=== PATIENT | female | born 1955 | race Caucasian/White ===

== ENCOUNTER → 2017-03-17 09:57 | Outpatient (CLI) | payer MEDICARE, SELFPAY ==
--- NOTE | 2017-03-17 10:04 | MM_ITS ---
MM Dig screening mamm BI w/CAD CAD Screening ORDERING PHYSICIAN : [facility] PATIENT AGE: 62 years GENDER: Female COMPARISON: Previous mammograms: January 2014, February 2016 20 INDICATION: Routine screening. No hormones. No new complaints. Noncontributory family history. TECHNIQUE: Standard CC and MLO images were obtained. R2 CAD reviewed. FINDINGS: Minimal fibroglandular elements Low-density breast bilaterally with no dominant mass nor suspicious calcifications either breast. No architectural distortion. No significant change since previous studies. Bilateral follow-up in one year adequate IMPRESSION: ...... Stable bilateral mammogram. No significant new findings. Lower density breast BI-RADS Category: 2 Benign Finding(s) RECOMMENDED FOLLOW-UP: 1YR - 1 YEAR FOLLOW-UP (A letter has been sent to the patient regarding results of the study.)
== END ==
PROVIDERS: PCP Emergency Medicine; Visit Provider Nurse Practitioner Obstetrics & Gynecology
DX: Z12.31 Encounter for screening mammogram for malignant neoplasm of breast (principal)
CPT/HCPCS: 77067

== ENCOUNTER → 2017-08-23 11:12 | Outpatient (CLI) | payer MEDICARE, SELFPAY ==
--- NOTE | 2017-08-23 12:32 | XR_ITS ---
XR chest 2V HISTORY: Midepigastric pain ITS.REASON: r/o hiatal hernia ORDERING PHYSICIAN: MYA Stoll PATIENT AGE: 62 years COMPARISON: None FINDINGS: The cardiomediastinal silhouette and pulmonary vascularity are within normal limits. The lungs are clear without infiltrates, suspicious nodules, or pleural effusions. No acute bony abnormalities. IMPRESSION: Negative chest, no acute finding
[2017-08-23 12:36] LABS: Basophils # 0.1 K/mm3 (0-0.2); Basophils % 0.5 % (0.1-2.0); Eosinophils # 0.2 K/mm3 (0.0-0.4); Eosinophils % 1.6 % (0.1-12.0); Hematocrit 44.9 % (37.0-47.0); Hemoglobin 13.9 g/dL (12.2-16.2); Lymphocytes # 2.9 K/mm3 (0.7-4.5); Mean Corpuscular HGB Conc 30.9 g/dL (31.8-35.4); Mean Corpuscular Hemoglobin 27.9 pg (27.0-31.2); Mean Corpuscular Volume 90.2 fl (81-99); Mean Platelet Volume 7.5 fl (7.4-10.4); Monocytes # 0.5 K/mm3 (0.1-1.0); Monocytes % 3.8 % (1.7-9.3); Neutrophils # 8.1 K/mm3 (1.8-7.8); Platelet Count 321 K/mm3 (142-424); Red Blood Count 4.97 M/mm3 (4.20-5.40); Red Cell Distribution Width 12.7 % (11.5-17.5); White Blood Count 11.7 K/mm3 (4.8-10.8)
[2017-08-23 14:19] LABS: Alanine Aminotransferase 24 U/L (12-78); Albumin Level 3.8 gm/dL (3.4-5.0); Alkaline Phosphatase 99 U/L (46-116); Anion Gap 9.9 mEq/L (5-15); Aspartate Amino Transferase 20 U/L (15-37); Bilirubin,Total 0.4 mg/dL (0.2-1.0); Blood Urea Nitrogen 23 mg/dL (7-18); Calcium 10.1 mg/dL (8.5-10.1); Carbon Dioxide 30 mmol/L (21.0-32.0); Chloride 104 mmol/L (98-107); Creatinine,Serum 0.74 mg/dL (0.55-1.02); Estimated Glomerular Filt Rate 79 ml/min (>60); GFR (African American) 96 ML/MIN (>60); Globulin 3.8 gm/dl (1.3-3.2); Glucose 94 mg/dL (74-106); Potassium 4.9 mmoL/L (3.5-5.1); Sodium 139 mmol/L (136-145); Thyroid Stimulating Hormone 2.03 uIU/ml (0.358-3.740); Total Protein,Serum 7.6 gm/dL (6.4-8.2)
[2017-08-27 13:31] LABS: H. pylori Breath Test Positive (Negative)
== END ==
PROVIDERS: PCP Physician Assistant; Visit Provider Physician Assistant
DX: R10.13 Epigastric pain (principal); Z13.6 Encounter for screening for cardiovascular disorders; R53.83 Other fatigue
CPT/HCPCS: 36415; 71046; 80053; 83013; 84443; 85025

== ENCOUNTER → 2017-08-31 09:08 | Outpatient (CLI) | payer MEDICARE, SELFPAY ==
--- NOTE | 2017-08-31 09:10 | US_ITS ---
US abd. aorta screening HISTORY: Pulsatile abdominal mass ITS.REASON: fluttering in abdomen ORDERING PHYSICIAN: MYA Stoll PATIENT AGE: 62 years Comparison: None FINDINGS: No evidence of abdominal aortic aneurysm. The abdominal aorta measures up to 1.7 cm in AP dimension. Iliac arteries have normal caliber less than 1 cm. Incidental note is made of gallstones. The right upper quadrant is incompletely imaged. IMPRESSION: 1. No evidence of abdominal aortic aneurysm. 2. Cholelithiasis
== END ==
PROVIDERS: PCP Physician Assistant; Visit Provider Physician Assistant
DX: Z13.6 Encounter for screening for cardiovascular disorders (principal); R10.13 Epigastric pain
CPT/HCPCS: 76705

== ENCOUNTER → 2018-03-29 09:44 | Outpatient (CLI) | payer MEDICARE, SELFPAY ==
--- NOTE | 2018-03-29 09:45 | MM_ITS ---
MM Dig screening mamm BI w/CAD CAD Screening COMPARISON: Digital mammograms with CAD 03/17/2017 and 03/11/2016 INDICATION: There is no personal or family history of breast cancer TECHNIQUE: Standard CC and MLO images were obtained. R2 CAD reviewed. FINDINGS: The breasts are composed primarily of fat with minimal scattered fibroglandular densities in each breast. There is no suspicious lesion in either breast and there are no suspicious microcalcifications. IMPRESSION: Fatty type breast parenchyma with no suspicious lesion seen BI-RADS Category: 1 Negative RECOMMENDED FOLLOW-UP: 1YR - 1 YEAR FOLLOW-UP (A letter has been sent to the patient regarding results of the study.)
== END ==
PROVIDERS: PCP Physician Assistant; Visit Provider Physician Assistant
DX: Z12.31 Encounter for screening mammogram for malignant neoplasm of breast (principal)
CPT/HCPCS: 77067

== ENCOUNTER → 2019-02-28 13:49 | Outpatient (CLI) | payer MEDICARE, SELFPAY ==
[2019-02-28 15:16] LABS: Basophils # 0.1 K/mm3 (0-0.2); Basophils % 0.6 % (0.1-2.0); Eosinophils # 0.3 K/mm3 (0.0-0.4); Eosinophils % 2.9 % (0.1-12.0); Hematocrit 38.9 % (37.0-47.0); Hemoglobin 12.5 g/dL (12.2-16.2); Lymphocytes # 2.6 K/mm3 (0.7-4.5); Mean Corpuscular HGB Conc 32.2 g/dL (31.8-35.4); Mean Corpuscular Hemoglobin 29.4 pg (27.0-31.2); Mean Corpuscular Volume 91.3 fl (81-99); Mean Platelet Volume 8.5 fl (7.4-10.4); Monocytes # 0.5 K/mm3 (0.1-1.0); Monocytes % 5.4 % (1.7-9.3); Neutrophils # 5.5 K/mm3 (1.8-7.8); Neutrophils % 62.2 % (37.0-80.0); Platelet Count 289 K/mm3 (142-424); Red Blood Count 4.26 M/mm3 (4.20-5.40); Red Cell Distribution Width 12.9 % (11.5-17.5); White Blood Count 8.8 K/mm3 (4.8-10.8)
[2019-02-28 18:19] LABS: Alanine Aminotransferase 17 U/L (12-78); Albumin Level 3.4 gm/dL (3.4-5.0); Alkaline Phosphatase 89 U/L (46-116); Anion Gap 14.9 mEq/L (5-15); Aspartate Amino Transferase 13 U/L (15-37); Bilirubin,Total 0.4 mg/dL (0.2-1.0); Carbon Dioxide 26 mmol/L (21.0-32.0); Chloride 104 mmol/L (98-107); Chol/HDL Ratio 2.4 (1-3.5); Cholesterol 164 mg/dL (140-200); Creatinine,Serum 0.68 mg/dL (0.55-1.02); Estimated Glomerular Filt Rate 87 ml/min (>60); GFR (African American) 105 ML/MIN (>60); Globulin 3.4 gm/dl (1.3-3.2); Glucose 85 mg/dL (74-106); HDL Cholesterol 67 mg/dL (29-89); LDL Cholesterol 77 mg/dL (0-130); Potassium 4.9 mmoL/L (3.5-5.1); Sodium 140 mmol/L (136-145); T4 (Thyroxine) 7.6 ug/dl (4.7-13.3); Thyroid Stimulating Hormone 2.79 uIU/ml (0.358-3.740); Total Protein,Serum 6.8 gm/dL (6.4-8.2); Triglycerides 100 mg/dL (30-200); VLDL Cholesterol 20 mg/dL (0-40)
[2019-02-28 18:30] LABS: Blood Urea Nitrogen 20 mg/dL (7-18); Calcium 8.6 mg/dL (8.5-10.1)
[2019-03-02 11:46] LABS: Vitamin D 25 Hydroxy 25.9 ng/mL (30.0-100.0)
== END ==
PROVIDERS: Visit Provider Physician Assistant
DX: A04.8 Other specified bacterial intestinal infections (principal); Z00.00 Encounter for general adult medical examination without abnormal findings; R53.83 Other fatigue; Z13.6 Encounter for screening for cardiovascular disorders; E55.9 Vitamin D deficiency, unspecified
CPT/HCPCS: 80053; 80061; 82652; 84436; 84443; 85025

== ENCOUNTER → 2019-04-07 10:38 | Outpatient (CLI) | payer MEDICARE, SELFPAY ==
--- NOTE | 2019-04-07 10:38 | MM_ITS ---
PROCEDURE: MM DIG SCREENING MAMM BI W/CAD CLINICAL INDICATION: Screening mammogram There is no personal or family history of breast cancer COMPARISON: DMSB DIG MAMM-SCREEN JENNY from 03/11/2016 [facility] MM Dig screening mamm BI w/CAD from 03/17/2017 [facility] MM Dig screening mamm BI w/CAD from 03/29/2018 TECHNIQUE: Standard CC and MLO images were obtained. Po images were performed. FINDINGS: The breasts are composed primarily of fat with minimal scattered fibroglandular densities throughout each breast. There is no new or suspicious lesion in either breast and no suspicious microcalcifications. Po images were reviewed showing no suspicious abnormality. IMPRESSION: Fatty type breast parenchyma with no suspicious lesions seen BI-RAD Category: 1 Negative FOLLOW-UP: 1YR 1 Year Follow-up (A letter has been sent to the patient regarding results of the study.) Dictated by: Dr. Fredy Gregory MD 04/11/2019 12:[address] Fredy Gregory MD in [place] 04/11/2019 12:06
== END ==
PROVIDERS: PCP Physician Assistant; Visit Provider Physician Assistant
DX: Z12.31 Encounter for screening mammogram for malignant neoplasm of breast (principal)
CPT/HCPCS: 77063; 77067

== ENCOUNTER → 2020-04-09 08:44 | Outpatient (CLI) | payer MEDICARE, SELFPAY ==
--- NOTE | 2020-04-09 08:44 | MM_ITS ---
PROCEDURE: MM DIG SCREENING MAMM BI W/CAD Referring Doctor: Nancy Carpenter Patient Age:65Y CLINICAL INDICATION: screening 65-year-old. No hormones, no new complaints Family history maternal grandmother with breast cancer COMPARISON: MG DMSB DIG MAMM-SCREEN JENNY from 01/29/2014 MG DMDXUAVL DIG MAMM-DX UNI ADD VIEWS-LT from 03/01/2014 MG DMDXUAVL DIG MAMM-DX UNI ADD VIEWS-LT from 09/04/2014 MG DMDBAV DIG MAMM-DX JENNY W ADD VIEWS from 02/25/2015 MG DMDXUAVL DIG MAMM-DX UNI ADD VIEWS-LT from 08/28/2015 MG DMSB DIG MAMM-SCREEN JENNY from 03/11/2016 MG [facility] MM Dig screening mamm BI w/CAD from 03/17/2017 MG [facility] MM Dig screening mamm BI w/CAD from 03/29/2018 MG MM DIG SCREENING MAMM BI W/CAD from 04/07/2019 TECHNIQUE: Standard CC and MLO images were obtained. R2 CAD reviewed. Bilateral digital breast tomosynthesis included. Additional nipple profile CC view right and left breast FINDINGS: Low-density breast with generalized fatty replacement. Similar architecture to previous studies with no new dominant or suspicious mass. No suspicious calcifications. CAD computer review highlights no areas of significant concern either . Bilateral follow-up 1 year recommended and encouraged IMPRESSION: No new areas of significant concern. Stable bilateral mammogram. BI-RAD Category: 1 Negative FOLLOW-UP: Ongoing annual 1YR 1 Year Follow-up recommended and encouraged (A letter has been sent to the patient regarding results of the study.) Dictated by: Geovany Villafuerte MD 04/10/2020 10:50 Geovany Villafuerte MD in [place] 04/10/2020 10:50
== END ==
PROVIDERS: PCP Emergency Medicine; Visit Provider Physician Assistant
DX: Z12.31 Encounter for screening mammogram for malignant neoplasm of breast (principal)
CPT/HCPCS: 77063; 77067

== ENCOUNTER → 2020-06-06 12:03 | Outpatient (CLI) | payer MEDICARE, SELFPAY ==
--- NOTE | 2020-06-06 12:07 | XR_ITS ---
PROCEDURE: XR RIBS RT MIN 3V W CXR1V CLINICAL INDICATION: fall with right rib pain COMPARISON: DX CXR2V XR chest 2V from 08/23/2017 FINDINGS: Frontal view of the chest shows no acute finding. On 1 of the oblique views there is suggestion of a nondisplaced fracture involving the right 7th rib anteriorly. No other significant anomalies are evident. IMPRESSION: Possible nondisplaced right 7th rib fracture Dictated by: Sly Knight MD 06/06/2020 14:27 Sly Knight MD in [place] 06/06/2020 14:27
== END ==
PROVIDERS: PCP Physician Assistant; Visit Provider Physician Assistant
DX: R07.81 Pleurodynia (principal)
CPT/HCPCS: 71101

== ENCOUNTER → 2020-12-02 16:41 | Outpatient (CLI) | payer MEDICARE, SELFPAY | PROVIDERS: PCP Physician Assistant; Visit Provider Nurse Practitioner | DX: Z20.822 Contact with and (suspected) exposure to COVID-19 (principal); U07.1 COVID-19 | CPT/HCPCS: C9803; U0003; U0005 ==

== ENCOUNTER → 2021-03-19 08:02 | Outpatient (CLI) | payer MEDICARE, SELFPAY ==
--- NOTE | 2021-03-19 08:10 | XR_ITS ---
FINAL REPORT CLINICAL HISTORY: Chronic Rt knee pain, lateral and posterior worse within the past 2-3 months Hx of fall 7 months ago FINDINGS: RIGHT KNEE Four views of the right knee were obtained. There is no acute fracture or dislocation. There is advanced medial compartment joint space narrowing. There is subchondral sclerosis. There is degenerative cyst formation at the medial femoral condyle and medial tibial plateau. There are advanced hypertrophic changes at the patellofemoral joint. Soft tissues are unremarkable. IMPRESSION: Advanced hypertrophic changes at the medial compartment and patellofemoral joint spaces. Reviewed, Interpreted and Dictated by Noe Nuñez MD Transcribed by Nadeen Alba Authenticated by Noe Nuñez MD on 03/19/2021 10:08:55 AM [facility]
[2021-03-19 09:37] LABS: Basophils # 0.1 K/mm3 (0-0.2); Eosinophils # 0.2 K/mm3 (0.0-0.4); Eosinophils % 2.3 % (0.1-12.0); Hematocrit 43.9 % (37.0-47.0); Hemoglobin 13.8 g/dL (12.2-16.2); Lymphocytes % 30.4 % (10-50); Mean Corpuscular HGB Conc 31.5 g/dL (31.8-35.4); Mean Corpuscular Hemoglobin 29.3 pg (27.0-31.2); Mean Corpuscular Volume 93.1 fl (81-99); Mean Platelet Volume 7.9 fl (7.4-10.4); Monocytes # 0.5 K/mm3 (0.1-1.0); Monocytes % 5.3 % (1.7-9.3); Neutrophils # 6.1 K/mm3 (1.8-7.8); Neutrophils % 61.1 % (37.0-80.0); Platelet Count 342 K/mm3 (142-424); Red Blood Count 4.72 M/mm3 (4.20-5.40)
[2021-03-19 10:13] LABS: Chloride 104 mmol/L (98-107)
[2021-03-19 10:14] LABS: Sodium 140 mmol/L (136-145)
[2021-03-19 10:17] LABS: Alanine Aminotransferase 20 U/L (12-78); Albumin Level 4.1 g/dl (3.5-5.0); Albumin/Globulin Ratio 1.4 (1.1-1.8); Alkaline Phosphatase 90 U/L (38-126); Aspartate Amino Transferase 27 U/L (14-36); Bilirubin,Total 0.5 mg/dl (0.2-1.3); Blood Urea Nitrogen 20 mg/dl (7-17); Calcium 9.2 mg/dl (8.4-10.2); Carbon Dioxide 28 mmol/L (22.0-30.0); Chol/HDL Ratio 2.7 (1-3.5); Cholesterol 179 mg/dl (140-200); Estimated Glomerular Filt Rate 83 ml/min (>60); GFR (African American) 101 ML/MIN (>60); Glucose 94 mg/dl (74-100); HDL Cholesterol 67 mg/dl (40-60); Total Protein,Serum 7.1 g/dl (6.3-8.2); Triglycerides 94 mg/dl (30-150); VLDL Cholesterol 19 mg/dL (0-40)
[2021-03-19 10:30] LABS: Direct LDL Cholesterol 87.14 mg/dL (100-129)
[2021-03-19 10:35] LABS: Free T4 (Free Thyroxine) 1.23 ng/dl (0.78-2.19)
[2021-03-19 10:50] LABS: Thyroid Stimulating Hormone 2.82 uIU/mL (0.465-4.68)
[2021-03-19 12:44] LABS: 25-OH Vitamin D, Total 66.7 ng/mL (30-100)
== END ==
PROVIDERS: PCP Nurse Practitioner Family; Visit Provider Nurse Practitioner Family
DX: M25.561 Pain in right knee (principal); R53.83 Other fatigue; E55.9 Vitamin D deficiency, unspecified; Z79.899 Other long term (current) drug therapy
CPT/HCPCS: 36415; 73562; 80053; 80061; 82306; 84439; 84443; 85025

== ENCOUNTER → 2021-04-11 15:46 | Outpatient (CLI) | payer MEDICARE, SELFPAY ==
--- NOTE | 2021-04-11 15:46 | MM_ITS ---
PROCEDURE INFORMATION: Exam: MG Bilateral Screening 3D Mammography Exam date and time: 04/11/2021 3:46 PM Age: 66 years old Clinical indication: Screening mammogram TECHNIQUE: Imaging protocol: Bilateral Screening tomosynthesis and 2D mammography including computer-aided detection (CAD) when performed. COMPARISON: 1. MG MM DIG SCREENING MAMM BI W/CAD 04/09/2020 8:57 AM 2. MG MM DIG SCREENING MAMM BI W/CAD 04/07/2019 10:42 AM 3. MG [facility] MM Dig screening mamm BI w/CAD 03/29/2018 9:59 AM 4. MG [facility] MM Dig screening mamm BI w/CAD 03/17/2017 10:19 AM FINDINGS: MAMMOGRAPHY: Breast composition: There are scattered areas of fibroglandular density. Mass: None. Architectural distortion: No new or suspicious architectural distortion. Calcifications: No new or suspicious calcifications are present Asymmetric density: No new or suspicious asymmetric density is present Skin thickening: None. Axillary adenopathy: None. IMPRESSION: No mammographic evidence of malignancy. Recommend annual screening mammography unless otherwise clinically indicated. ASSESSMENT: BI-RADS category 1: Negative
== END ==
PROVIDERS: PCP Nurse Practitioner Family; Visit Provider Nurse Practitioner Family
DX: Z12.31 Encounter for screening mammogram for malignant neoplasm of breast (principal)
CPT/HCPCS: 77063; 77067

== ENCOUNTER → 2021-10-28 10:10 | Outpatient (CLI) | payer MEDICARE, SELFPAY ==
--- NOTE | 2021-10-28 10:11 | US_ITS ---
FINAL REPORT CLINICAL HISTORY: post menopausal bleeding FINDINGS: Transvaginal sonographic images of the pelvis were obtained. The uterus measures 6.5 x 3.9 x 3.5 cm. The endometrium measures 7 mm which is abnormal in this postmenopausal patient but nonspecific. No uterine mass is identified. The right ovary measures 1.6 cm in length and left ovary measures 1.8 cm in length. Normal blood flow seen to the ovaries. Small follicles are present. There is no evidence of free fluid. IMPRESSION: 7 mm endometrium is abnormal but nonspecific. Otherwise unremarkable exam. Reviewed, Interpreted and Dictated by George Gresham III, MD Transcribed by Nadeen Alba Authenticated and [facility]
== END ==
PROVIDERS: PCP Nurse Practitioner Family; Visit Provider Obstetrics & Gynecology
DX: N95.0 Postmenopausal bleeding (principal)
CPT/HCPCS: 76830

== ENCOUNTER → 2021-11-29 08:13 | Outpatient (CLI) | payer MEDICARE, SELFPAY ==
[2021-11-29 08:49] LABS: Basophils # 0.1 K/mm3 (0-0.2); Basophils % 0.7 % (0.1-2.0); Eosinophils # 0.2 K/mm3 (0.0-0.4); Eosinophils % 2.1 % (0.1-12.0); Hematocrit 40.2 % (37.0-47.0); Hemoglobin 13.2 g/dL (12.2-16.2); Lymphocytes # 2.3 K/mm3 (0.7-4.5); Lymphocytes % 23.3 % (10-50); Mean Corpuscular HGB Conc 32.7 g/dL (31.8-35.4); Mean Corpuscular Hemoglobin 29.4 pg (27.0-31.2); Mean Corpuscular Volume 89.9 fl (81-99); Mean Platelet Volume 7.7 fl (7.4-10.4); Monocytes # 0.6 K/mm3 (0.1-1.0); Monocytes % 5.7 % (1.7-9.3); Neutrophils # 6.8 K/mm3 (1.8-7.8); Neutrophils % 68.4 % (37.0-80.0); Platelet Count 308 K/mm3 (142-424); Red Blood Count 4.47 M/mm3 (4.20-5.40); Red Cell Distribution Width 13.2 % (11.5-17.5)
[2021-11-29 08:53] LABS: Chloride 102 mmol/L (98-107); Potassium 4.4 mmoL/L (3.5-5.1); Sodium 139 mmol/L (136-145)
[2021-11-29 08:56] LABS: Alanine Aminotransferase 22 U/L (12-78); Albumin/Globulin Ratio 1.3 (1.1-1.8); Alkaline Phosphatase 89 U/L (38-126); Anion Gap 12.4 mEq/L (5-15); Aspartate Amino Transferase 32 U/L (14-36); Bilirubin,Total 0.5 mg/dl (0.2-1.3); Blood Urea Nitrogen 22 mg/dl (7-17); Carbon Dioxide 29 mmol/L (22.0-30.0); Estimated Glomerular Filt Rate 72 ml/min (>60); GFR (African American) 87 ML/MIN (>60); Globulin 3.1 g/dL (1.3-3.2); Total Protein,Serum 7.1 g/dl (6.3-8.2)
[2021-11-29 08:57] LABS: Calcium 9.1 mg/dl (8.4-10.2); Glucose 82 mg/dl (74-100)
== END ==
PROVIDERS: PCP Nurse Practitioner Family; Visit Provider Obstetrics & Gynecology
DX: N95.0 Postmenopausal bleeding (principal); Z01.812 Encounter for preprocedural laboratory examination; Z20.822 Contact with and (suspected) exposure to COVID-19
CPT/HCPCS: 36415; 80053; 85025; C9803; U0003; U0005

== ENCOUNTER 2021-12-02 06:02 | Day surgery (SDC) | payer MEDICARE, SELFPAY ==
[2021-12-01 14:37] VITALS: BMI 52.7
[2021-12-02] VITALS (10 sets, daily range): BP systolic 120–151; BP diastolic 69–87; PULSE 55–73; RESP 12–18; TEMP 36.2–38; O2SAT 92–100
--- NOTE | 2021-12-02 07:23 | EXP.ANES.CKL ---
[facility] Medical History Abdominal pain Fatigue Gallstone H. pylori infection (~08/28/17) Heart murmur History of anemia History of COVID-19 Hypertension Pneumonia Screening for abdominal aortic aneurysm Surgical History H/O tubal ligation Family History Mother Family history of stroke Family history of hypertension Father Family history of hypertension Social History Smoking Status: Never smoker alcohol intake: former substance use type: denies use current occupational status: retired Travel in the last 8 weeks: None [facility] Anesthesia Checklist Patient Identification Patient Identification: Verbal (Name & ) Structural Data Admitted From: Home Planned Operative Procedure/s: d/c hysteroscopy Consent for Planned Operative Procedure(s) Verified: Yes Verified Documents: Surgical Consent NPO Status Verified Time NPO: 00:00 Additional verifications Anesthesia Reactions: No Hx Blood Transfusions: No Blood Transfusion Reaction: No Airway Assessment C-Spine Mobility Assessed: Yes TMJ Mobility Assessed: Yes Dentition: Good Dentition Neurological Assessment Level of Consciousness: Awake, Alert and Appropriate Anesthesia Plan Anesthesia Risk discussed: Yes Anesthesia Plan: Verified ASA Class: II Anesthesia Type: General
--- NOTE | 2021-12-02 08:45 | EXP.ANES.I ---
[facility] Anesthesia Record Part I Anesthesia Record I Intake, IV Amount: 1,200 Estimated blood loss (mL): 0 Urine output (mL): 0 Blood Pressure: 134/87 SaO2: 95 Pulse Rate: 65 Respiratory Rate: 12 Temperature: 97.8 F Patient is:: Awake and Stable Stable to PACU at:: 08:40
--- NOTE | 2021-12-02 09:06 | PC.NURSE ---
[id number]-detailed report called to KiannaRN
--- NOTE | 2021-12-02 18:23 | P.OP_ITS ---
Date of procedure: 12/02/21 Pre-op Diagnosis:: 1. Postmenopausal bleeding 2. Thickened endometrium 3. Obesity Post-op Diagnosis:: Same Procedure performed:: D & C Hysteroscopy with Myosure excision of endometrial lesions Surgeon:: Yany Bruno MD PRESSURE TESTING TECHNICIAN:: Jhoan Mays Anesthesia: GETA Estimated blood loss (mL): 5 Operative findings:: numerous cavity lesions within uterus Operative note:: The patient was taken to the OR and general anesthesia administered without difficulty. She was prepped/draped in lithotomy position. The cervix was dilated and hysteroscopic evaluation performed. Numerous lesions were visual ized within the endometrial cavity, possibly consistent with endometrial polyps. The Myosure was used to excise these lesions and to sample endometrial tissue throughout the cavity. Once this was completed, all instruments were removed from her uterus and vagina. She was taken out of lithotomy position, awakened from anesthesia and taken to the PACU in stable condition. All sponge, needle & instrument counts correct. EBL 5cc. Condition: stable Disposition: PACU Complications:: none
[2021-12-04 09:30] VITALS: BP 134/69; PULSE 63; TEMP 36.2
--- NOTE | 2021-12-04 09:30 | P.PNANES_ITS ---
[facility] Anesthesia Record Part II Anesthesia Record Part II Discharge Time: 09:10 Destination: Surgical Day Care (OP Surgery) PACU nurse assessment reviewed?: Yes Patient Condition:: Good Anesthesia Complications:: None Swallowing reflex intact?: Yes Cyanosis?: No Blood Pressure: 134/69 Pulse Rate: 63 Temperature: 97.2 F Mental Status: Alert & Oriented Pain level:: 0 Nausea and/or vomitting:: None Intake, IV Amount: 0
== END 2021-12-02 09:41 | disposition home or self-care (01) ==
PROVIDERS: PCP Nurse Practitioner Family; Visit Provider Obstetrics & Gynecology
DX: N95.0 Postmenopausal bleeding (principal); N85.02 Endometrial intraepithelial neoplasia [EIN]; Z98.51 Tubal ligation status; Z79.899 Other long term (current) drug therapy; E66.01 Morbid (severe) obesity due to excess calories; Z68.43 Body mass index [BMI] 50.0-59.9, adult
CPT/HCPCS: 58558; 88305; 96374; J2405

== ENCOUNTER → 2021-12-22 07:13 | Outpatient (CLI) | payer MEDICARE, SELFPAY | PROVIDERS: PCP Emergency Medicine; Visit Provider Nurse Practitioner Family | DX: Z01.812 Encounter for preprocedural laboratory examination (principal); Z20.822 Contact with and (suspected) exposure to COVID-19; M25.561 Pain in right knee | CPT/HCPCS: C9803; U0003; U0005 ==

== ENCOUNTER → 2022-04-22 10:32 | Outpatient (CLI) | payer MEDICARE, SELFPAY ==
--- NOTE | 2022-04-22 10:32 | MM_ITS ---
PROCEDURE INFORMATION: Exam: MG Bilateral Screening 3D Mammography Exam date and time: 04/22/2022 10:25 AM Age: 67 years old Clinical indication: Screening examination. Her maternal grandmother had breast cancer. TECHNIQUE: Imaging protocol: Bilateral Screening tomosynthesis and 2D mammography including computer-aided detection (CAD) when performed. COMPARISON: 1. MG MM DIG SCREENING MAMM BI W/CAD 04/11/2021 3:41 PM 2. MG MM DIG SCREENING MAMM BI W/CAD 04/09/2020 8:57 AM 3. MG MM DIG SCREENING MAMM BI W/CAD 04/07/2019 10:42 AM 4. MG [facility] MM Dig screening mamm BI w/CAD 03/29/2018 9:59 AM FINDINGS: MAMMOGRAPHY: Breast composition: There are scattered areas of fibroglandular density. Mass: None. Architectural distortion: None. Calcifications: No suspicious calcifications. Asymmetric density: None. Skin thickening: None. Axillary adenopathy: None. IMPRESSION: No mammographic evidence of malignancy. Annual screening is recommended unless otherwise clinically indicated. ASSESSMENT: BI-RADS Category 1: Negative
== END ==
PROVIDERS: PCP Emergency Medicine; Visit Provider Emergency Medicine
DX: Z12.31 Encounter for screening mammogram for malignant neoplasm of breast (principal)
CPT/HCPCS: 77063; 77067

== ENCOUNTER 2023-01-15 08:27 | Emergency (ER) | payer MEDICARE, SELFPAY ==
[2023-01-15 08:45] VITALS: BP 189/91; PULSE 66; RESP 18; TEMP 36.9; O2SAT 97; BMI 52.7
--- NOTE | 2023-01-15 08:50 | EXP.UTC ---
Discharge Plan Disposition Patient Disposition: Home, Self-Care Condition: Good Prescriptions Prescriptions: New azithromycin [Zithromax] 250 mg tablet 250 mg PO UD DOSE PK Qty: 6 0RF Rx Instructions: Take two (2) tablets today, then one (1) tablet days #2 thru #5 benzonatate [benzonatate] 100 mg capsule 100 mg PO TIDP PRN (Reason: Cough) Qty: 30 0RF methylprednisolone 4 mg Tablets,Dose Pack 4 mg PO DIRECTED Qty: 21 0RF guaifenesin [Mucinex] 600 mg tablet extended release 12hr 600 - 1,200 mg PO BIDP PRN (Reason: Congestion) Qty: 30 0RF No Action diclofenac sodium 75 mg tablet,delayed release (DR/EC) See Rx Instructions .ROUTE .COMPLEX Qty: 180 0RF Dose Instruction: TAKE 1 TABLET BY MOUTH TWICE DAILY Rx Instructions: TAKE 1 TABLET BY MOUTH TWICE DAILY hydrochlorothiazide 25 mg tablet See Rx Instructions .ROUTE .COMPLEX Qty: 30 0RF Dose Instruction: TAKE 1 TABLET BY MOUTH ONCE DAILY PATIENT NEEDS AN APPOINTMENT BEFORE ANYMORE REFILLS Rx Instructions: TAKE 1 TABLET BY MOUTH ONCE DAILY PATIENT NEEDS AN APPOINTMENT BEFORE ANYMORE REFILLS Referrals Follow up/Referrals: Valeriano Lim MD [Primary Care Provider] - See instructions Activity Restrictions/Add. Instructions Additional Instructions/Restrictions: Drink plenty of fluids. Take tylenol or ibuprofen for pain or fever. Take the medications as directed. Follow up with your regular doctor. GO TO THE ER FOR ANY WORSENING SYMPTOMS Clinical Impressions Clinical Impression: Sinusitis, Exposure to 2019 novel coronavirus Instructions Patient Instructions: DI for Sinusitis, Coronavirus Disease 2019, Preventing the Spread of Coronavirus Discharge Instructions Discharge ED Provider: Jj Elena [facility] General Stated complaint: congestion, YOUSIF, body aches Time Seen by Provider: 01/15/23 08:50 History of Present Illness Provider Complaint: She states that for the past 3 days she has had worsening sinus congestion, chills, and malaise. She has been exposed to covid-19. She denies significant chest congestion. Related Data Previous Rx's Medication Instructions Recorded diclofenac sodium 75 mg See Rx Instructions .Route 12/07/22 tablet,delayed release .COMPLEX #180 tabs hydrochlorothiazide 25 mg tablet See Rx Instructions .Route 01/11/23 .COMPLEX #30 tabs azithromycin 250 mg tablet 250 mg PO UD DOSE PK #6 tabs 01/15/23 (Zithromax) benzonatate 100 mg capsule 100 mg PO TIDP PRN Cough #30 caps 01/15/23 guaifenesin 600 mg tablet, 600 - 1,200 mg PO BIDP PRN 01/15/23 extended release 12 hr (Mucinex) Congestion #30 tabs methylprednisolone 4 mg tablets in 4 mg PO DIRECTED #21 tabs 01/15/23 a dose pack Allergies Allergy/AdvReac Type Severity Reaction Status Date / Time Sulfa (Sulfonamide Allergy Severe BREATH Verified 01/15/23 09:10 Antibiotics) PROBLEMS [SULFA (SULFONAMIDE ANTIBIOTICS)] codeine [CODEINE] Allergy Intermediate HEART Verified 01/15/23 09:10 RACING Penicillins [PENICILLINS] Allergy Mild I-RASH Verified 01/15/23 09:10 [facility] Disclaimer: The information contained in this section may have been updated after the patient was seen, as this information can be updated by other users. Medical History Abdominal pain Adenocarcinoma of endometrium Fatigue Gallstone H. pylori infection (~08/28/17) Heart murmur History of anemia History of COVID-19 Hypertension Pneumonia Screening for abdominal aortic aneurysm Surgical History H/O tubal ligation History of dilatation and curettage D&C Hysteroscopy Family History Mother Family history of stroke Family history of hypertension Father Family history of hypertension Social History (Reviewed 01/15/23 @ 09:08 by Martha Liu
[2023-01-15 09:41] VITALS: BP 189/91; PULSE 66; RESP 18; TEMP 36.9; O2SAT 97
== END 2023-01-15 09:41 | disposition home or self-care (01) ==
PROVIDERS: Emergency Provider Nurse Practitioner Family; PCP Emergency Medicine
DX: U07.1 COVID-19 (principal); J01.90 Acute sinusitis, unspecified; I10 Essential (primary) hypertension
CPT/HCPCS: 87635; 99204; 99212; G0463

== ENCOUNTER 2023-04-23 09:37 | Outpatient (CLI) | payer MEDICARE, SELFPAY ==
--- NOTE | 2023-04-23 09:37 | MM_ITS ---
PROCEDURE INFORMATION: Exam: MG Bilateral Screening 3D Mammography Exam date and time: 04/23/2023 9:45 AM Age: 68 years old Clinical indication: Screening examination TECHNIQUE: Imaging protocol: Bilateral Screening tomosynthesis and 2D mammography including computer-aided detection (CAD) when performed. COMPARISON: 1. MG MM DIG SCREENING MAMM BI W/CAD 04/22/2022 10:25 AM 2. MG MM DIG SCREENING MAMM BI W/CAD 04/11/2021 3:41 PM FINDINGS: MAMMOGRAPHY: Breast composition: There are scattered areas of fibroglandular density. Mass: None. Architectural distortion: None. Calcifications: No suspicious calcifications. Asymmetric density: None. Skin thickening: None. Axillary adenopathy: None. IMPRESSION: No mammographic evidence of malignancy. Annual screening is recommended unless otherwise clinically indicated. ASSESSMENT: BI-RADS Category 1: Negative
== END 2023-04-23 23:59 ==
LOC: RAD 09:37
PROVIDERS: PCP Physician Assistant; Visit Provider Physician Assistant
DX: Z12.31 Encounter for screening mammogram for malignant neoplasm of breast (principal)
CPT/HCPCS: 77063; 77067

== ENCOUNTER 2023-05-26 20:04 | Outpatient (CLI) | payer MEDICARE, SELFPAY ==
[2023-05-26 19:21] LABS: Alanine Aminotransferase 22 U/L (12-78); Albumin Level 3.8 g/dl (3.5-5.0); Albumin/Globulin Ratio 1.4 (1.1-1.8); Alkaline Phosphatase 104 U/L (38-126); Amylase 35 U/L (30-110); Anion Gap 12.1 mEq/L (5-15); Aspartate Amino Transferase 28 U/L (14-36); Bilirubin,Total 0.7 mg/dl (0.2-1.3); Blood Urea Nitrogen 21 mg/dl (7-17); Carbon Dioxide 25 mmol/L (22.0-30.0); Chloride 105 mmol/L (98-107); Chol/HDL Ratio 3.1 (1-3.5); Cholesterol 169 mg/dl (140-200); Estimated Glomerular Filt Rate 71 ml/min (>60); GFR (African American) 86 ML/MIN (>60); Globulin 2.7 g/dL (1.3-3.2); Glucose 92 mg/dl (74-100); HDL Cholesterol 55 mg/dl (40-60); Lipase 32 U/L (23-300); Potassium 4.1 mmoL/L (3.5-5.1); Sodium 138 mmol/L (136-145); Total Protein,Serum 6.5 g/dl (6.3-8.2); Triglycerides 69 mg/dl (30-150); VLDL Cholesterol 14 mg/dL (0-40)
[2023-05-26 19:31] LABS: Hemoglobin A1C 5.4 % (4.0-6.0)
[2023-05-26 19:32] LABS: Direct LDL Cholesterol 81.06 mg/dL (100-129)
[2023-05-26 19:35] LABS: 25-OH Vitamin D, Total 74.8 ng/mL (30-100)
[2023-05-26 19:42] LABS: Basophils # 0.1 K/mm3 (0-0.2); Basophils % 0.5 % (0.1-2.0); Eosinophils # 0.2 K/mm3 (0.0-0.4); Eosinophils % 1.1 % (0.1-12.0); Hematocrit 40.5 % (37.0-47.0); Hemoglobin 12.8 g/dL (12.2-16.2); Lymphocytes # 3.1 K/mm3 (0.7-4.5); Lymphocytes % 16.9 % (10-50); Mean Corpuscular HGB Conc 31.7 g/dL (31.8-35.4); Mean Corpuscular Hemoglobin 30.4 pg (27.0-31.2); Mean Platelet Volume 8.4 fl (7.4-10.4); Monocytes # 1.1 K/mm3 (0.1-1.0); Monocytes % 6.2 % (1.7-9.3); Neutrophils # 13.6 K/mm3 (1.8-7.8); Neutrophils % 75.3 % (37.0-80.0); Platelet Count 325 K/mm3 (142-424); Red Blood Count 4.22 M/mm3 (4.20-5.40); White Blood Count 18.1 K/mm3 (4.8-10.8)
[2023-05-26 19:49] LABS: MANUAL DIFFERENTIAL MANUAL DIFFERENTIAL (MANUAL DIFF)
[2023-05-26 19:50] LABS: Thyroid Stimulating Hormone 0.88 uIU/mL (0.465-4.68)
[2023-05-26 20:09] LABS: Vitamin B12 365 pg/mL (239-931)
[2023-05-26 20:16] LABS: Lymphocytes % 19 % (10-50); Monocytes % 5 % (2-9); Neutrophils % 76 % (42-76); RBC Morphology Normal; Total Cells Counted 100
[2023-05-26 20:17] LABS: Platelet Estimate Normal
== END 2023-05-26 23:59 ==
LOC: LAB.DROPOF 20:04
PROVIDERS: PCP Family Medicine; Visit Provider Family Medicine
DX: E55.9 Vitamin D deficiency, unspecified (principal); R10.13 Epigastric pain; R53.83 Other fatigue; R73.03 Prediabetes; I10 Essential (primary) hypertension
CPT/HCPCS: 80053; 80061; 82150; 82306; 82607; 83036; 83690; 84443; 85007; 85025

== ENCOUNTER 2023-06-02 08:41 | Outpatient (CLI) | payer MEDICARE, SELFPAY ==
--- NOTE | 2023-06-02 08:41 | US_ITS ---
FINAL REPORT CLINICAL HISTORY: rightside pain COMPARISON: None FINDINGS: Sonographic images of the right upper quadrant were obtained. The pancreas is partially obscured. There is fatty infiltration of the liver. There is a 3.5 cm gallstone in the gallbladder. The gallbladder wall is thickened measuring up to 5 mm. There is a small amount of pericholecystic fluid. Cholecystitis not excluded. There is no evidence of biliary ductal dilatation.The common duct measures 5 mm. There is mild right hydronephrosis. IMPRESSION: 3.5 cm gallstone with gallbladder wall thickening and a small amount of pericholecystic fluid. Cholecystitis not excluded. Fatty liver. Mild right hydronephrosis. Reviewed, Interpreted and Dictated by George Gresham III, MD Transcribed by Nadine Melton Authenticated and [facility]
== END 2023-06-02 23:59 ==
LOC: RAD 08:41
PROVIDERS: PCP Family Medicine; Visit Provider Family Medicine
DX: R10.13 Epigastric pain (principal); R10.9 Unspecified abdominal pain
CPT/HCPCS: 76705

== ENCOUNTER 2023-12-10 07:22 | Day surgery (SDC) | payer MEDICARE, SELFPAY ==
[2023-12-08 11:01] VITALS: BMI 50.8
--- NOTE | 2023-12-08 11:06 | SUR.PREOP ---
BMI of 50 reported to Riley Bravo CRNA. ok to proceed with procedure
[2023-12-10 07:37] VITALS: BP 135/77; PULSE 90; RESP 18; TEMP 36.6; O2SAT 97; BMI 50.8
[2023-12-10] MEDS: LACTATED RINGERS 1000ML 1,000 ML 100 ML IV (07:44)
--- NOTE | 2023-12-10 07:48 | P.PNANES_ITS ---
[facility] Disclaimer: The information contained in this section may have been updated after the patient was seen, as this information can be updated by other users. Medical History Adenocarcinoma of endometrium Pneumonia History of COVID-19 Gallstone Heart murmur Hypertension History of anemia H. pylori infection (~08/28/17) Fatigue Screening for abdominal aortic aneurysm Abdominal pain Surgical History History of hysterectomy History of dilatation and curettage H/O tubal ligation Family History Mother Family history of stroke Family history of hypertension Father Family history of hypertension Social History Smoking Status: Never smoker alcohol intake: former substance use type: denies use current occupational status: retired Travel in the last 8 weeks: None [facility] Anesthesia Checklist Patient Identification Patient Identification: Arm Band, Family and Verbal (Name & ) Structural Data Admitted From: Home Planned Operative Procedure/s: Colonoscopy Consent for Planned Operative Procedure(s) Verified: Yes Verified Documents: Surgical Consent and History and Physical NPO Status Verified Time NPO: 20:30 Chart Verification Results Verified: CBC, BMP and Chest Xray Additional verifications Patient : No Anesthesia Reactions: No Hx Blood Transfusions: No Blood Transfusion Reaction: No Cardiovascular Assessment Heart Sounds: S1 & S2 Pulse Rhythm: Irregular Peripheral Edema: No Airway Assessment Mallampati Score:: Class II C-Spine Mobility Assessed: Yes (FROM demonstrated) TMJ Mobility Assessed: Yes Dentition: Good Dentition (Nothing loose per pt.) Neurological Assessment Level of Consciousness: Awake, Alert, Appropriate and Follows Commands Hx Seizures: No Numbness or tingling in extremities: No Anesthesia Plan Anesthesia Risk discussed: Yes Anesthesia Plan: Verified ASA Class: III Anesthesia Type: MAC
[2023-12-10 08:27] VITALS: O2SAT 96
[2023-12-10 08:52] VITALS: BP 112/70; PULSE 81; RESP 16; TEMP 36.3; O2SAT 96
--- NOTE | 2023-12-10 08:53 | P.PCN_ITS ---
Procedure: Date: 12/10/23 Patient Date of :: 1955 Procedure Performed:: Total colonoscopy to terminal ileum . Indications:: Patient is a 68-year-old female. Had seen her before for gallbladder. She has not required surgery and has been asymptomatic. She has a history of uterine carcinoma. She has never had previous colonoscopy but has undergone regular Cologuard evaluation. Most recently this was positive. She was sent for colonoscopy. . Performing Provider:: George Goodwin MD Referring Provider:: Virgie Swanson . Sedation:: MAC sedation . Procedure:: Patient history was obtained and appropriate physical examination was performed. Patient's medications and allergies were reviewed. Informed consent was obtained after explaining the benefits, alternatives, and risks of the procedure including, but not limited to, bleeding, perforation, missed lesions, and adverse reaction to anesthesia medications. Patient was transported to endoscopy procedure room. Patient was connected to monitoring devices. Throughout the procedure the patient's blood pressure, pulse, and oxygen saturations were monitored continuously. Patient identification and planned procedure were verified by the staff. Patient was positioned in lateral decubitus position. Digital anorectal exam was performed. Variable stiffness Olympus colonoscope was inserted and advanced under direct visualization to the cecum. Adequacy of the colonic preparation was noted. The colonoscope was advanced a short distance into the terminal ileum. The colonoscope was then slowly withdrawn while carefully examining the color, texture, anatomy, and integrity of the mucosoa circumferentially. Colonoscope was then withdrawn. Impression: Colonic preparation was good. There was some opaque liquid stool throughout the colon consistent with Railroad bowel preparation score 2 in each location. This was able to be cleared. Terminal ileum appeared normal. Very careful prolonged surveillance was carried out as the colonoscope was withdrawn with irrigation and suctioning as needed. She had left-sided diverticulosis. Retroflexion was unable to be performed. . Findings:: Sigmoid diverticulosis . Recommendations:: Likely repeat colonoscopy 5 years. May consider repeat Cologuard sooner. Complications:: None immediately apparent Estimated blood obtained (mL): 0 Colonoscopy Component Colonoscopy Component Was a colonoscopy performed during today's procedure?: Yes Recommended follow up colonoscopy of at least 10 years?: No If no, follow up colonoscopy recommended in ___ years?: 5 Reason for not recommending >/= 10 yr follow-up interval?: See above
[2023-12-10 09:12] VITALS: BP 114/72; PULSE 71; RESP 18; O2SAT 97
[2023-12-10 09:22] VITALS: BP 121/72; PULSE 73; RESP 18; O2SAT 99
== END 2023-12-10 09:22 | disposition home or self-care (01) ==
PROVIDERS: PCP Family Medicine; Visit Provider Surgery
PROC: 0DJD8ZZ Inspection of Lower Intestinal Tract, Via Natural or Artificial Opening Endoscopic (ICD-10-PCS; CPT G0121; principal; 2023-12-10 08:30)
DX: R19.5 Other fecal abnormalities (principal); K57.30 Diverticulosis of large intestine without perforation or abscess without bleeding
CPT/HCPCS: G0121; J2704; J7120

== ENCOUNTER 2024-02-04 07:38 | Outpatient (CLI) | payer MEDICARE, SELFPAY ==
--- NOTE | 2024-02-04 07:50 | CA_ITS ---
APPROVED REPORT EXAM: Comprehensive 2D, Doppler, and color-flow Echocardiogram Network Field Engineer: Eva Finnegan RT(R) Ht: 5 ft 0 in Wt: 275lbs BSA: 2.14 BP: 144/82 mmHg Indications: murmur, edema lower extremities. 2D Dimensions LVEF (Beckwith's) 61.80 % F: 54 - 74 LV Volume 107.50 mL F: 46 - 106 LV Volume Index 50.2 mL/m2 F: 29 - 61 LA Volume 27.40 mL LA Volume Index 12.80 mL/m2 (M/F) 16-34 EF AP4 61.80 % EF AP2 62.2 % EF BP 61.8 % GL Strain -21.0 % M-Mode Dimensions RVDd 2.05 cm (0.9-2.6) LA Diam 3.03 cm (1.9-4.0) LVDd 3.97 cm (3.5-5.7) LVDs 2.89 cm (3.5-5.7) IVSd 1.24 cm (0.6-1.1) PWd 0.96 cm (0.6-1.1) EF (Teich) 53.60% FS 27.20% EDV (Teich) 68.80 mL ESV (Teich) 31.90 mL LV Diastology E Decel Time 150 (160-240 msec) E/A Ratio 0.9 Mitral Valve MV E Max Onel. 88.0 (40-130 cm/s) MV A Velocity 101.0 (40-130 cm/s) E/A Ratio 0.86 MV PHT 44.0 ms Tricuspid Valve TR P. Velocity 272.00 cm/s RAP Estimate 10.00 mmHg RVSP 39.50 mmHg Left Ventricle The left ventricle is normal size. The left ventricular systolic function is normal. The left ventricular ejection fraction is within the normal range. Proximal septal thickening is noted. LVEF is 55%. There is normal LV segmental wall motion. The left ventricular diastolic function is normal. Right Ventricle The right ventricle is normal size. The right ventricular systolic function is normal. Atria The left atrium size is normal. The right atrium size is normal. There is no Doppler evidence of interatrial shunt. Aortic Valve Aortic valve opens well. Mild aortic regurgitation. There is no aortic valvular stenosis. Mitral Valve The mitral valve is normal in structure. No evidence of mitral valve stenosis. Mild mitral regurgitation. Tricuspid Valve The tricuspid valve leaflets are thin and pliable. Mild tricuspid regurgitation. RVSP is 20 to 25 mmHg. Pulmonic Valve The pulmonary valve is normal in structure. Trace pulmonic regurgitation. Great Vessels The aortic root is normal in size. IVC is normal in size and collapses >50% with inspiration. Pericardium There is no pericardial effusion. Other Information Study Quality: Fair Conclusion Normal biventricular systolic function. Mild MR, mild TR, mild AI. Electronically signed by : Kimberly De La Rosa MD 02/14/2024 12:12:14
== END 2024-02-04 23:59 | disposition home or self-care (01) ==
LOC: RT 07:39
PROVIDERS: PCP Family Medicine; Visit Provider Family Medicine
DX: I34.0 Nonrheumatic mitral (valve) insufficiency (principal); I36.1 Nonrheumatic tricuspid (valve) insufficiency; R60.9 Edema, unspecified; R01.1 Cardiac murmur, unspecified
CPT/HCPCS: 93306

== ENCOUNTER 2024-05-02 07:39 | Outpatient (CLI) | payer MEDICARE, SELFPAY ==
--- NOTE | 2024-05-02 07:40 | MM_ITS ---
PROCEDURE INFORMATION: Exam: MG Bilateral Screening 3D Mammography Exam date and time: 05/02/2024 8:04 AM Age: 69 years old Clinical indication: Screening examination TECHNIQUE: Imaging protocol: Bilateral Screening tomosynthesis and 2D mammography including computer-aided detection (CAD) when performed. COMPARISON: 1. MG MM DIG SCREENING MAMM BI W/CAD 04/23/2023 9:45 AM 2. MG MM DIG SCREENING MAMM BI W/CAD 04/22/2022 10:25 AM FINDINGS: MAMMOGRAPHY: Breast composition: There are scattered areas of fibroglandular density. Mass: None. Architectural distortion: None. Calcifications: No suspicious calcifications. Asymmetric density: None. Skin thickening: None. Axillary adenopathy: None. IMPRESSION: No mammographic evidence of malignancy. Annual screening is recommended unless otherwise clinically indicated. ASSESSMENT: BI-RADS Category 1: Negative.
== END 2024-05-02 23:59 | disposition home or self-care (01) ==
LOC: RAD 07:40
PROVIDERS: PCP Family Medicine; Visit Provider Family Medicine
DX: Z12.31 Encounter for screening mammogram for malignant neoplasm of breast (principal)
CPT/HCPCS: 77063; 77067

== ENCOUNTER 2024-05-31 08:56 | Outpatient (POV) | payer MEDICARE, SELFPAY ==
--- NOTE | 2024-05-31 09:04 | EXP.PAIN.OV ---
HPI Data of Consult Patient: new to practice Consult date: 05/31/24 Requesting Physician: Teena Yoder APRN Primary Care Provider: Virgie Choi APRN Consult Narrative Reason for consult: Bilateral knee pain History of present illness: Ms. Howe is a 69 year old female who presents today as a new patient. She has a referral from Gopal Dailey's office. Today she rates her pain a 10 out of 10. Patient states she has had chronic knee pain for 40+ years. Patient states that there was no initial injury or trauma that initially started the symptoms. She states that she used to be a very avid walker however due to the worsening pain that she is not able to do this like what she was. Patient states she has tried [id number] medications along with heat and ice and topicals with minimal relief. Patient denies any recent physical therapy or chiropractor therapy. Patient does state that the pain is a aching, throbbing sensation that is worse with increased activity or up and walking. She states that when she does stop and rest and lay back in a recliner it does help. Patient states she has been getting intra-articular knee injections with orthopedics for some time and that it generally does provide significant relief lasting 3 months. She states her last injections in March however only gave about 6 weeks relief. Patient states she was sent to our office for any additional options. Patient is not on any scheduled medications. Her Fredrick has been reviewed. CC: Teena Yoder APRN [facility] Disclaimer: The information contained in this section may have been updated after the patient was seen, as this information can be updated by other users. Medical History Adenocarcinoma of endometrium Pneumonia History of COVID-19 Gallstone Heart murmur Hypertension History of anemia H. pylori infection (~08/28/17) Fatigue Screening for abdominal aortic aneurysm Abdominal pain Surgical History History of hysterectomy History of dilatation and curettage D&C Hysteroscopy H/O tubal ligation Family History Mother Family history of stroke Family history of hypertension Father Family history of hypertension Social History (Updated 05/31/24 @ 09:13 by Liv Hernandez RN) Smoking Status: Never smoker alcohol intake: former substance use type: denies use current occupational status: retired Travel in the last 8 weeks: None Review of Systems Review of Systems Review of systems:: pertinent systems reviewed and negative unless documented below Review of systems (narrative): Review of Systems: General: No recent weight changes, no fever, no sleep disturbances Respiratory: No cough, no shortness of air, no recurring pulmonary infections Cardiovascular/peripheral vascular: No chest pain, no palpitations, no edema, no shortness of breath Gastrointestinal: No new onset incontinence, normal bowel movements reported Genitourinary: No new onset incontinence Musculoskeletal: Bilateral knee pain Psychiatric: [Normal mood/affect] Neurological: [Denies weakness in extremities], [denies balance issues] Meds Home Medications and Allergies Home Medications ?Medication ?Instructions ?Recorded ?Confirmed ?Type diclofenac sodium 75 mg See Rx Instructions .Route 12/15/23 05/31/24 Rx tablet,delayed release .COMPLEX #180 tabs hydrochlorothiazide 25 mg tablet See Rx Instructions .Route 01/20/24 05/31/24 Rx .COMPLEX #90 tabs ropinirole 1 mg tablet 1 mg PO HS #30 tabs 02/28/24 05/31/24 Rx New Prescriptions to Start Prescriptions: Allergies Allergy/AdvReac Type Severity Reaction Status Date / Time Sulfa (Sulfonamide Allergy Severe BREATH Verified 05/26/24 09:26 Antibiotics) (SULFA PROBLEMS (SULFONAMIDE ANTIBIOTICS)) codeine (CODEINE) Allergy Intermediate HEART Verified 05/26/24 09:26 RACING Penicillins (PENICILLINS) Allergy Mild I-RASH Verified 05/26/24 09:26 Objective Narrative: Physical Exam: General: Alert and oriented x3, no acute distress, pleasant and cooperative Lungs: Respirations even and unlabored, symmetrical chest expansion Eyes: PERRL Musculoskeletal: Flexion and extension of bilateral knees somewhat guarded secondary to pain, [antalgic gait noted] Neurological: Speech clear, no gross sensory deficit Assessment and Plan *Assessment and plan (1) Chronic pain of right knee: Status: Acute Category: Medical Code(s): M25.561 - Pain in right knee; G89.29 - Other chronic pain (2) Primary osteoarthritis of right knee: Status: Acute Category: Medical Code(s): M17.11 - Unilateral primary osteoarthritis, right knee (3) Chronic pain of left knee: Status: Acute Category: Medical Code(s): M25.562 - Pain in left knee; G89.29 - Other chronic pain (4) Primary osteoarthritis of left knee: Status: Acute Category: Medical Code(s): M17.12 - Unilateral primary osteoarthritis, left knee Plan I did discuss with the patient due to the fact that she is already scheduled for her next intra-articular knee injection in June that we can wait before trying other options. I will order the patient a compounded cream. I did discuss with the patient that we do offer additional injections such as nerve blocks and that we can discuss this in future. We will follow-up with the patient in 1 month. Patient agrees with this plan of care. Patient has been instructed to contact the clinic with any concerns before the next appointment. Dr. Dhillon has reviewed this note and agrees with this plan of care. This note was dictated using voice recognition software and make contain errors or omissions. All injections are used with Lidocaine, Bupivacaine and Depo Medrol. Occasionally urine drug screen is needed to verify patient's compliance with our office pain contract. This is ordered based off specific treatments related to chronic pain with the potential to abuse certain medications.
[2024-05-31 09:09] VITALS: BP 138/76; PULSE 83; RESP 18; O2SAT 97; BMI 52.7
== END 2024-05-31 23:59 | disposition home or self-care (01) ==
LOC: SC.PAIN 08:59
PROVIDERS: PCP Family Medicine; Visit Provider Nurse Practitioner Family
DX: M17.0 Bilateral primary osteoarthritis of knee (principal); M25.561 Pain in right knee; M25.562 Pain in left knee; G89.29 Other chronic pain
CPT/HCPCS: 99202; G0463

== ENCOUNTER 2024-06-05 09:12 | Outpatient (CLI) | payer MEDICARE, SELFPAY ==
[2024-06-05 19:51] LABS: Basophils # 0.1 K/mm3 (0-0.2); Basophils % 0.8 % (0.1-2.0); Eosinophils # 0.2 K/mm3 (0.0-0.4); Eosinophils % 2.4 % (0.1-12.0); Hematocrit 39.2 % (37.0-47.0); Hemoglobin 12.5 g/dL (12.2-16.2); Lymphocytes # 2.3 K/mm3 (0.7-4.5); Lymphocytes % 29.4 % (10-50); Mean Corpuscular HGB Conc 31.9 g/dL (31.8-35.4); Mean Platelet Volume 9.9 fl (7.4-10.4); Monocytes # 0.6 K/mm3 (0.1-1.0); Monocytes % 7.8 % (1.7-9.3); Neutrophils # 4.7 K/mm3 (1.8-7.8); Neutrophils % 59.3 % (37.0-80.0); Platelet Count 336 K/mm3 (142-424); Red Blood Count 4.31 M/mm3 (4.20-5.40); Red Cell Distribution Width 13.2 % (11.5-17.5)
[2024-06-05 20:49] LABS: Alanine Aminotransferase 18 U/L (12-78); Albumin Level 3.9 g/dl (3.5-5.0); Albumin/Globulin Ratio 1.5 (1.1-1.8); Alkaline Phosphatase 75 U/L (38-126); Anion Gap 4.8 mEq/L (5-15); Aspartate Amino Transferase 25 U/L (14-36); Bilirubin,Total 0.9 mg/dl (0.2-1.3); Blood Urea Nitrogen 29 mg/dl (7-17); Calcium 10.1 mg/dl (8.4-10.2); Carbon Dioxide 33 mmol/L (22.0-30.0); Chloride 106 mmol/L (98-107); Chol/HDL Ratio 3.2 (1-3.5); Cholesterol 158 mg/dl (140-200); Estimated Glomerular Filt Rate 55 ml/min (>60); GFR (African American) 66 ML/MIN (>60); Globulin 2.6 g/dL (1.3-3.2); Glucose 90 mg/dl (74-100); HDL Cholesterol 49 mg/dl (40-60); Potassium 4.8 mmoL/L (3.5-5.1); Sodium 139 mmol/L (136-145); Total Protein,Serum 6.5 g/dl (6.3-8.2); Triglycerides 110 mg/dl (30-150); VLDL Cholesterol 22 mg/dL (0-40)
[2024-06-05 20:59] LABS: 25-OH Vitamin D, Total 73.5 ng/mL (30-100)
[2024-06-05 21:00] LABS: Direct LDL Cholesterol 73.17 mg/dL (100-129)
== END 2024-06-05 23:59 | disposition home or self-care (01) ==
LOC: LAB.DROPOF 06-06 14:21
PROVIDERS: PCP Family Medicine; Visit Provider Family Medicine
DX: I10 Essential (primary) hypertension (principal); E55.9 Vitamin D deficiency, unspecified
CPT/HCPCS: 80053; 80061; 82306; 84443; 85025

== ENCOUNTER 2024-06-29 09:20 | Outpatient (POV) | payer MEDICARE, SELFPAY ==
--- NOTE | 2024-06-29 09:36 | A.OFFVIS_ITS ---
[facility] Disclaimer: The information contained in this section may have been updated after the patient was seen, as this information can be updated by other users. Medical History Abdominal pain H. pylori infection (~08/28/17) Adenocarcinoma of endometrium Thickened endometrium Postmenopausal bleeding Right sided abdominal pain Rebound tenderness Gallstones Pneumonia History of COVID-19 Gallstone Heart murmur Hypertension History of anemia Fatigue Screening for abdominal aortic aneurysm Surgical History History of hysterectomy History of dilatation and curettage D&C Hysteroscopy H/O tubal ligation Family History Mother Family history of stroke Family history of hypertension Father Family history of hypertension Social History Smoking Status: Never smoker alcohol intake: former substance use type: denies use current occupational status: retired Travel in the last 8 weeks: None PM Subjective & Objective Subjective Subjective:: Patient is a pleasant 69-year-old female who presents today for 1 month follow- up. At our last visit patient was seen for chronic bilateral knee pain. Patient was already scheduled for intra-articular injections this month with a different provider. Patient states that she did end up getting these and they have dulled the pain at least. Patient states she did just get these last week and feels like she is still having quite a bit of pain and rates it a 10 out of 10. We did also discuss possible infrapatellar nerve blocks in future. Patient was also prescribed a compounded cream at our last appointment. Today she states that she did get this topical however did not notice an extreme difference. Patient has been using [employer] vapor freeze and felt like it does do a little bit better than the compounded cream. Patient does have questions whether or not if the gel may be an option. Her Fredrick has been reviewed and is appropriate. Review of Systems: General: No recent weight changes, no fever, no sleep disturbances Respiratory: No cough, no shortness of air, no recurring pulmonary infections Cardiovascular/peripheral vascular: No chest pain, no palpitations, no edema, no shortness of breath Gastrointestinal: No new onset incontinence, normal bowel movements reported Genitourinary: No new onset incontinence Musculoskeletal: Bilateral knee pain Psychiatric: [Normal mood/affect] Neurological: [Denies weakness in extremities], [denies balance issues] Pain at rest (0-10 scale): 10 Objective Objective:: Physical Exam: General: Alert and oriented x3, no acute distress, pleasant and cooperative Lungs: Respirations even and unlabored, symmetrical chest expansion Eyes: PERRL Musculoskeletal: Flexion and extension of bilateral knees somewhat guarded secondary to pain, [antalgic gait noted] Neurological: Speech clear, no gross sensory deficit Has patient had previous pain injection?: No Conservative treatment options previously tried: Home exercise plan Length of treatment: Longer than 12 weeks Meds Home Medications and Allergies Home Medications ?Medication ?Instructions ?Recorded ?Confirmed ?Type hydrochlorothiazide 25 mg tablet See Rx Instructions .Route 01/20/24 06/20/24 Rx .COMPLEX #90 tabs celecoxib 100 mg capsule (Celebrex) 100 mg PO BID #60 caps 06/05/24 06/20/24 Rx New Prescriptions to Start Prescriptions: Allergies Allergy/AdvReac Type Severity Reaction Status Date / Time Sulfa (Sulfonamide Allergy Severe BREATH Verified 06/20/24 10:09 Antibiotics) (SULFA PROBLEMS (SULFONAMIDE ANTIBIOTICS)) codeine (CODEINE) Allergy Intermediate HEART Verified 06/20/24 10:09 RACING Penicillins (PENICILLINS) Allergy Mild I-RASH Verified 06/20/24 10:09 Assessment and Plan *Assessment and plan (1) Chronic pain of left knee: Status: Acute Category: Medical Code(s): M25.562 - Pain in left knee; G89.29 - Other chronic pain (2) Primary osteoarthritis of right knee: Status: Acute Category: Medical Code(s): M17.11 - Unilateral primary osteoarthritis, right knee (3) Chronic pain of right knee: Status: Acute Category: Medical Code(s): M25.561 - Pain in right knee; G89.29 - Other chronic pain (4) Primary osteoarthritis of left knee: Status: Acute Category: Medical Code(s): M17.12 - Unilateral primary osteoarthritis, left knee Plan I did discuss with the patient that some of the injections can take a little bit more time to kick in and hopefully over the next week her pain does improve from the intra-articular injections that she got from orthopedics. I did review over with the patient that we do not do the gel injections however orthopedics frequently does and that may be an option that would provide additional relief. I did again review over with the patient that in future the infrapatellar nerve blocks may be beneficial if she does not end up getting beneficial relief from the intra-articular. Patient will return to clinic in 2 weeks. Patient was counseled that if the injections and that kicking in and she feels like she does not need that appointment she can call and cancel and push it further out. Patient does agree with this plan of care. Patient has been instructed to contact the clinic with any concerns before the next appointment. Dr. Dhillon has reviewed this note and agrees with this plan of care. This note was dictated using voice recognition software and make contain errors or omissions. All injections are used with Lidocaine, Bupivacaine and Depo Medrol. Occasionally urine drug screen is needed to verify patient's compliance with our office pain contract. This is ordered based off specific treatments related to chronic pain with the potential to abuse certain medications.
[2024-06-29 09:51] VITALS: BP 136/83; PULSE 74; RESP 16; O2SAT 96; BMI 52.7
== END 2024-06-29 23:59 | disposition home or self-care (01) ==
LOC: SC.PAIN 09:22
PROVIDERS: PCP Family Medicine; Visit Provider Nurse Practitioner Family
DX: M17.0 Bilateral primary osteoarthritis of knee (principal); M25.562 Pain in left knee; M25.561 Pain in right knee; G89.29 Other chronic pain
CPT/HCPCS: 99212; G0463

== ENCOUNTER 2024-07-13 10:52 | Outpatient (POV) | payer MEDICARE, SELFPAY ==
--- NOTE | 2024-07-13 11:34 | EXP.PAIN.SOA ---
[facility] Disclaimer: The information contained in this section may have been updated after the patient was seen, as this information can be updated by other users. Medical History Abdominal pain H. pylori infection (~08/28/17) Adenocarcinoma of endometrium Thickened endometrium Postmenopausal bleeding Right sided abdominal pain Rebound tenderness Gallstones Pneumonia History of COVID-19 Gallstone Heart murmur Hypertension History of anemia Fatigue Screening for abdominal aortic aneurysm Surgical History History of hysterectomy History of dilatation and curettage D&C Hysteroscopy H/O tubal ligation Family History Mother Family history of stroke Family history of hypertension Father Family history of hypertension Social History Smoking Status: Never smoker alcohol intake: former substance use type: denies use current occupational status: other Travel in the last 8 weeks?: None PM Subjective & Objective Subjective Subjective:: Patient is a pleasant 69-year-old female who presents today for 1 month follow-up. Today she rates her pain a 9 out of 10. Patient does state that she is still having her bilateral knee pain with the right knee being worse than the left. Patient states it is constant and is interfering with her ability perform activities of daily living such as cooking and cleaning. Patient has continued conservative treatment with minimal relief. Patient has been prescribed compounded cream in the past however feels like the [employer] vapor freeze and Voltaren do work better. Her Fredrick has been reviewed and is appropriate. Review of Systems: General: No recent weight changes, no fever, no sleep disturbances Respiratory: No cough, no shortness of air, no recurring pulmonary infections Cardiovascular/peripheral vascular: No chest pain, no palpitations, no edema, no shortness of breath Gastrointestinal: No new onset incontinence, normal bowel movements reported Genitourinary: No new onset incontinence Musculoskeletal: Bilateral knee pain Psychiatric: [Normal mood/affect] Neurological: [Denies weakness in extremities], [denies balance issues] Pain at rest (0-10 scale): 9 Objective Objective:: Physical Exam: General: Alert and oriented x3, no acute distress, pleasant and cooperative Lungs: Respirations even and unlabored, symmetrical chest expansion Eyes: PERRL Musculoskeletal: Flexion and extension of bilateral knees somewhat guarded secondary to pain, [antalgic gait noted] Neurological: Speech clear, no gross sensory deficit Has patient had previous pain injection?: No Conservative treatment options previously tried: Home exercise plan Length of treatment: Longer than 12 weeks Meds Home Medications and Allergies Home Medications ?Medication ?Instructions ?Recorded ?Confirmed ?Type hydrochlorothiazide 25 mg tablet See Rx Instructions .Route 01/20/24 06/29/24 Rx .COMPLEX #90 tabs celecoxib 100 mg capsule (Celebrex) 100 mg PO BID #60 caps 06/05/24 06/29/24 Rx New Prescriptions to Start Prescriptions: Allergies Allergy/AdvReac Type Severity Reaction Status Date / Time Sulfa (Sulfonamide Allergy Severe BREATH Verified 06/20/24 10:09 Antibiotics) (SULFA PROBLEMS (SULFONAMIDE ANTIBIOTICS)) codeine (CODEINE) Allergy Intermediate HEART Verified 06/20/24 10:09 RACING Penicillins (PENICILLINS) Allergy Mild I-RASH Verified 06/20/24 10:09 Assessment and Plan *Assessment and plan (1) Chronic pain of left knee: Status: Acute Category: Medical Code(s): M25.562 - Pain in left knee; G89.29 - Other chronic pain (2) Primary osteoarthritis of right knee: Status: Acute Category: Medical Code(s): M17.11 - Unilateral primary osteoarthritis, right knee (3) Primary osteoarthritis of left knee: Status: Acute Category: Medical Code(s): M17.12 - Unilateral primary osteoarthritis, left knee (4) Chronic pain of right knee: Status: Acute Category: Medical Code(s): M25.561 - Pain in right knee; G89.29 - Other chronic pain Plan Patient is experiencing worsening pain in her bilateral knees with very limited range of motion. We did discuss at our last visit the possibility that bilateral infrapatellar nerve blocks would be beneficial. Risk and benefits of these injections were explained to the patient and she would like to proceed forward with this plan of care. Patient has tried and failed conservative therapy including oral medication, heat and ice, topicals, at home stretching exercise for longer than 12 weeks. Patient has had chronic knee pain for longer than 6 months. Patient will be scheduled for bilateral infrapatellar blocks under fluoroscopy. Patient has been instructed to contact the clinic with any concerns before the next appointment. Dr. Dhillon has reviewed this note and agrees with this plan of care. This note was dictated using voice recognition software and make contain errors or omissions. All injections are used with Lidocaine, Bupivacaine and dexamethasone. Occasionally urine drug screen is needed to verify patient's compliance with our office pain contract. This is ordered based off specific treatments related to chronic pain with the potential to abuse certain medications.
[2024-07-13 14:04] VITALS: BP 136/75; PULSE 79; RESP 18; O2SAT 95; BMI 51.7
== END 2024-07-13 23:59 | disposition home or self-care (01) ==
LOC: SC.PAIN 10:53
PROVIDERS: PCP Family Medicine; Visit Provider Nurse Practitioner Family
DX: M25.562 Pain in left knee (principal); G89.29 Other chronic pain; M25.561 Pain in right knee; M17.0 Bilateral primary osteoarthritis of knee; Z73.89 Other problems related to life management difficulty
CPT/HCPCS: 99212; G0463

== ENCOUNTER 2024-08-08 09:25 | Day surgery (SDC) | payer MEDICARE, SELFPAY ==
[2024-08-08 09:31] VITALS: BP 159/87; PULSE 87; RESP 16; TEMP 36.8; O2SAT 95; BMI 51.5
--- NOTE | 2024-08-08 09:36 | EXP.PAIN.PRO ---
Procedure Date: 08/08/24 Time: 09:30 Anesthesiologist:: Prem Langley CRNA Complications:: None Pre-procedure Diagnosis:: DJD bilateral knee. Chronic bilateral knee pain. Post-procedure Diagnosis:: Same. Indications for Procedure:: Patient is a very pleasant 69-year-old female who comes to clinic today for bilateral knee infrapatellar nerve block. Patient describes knee pain as constant, dull, sharp, stabbing. She presents ambulating with a walker today. She rates her pain 8/10. Procedure Details:: Details of the procedure explained to the patient. Patient taken procedure and placed in the sitting position. The area over the right knee was cleaned using chlorhexidine as a cleansing solution. Using a 22-gauge inch and a half needle the right infrapatellar branch of the saphenous nerve was accessed with ease. After negative aspiration 4 cc of 1% lidocaine +4 cc of 0.25% Marcaine and 5 mg dexamethasone was injected. The same procedure was carried out over the left knee. Patient tolerated procedure without difficulty. No complications. Plan and Disposition:: Patient was reevaluated 10 minutes post procedure. She reports moderate improvement terms of her overall bilateral knee pain with ambulation. Patient was discharged without incident.
[2024-08-08] MEDS: BUPIVACAINE 0.25% 10ML INJ 25 MG IJ (09:39)
[2024-08-08] MEDS: LIDOCAINE 1% 5ML PF VIAL 5 ML (09:39)
[2024-08-08] MEDS: DEXAMETHASONE 10MG/ML 1ML VIAL 10 MG (09:39)
[2024-08-08 09:40] VITALS: BP 137/91; PULSE 86; RESP 18; O2SAT 96
[2024-08-08 09:41] VITALS: BP 137/91; PULSE 86; RESP 18; O2SAT 96
[2024-08-08 09:46] VITALS: BP 139/76; PULSE 79; RESP 16; O2SAT 97
== END 2024-08-08 09:46 | disposition home or self-care (01) ==
PROVIDERS: PCP Family Medicine; Visit Provider Nurse Anesthetist, Certified Registered
DX: M17.0 Bilateral primary osteoarthritis of knee (principal); M25.562 Pain in left knee; M25.561 Pain in right knee; G89.29 Other chronic pain
CPT/HCPCS: 64450; J1100

== ENCOUNTER 2024-09-04 11:18 | Outpatient (POV) | payer MEDICARE, SELFPAY ==
[2024-09-04 11:26] VITALS: BP 122/78; PULSE 95; RESP 18; O2SAT 96; BMI 52.3
--- OUTSIDE RECORDS SUMMARY | 2024-09-04 11:34 | XMS_ITS | Clinical Summary ---
Author Organization [facility] Address [address] [place] [address] Care Team Providers Care Fund Accounting Manager Name Role Phone Yany Bruno MD Unavailable [phone] Matthias Walker APRN Primary Care Provider [phone] Allergies Active Allergy Reactions Criticality Noted Date Comments Codeine Palpitations Low 12/10/2021 Penicillins Rash Low 12/10/2021 Sulfa Drugs Rash Low 12/10/2021 Medications diclofenac (Voltaren) 75 MG EC tablet Take 1 tablet (75 mg) by mouth 2 (two) times a day. 09/03/2021 Active hydroCHLOROthia zide (HYDRODiuril) 25 MG tablet Take 1 tablet (25 mg) by mouth 1 (one) time each day. 09/01/2021 Active Multiple Vitamin (multivitamin) tablet Take 1 tablet by mouth 1 (one) time each day. Active COLLAGEN PO Take 2 Chewable tablet by mouth 1 (one) time each day. Active acetaminophen (Tylenol) 500 MG tablet Take 2 tablets (1,000 mg total) by mouth every 8 (eight) hours. 30 tablet 1 02/03/2022 Active Active Problems Problem Noted Date Diagnosed Date Status post hysterectomy 02/02/2022 Endometrial cancer 12/11/2021 Cancer Staging:Clinical:FIGO Stage IA, calculated as Stage Unknown(cT1a, cNX, cM0) - Signed by Senait Guillaume MD on 02/26/2022 HTN (hypertension) 12/11/2021 Arthritis 12/11/2021 Second hand smoke exposure 12/10/2021 Morbid obesity with body mass index (BMI) of 40. 0 or higher 12/10/2021 Social History Tobacco Use Types Packs/Day Years Used Date Smoking Tobacco: Never Smokeless Tobacco: Never Tobacco Cessation:Counseling Given: Not Answered Alcohol Use Standard Drinks/Week Comments Never 0 (1 standard drink = 0.6 oz pur e alcohol) PHQ-2 Answer Date Recorded Patient Health Questionnaire-2 Score 0 03/01/2024 PHQ-2A Answer Date Recorded Depression Risk 0 09/02/2022 Comments No Sex and Gender Information Value Date Recorded Sex Assigned at Female 01/15/2022 6:20 AM EDT Legal Sex Female 3:14 PM EDT Gender Identity Female 01/15/2022 6:20 AM EDT Sexual Orientation Not on file Last Filed Vital Signs Vital Sign Reading Time Taken Comments Blood Pressure 152/82 03/01/2024 1:33 PM EST Pulse 97 08/25/2023 12:41 PM EDT Temperature 35.6 C (96 F) 03/01/2024 1:33 PM EST Respiratory Rate 14 03/01/2024 1:33 PM EST Oxygen Saturation 96% 03/01/2024 1:33 PM EST Inhaled Oxygen Concentration - - Weight 126 kg (276 lb 10.8 oz) 03/01/2024 1:33 P M EST Height 152.4 cm (5') 08/25/2023 12:41 PM EDT Body Mass Index 54.03 08/25/2023 12:41 PM EDT Plan of Treatment Upcoming Encounters Date Type Department Care Team (Late st Contact Info) Description 03/09/2025 2:00 PM EST Office Visit [facility] [address] [place] [address] NatanaelJoanne suero S, RESEARCH COMPUTING SPECIALIST [address] [facility] [address] [place] [address] Health Maintenance Due Date Last Done Comments [facility]-Bone Density Scan 1955 [facility]-Hepatitis C Screening 1955 [facility]-Medicare Annual Wellness (AWV) 1955 [facility]-Infant/Child/Adol SDOH Screenings 1955 [facility]-Obesity Intervention 01/28/1960 UK[facility]- SDOH Screenings 01/28/1972 UKY-Adult SDOH Screenings 01/28/1972 UKY-Zoster Vaccines (1 of 2) 1973 CT Colonography 1999 Colonoscopy 1999 FIT-DNA 1999 FIT 1999 FOBT 1999 Sigmoidoscopy 1999 [facility]-Colorectal Cancer Screening 1999 [facility]-Breast Cancer Screening 01/28/2004 UKY-RSV Vaccine: 60+ Years o r (1 - Risk 60-74 years 1-dose series) 2014 UKY-Pneumococcal Vaccine: 50 + Years (2 of 2 - PPSV23) 10/07/2016 08/12/2016 [id number] Vaccine (3 - season) 2023 01/22/2021, 06/19/2020 [facility]Y-Influenza Vaccine (Seaso n Ended) 2024 UKY-DTaP,Tdap,and Td Vaccine s (2 - Td or Tdap) 02/19/2025 02/19/2015, 04/06/1997 UKY-Depression Screening 03/01/2025 024, 09/02/2022 HPV Vaccines Aged Out No longer eligi ble based on patient's age to complete this topic UKY-HIB Vaccines Aged Out No longer e ligible based on patient's age to complete this topic UKY-Hepatitis A Vaccines Aged Out No longer eligible based on patient's age to complete this topic UKY-IPV Vaccines Aged Out No longer e ligible based on patient's age to complete this topic UKY-Rotavirus Vaccines Aged Out No lo nger eligible based on patient's age to complete this topic Insurance MEDICARE Advance Directives * Full Code (Latest Code Status on File) Date Activated Date Inactivated Comments 02/02/2022 11:16 AM 02/03/2022 1:06 PM Question Answer Comments Patient has decision-making capacity? Yes Care Teams Fund Accounting Manager Relationship Specialty Start Date End Date Matthias Walker APRN [address] [place] [address] PCP - General 12/10/21 Yany Bruno MD [facility] [address] [address] Referring Physician 12/04/21
--- NOTE | 2024-09-04 12:17 | A.OFFVIS_ITS ---
[facility] Disclaimer: The information contained in this section may have been updated after the patient was seen, as this information can be updated by other users. Medical History Abdominal pain H. pylori infection (~08/28/17) Adenocarcinoma of endometrium Thickened endometrium Postmenopausal bleeding Right sided abdominal pain Rebound tenderness Gallstones Pneumonia History of COVID-19 Gallstone Heart murmur Hypertension History of anemia Fatigue Screening for abdominal aortic aneurysm Surgical History History of hysterectomy History of dilatation and curettage D&C Hysteroscopy H/O tubal ligation Family History Mother Family history of stroke Family history of hypertension Father Family history of hypertension Social History Smoking Status: Never smoker alcohol intake: former substance use type: denies use current occupational status: other Travel in the last 8 weeks?: None Have you lived/traveled outside US in past 30 days?: No Contact w/someone who lives/traveled outside US past 30 days?: No Exposure to someone with infectious disease in past 14 days?: No Do you have a fever (greater than 100.4 F or 38 C)?: No Have you tested positive for COVID-19?: No Exposed to someone with COVID-19 in past 14 days?: No Do you have a sore throat?: No Do you have a cough?: No Do you have any weakness?: No Do you have any diarrhea?: No Are you experiencing any unusual bleeding?: No Do you have any muscle aches/pain?: No Do you have any abdominal pain?: No Are you experiencing loss of taste or smell?: No PM Subjective & Objective Subjective Subjective:: Patient is a pleasant 69-year-old female who presents today for follow-up of bilateral knee infrapatellar nerve blocks on 08/08/2024. Today she rates her pain a 10 out of 10. Patient states that the injection did work well with 50% relief however it really only lasted 3 days and she was right back to her baseline. Patient states that it did not seem to do much better than the intra- articular injections. Patient is questioning whether or not the possibility of gel may help. She does state that she has a appointment with [facility] tomorrow. Patient was prescribed compounded cream from our office however felt like Vicks vapor freeze or IcyHot worked better. Her Fredrick has been reviewed and is appropriate. Review of Systems: General: No recent weight changes, no fever, no sleep disturbances Respiratory: No cough, no shortness of air, no recurring pulmonary infections Cardiovascular/peripheral vascular: No chest pain, no palpitations, no edema, no shortness of breath Gastrointestinal: No new onset incontinence, normal bowel movements reported Genitourinary: No new onset incontinence Musculoskeletal: Bilateral knee pain Psychiatric: [Normal mood/affect] Neurological: [Denies weakness in extremities], [denies balance issues] Pain at rest (0-10 scale): 10 Objective Objective:: Physical Exam: General: Alert and oriented x3, no acute distress, pleasant and cooperative Lungs: Respirations even and unlabored, symmetrical chest expansion Eyes: PERRL Musculoskeletal: Flexion and extension of bilateral knees somewhat guarded secondary to pain, [antalgic gait noted] Neurological: Speech clear, no gross sensory deficit Has patient had previous pain injection?: Yes Percent improvement in pain since last injection: 50% for 3 days Conservative treatment options previously tried: Home exercise plan Length of treatment: Longer than 12 weeks Meds Home Medications and Allergies Home Medications ?Medication ?Instructions ?Recorded ?Confirmed ?Type hydrochlorothiazide 25 mg tablet See Rx Instructions . Route 07/19/24 09/04/24 Rx .COMPLEX #90 tabs celecoxib 100 mg capsule See Rx Instructions .Route 0 08/31/24 09/04/24 Rx .COMPLEX #60 caps New Prescriptions to Start Prescriptions: Allergies Allergy/AdvReac Type Severity Reaction Status Date / Time Sulfa (Sulfonamide Allergy Severe BREATH Verified 06/20/24 10:09 Antibiotics) (SULFA PROBLEMS (SULFONAMIDE ANTIBIOTICS)) codeine (CODEINE) Allergy Intermediate HEART Verified 06/20/24 10:09 RACING Penicillins (PENICILLINS) Allergy Mild I-RASH Verified 06/20/24 10:09 Assessment and Plan *Assessment and plan (1) Chronic pain of left knee: Status: Acute Category: Medical Code(s): M25.562 - Pain in left knee; G89.29 - Other chronic pain (2) Primary osteoarthritis of right knee: Status: Acute Category: Medical Code(s): M17.11 - Unilateral primary osteoarthritis, right knee (3) Primary osteoarthritis of left knee: Status: Acute Category: Medical Code(s): M17.12 - Unilateral primary osteoarthritis, left knee (4) Chronic pain of right knee: Status: Acute Category: Medical Code(s): M25.561 - Pain in right knee; G89.29 - Other chronic pain Plan I did discuss with the patient that I would highly recommend trying the gel injections if she has not tried that to see if it does provide improvement without having to have total knee replacements. Patient was recommended to definitely follow-up with [facility] and see if they are able to offer any additional interventions. Patient was previously sent to our office for the possibility of RFA however due to insurance no longer covering this we have tried other interventions. I did discuss with the patient if [facility] was not able to offer more and that if she was interested in still trying the RFA that she could go to our [place] location and do the [place] option of the RFA. Patient acknowledges understanding. I did discuss with her that she can call us for her next appointments and that if she decides to between now and then to try the RFA to call her office and I would send her most recent note to the [facility] location she agrees with this plan of care. Patient has been instructed to contact the clinic with any concerns before the next appointment. Dr. Dhillon has reviewed this note and agrees with this plan of care. This note was dictated using voice recognition software and make contain errors or omissions. All injections are used with Lidocaine, Bupivacaine and dexamethasone. Occasionally urine drug screen is needed to verify patient's compliance with our office pain contract. This is ordered based off specific treatments related to chronic pain with the potential to abuse certain medications.
== END 2024-09-04 23:59 | disposition home or self-care (01) ==
LOC: SC.PAIN 11:20
PROVIDERS: PCP Family Medicine; Visit Provider Nurse Practitioner Family
DX: M17.0 Bilateral primary osteoarthritis of knee (principal); G89.29 Other chronic pain
CPT/HCPCS: 99212; G0463

== ENCOUNTER 2024-11-10 19:18 | Emergency (ER) | payer MEDICARE, SELFPAY ==
--- OUTSIDE RECORDS SUMMARY | 2024-09-18 14:10 | XMS_ITS | Encounter Summary ---
Author Organization [facility] ([place], [place], [place], [place]) Address [address] [place] [address] Care Team Providers Care Cell Assembly Pinner Name Role Phone Unavailable Primary Care Provider Unavailabl e Reason for Referral * CAT Scan (Routine) - New Request Specialty Diagnoses / Procedures Referred By Ruiz mcgovern Referred To Contact Radiology Diagnoses Pain in right knee Procedures CT lower extremity without IV contrast right Tate Chamberlain MD [address] [place] [address] Phone: tel: fax: Referral ID Status Reason Start Date Expiration Date V isits Requested Visits Authorized [id number] New Request 09/14/2024 09/14/2025 1 1 Reason for Visit * CAT Scan (Routine) - New Request Specialty Diagnoses / Procedures Referred By Ruiz mcgovern Referred To Contact Radiology Diagnoses Pain in right knee Procedures CT lower extremity without IV contrast right Tate Chamberlain MD [address] [place] [address] Phone: tel: fax: Referral ID Status Reason Start Date Expiration Date V isits Requested Visits Authorized [id number] New Request 09/14/2024 09/14/2025 1 1 Encounter Details Date Type Department Care Team (Late st Contact Info) Description 09/18/2024 2:10 PM EDT - 09/18/2024 11:59 PM EDT Hospital Encounter Replaced By [facility] [address] [place] [address] Tate Chamberlain MD [address] [place] [address] Pain in right knee Discharge Disposition: Home or Self Care Social History Tobacco Use Types Packs/Day Years Used Date Smoking Tobacco: Never Assessed Comments Unknown Sex and Gender Information Value Date Recorded Sex Assigned at Not on file Legal Sex Female 8:22 AM CDT Gender Identity Not on file Sexual Orientation Not on file documented as of this encounter Plan of Treatment Not on file documented as of this encounter Procedures Procedure Name Priority Date/Time Associated Diagnosis Comments CT LOWER EXTREMITY WITHOUT IV CONTRAST RIGHT Routine 09/18/2024 2:37 PM EDT Pain in right knee documented in this encounter Results * CT lower extremity without IV contrast right (09/18/2024 2:37 PM EDT) Anatomical Region Laterality Modality Lower Extremity, Hip, Femur, Leg, Knee, Ankle, Foot Computed Tomography (CT) 09/18/2024 3:08 PM EDT Impressions 09/18/2024 3:19 PM EDT Degenerative joint disease. Images reviewed, interpreted, and dictated by Dr. Parmjit Sawant. Transcribed by Katiana Warner PA-C. Narrative 09/18/2024 3:[address] SCAN RIGHT LOWER EXTREMITY 09/18/2024 2:16 PM HISTORY: Knee osteoarthritis. Conformis protocol. COMPARISON: None. PROCEDURE: Axial images were obtained through the lower extremity by computed tomography. Sagittal and coronal reconstruction images were performed. This study was performed with techniques to keep radiation doses as low as reasonably achievable, (ALARA). Individualized dose reduction techniques using automated exposure control or adjustment of mA and/or kV according to the patient size were employed. FINDINGS: There is no fracture. There is a joint effusion. There is significant degenerative change. Procedure Note Sybil Sawant MD - 09/18/2024 CT SCAN RIGHT LOWER EXTREMITY 09/18/2024 2:16 PM HISTORY: Knee osteoarthritis. Conformis protocol. COMPARISON: None. PROCEDURE: Axial images were obtained through the lower extremity by computed tomography. Sagittal and coronal reconstruction images were performed. This study was performed with techniques to keep radiation doses as low as reasonably achievable, (ALARA). Individualized dose reduction techniques using automated exposure control or adjustment of mA and/or kV according to the patient size were employed. FINDINGS: There is no fracture. There is a joint effusion. There is significant degenerative change. IMPRESSION: Degenerative joint disease. Images reviewed, interpreted, and dictated by Dr. Parmjit Sawant. Transcribed by Katiana Warner PA-C. Tate Chamberlain MD IMG CT ORDERABLES Final Result documented in this encounter Visit Diagnoses Diagnosis Pain in right knee documented in this encounter
[2024-11-10] VITALS (13 sets, daily range): BP systolic 116–151; BP diastolic 52–94; PULSE 77–92; RESP 15–28; TEMP 36.6; O2SAT 96–99; BMI 50.1
--- OUTSIDE RECORDS SUMMARY | 2024-11-10 19:31 | XMS_ITS ---
Laboratory report Created on: October 28, 2024 [address]ER : 1955 Sex: Female Author Name ERASTO MORRIS Unknown PROBLEMS Problems List Code Description Z01.818 R73.09 D69.9 Z01.812 Z13.89 RESULTS Laboratory Orders Date Order Code Test 2024-10-25 [id number] FRUCTOSAMINE 2024-10-25 [id number] HEMOGLOBIN A1C 2024-10-25 [id number] PTT, ACTIVATED 2024-10-25 [id number] CBC WITH DIFFERE NTIAL/PLATELET 2024-10-25 [id number] PROTHROMBIN TIME (PT) 2024-10-25 [id number] COMP. METABOLIC PANEL (14) 2024-10-25 [id number] MRSA BY ZAY 2024-10-25 [id number] PREALBUMIN Laboratory Results Date LOINC Test Value Unit Reference Range Interpre tation 2024-10-25 04468-1 FRUCTOSAMINE 225 UMOL/L 0-285 2024-10-25 4548-4 HEMOGLOBIN A1C 5.7 % 4.8-5.6 H 2024-10-25 97400-6 APTT 23 SEC 24-33 L 2024-10-25 6690-2 WBC 13.3 X10E3/UL 3.4-10.8 H 2024-10-25 789-8 RBC 4.37 X10E6/UL 3.77-5.28 2024-10-25 718-7 HEMOGLOBIN 12.7 G/DL 11.1-15.9 2024-10-25 4544-3 HEMATOCRIT 39.4 % 34.0-46.6 2024-10-25 787-2 MCV 90 FL 79-97 2024-10-25 785-6 MCH 29.1 PG 26.6-33.0 2024-10-25 786-4 MCHC 32.2 G/DL 31.5-35.7 2024-10-25 788-0 RDW 12.4 % 11.7-15.4 2024-10-25 777-3 PLATELETS 283 X10E3/UL 310-313 2952-08-13 770-8 NEUTROPHILS 68 % 2024-10-25 736-9 LYMPHS 23 % 2024-10-25 5905-5 MONOCYTES 7 % 2024-10-25 713-8 EOS 1 % 2024-10-25 706-2 BASOS 1 % 2024-10-25 751-8 NEUTROPHILS (ABSOLUTE) 9.1 X10E3/UL 1.4-7.0 H 2024-10-25 731-0 LYMPHS (ABSOLUTE) 3 X10E3/UL 0.7-3.1 2024-10-25 742-7 MONOCYTES(ABSOLUTE) .9 X10E3/UL 0.1-0.9 2024-10-25 711-2 EOS (ABSOLUTE) .2 X10E3/UL 0.0-0.4 2024-10-25 704-7 BASO (ABSOLUTE) .1 X10E3/UL 0.0-0.2 2024-10-25 30255-3 IMMATURE GRANULOCYTES 0 % 2024-10-25 50014-8 IMMATURE GRANS (ABS) 0 X10E3/UL 0.0-0.1 2024-10-25 6301-6 INR 1 0.9-1.2 2024-10-25 5902-2 PROTHROMBIN TIME 11.1 SEC 9.1-12.0 2024-10-25 2345-7 GLUCOSE 103 MG/DL 70-99 H 2024-10-25 3094-0 BUN 35 MG/DL 8-27 H 2024-10-25 2160-0 CREATININE 1.35 MG/DL 0.57-1.00 H 2024-10-25 03923-3 EGFR 42 ML/MIN/1.73 >59 L 2024-10-25 3097-3 BUN/CREATININE RATIO 26 12-28 2024-10-25 2951-2 SODIUM 140 MMOL/L 949-830 1149-08-13 2823-3 POTASSIUM 4.5 MMOL/L 3.5-5.2 2024-10-25 2075-0 CHLORIDE 104 MMOL/L 96-106 2024-10-25 2028-9 CARBON DIOXIDE, TOTAL 17 MMOL/L 20-29 L 2024-10-25 49319-3 CALCIUM 9.7 MG/DL 8.7-10.3 2024-10-25 2885-2 PROTEIN, TOTAL 7 G/DL 6.0-8.5 2024-10-25 1751-7 ALBUMIN 4 G/DL 3.9-4.9 2024-10-25 29595-1 GLOBULIN, TOTAL 3 G/DL 1.5-4.5 2024-10-25 1975-2 BILIRUBIN, TOTAL .4 MG/DL 0.0-1.2 2024-10-25 6768-6 ALKALINE PHOSPHATASE 97 IU/L 44-121 2024-10-25 1920-8 AST (SGOT) 24 IU/L 0-40 2024-10-25 1742-6 ALT (SGPT) 12 IU/L 0-32 2024-10-25 81931-3 MRSA BY ZAY N NEGATIVE 2024-10-25 88567-1 PREALBUMIN 20 MG/DL 10-36
--- OUTSIDE RECORDS SUMMARY | 2024-11-10 19:31 | XMS_ITS | Clinical Summary ---
Author Organization [facility] ([place], [place], [place], [place]) Address [address] [place] [address] Care Team Providers Care Rebrander Name Role Phone Unavailable Primary Care Provider Unavailabl e Encounters Date Type Department Care Team Description 09/18/2024 2:10 PM EDT - 09/18/2024 11:59 PM EDT Hospital Encounter [facility] [address] [place] [address] Tate Chamberlain MD Pain in right knee Discharge Disposition: Home or Self Care from Last 3 Months Social History Tobacco Use Types Packs/Day Years Used Date Smoking Tobacco: Never Assessed Comments Unknown Sex and Gender Information Value Date Recorded Sex Assigned at Not on file Legal Sex Female 8:22 AM CDT Gender Identity Not on file Sexual Orientation Not on file Plan of Treatment Health Maintenance Due Date Last Done Comments CT Colonography 1955 Colonoscopy 1955 Colorectal Cancer Screening 1955 DXA SCAN 1955 FOBT/FIT 1955 Fit-DNA (Cologuard) 1955 Sigmoidoscopy 1955 Depression Screening (12+) 1966 Tobacco Cessation Counseling and Screening (12+) 1966 Hepatitis C Screening 01/28/1972 Breast Cancer Screening 1994 Shingles Vaccine (Zoster) (1 of 2) 01/28/2004 Pneumococcal 50+ years (2 of 2 - PPSV23) 08/12/2017 08/12/2016 COVID-19 VACCINE (3 - season) 11/14/202312/2020, 06/19/2020 Falls Risk Screening 03/15/2024 Influenza Vaccine (#1) 2024 DTAP/TDAP/TD VACCINES (3 - Td or Tdap) 02/19/2025, 04/06/1997 Respiratory Syncytial Virus (RSV) Adult or (1 - 1-dose 75+ series) 2029 Procedures Procedure Name Priority Date/Time Associated Diagnosis Comments CT LOWER EXTREMITY WITHOUT IV CONTRAST RIGHT Routine 09/18/2024 2:37 PM EDT Pain in right knee from Last 3 Months Results * CT lower extremity without IV [...] Parmjit Sawant. Transcribed by Katiana Warner PA-C. us Tate Chamberlain MD IMG CT ORDERABLES Final Result from Last 3 Months
--- OUTSIDE RECORDS SUMMARY | 2024-11-10 19:31 | XMS_ITS | Referral Summary ---
Author Organization [facility] ([place], [place], [place], [place]) Address [address] [place] [address] Care Team Providers Care Scutcher Tender Name Role Phone Unavailable Primary Care Provider Unavailabl e Encounters Date Type Department Care Team Description 09/18/2024 2:10 PM EDT - 09/18/2024 11:59 PM EDT Hospital Encounter [facility] [address] [facility] [address] [place] [address] Tate Chamberlain MD Pain in [...] Orientation Not on file Plan of Treatment Not on file Procedures Procedure Name Priority Date/Time Associated Diagnosis [...]
--- OUTSIDE RECORDS SUMMARY | 2024-11-10 19:31 | XMS_ITS | Clinical Summary ---
Author Organization [facility] Address [address] [place] [address] Care Team Providers Care Make Up Girl Name Role Phone Yany Bruno MD Unavailable [phone] Matthias Walker APRN Primary Care Provider [phone] Allergies Active Allergy Reactions Criticality Noted Date [...] Team (Late st Contact Info) Description 03/09/2025 12:30 PM EST Office Visit [facility] [address] [place] [address] NatanaelJoanne suero S, CAR CARDER [address] [facility] [address] [place] [address] Health Maintenance Due Date Last Done Comments [...] (2 of 2 - PPSV23) 10/07/2016 08/12/2016 [id number] Vaccine (3 - season) 2023 01/22/2021, 06/19/2020 UKY-Influenza Vaccine (#1) 2024 UKY-DTaP,Tdap,and Td Vaccine s (2 - [...] Patient has decision-making capacity? Yes Care Teams Make Up Girl Relationship Specialty Start Date End Date Matthias Walker APRN [address] [place] [address] PCP - General 12/10/21 Yany Bruno MD [facility] [address] [address] Referring Physician 12/04/21
--- NOTE | 2024-11-10 20:01 | XR_ITS ---
PROCEDURE INFORMATION: Exam: XR Right Knee Exam date and time: 11/10/2024 8:51 PM Age: 69 years old Clinical indication: Injury or trauma; Fall; Blunt trauma; Right; Prior surgery; Surgery date: Post-operative (0-2 days); Surgery type: Knee replacement; Additional info: Pain TECHNIQUE: Imaging protocol: Radiologic exam of the right knee. Views: 3 views. Total images: 3 COMPARISON: CR XR KNEE RT 3V 09/03/2023 11:58 AM FINDINGS: Bones/joints: Acute comminuted but predominantly transverse fracture of the distal femur at the metaphyseal region with significant displacement. The femoral condyles are displaced lateral to the femoral metaphysis by approximately 4 cm. Status post total knee arthroplasty. Mild osteopenia. Proximal tibia and fibula appear intact. Joint effusion and joint space emphysema. Soft tissues: Considerable soft tissue deformity with edema and soft tissue emphysema. IMPRESSION: 1. Acute comminuted but predominantly transverse fracture of the distal femur at the metaphyseal region. Considerable displacement, with the femoral condylar region projecting 4 cm lateral to the metaphysis. 2. Suspect open fracture with soft tissue emphysema and emphysema in the joint space. 3. Status post right total knee arthroplasty.
--- NOTE | 2024-11-10 20:01 | XR_ITS ---
PROCEDURE INFORMATION: Exam: XR Right Ankle Exam date and time: 11/10/2024 8:51 PM Age: 69 years old Clinical indication: Injury or trauma; Fall; Blunt trauma; Right; Prior surgery; Surgery date: Post-operative (0-2 days); Surgery type: Knee replacement TECHNIQUE: Imaging protocol: Radiologic exam of the right ankle. Views: 3 or more views. Total images: 3 COMPARISON: CR XR TIBIA FIBULA RT 2V 11/10/2024 8:51 PM FINDINGS: Bones/joints: Osteopenia. No acute fracture, joint dislocation, or joint effusion. Mild degenerative changes of the tibiotalar joint. No concerning bone lesions. 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 Moderate to severe degenerative changes of the tarsal articulations. Large plantar calcaneal enthesophyte. Soft tissues: Soft tissue swelling and or edema. Benign soft tissue calcifications at the plantar fascia. IMPRESSION: 1. No acute osseous abnormality. 2. Soft tissue swelling and edema 3. Chronic changes as described.
--- NOTE | 2024-11-10 20:01 | XR_ITS ---
PROCEDURE INFORMATION: Exam: XR Right Tibia and Fibula Exam date and time: 11/10/2024 8:51 PM Age: 69 years old Clinical indication: Injury or trauma; Fall; Blunt trauma; Right; Prior surgery; Surgery date: Post-operative (0-2 days); Surgery type: Knee replacement TECHNIQUE: Imaging protocol: Radiologic exam of the right tibia and fibula. Views: 2 views. Total images: 2 COMPARISON: CR XR ANKLE RT MIN 3V 11/10/2024 8:51 PM FINDINGS: Bones/joints: Osteopenia. Unremarkable distal tibia and fibula. Significant abnormality of the knee/distal femur as described on separate report. Soft tissues: See knee report. IMPRESSION: Unremarkable distal right tibia and fibula.
--- NOTE | 2024-11-10 20:06 | ED_ITS ---
Discharge Plan Disposition Patient Disposition: Xfer Other Prescriptions Prescriptions: No Action hydrochlorothiazide 25 mg tablet See Rx Instructions .ROUTE .COMPLEX Qty: 90 1RF Dose Instruction: TAKE 1 TABLET BY MOUTH ONCE DAILY Rx Instructions: TAKE 1 TABLET BY MOUTH ONCE DAILY celecoxib 100 mg capsule See Rx Instructions .ROUTE .COMPLEX Qty: 60 1RF Dose Instruction: TAKE 1 CAPSULE BY MOUTH TWICE DAILY Rx Instructions: TAKE 1 CAPSULE BY MOUTH TWICE DAILY Referrals Follow up/Referrals: Virgie Choi APRN [Primary Care Provider, Family Practice] - See instructions Clinical Impressions Clinical Impression: Fracture of distal end of femur, Comminuted fracture Stand Alone Forms Stand Alone Forms: Transfer Record - ED Print Language Print Language: Belarusian Discharge ED Provider: Fernando Delcid General Adult HPI <Anu Hernandez (ED), DEVON - Last Filed: 11/10/24 22:52> General Chief complaint: PAIN Stated complaint: right knee pain s/p knee replacement today Time Seen by Provider: 11/10/24 19:41 Mode of Arrival: EMS Source of Information: Patient Description of Symptoms (Recalled from ER Triage Doc. by RN): Pt states she had a right knee replacement done at [facility] by Dr Chamberlain this morning. Pt went to stand at home when right knee popped outward and her right ankle rolled inward. Pt immediately sat back down, no fall. Pt rates her pain 6/10 History of Present Illness HPI narrative: 69-year-old female presents to the ED today for complaints of right knee and ankle pain. She had her knee replaced by Dr. Chamberlain at [facility] this morning. She went to stand this afternoon and her knee went in and her ankle rolled out. She says she felt it buckle underneath of her. She says she did not fall but she is having pain. She tells me that her nerve block was not worn off yet and she was unable to walk well. She was trying to go to the bathroom with her walker and her family members and just was unable to make it. She now has right knee and ankle pain. She is concerned that she is messed up her new knee. Related Data Previous Rx's ?Medication ?Instructions ?Recorded hydrochlorothiazide 25 mg tablet See Rx Instructions . Route 07/19/24 .COMPLEX #90 tabs celecoxib 100 mg capsule See Rx Instructions .Route 0 10/31/24 .COMPLEX #60 caps Allergies Allergy/AdvReac Type Severity Reaction Status Date / Time Sulfa (Sulfonamide Allergy Severe BREATH Verified 06/20/24 10:09 Antibiotics) (SULFA PROBLEMS (SULFONAMIDE ANTIBIOTICS)) codeine (CODEINE) Allergy Intermediate HEART Verified 06/20/24 10:09 RACING Penicillins (PENICILLINS) Allergy Mild I-RASH Verified 06/20/24 10:09 PFSH <Anu Hernandez (ED), M1 [employer] - Last Filed: 11/10/24 22:52> [facility] Disclaimer: The information contained in this section may have been updated after the patient was seen, as this information can be updated by other users. Medical History Abdominal pain H. pylori infection (~08/28/17) Adenocarcinoma of endometrium Thickened endometrium Postmenopausal bleeding Right sided abdominal pain Rebound tenderness Gallstones Pneumonia History of COVID-19 Gallstone Heart murmur Hypertension History of anemia Fatigue Screening for abdominal aortic aneurysm Surgical History History of hysterectomy History of dilatation and curettage D&C Hysteroscopy H/O tubal ligation Family History Mother Family history of stroke Family history of hypertension Father Family history of hypertension Social History Smoking Status: Never smoker alcohol intake: former substance use type: denies use current occupational status: other Travel in the last 8 weeks?: None Have you lived/traveled outside US in past 30 days?: No Contact w/someone who lives/traveled outside US past 30 days?: No Exposure to someone with infectious disease in past 14 days?: No Do you have a fever (greater than 100.4 F or 38 C)?: No Have you tested positive for COVID-19?: No Exposed to someone with COVID-19 in past 14 days?: No Do you have a sore throat?: No Do you have a cough?: No Do you have any weakness?: No Do you have any diarrhea?: No Are you experiencing any unusual bleeding?: No Do you have any muscle aches/pain?: No Do you have any abdominal pain?: No Are you experiencing loss of taste or smell?: No Other Medical History Have you received the Flu Vaccine for this season: No Have you received the Pneumonia Vaccine: No <Anu Kilzach (ED), M1 [employer] - Last Filed: 11/10/24 22:52> ROS Obtained: Yes Systems reviewed as appropriate & no additional complaints except as documented Constitutional Constitutional: Reports as per HPI Physical Exam <Anu Jneniferzach (ED), M1 [employer] - Last Filed: 11/10/24 22:52> General General appearance: alert Head Head exam: normocephalic Eye Eye exam: Present PERRL and EOMI ENT ENT exam: Present normal oropharynx and mucous membranes moist Neck Neck exam: Present full ROM and trachea midline Respiratory Respiratory exam: Present normal lung sounds bilaterally Cardiovascular Cardiovascular exam: Present regular rate, normal rhythm, normal heart sounds, +S1 and +S2 Abdominal Exam Abdominal exam: Present soft and normal bowel sounds Extremities Exam Extremities exam: Present tenderness, normal capillary refill, edema and other (Patient has Vik wrap present) Neurological Exam Neurological exam: Present alert and oriented X3 Skin Skin exam: Present warm and dry Medical Decision Making <Anu Hernandez (ED), M1 [employer] - Last Filed: 11/10/24 22:52> Medical Records Screening: Per USPSTF and CDC recommendations, given the prevalence of disease in our region, it is our hospital?s policy to screen for HIV and viral Hepatitis for all patients aged 18 and over and those with ongoing risk factors. Fredrick Inquiry Pt receiving controlled substance: No Fredrick was queried for this patient: No Vital Signs: 11/10/24 19:24 11/10/24 19:30 11/10/24 19:34 Temperature 98 F 98 F Temperature Source Oral Oral Pulse Rate 88 80 Pulse Rate [Left] 92 H Respiratory Rate 24 28 H 24 Blood Pressure 130/81 123/57 L Blood Pressure [Right Arm] 141/75 H Blood Pressure Mean [Right Arm] 97 Blood Pressure Source Automatic Cuff Blood Pressure Source [Right Arm] Automatic Cuff Blood Pressure Position Sitting Blood Pressure Position [Right Arm] Sitting 02 Sat by Pulse Oximetry 97 96 97 Oxygen Delivery Method Room Air Room Air 11/10/24 20:00 11/10/24 20:31 11/10/24 21:00 Temperature Temperature Source Pulse Rate 82 79 92 H Pulse Rate [Left] Respiratory Rate 25 H 25 H 24 Blood Pressure 136/70 123/57 L 122/52 L Blood Pressure [Right Arm] Blood Pressure Mean [Right Arm] Blood Pressure Source Blood Pressure Source [Right Arm] Blood Pressure Position Blood Pressure Position [Right Arm] 02 Sat by Pulse Oximetry 99 98 98 Oxygen Delivery Method 11/10/24 21:30 11/10/24 22:01 11/10/24 22:44 Temperature 98 F Temperature Source Oral Pulse Rate 85 80 78 Pulse Rate [Left] Respiratory Rate 25 H 17 16 Blood Pressure 139/67 116/54 L 139/72 Blood Pressure [Right Arm] Blood Pressure Mean [Right Arm] Blood Pressure Source Automatic Cuff Blood Pressure Source [Right Arm] Blood Pressure Position Sitting Blood Pressure Position [Right Arm] 02 Sat by Pulse Oximetry 96 98 97 Oxygen Delivery Method Room Air Lab Data Lab Results 11/10/24 19:15: WBC 17.8 H, RBC 4.13 L, Hgb 12.2, Hct 36.1 L, MCV 87.4, MCH 29.5, MCHC 33.8, RDW 12.8, Plt Count 366, MPV 9.8, Neut % (Auto) 90.6 H, Lymph % (Auto) 6.6 L, Larue % (Auto) 2.1, Eos % (Auto) 0.0 L, Baso % (Auto) 0.1, Neut # (Auto) 16.1 H, Lymph # (Auto) 1.2, Larue # (Auto) 0.4, Eos # (Auto) 0.0, Baso # (Auto) 0.0, Sodium 137, Potassium 4.2, Chloride 108 H, Carbon Dioxide 21 L, Anion Gap 12.2, BUN 29 H, Creatinine 0.90, Estimated Creat Clear 38, Estimated GFR 62, Est GFR ( Amer) 75, Glucose 152 H, Calcium 9.9, Magnesium 1.6, Total Bilirubin 0.6, AST 40 H, ALT 24, Alkaline Phosphatase 91, Total Protein 7.4, Albumin 4.2, Globulin 3.2, Albumin/Globulin Ratio 1.3, Lipase 48, HCV Ab MIGUEL w/Rflx PCR Qn Negative, HIV Ag/Ab Combo Qual Negative 11/10/24 19:15 11/10/24 19:15 Orders (Tests/Meds): ED MEDICATIONS Discontinued Medications Generic Name Dose Route Start Last Admin Trade Name Agustinq PRN Reason Stop Dose Admin Fentanyl Citrate 50 mcg 11/10/24 21:23 11/10/24 21:26 Fentanyl 100mcg/2ml Vial IV 11/10/24 21:24 50 mcg ONCE ONE Administration Ondansetron HCl 4 mg 11/10/24 20:04 11/10/24 20:12 Ondansetron 4mg Odt SL 11/10/24 20:05 4 mg ONCE ONE Administration Oxycodone/Acetaminophen 1 each 11/10/24 20:04 11/10/24 20:11 Oxycodone 5mg W/Apap 325mg Tablet PO 11/10/24 20:05 1 each ONCE ONE Administration ORDERS Category Date Time Status Ankle XR -Right minimum 3 Views [XR ankle RT min 3V] Exams 11/10/24 20:01 Completed Stat Femur XR right 2 views [XR femur RT 2V] Stat Exams 11/10/24 21:17 Completed Knee XR right 3 views [XR knee RT 3V] Stat Exams 11/10/24 20:01 Completed Tibia/fibula XR right 2 views [XR tibia fibula RT 2V] Exams 11/10/24 20:01 Completed Stat CBC [Complete Blood Count Auto Diff] Stat Lab 11/10/24 19:15 Completed Comprehensive Metabolic Panel Stat Lab 11/10/24 19:15 Completed HIV Combo Stat Lab 11/10/24 19:15 Completed Hepatitis C Ab Qual. W/ RFX Stat Lab 11/10/24 19:15 Completed Lipase Stat Lab 11/10/24 19:15 Completed Magnesium Stat Lab 11/10/24 19:15 Completed Medical Decision Narrative: patient is a 69-year-old female presenting to the emergency department for evaluation of right knee pain after her knee replacement this morning. Patient is hemodynamically stable and nontoxic-appearing upon arrival, afebrile. Differential diagnosis includes derangement of the right knee. Workup will be conducted with specific imaging. Initial inventions include analgesics. Initial workup reviewed by al hematologic labs are remarkable for elevated white count at 17.8 otherwise nonactionable labs. Formal imaging showed comminuted fracture and distal femur fracture. Patient has been accepted by at . She is to be transferred to [facility] ER per EMS. <Fernando Delcid MD - Last Filed: 11/10/24 23:13> Vital Signs: 11/10/24 19:24 11/10/24 19:30 11/10/24 19:34 Temperature 98 F 98 F Temperature Source Oral Oral Pulse Rate 88 80 Pulse Rate [Left] 92 H Respiratory Rate 24 28 H 24 Blood Pressure 130/81 123/57 L Blood Pressure [Right Arm] 141/75 H Blood Pressure Mean [Right Arm] 97 Blood Pressure Source Automatic Cuff Blood Pressure Source [Right Arm] Automatic Cuff Blood Pressure Position Sitting Blood Pressure Position [Right Arm] Sitting 02 Sat by Pulse Oximetry 97 96 97 Oxygen Delivery Method Room Air Room Air 11/10/24 20:00 11/10/24 20:31 11/10/24 21:00 Temperature Temperature Source Pulse Rate 82 79 92 H Pulse Rate [Left] Respiratory Rate 25 H 25 H 24 Blood Pressure 136/70 123/57 L 122/52 L Blood Pressure [Right Arm] Blood Pressure Mean [Right Arm] Blood Pressure Source Blood Pressure Source [Right Arm] Blood Pressure Position Blood Pressure Position [Right Arm] 02 Sat by Pulse Oximetry 99 98 98 Oxygen Delivery Method 11/10/24 21:30 11/10/24 22:01 11/10/24 22:44 Temperature 98 F Temperature Source Oral Pulse Rate 85 80 78 Pulse Rate [Left] Respiratory Rate 25 H 17 16 Blood Pressure 139/67 116/54 L 139/72 Blood Pressure [Right Arm] Blood Pressure Mean [Right Arm] Blood Pressure Source Automatic Cuff Blood Pressure Source [Right Arm] Blood Pressure Position Sitting Blood Pressure Position [Right Arm] 02 Sat by Pulse Oximetry 96 98 97 Oxygen Delivery Method Room Air Lab Data Lab Results 11/10/24 19:15: WBC 17.8 H, RBC 4.13 L, Hgb 12.2, Hct 36.1 L, MCV 87.4, MCH 29.5, MCHC 33.8, RDW 12.8, Plt Count 366, MPV 9.8, Neut % (Auto) 90.6 H, Lymph % (Auto) 6.6 L, Larue % (Auto) 2.1, Eos % (Auto) 0.0 L, Baso % (Auto) 0.1, Neut # (Auto) 16.1 H, Lymph # (Auto) 1.2, Larue # (Auto) 0.4, Eos # (Auto) 0.0, Baso # (Auto) 0.0, Sodium 137, Potassium 4.2, Chloride 108 H, Carbon Dioxide 21 L, Anion Gap 12.2, BUN 29 H, Creatinine 0.90, Estimated Creat Clear 38, Estimated GFR 62, Est GFR ( Amer) 75, Glucose 152 H, Calcium 9.9, Magnesium 1.6, Total Bilirubin 0.6, AST 40 H, ALT 24, Alkaline Phosphatase 91, Total Protein 7.4, Albumin 4.2, Globulin 3.2, Albumin/Globulin Ratio 1.3, Lipase 48, HCV Ab MIGUEL w/Rflx PCR Qn Negative, HIV Ag/Ab Combo Qual Negative Orders (Tests/Meds): ED MEDICATIONS Discontinued Medications Generic Name Dose Route Start Last Admin Trade Name Freq PRN Reason Stop Dose Admin Fentanyl Citrate 50 mcg 11/10/24 21:23 11/10/24 21:26 Fentanyl 100mcg/2ml Vial IV 11/10/24 21:24 50 mcg ONCE ONE Administration Ondansetron HCl 4 mg 11/10/24 20:04 11/10/24 20:12 Ondansetron 4mg Odt SL 11/10/24 20:05 4 mg ONCE ONE Administration Oxycodone/Acetaminophen 1 each 11/10/24 20:04 11/10/24 20:11 Oxycodone 5mg W/Apap 325mg Tablet PO 11/10/24 20:05 1 each ONCE ONE Administration ORDERS Category Date Time Status Ankle XR -Right minimum 3 Views [XR ankle RT min 3V] Exams 11/10/24 20:01 Completed Stat Femur XR right 2 views [XR femur RT 2V] Stat Exams 11/10/24 21:17 Completed Knee XR right 3 views [XR knee RT 3V] Stat Exams 11/10/24 20:01 Completed Tibia/fibula XR right 2 views [XR tibia fibula RT 2V] Exams 11/10/24 20:01 Completed Stat CBC [Complete Blood Count Auto Diff] Stat Lab 11/10/24 19:15 Completed Comprehensive Metabolic Panel Stat Lab 11/10/24 19:15 Completed HIV Combo Stat Lab 11/10/24 19:15 Completed Hepatitis C Ab Qual. W/ RFX Stat Lab 11/10/24 19:15 Completed Lipase Stat Lab 11/10/24 19:15 Completed Magnesium Stat Lab 11/10/24 19:15 Completed Medical Decision Narrative: patient is a 69-year-old female presenting to the emergency department for evaluation of right knee pain after her knee replacement this morning. Patient is hemodynamically stable and nontoxic-appearing upon arrival, afebrile. Differential diagnosis includes derangement of the right knee. Workup will be conducted with specific imaging. Initial inventions include analgesics. Initial workup reviewed by me hematologic labs are remarkable for elevated white count at 17.8 otherwise nonactionable labs. Formal imaging showed comminuted fracture and distal femur fracture. Patient has been accepted by at . She is to be transferred to [facility] ER per EMS. Fernando Delcid: Patient has a distal periprosthetic femur fracture in the setting of knee replacement this morning is distally neurovascularly intact pain control will be transferred to via ambulance at this time. Critical Care <Fernando Delcid MD - Last Filed: 11/10/24 23:13> Critical Care Time Critical Care Time: Yes Attestation: On 11/10/24, the high probability of a clinically significant, sudden or life threatening deterioration of the following system(s) required my full and direct attention, intervention and personal management. The time I documented below is in addition to time spent performing reported procedures but includes the following listed in this critical care notation. Total Time Total Critical Care Time: 30
[2024-11-10 20:08] LABS: Hematocrit 36.1 % (37.0-47.0); Hemoglobin 12.2 g/dL (12.2-16.2); Immature Granulocytes % 0.6 %; Mean Corpuscular HGB Conc 33.8 g/dL (31.8-35.4); Mean Corpuscular Hemoglobin 29.5 pg (27.0-31.2); Mean Corpuscular Volume 87.4 fl (81-99); Nucleated Red Blood Cells % 0 %; Platelet Count 366 K/mm3 (142-424); Red Blood Count 4.13 M/mm3 (4.20-5.40); Red Cell Distribution Width-SD 40.7 fL; White Blood Count 17.8 K/mm3 (4.8-10.8)
[2024-11-10 20:11] LABS: Albumin Level 4.2 g/dl (3.5-5.0); Chloride 108 mmol/L (98-107); Potassium 4.2 mmoL/L (3.5-5.1); Sodium 137 mmol/L (136-145)
[2024-11-10] MEDS: OXYCODONE 5MG W/APAP 325MG TABLET 1 EACH PO (20:11)
[2024-11-10] MEDS: ONDANSETRON 4MG ODT 4 MG SL (20:12)
[2024-11-10 20:13] LABS: Alanine Aminotransferase 24 U/L (12-78); Anion Gap 12.2 mEq/L (5-15); Aspartate Amino Transferase 40 U/L (14-36); Blood Urea Nitrogen 29 mg/dl (7-17); Carbon Dioxide 21 mmol/L (22.0-30.0); Creatinine Clearance Estimated 38 mL/min (50-200); Creatinine,Serum 0.90 mg/dl (0.52-1.04); Estimated Glomerular Filt Rate 62 ml/min (>60); GFR (African American) 75 ML/MIN (>60)
[2024-11-10 20:14] LABS: Albumin/Globulin Ratio 1.3 (1.1-1.8); Alkaline Phosphatase 91 U/L (38-126); Bilirubin,Total 0.6 mg/dl (0.2-1.3); Calcium 9.9 mg/dl (8.4-10.2); Globulin 3.2 g/dL (1.3-3.2); Glucose 152 mg/dl (74-100); Lipase 48 U/L (23-300); Magnesium 1.6 mg/dl (1.6-2.3); Total Protein,Serum 7.4 g/dl (6.3-8.2)
[2024-11-10 20:41] LABS: Hepatitis C Ab Qual. W/ RFX NEGATIVE (Negative)
--- NOTE | 2024-11-10 21:17 | XR_ITS ---
PROCEDURE INFORMATION: Exam: XR Right Femur Exam date and time: 11/10/2024 9:22 PM Age: 69 years old Clinical indication: Injury or trauma; Fall; Blunt trauma; Right; Prior surgery; Surgery date: Post-operative (0-2 days); Surgery type: Knee replacement TECHNIQUE: Imaging protocol: Radiologic exam of the right femur. Views: 2 views. Total images: 4 COMPARISON: CR XR KNEE RT 3V 11/10/2024 8:51 PM FINDINGS: Bones/joints: Osteopenia. Distal femoral fracture as described in detail on the right knee radiograph. Obscured right hip and proximal femur. No midshaft femoral fracture. Soft tissues: Soft tissue changes as described on the right knee radiograph. IMPRESSION: 1. Acute fracture of the distal femur as described in detail on the radiograph. 2. Obscured right hip and proximal femur.
[2024-11-10] MEDS: FENTANYL 100MCG/2ML VIAL 50 MCG IV (21:26)
[2024-11-11] VITALS: BP 143/81; PULSE 77; RESP 17; O2SAT 94
[2024-11-11 00:30] VITALS: BP 154/89; PULSE 103; RESP 15; O2SAT 94
[2024-11-11 01:00] VITALS: BP 140/86; PULSE 87; RESP 17; O2SAT 96
[2024-11-11] MEDS: MORPHINE 4MG/ML SYRINGE 4 MG IV (01:52)
[2024-11-11 01:57] VITALS: BP 143/84; PULSE 85; RESP 16; TEMP 36.8; O2SAT 98
== END 2024-11-11 02:00 | disposition other institution (70) ==
PROVIDERS: Nurse Practitioner; Emergency Provider Emergency Medicine; PCP Family Medicine
DX: S72.401A Unspecified fracture of lower end of right femur, initial encounter for closed fracture (principal); M79.604 Pain in right leg; X50.0XXA Overexertion from strenuous movement or load, initial encounter
CPT/HCPCS: 73552; 73562; 73590; 73610; 80053; 83690; 83735; 85025; 86803; 87389; 96374; 96375; 99283; 99291; J2270; J3010; Q0162

== ENCOUNTER 2024-12-23 13:54 | Outpatient (CLI) | payer MEDICARE, SELFPAY ==
--- OUTSIDE RECORDS SUMMARY | 2024-11-11 02:54 | XMS_ITS | Encounter Summary ---
Author Organization Healthcare Address [address] [place] [address] Care Team Providers Care Animator Name Role Phone Yany Bruno MD Unavailable [phone] Virgie Choi APRN Primary Care Provider [phone] Reason for Referral * Consultation (Routine) - Closed Specialty Diagnoses / Procedures Referred By Ruiz mcgovern Referred To Contact Orthopaedic Surgery Diagnoses Periprosthetic fracture of femur at tip of prosthesis, initial encounter Lawrence Weeks MD [id number] [place] [address] Phone: tel: fax: [facility] [address] [place] [address] Phone: tel: fax: Referral ID Status Reason Start Date Expiration Date V isits Requested Visits Authorized [id number] Closed Specialty Services Required 11/15/2024 05/17/2026 1 1 Scheduling Instructions FU with Prem Childs in two weeks Reason for Visit * Reason Comments Post-op Problem * Auth/Cert (Routine) Specialty Diagnoses / Procedures Referred By Ruiz mcgovern Referred To Contact Diagnoses Periprosthetic fracture of femur at tip of prosthesis, initial encounter femur fracture has s/p right knee surgery today Lawrence Weeks MD [address] [facility] [address] [place] [address] Phone: tel: fax: [facility] [address] [place] [address] Phone: tel: Referral ID Status Reason Start Date Expiration Date Visits Re quested Visits Authorized [id number] 1 1 Encounter Details Date Type Department Care Team (Latest Contact Info) Description 11/11/2024 2:54 AM EDT - 11/15/2024 3:02 PM EDT Hospital Encounter [facility] 9 T2 UNI [address] [place] [address] Richar Centeno DO [address] [place] [address] George Pan MD [address] [place] [address] Lawrence Weeks MD [address] [place] [address] Periprosthetic fracture of femur at tip of prosthesis, initial encounter (Primary Dx) Discharge Disposition: [facility] Facility Social History Tobacco Use Types Packs/Day Years Used Date Smoking Tobacco: Never Smokeless Tobacco: Never Alcohol Use Standard Drinks/Week Comments Never 0 (1 standard drink = 0.6 oz pur e alcohol) PHQ-2 Answer Date Recorded Patient Health Questionnaire-2 Score 0 03/01/2024 Humiliation, Afraid, Rape, and Kick questionnair e Answer Date Recorded Within the last year, have y ou been afraid of your partner or ex-partner? No 11/14/2024 Within the last year, have y ou been humiliated or emotionally abused in other ways by your partner or ex-partner? No Within the last year, have y ou been kicked, hit, slapped, or otherwise physically hurt by your partner or ex-partner? No 11/14/2024 Within the last year, have y ou been raped or forced to have any kind of sexual activity by your partner or ex-partner? No 11/14/2024 Social Connection and Isolation Panel Answer Date Recorded Frequency of Communication with Friends and Fami ly Not on file 11/14/2024 Frequency of Social Gatherings with Friends and Family Not on file 11/14/2024 Attends Druze Services Not on file 11/14 Active Member of Clubs or Organizations Not on f ile 11/14/2024 Attends Club or Organization Meetings Not on madalyn e 11/14/2024 Are you , , di vorced, , never , or living with a partner? 11/14/2024 AUDIT-C Answer Date Recorded Q1: How often do you have a drink containing alcohol? Never 11/14/2024 Q2: How many drinks containi ng alcohol do you have on a typical day when you are drinking? Patient does not drink Q3: How often do you have si x or more drinks on one occasion? Never 11/14/2024 Hunger Vital Sign Answer Date Recorded Within the past 12 months, y ou worried that your food would run out before you got the money to buy more. Never true 11/15/19 25 Within the past 12 months, t he food you bought just didn't last and you didn't have money to get more. Never true 11/14/2024 PRAPARE - Transportation Answer Date Re corded In the past 12 months, has l ack of transportation kept you from medical appointments or from getting medications? No 04/2024 In the past 12 months, has l ack of transportation kept you from meetings, work, or from getting things needed for daily living? No 11/14/2024 Housing Stability Vital Sign Answer [place] e Recorded In the last 12 months, was t here a time when you were not able to pay the mortgage or rent on time? No 11/14/2024 Number of Times Moved in the Last Year Not on fi le 11/14/2024 At any time in the past 12 m [facility], were you homeless or living in a skilled nursing (including now)? No 11/14/2024 [facility] Utilities Answer Date Recorded In the past 12 months has th e electric, gas, oil, or water company threatened to shut off services in your home? No 11/14/2024 PHQ-2A Answer Date Recorded Depression Risk 0 09/02/2022 Comments No Sex and Gender Information Value Date Recorded Sex Assigned at Female 01/15/2022 6:20 AM EDT Legal Sex Female 3:14 PM EDT Gender Identity Female 01/15/2022 6:20 AM EDT Sexual Orientation Not on file documented as of this encounter Last Filed Vital Signs Vital Sign Reading Time Taken Comments Blood Pressure 152/92 11/15/2024 11:08 AM EDT Pulse 90 11/15/2024 11:08 AM EDT Temperature 36.7 C (98 F) 11/15/2024 11:08 AM EDT Respiratory Rate 17 11/15/2024 7:20 AM EDT Oxygen Saturation 92% 11/15/2024 11:08 AM EDT Inhaled Oxygen Concentration - - Weight 119 kg (262 lb 5.6 oz) 11/13/2024 5:20 AM EDT Height 152.4 cm (5') 11/12/2024 5:50 AM EDT Body Mass Index 51.24 11/12/2024 5:50 AM EDT documented in this encounter Functional Status * AUDIT-C Score Answer Date of Assessment Author 0 11/14/2024 9:40 AM EDT Susie Moya RN * Question Answer Date of Assessment Author Q1: How often do you have a drink containing alcohol? Never 11/14/2024 9:40 AM EDT Susie Moya RN Q2: How many drinks containing alcohol do you have on a typical day when you are drinking? Patient does not drink 11/14/2024 9:40 AM EDT Susie Moya RN Q3: How often do you have six or more drinks on one occasion? Never 11/14/2024 9:40 AM EDT Susie Moya RN * Calculated C-SSRS Risk Score (Lifetime/Recent) Answer Date of Assessment Author No Risk Indicated 11/15/2024 7:00 AM EDT Alejandro Garcia * Question Answer Date of Assessment Author 1. Wish to be (Past 1 Month) No 7:00 AM EDT Alejandro Garcia 2. Non-Specific Active Suici clay Thoughts (Past 1 Month) No 11/15/2024 7:00 AM EDT Garcia, Sage d L 6. Suicidal Behavior (Lifetime) No 7:00 AM EDT Alejandro Garcia documented as of this encounter Medications at Time of Discharge acetaminophen (Tylenol Extra Strength) 500 MG tablet Take 2 tablets by mouth every 6 hours as needed for pain. 11/15/2024 acetaminophen (Tylenol) 500 MG tablet Take 2 tablets (1,000 mg total) by mouth every 8 (eight) hours. 30 tablet 1 02/03/2022 COLLAGEN PO Take 2 Chewable tablet by mouth 1 (one) time each day. diclofenac (Voltaren) 75 MG EC tablet Take 1 tablet (75 mg) by mouth 2 (two) times a day. 09/03/2021 gabapentin (Neurontin) 100 MG capsule Take 1 capsule by mouth every 8 hours. 11/15/2024 hydroCHLOROthiaz latasha (HYDRODiuril) 25 MG tablet Take 1 tablet (25 mg) by mouth 1 (one) time each day. 09/01/2021 methocarbamol (Robaxin) 500 MG tablet Take 1 tablet by mouth 4 times a day. 11/15/2024 Multiple Vitamin (multivitamin) tablet Take 1 tablet by mouth 1 (one) time each day. naloxone (Narcan) 4 mg/0.1 mL nasal spray 1. Give 1 spray in nostril for no/slow breathing or cannot wake after opioid use 2. Call 911 3. Repeat in other nostril if symptoms continue 1 each 11/15/2024 oxyCODONE (Roxicodone) 5 MG immediate release tablet Take 1 tablet by mouth every 4 hours as needed for moderate pain or severe pain (Severe pain 5-8). 11/15/2024 pantoprazole (Protonix) 40 MG EC tablet Take 1 tablet by mouth daily before breakfast. Do not crush, chew, or split. 11/16/2024 rivaroxaban (Xarelto) 10 MG tablet Take 1 tablet by mouth daily with breakfast. 11/16/2024 senna-docusate (Audrey-Colace) 8.6-50 MG tablet Take 1 tablet by mouth 2 times a day. 11/15/2024 traMADol (Ultram) 50 MG tablet Take 1 tablet by mouth every 6 hours as needed for moderate pain (pain score 3-5. use prior to oxycodone or hydromorphone). 11/15/2024 cephalexin (Keflex) 500 MG capsuleIndicatio ns:Periprostheti c fracture of femur at tip of prosthesis, initial encounter Take 1 capsule by mouth every 6 hours for 10 days. For post-operative prophylaxis 11/15/2024 5 documented as of this encounter Miscellaneous Notes * Care Plan - Alejandro Garcia - 11/15/2024 2:21 PM EDT Problem: Skin Injury Risk Increased Goal: Skin Health and Integrity 11/15/20241420 by Alejandro Garcia Outcome: Adequate for Care Transition 11/15/2024715 by Alejandro Garcia Outcome: Ongoing, Progressing Intervention: Optimize Skin Protection Flowsheets Taken 11/15/2024699 by Alejandro Garcia Activity Management: activity adjusted per tolerance Head of Bed (HOB) Positioning: HOB at 20-30 degrees Taken 11/14/20241999 by Teresita Holt, RN Skin Protection: incontinence pads utilized Taken 11/14/2024711 by Alejandro Garcia Pressure Reduction Techniques: frequent weight shift encouraged heels elevated off bed Pressure Reduction Devices: positioning supports utilized pressure-redistributing mattress utilized Problem: Adult Inpatient Plan of Care Goal: Plan of Care Review 11/15/20241420 by Alejandro Garcia Outcome: Adequate for Care Transition 11/15/2024715 by Alejandro Garcia Outcome: Ongoing, Progressing Flowsheets (Taken 11/15/2024 07) Progress: improving Plan of Care Reviewed With: patient Goal: Patient-Specific Goal (Individualized) 11/15/20241420 by Alejandro Garcia Outcome: Adequate for Care Transition 11/15/2024715 by Alejandro Garcia Outcome: Ongoing, Progressing Flowsheets (Taken 11/15/2024 0700) Patient/Family-Specific Goals (Include Timeframe): Pt will remain free from fall/injury this shift. Individualized Care Needs: Saftey Anxieties, Fears or Concerns: Going home Goal: Absence of Hospital-Acquired Illness or Injury 11/15/20241420 by Alejandro Garcia Outcome: Adequate for Care Transition 11/15/2024715 by Alejandro Garcia Outcome: Ongoing, Progressing Intervention: Identify and Manage Fall Risk Flowsheets (Taken 11/15/2024 0700) Safety Promotion/Fall Prevention: activity supervised assistive device/personal items within reach clutter-free environment maintained fall prevention program maintained lighting adjusted mobility aid in reach nonskid shoes/slippers when out of bed room organization consistent safety round/check completed toileting scheduled Goal: Optimal Comfort and Wellbeing 11/15/20241420 by Alejandro Garcia Outcome: Adequate for Care Transition 11/15/2024 07 by Alejandro Garcia Outcome: Ongoing, Progressing Problem: Mobility Impairment Goal: Optimal Mobility 11/15/20241420 by Alejandro Garcia Outcome: Adequate for Care Transition 11/15/2024715 by Alejandro Garcia Outcome: Ongoing, Progressing Intervention: Optimize Mobility Flowsheets Taken 11/15/2024 07 Activity Management: activity adjusted per tolerance Taken 11/14/2024 0712 Positioning/Transfer Devices: pillows repositioning sheet Taken 11/13/2024 0744 Assistive Device Utilized: other (see comments) Problem: Pain Acute Goal: Optimal Pain Control and Function 11/15/20241420 by Alejandro Garcia Outcome: Adequate for Care Transition 11/15/2024 07 by Alejandro Garcia Outcome: Ongoing, Progressing Intervention: Optimize Psychosocial Wellbeing Flowsheets (Taken 11/14/2024 0712) Supportive Measures: active listening utilized decision-making supported goal-setting facilitated positive reinforcement provided problem-solving facilitated relaxation techniques promoted self-care encouraged self-reflection promoted self-responsibility promoted verbalization of feelings encouraged Diversional Activities: smartphone television Spiritual Activities Assistance: affirmation provided Problem: Fall Injury Risk Goal: Absence of Fall and Fall-Related Injury 11/15/20241420 by Alejandro Garcia Outcome: Adequate for Care Transition 11/15/2024 07 by Alejandro Garcia Outcome: Ongoing, Progressing Intervention: Identify and Manage Contributors Flowsheets (Taken 11/15/2024715) Medication Review/Management: medications reviewed Self-Care Promotion: independence encouraged BADL personal objects within reach BADL personal routines maintained Problem: Orthopaedic Fracture Goal: Absence of Bleeding 11/15/20241420 by Alejandro Garcia Outcome: Adequate for Care Transition 11/15/2024715 by Alejandro Garcia Outcome: Ongoing, Progressing Intervention: Monitor and Manage Fracture Bleeding Flowsheets (Taken 11/14/2024 0712) Fracture Immobilization: supported during position changes supported with pillows Bleeding Management: affected area elevated dressing monitored Goal: Bowel Elimination 11/15/2024 142 by Alejandro Garcia Outcome: Adequate for Care Transition 11/15/2024 0716 by Alejandro Garcia Outcome: Ongoing, Progressing Goal: Absence of Embolism Signs and Symptoms 11/15/2024 142 by Alejandro Garcia Outcome: Adequate for Care Transition 11/15/2024 0716 by Alejandro Garcia Outcome: Ongoing, Progressing Goal: Fracture Stability 11/15/2024 1421 by Alejandro Garcia Outcome: Adequate for Care Transition 11/15/2024 07 by Alejandro Garcia Outcome: Ongoing, Progressing Goal: Optimal Functional Ability 11/15/2024 142 by Alejandro Garcia Outcome: Adequate for Care Transition 11/15/2024 0716 by Alejandro Garcia Outcome: Ongoing, Progressing Goal: Absence of Infection Signs and Symptoms 11/15/2024 1421 by Alejandro Garcia Outcome: Adequate for Care Transition 11/15/2024 0716 by Alejandro Garcia Outcome: Ongoing, Progressing Goal: Effective Tissue Perfusion 11/15/2024 142 by Alejandro Garcia Outcome: Adequate for Care Transition 11/15/2024 07 by Alejandro Garcia Outcome: Ongoing, Progressing Goal: Optimal Pain Control and Function 11/15/2024 142 by Alejandro Garcia Outcome: Adequate for Care Transition 11/15/2024 07 by Alejandro Garcia Outcome: Ongoing, Progressing Goal: Effective Oxygenation and Ventilation 11/15/2024 142 by Alejandro Garcia Outcome: Adequate for Care Transition 11/15/2024 0716 by Alejandro Garcia Outcome: Ongoing, Progressing Problem: Surgery Nonspecified Goal: Absence of Bleeding 11/15/2024 142 by Alejandro Garcia Outcome: Adequate for Care Transition 11/15/2024 07 by Alejandro Garcia Outcome: Ongoing, Progressing Goal: Effective Bowel Elimination 11/15/2024 1421 by Alejandro Garcia Outcome: Adequate for Care Transition 11/15/2024 07 by Alejandro Garcia Outcome: Ongoing, Progressing Goal: Fluid and Electrolyte Balance 11/15/2024 1421 by Alejandro Garcia Outcome: Adequate for Care Transition 11/15/2024 0716 by Alejandro Garcia Outcome: Ongoing, Progressing Goal: Absence of Infection Signs and Symptoms 11/15/2024 142 by Alejandro Garcia Outcome: Adequate for Care Transition 11/15/2024 0716 by Alejandro Garcia Outcome: Ongoing, Progressing Goal: Anesthesia/Sedation Recovery 11/15/2024 142 by Alejandro Garcia Outcome: Adequate for Care Transition 11/15/2024 0716 by Alejandro Garcia Outcome: Ongoing, Progressing Goal: Optimal Pain Control and Function 11/15/2024 142 by Alejandro Garcia Outcome: Adequate for Care Transition 11/15/2024 0716 by Alejandro Garcia Outcome: Ongoing, Progressing Goal: Effective Urinary Elimination 11/15/2024 142 by Alejandro Garcia Outcome: Adequate for Care Transition 11/15/2024 0716 by Alejandro Garcia Outcome: Ongoing, Progressing Goal: Effective Oxygenation and Ventilation 11/15/20241420 by Alejandro Garcia Outcome: Adequate for Care Transition 11/15/2024 0716 by Alejandro Garcia Outcome: Ongoing, Progressing * Discharge Summary - Ji Beverly MD - 11/15/2024 9:12 AM EDT Images from the original note were not included. Hospitalization Admit Date/Time: 11/11/2024 2:54 AM Admitting Attending: Lawrence Wekes Discharge Date: 11/15/24 Discharge Attending Physician: Lawrence Weeks MD PCP name and Address: Virgie Choi APRN [address] [facility] Referring provider name and address: Fernando Delcid MD [address] [place] [address] [place] [facility] Chief Concern, Brief History of Present Illness, and Hospital Course Patient arrived to [facility] on 11/11 after a fall and sustaining a periprosthetic right distal femur fracture. In order to stabilize her leg, decision was made for a distal femur replacement, which she underwent on 11/12/2024. Patient tolerated the procedure without complication, was extubated in the operating room, and transferred to the PACU for recovery from anesthesia. Shortly thereafter, patient was transferred to the acute care floor for recovery. Patient's hospital course was without complications. Patient was given prophylactic antibiotics, pain was controlled on oral pain medications, and patient tolerated a regular diet. The patient was kept on DVT prophylaxis with SCD's and Xarelto. The patient was cleared to be discharged by PT/OT prior to discharge. The patient wasdischarged to rehab facility. Surgeries and Procedures Procedures performed in this encounter Procedures Case Request Operating Room: RIGHT DISTAL FEMUR REPLACEMENT RIGHT DISTAL FEMUR REPLACEMENT (Right) Medication List .. * acetaminophen 500 MG tablet Commonly known as: Tylenol Take 2 tablets (1,000 mg total) by mouth every 8 (eight) hours. * acetaminophen 500 MG tablet Commonly known as: Tylenol Extra Strength Take 2 tablets by mouth every 6 hours as needed for pain. cephalexin 500 MG capsule Commonly known as: Keflex Take 1 capsule by mouth every 6 hours for 10 days. For post-operative prophylaxis COLLAGEN PO Take 2 Chewable tablet by mouth 1 (one) time each day. diclofenac 75 MG EC tablet Commonly known as: Voltaren Take 1 tablet (75 mg) by mouth 2 (two) times a day. gabapentin 100 MG capsule Commonly known as: Neurontin Take 1 capsule by mouth every 8 hours. hydroCHLOROthiazide 25 MG tablet Commonly known as: HYDRODiuril Take 1 tablet (25 mg) by mouth 1 (one) time each day. methocarbamol 500 MG tablet Commonly known as: Robaxin Take 1 tablet by mouth 4 times a day. multivitamin tablet Take 1 tablet by mouth 1 (one) time each day. naloxone 4 mg/0.1 mL nasal spray Commonly known as: Narcan 1. Give 1 spray in nostril for no/slow breathing or cannot wake after opioid use 2. Call 911 3. Repeat in other nostril if symptoms continue oxyCODONE 5 MG immediate release tablet Commonly known as: Roxicodone Take 1 tablet by mouth every 4 hours as needed for moderate pain or severe pain (Severe pain 5-8). pantoprazole 40 MG EC tablet Commonly known as: Protonix Take 1 tablet by mouth daily before breakfast. Do not crush, chew, or split. Start taking on: November 16, 2024 rivaroxaban 10 MG tablet Commonly known as: Xarelto Take 1 tablet by mouth daily with breakfast. Start taking on: November 16, 2024 senna-docusate 8.6-50 MG tablet Commonly known as: Audrey-Colace Take 1 tablet by mouth 2 times a day. traMADol 50 MG tablet Commonly known as: Ultram Take 1 tablet by mouth every 6 hours as needed for moderate pain (pain score 3- 5. use prior to oxycodone or hydromorphone). * This list has 2 medication(s) that are the same as other medications prescribed for you. Read thedirections carefully, and ask your doctor or other care provider to review them with you. Where to Get Your Medications These medications were sent to [facility] [place], [place] - [address] [facility] [address] [facility] [address] naloxone 4 mg/0.1 mL nasal spray Information about where to get these medications is not yet available Ask your nurse or doctor about these medications acetaminophen 500 MG tablet cephalexin 500 MG capsule gabapentin 100 MG capsule methocarbamol 500 MG tablet oxyCODONE 5 MG immediate release tablet pantoprazole 40 MG EC tablet rivaroxaban 10 MG tablet senna-docusate 8.6-50 MG tablet traMADol 50 MG tablet Discharge Diagnosis Medical Problems Active and Resolved Hospital Problems Hospital * (Principal) Periprosthetic fracture of femur at tip of prosthesis, initial encounter Post Discharge Instructions Weightbear as tolerated right lower extremity, no active flexion. Keep knee immobilizer in place. Prevena wound VAC to stay on for 7 days, afterwards may transition to Aquacel DVT prophylaxis with Xarelto Should discharge on 10 days of oral Keflex for surgical prophylaxis Follow up in 2 weeks for wound check Outpatient Follow-Up Future Appointments Date Time Provider Department Center 03/09/2025 12:30 PM Joanne Santoyo APRN [facility] Test Results Pending At Discharge Pending Labs Order Current Status Prepare Leukocyte Reduced RBC: 2 Units, Leukocyte reduced (CMV reduced risk) Preliminary result Prepare Leukocyte Reduced RBC: 2 Units, Leukocyte reduced (CMV reduced risk) Preliminary result Pertinent Physical Exam At Time of Discharge Physical Exam R lower extremity Inspection: Prevena WV in place, clean dry and intact. No leaks. KI in place. Motor: Intact TA, GSC, FHL, EHL Sensory exam: SILT in Sural, Saphenous, Deep peroneal, Superficial peroneal, Tibial nerve distributions Vascular: 2+ DP and PT pulses, toes WWP with CR <2 sec Discharge Disposition/Condition Disposition: Rehab facility (specify) [facility] Condition: Stable (s/sx potential problems absent or manageable) I spent >30 minutes of patient care and instruction time in preparation for this discharge. Cosigned by Prem Kohler MD at 11/15/2024 10:59 AM EDT Associated attestation - Prem Kohler MD - 11/15/2024 10:59 AM EDT I saw and evaluated the patient with the resident/fellow. I discussed the case with the resident/fellow and agree with the findings and plan as documented. * Progress Notes - Susie Moya RN - 11/15/2024 9:06 AM EDT Case Management Discharge Note Edison Howe 69 y.o. female CSN: [id number] Admission: 11/11/2024 2:54 AM Primary Problem: Periprosthetic fracture of femur at tip of prosthesis, initial encounter Primary Chain Machine Operator: Primary Caregiver: Self Assistance Available at Discharge: Current Outpatient/Agency/Support Group: DME Availability of Care Givers (#Hours): 24 hours Family/Chain Machine Operator(s) Willingness Assessed to care for patient at home: Yes Family/Chain Machine Operator(s) Readiness Assessed to care for patient at home: Yes Housing Circumstances-Z Codes: Housing Circumstances (select all that apply): None Applicable Discharge Facility/Level of Care Needs: Discharge Facility/Level of Care Needs: nursing facility, skilled Patient's Choice of Community Agency(s): Patient's Choice of Community Agency(s): [place] Patient/Family Anticipated Services at Transition: Patient/Family Anticipated Services at Transition: rehabilitation services DME/Equipment Needed after Discharge: Equipment Currently Used at Home: walker, rolling, cane, straight Equipment Needed After Discharge: none Readmission Within the Last 30 Days: Readmission Within the Last 30 Days: no previous admission in last 30 days Medicare Documentation: Medicare Second Notice?: Yes Date Second Notice Completed: 11/15/24 Time Second Notice Completed: 899 Medicare Second Notice Recieved By: patient Follow-up: No follow-up provider specified. Discharge Transportation: Transportation Anticipated: medical transport Transportation Home at Discharge: Medical Transport Has discharge transport been arranged?: Yes What day is the transport expected?: 11/15/24 What time is the transport expected?: 1400 Follow Up Transport: Transportation Needed to Follow up Appoinments: Family/Friend will Provide Additional Comments: Pt is medically ready to discharge to [facility]. Incisional WV has been switched to a prevena and drain will be removed. Ambulance confirmed for today at 1400 . PCS forms were placed in pt's chart. Pt is aware and agreeable to discharge. [place] [phone] [facility] [place] Susie Moya RN * Care Plan - Alejandro Garcia - 11/15/2024 7:18 AM EDT Problem: Skin Injury Risk Increased Goal: Skin Health and Integrity Outcome: Ongoing, Progressing Intervention: Optimize Skin Protection Flowsheets Taken 11/15/2024 07 by Alejandro Garcia Activity Management: activity adjusted per tolerance Head of Bed (HOB) Positioning: HOB at 20-30 degrees Taken 11/14/20241999 by Teresita Holt, RN Skin Protection: incontinence pads utilized Taken 11/14/2024711 by Alejandro Garcia Pressure Reduction Techniques: frequent weight shift encouraged heels elevated off bed Pressure Reduction Devices: positioning supports utilized pressure-redistributing mattress utilized Problem: Adult Inpatient Plan of Care Goal: Plan of Care Review Outcome: Ongoing, Progressing Flowsheets (Taken 11/15/2024 0716) Progress: improving Plan of Care Reviewed With: patient Goal: Patient-Specific Goal (Individualized) Outcome: Ongoing, Progressing Flowsheets (Taken 11/15/2024 07) Patient/Family-Specific Goals (Include Timeframe): Pt will remain free from fall/injury this shift. Individualized Care Needs: Saftey Anxieties, Fears or Concerns: Going home Goal: Absence of Hospital-Acquired Illness or Injury Outcome: Ongoing, Progressing Intervention: Identify and Manage Fall Risk Flowsheets (Taken 11/15/2024 07) Safety Promotion/Fall Prevention: activity supervised assistive device/personal items within reach clutter-free environment maintained fall prevention program maintained lighting adjusted mobility aid in reach nonskid shoes/slippers when out of bed room organization consistent safety round/check completed toileting scheduled Goal: Optimal Comfort and Wellbeing Outcome: Ongoing, Progressing Problem: Mobility Impairment Goal: Optimal Mobility Outcome: Ongoing, Progressing Intervention: Optimize Mobility Flowsheets Taken 11/15/2024699 Activity Management: activity adjusted per tolerance Taken 11/14/202412 Positioning/Transfer Devices: pillows repositioning sheet Taken 11/13/2024 0744 Assistive Device Utilized: other (see comments) Problem: Pain Acute Goal: Optimal Pain Control and Function Outcome: Ongoing, Progressing Intervention: Optimize Psychosocial Wellbeing Flowsheets (Taken 11/14/2024 07) Supportive Measures: active listening utilized decision-making supported goal-setting facilitated positive reinforcement provided problem-solving facilitated relaxation techniques promoted self-care encouraged self-reflection promoted self-responsibility promoted verbalization of feelings encouraged Diversional Activities: smartphone television Spiritual Activities Assistance: affirmation provided Problem: Fall Injury Risk Goal: Absence of Fall and Fall-Related Injury Outcome: Ongoing, Progressing Intervention: Identify and Manage Contributors Flowsheets (Taken 11/15/2024 0716) Medication Review/Management: medications reviewed Self-Care Promotion: independence encouraged BADL personal objects within reach BADL personal routines maintained Problem: Orthopaedic Fracture Goal: Absence of Bleeding Outcome: Ongoing, Progressing Intervention: Monitor and Manage Fracture Bleeding Flowsheets (Taken 11/14/202412) Fracture Immobilization: supported during position changes supported with pillows Bleeding Management: affected area elevated dressing monitored Goal: Bowel Elimination Outcome: Ongoing, Progressing Goal: Absence of Embolism Signs and Symptoms Outcome: Ongoing, Progressing Goal: Fracture Stability Outcome: Ongoing, Progressing Goal: Optimal Functional Ability Outcome: Ongoing, Progressing Goal: Absence of Infection Signs and Symptoms Outcome: Ongoing, Progressing Goal: Effective Tissue Perfusion Outcome: Ongoing, Progressing Goal: Optimal Pain Control and Function Outcome: Ongoing, Progressing Goal: Effective Oxygenation and Ventilation Outcome: Ongoing, Progressing Problem: Surgery Nonspecified Goal: Absence of Bleeding Outcome: Ongoing, Progressing Goal: Effective Bowel Elimination Outcome: Ongoing, Progressing Goal: Fluid and Electrolyte Balance Outcome: Ongoing, Progressing Goal: Absence of Infection Signs and Symptoms Outcome: Ongoing, Progressing Goal: Anesthesia/Sedation Recovery Outcome: Ongoing, Progressing Goal: Optimal Pain Control and Function Outcome: Ongoing, Progressing Goal: Effective Urinary Elimination Outcome: Ongoing, Progressing Goal: Effective Oxygenation and Ventilation Outcome: Ongoing, Progressing * Progress Notes - Ji Beverly MD - 11/15/2024 6:40 AM EDT ORTHOPAEDIC SURGERY PROGRESS NOTE SUBJECTIVE No acute events overnight. Resting comfortably. Had bowel movement yesterday. Plan for discharge this afternoon. OBJECTIVE Visit Vitals BP (!) 143/80 (BP Location: Right arm, Patient Position: Lying) Pulse 106 Temp 36.8 ??C (98.3 ??F) (Oral) Ht 1.524 m (5') Wt 119 kg (262 lb 5.6 oz) SpO2 95% BMI 51.24 kg/m?? Labs in last 18 hours CBC WBC ?? Hb ?? Plt ?? Hct ?? ANC ?? INR ??, PTT ??, Anti-Xa ?? BMP Na ?? Cl ?? BUN ?? Glu ?? K ?? Co2 ?? Cr ?? Ca ?? iCa ?? Mg ??, Phos ?? Lactate ?? LFT AST ?? AlkPhos ?? T Prot ?? ALK ?? Bili ?? Alb ?? D.Bili ?? PHYSICAL EXAMINATION No acute distress Non labored breathing Peripheral perfusion intact FOCUSED MUSCULOSKELETAL EXAM R lower extremity Inspection: White sponge WV in place, clean dry and intact. No leaks. KI in place. Motor: Intact TA, GSC, FHL, EHL Sensory exam: SILT in Sural, Saphenous, Deep peroneal, Superficial peroneal, Tibial nerve distributions Vascular: 2+ DP and PT pulses, toes WWP with CR <2 sec ASSESSMENT AND PLAN Edison Howe is a 69 y.o. female patient with R periprosth DF fx s/p DFR (11/12) Mobility Orders Mobility Protocol: Ortho/Trauma/Spine Mobility Guidelines Spinal Precautions: No cranial, cervical or thoracolumbar spinal precautions necessary Extremity Precautions: Extremity Precautions Extremity: RLE Mobility Restrictions (RLE): Weight bear as tolerated (WBAT) Other Other: No knee flexion until cleared by Dr. Kohler. Type of Brace (RLE): Knee Immobilizer Knee Immobilizer Wear Time Protocol: Remove for skin inspection and hygiene At All Times Other mobility precautions: No other precautions required Ancef while inpatient, we will discharge on 10 days of Keflex Drain output 100 mL yesterday. Will discontinue prior to discharge today DVT ppx: Xarelto Prevena wound VAC applied today Continue PTOT Disposition: Discharge to facility this afternoon. Follow up in 2 weeks for wound check -- Ji Beverly MD PGY-4, Orthopaedic Surgery [facility] Orthopaedic Trauma Service Pager: [phone] Orthopaedic Recon/Spine/Foot and Ankle Service Pager: [phone] Cosigned by Prem Kohler MD at 11/15/2024 7:37 AM EDT Associated attestation - Prem Kohler MD - 11/15/2024 7:37 AM EDT Signature only. * Care Plan - Teresita Holt RN - 11/14/2024 10:50 PM EDT Problem: Skin Injury Risk Increased Goal: Skin Health and Integrity Outcome: Ongoing, Progressing Intervention: Optimize Skin Protection Flowsheets Taken 11/14/20242199 by Teresita Holt, RN Head of Bed (HOB) Positioning: HOB elevated Taken 11/14/20241999 by Teresita Holt, RN Activity Management: activity adjusted per tolerance activity encouraged Skin Protection: incontinence pads utilized Taken 11/14/2024 0712 by Alejandro Garcia Pressure Reduction Techniques: frequent weight shift encouraged heels elevated off bed Pressure Reduction Devices: positioning supports utilized pressure-redistributing mattress utilized Problem: Adult Inpatient Plan of Care Goal: Plan of Care Review Outcome: Ongoing, Progressing Flowsheets (Taken 11/13/2024 9409 by Lula Harden, RN) Progress: improving Plan of Care Reviewed With: patient Goal: Patient-Specific Goal (Individualized) Outcome: Ongoing, Progressing Flowsheets (Taken 11/14/20241999) Patient/Family-Specific Goals (Include Timeframe): Pt will remain free from falls throughout the shift. Individualized Care Needs: safety Anxieties, Fears or Concerns: rehab Goal: Absence of Hospital-Acquired Illness or Injury Outcome: Ongoing, Progressing Intervention: Identify and Manage Fall Risk Flowsheets (Taken 11/14/20241999) Safety Promotion/Fall Prevention: activity supervised assistive device/personal items within reach clutter-free environment maintained fall prevention program maintained lighting adjusted mobility aid in reach nonskid shoes/slippers when out of bed room organization consistent safety round/check completed toileting scheduled Goal: Optimal Comfort and Wellbeing Outcome: Ongoing, Progressing Intervention: Monitor Pain and Promote Comfort Flowsheets (Taken 11/14/20241999) Pain Management Interventions: care clustered pillow support provided position adjusted quiet environment facilitated rest Problem: Mobility Impairment Goal: Optimal Mobility Outcome: Ongoing, Progressing Intervention: Optimize Mobility Flowsheets Taken 11/14/20241999 by Teresita Holt RN Activity Management: activity adjusted per tolerance activity encouraged Taken 11/14/2024 0712 by Alejandro Garcia Positioning/Transfer Devices: pillows repositioning sheet Problem: Pain Acute Goal: Optimal Pain Control and Function Outcome: Ongoing, Progressing Intervention: Optimize Psychosocial Wellbeing Flowsheets (Taken 11/14/2024 0712 by Alejandro Garcia) Supportive Measures: active listening utilized decision-making supported goal-setting facilitated positive reinforcement provided problem-solving facilitated relaxation techniques promoted self-care encouraged self-reflection promoted self-responsibility promoted verbalization of feelings encouraged Diversional Activities: smartphone television Spiritual Activities Assistance: affirmation provided Problem: Fall Injury Risk Goal: Absence of Fall and Fall-Related Injury Outcome: Ongoing, Progressing Intervention: Identify and Manage Contributors Flowsheets (Taken 11/13/20241999 by Lula Harden, RN) Medication Review/Management: medications reviewed Self-Care Promotion: independence encouraged BADL personal objects within reach BADL personal routines maintained meal set-up provided Problem: Orthopaedic Fracture Goal: Absence of Bleeding Outcome: Ongoing, Progressing Intervention: Monitor and Manage Fracture Bleeding Flowsheets (Taken 11/14/2024 0712 by Alejandro Garcia) Fracture Immobilization: supported during position changes supported with pillows Bleeding Management: affected area elevated dressing monitored Goal: Bowel Elimination Outcome: Ongoing, Progressing Intervention: Promote Effective Bowel Elimination Flowsheets (Taken 11/13/20241999 by Lula Harden RN) Bowel Elimination Management: hygiene measures promoted relaxation techniques promoted toileting offered Bowel Elimination Promotion: (stool softners added, pt states she doesn't want to use any of the prn laxatives yet) adequate fluid intake promoted ambulation promoted privacy promoted Goal: Absence of Embolism Signs and Symptoms Outcome: Ongoing, Progressing Intervention: Prevent or Manage Embolism Risk Flowsheets (Taken 11/14/20241999) VTE Prevention/Management: medication Goal: Fracture Stability Outcome: Ongoing, Progressing Intervention: Promote Fracture Stability and Healing Flowsheets (Taken 11/14/2024711 by Alejandro Garcia) Fracture Immobilization: supported during position changes supported with pillows Goal: Optimal Functional Ability Outcome: Ongoing, Progressing Intervention: Optimize Functional Ability Flowsheets Taken 11/14/20241999 by Teresita Holt RN Range of Motion: active ROM (range of motion) encouraged Activity Management: activity adjusted per tolerance activity encouraged Taken 11/14/2024 07 by Alejandro Garcia Positioning/Transfer Devices: pillows repositioning sheet Taken 11/13/20241999 by Lula Harden RN Self-Care Promotion: independence encouraged BADL personal objects within reach BADL personal routines maintained meal set-up provided Goal: Absence of Infection Signs and Symptoms Outcome: Ongoing, Progressing Intervention: Prevent or Manage Infection Flowsheets Taken 11/14/20241999 by Teresita Holt RN Isolation Precautions: protective Taken 11/13/20241999 by Lula Harden, ALVA Infection Management: aseptic technique maintained Taken 11/12/20242134 by Mary Calvert RN Fever Reduction/Comfort Measures: lightweight bedding lightweight clothing Goal: Effective Tissue Perfusion Outcome: Ongoing, Progressing Intervention: Prevent or Manage Neurovascular Compromise Flowsheets Taken 11/14/20242244 by Teresita Holt RN Compartment Syndrome Management: extremity placed at heart level Neurovascular Pressure Management: Cast: extremity positioned at heart level Taken 11/13/20241999 by Lula Harden, ALVA Compartment Syndrome Surveillance: no pain with passive muscle stretch Goal: Optimal Pain Control and Function Outcome: Ongoing, Progressing Intervention: Manage Acute Orthopaedic-Related Pain Flowsheets Taken 11/14/2024 224 by Teresita Holt RN Complementary Therapy: music therapy provided Taken 11/14/20241999 by Teresita Holt iuss analyst Interventions: care clustered pillow support provided position adjusted quiet environment facilitated rest Taken 11/13/20241999 by Lula Harden RN Sleep/Rest Enhancement: awakenings minimized consistent schedule promoted family presence promoted noise level reduced relaxation techniques promoted room darkened regular sleep/rest pattern promoted Goal: Effective Oxygenation and Ventilation Outcome: Ongoing, Progressing Intervention: Promote Airway Secretion Clearance Flowsheets Taken 11/14/20241999 by Teresita Holt RN Activity Management: activity adjusted per tolerance activity encouraged Cough And Deep Breathing: done with encouragement Taken 11/12/20242134 by Mary Calvert RN Breathing Techniques/Airway Clearance: deep/controlled cough encouraged Problem: Surgery Nonspecified Goal: Absence of Bleeding Outcome: Ongoing, Progressing Intervention: Monitor and Manage Bleeding Flowsheets (Taken 11/14/2024 07 by Alejandro Garcia) Bleeding Management: affected area elevated dressing monitored Goal: Effective Bowel Elimination Outcome: Ongoing, Progressing Intervention: Enhance Bowel Motility and Elimination Flowsheets Taken 11/13/2024 233 by Lula Harden RN Bowel Motility Enhancement: oral intake encouraged fluid intake encouraged Taken 11/13/20241999 by Lula Harden RN Bowel Elimination Management: hygiene measures promoted relaxation techniques promoted toileting offered Goal: Fluid and Electrolyte Balance Outcome: Ongoing, Progressing Intervention: Monitor and Manage Fluid and Electrolyte Balance Flowsheets (Taken 11/13/20241999 by Lula Harden RN) Fluid/Electrolyte Management: fluids provided Goal: Absence of Infection Signs and Symptoms Outcome: Ongoing, Progressing Intervention: Prevent or Manage Infection Flowsheets Taken 11/14/20241999 by Teresita Holt RN Isolation Precautions: protective Taken 11/13/20241999 by Lula Harden RN Infection Management: aseptic technique maintained Taken 11/12/20242134 by Mary Calvert RN Fever Reduction/Comfort Measures: lightweight bedding lightweight clothing Goal: Anesthesia/Sedation Recovery Outcome: Ongoing, Progressing Intervention: Optimize Anesthesia Recovery Flowsheets Taken 11/14/20242244 by Teresita Holt RN Reorientation Measures: clock in view Taken 11/14/20241999 by Teresita Holt RN Safety Promotion/Fall Prevention: activity supervised assistive device/personal items within reach clutter-free environment maintained fall prevention program maintained lighting adjusted mobility aid in reach nonskid shoes/slippers when out of bed room organization consistent safety round/check completed toileting scheduled Taken 11/12/20242134 by Mary Calvert RN Stabilization Measures: verbal stimulation provided Goal: Optimal Pain Control and Function Outcome: Ongoing, Progressing Intervention: Prevent or Manage Pain Flowsheets Taken 11/14/20242244 by Teresita Holt RN Complementary Therapy: music therapy provided Taken 11/14/20241999 by Teresita Holt iuss analyst Interventions: care clustered pillow support provided position adjusted quiet environment facilitated rest Taken 11/14/2024 0712 by Alejandro Garcia Diversional Activities: smartphone television Goal: Effective Urinary Elimination Outcome: Ongoing, Progressing Intervention: Monitor and Manage Urinary Retention Flowsheets (Taken 11/13/20241999 by Lula Harden RN) Urinary Elimination Promotion: frequent voiding encouraged toileting device within reach toileting scheduled voiding relaxation promoted Goal: Effective Oxygenation and Ventilation Outcome: Ongoing, Progressing Intervention: Optimize Oxygenation and Ventilation Flowsheets Taken 11/14/20242199 by Teresita Holt RN Head of Bed (HOB) Positioning: HOB elevated Taken 11/14/20241999 by Teresita Holt RN Activity Management: activity adjusted per tolerance activity encouraged Cough And Deep Breathing: done with encouragement Taken 11/13/2024 2339 by Lula Harden, ALVA Airway/Ventilation Management: pulmonary hygiene promoted position adjusted * Keyla Blanco, PharmD - 11/14/2024 2:22 PM EDT Images from the original note were not included. [id number] Rivaroxaban IMPORTANT WARNING: If you have atrial fibrillation (a condition in which the heart beats irregularly, increasing the chance of clots forming in the body, and possibly causing strokes) and are taking rivaroxaban to helpprevent strokes or serious blood clots, you are at a higher risk of having a stroke after you stop taking this medication. Do not stop taking rivaroxaban without talking to your doctor. Continue to take rivaroxaban even if you feel well. Be sure to refill your prescription before you run out of medication so that you will not miss any doses of rivaroxaban. If you need to stop taking rivaroxaban, your doctor may prescribe another anticoagulant (''blood thinner'') to help prevent a blood clot from forming and causing you to have a stroke. If you have epidural or spinal anesthesia or a spinal puncture while taking a 'blood thinner' such as rivaroxaban, you are at risk of having a blood clot form in or around your spine that could causeyou to become paralyzed. Tell your doctor if you have an epidural catheter that is left in your body or have or have ever had repeated epidural or spinal punctures, spinal deformity, or spinal surgery. Tell your doctor and pharmacist if you are taking medications that may cause bleeding including anticoagulants (blood thinners) such as warfarin (Jantoven), heparin, or other medications to treat or prevent blood clots and aspirin and other nonsteroidal anti-inflammatory drugs (NSAIDs) such as ibu profen (Advil, Motrin, others), indomethacin (Indocin), ketoprofen, and naproxen (Aleve, Anaprox, others). If you experience any of the following symptoms, call your doctor immediately: back pain, muscle weakness (especially in your legs and feet), numbness or tingling (especially in your legs), loss of control of your bowels or bladder, or inability to move your legs. Talk to your doctor about the risk of taking rivaroxaban. Your doctor or pharmacist will give you the operating table assembler's patient information sheet (Medication Guide) when you begin treatment with rivaroxaban and each time you refill your prescription. Read the information carefully and ask your doctor or pharmacist if you have any questions. You can also visit the Food and Drug Administration (FDA) website (https://www.fda.gov/downloads/Drugs/DrugSafety/UIJ445549.pdf) or the operating table assembler's website to obtain the Medication Guide. WHY is this medicine prescribed? Rivaroxaban is used to treat deep vein thrombosis (DVT; a blood clot, usually in the leg) and pulmonary embolism (PE; a blood clot in the lung) in adults. Rivaroxaban is also used to prevent DVT and PE from happening again after initial treatment is completed in adults. It is also used to help prevent strokes or serious blood clots in adults who have atrial fibrillation (a condition in which the heart beats irregularly, increasing the chance of clots forming in the body, and possibly causing strokes) that is not caused by heart valve disease. Rivaroxaban is also used to prevent DVT and PE in adults who are having hip replacement or knee replacement surgery or in people who are hospitalized for serious illnesses and are at risk of developing a clot due to decreased ability to move around or other risk factors. It is also used along with aspirin to lower the risk of a heart attack, stroke, or in adults with coronary artery disease (narrowing of the blood vessels that supply blood t o the heart) or peripheral arterial disease (poor circulation in the blood vessels that supply blood to the arms and legs). Rivaroxaban is also used to treat and prevent DVT and PE from happening again in children and certain infants who have received at least 5 days of initial anticoagulation (blood thinner) treatment. It is also used to prevent DVT and PE after heart surgery in children 2 yearsof age or older who have congenital heart disease (abnormality in the heart that develops before ). Rivaroxaban is in a class of medications called factor Xa inhibitors. It works by blocking theaction of a certain natural substance that helps blood clots to form. HOW should this medicine be used? Rivaroxaban comes as a tablet and a suspension (liquid) to take by mouth. When rivaroxaban is used to treat DVT or PE in adults, it is usually taken with food twice daily for 21 days, then once dailywith food. When rivaroxaban is used to prevent DVT or PE in adults, it is usually taken once daily with or without food after at least 6 months of anticoagulation (blood thinner) treatment. When rivar oxaban is used to prevent a stroke in those who have atrial fibrillation, it is usually taken once daily with the evening meal. When rivaroxaban is taken to prevent DVT and PE after hip or knee replacement surgery, it is usually taken with or without food once daily. The first dose should be taken at least 6 to 10 hours after surgery. Rivaroxaban is usually taken for 35 days after a hip replacement surgery and for 12 days after knee replacement surgery. When rivaroxaban is taken to prevent DVT and PE in adults who are hospitalized for serious illnesses and are at risk of developing a clot dueto decreased ability to move around, it is usually taken with or without food once daily starting wh en you are in the hospital and then continuing for a total of 31 to 39 days. When rivaroxaban is taken along with aspirin in adults with coronary artery disease or peripheral arterial disease, it is usually taken twice daily with or without food. When rivaroxaban is used in children and infants to treat or prevent DVT or PE, it is usually given 1 to 3 times a day with food after at least 5 days of anticoagulation (blood thinner) treatment. When rivaroxaban is taken in children 2 years of age orolder who have congenital heart disease, it is usually given 1 to 3 times a day with or without food after heart surgery. Take rivaroxaban at around the same time(s) every day. Follow the directions on your prescription label carefully, and ask your doctor or pharmacist to explain any part you do not understand. Take rivaroxaban exactly as directed. Do not take more or less of it or take it more often than prescribed by your doctor. For adults, if you are unable to swallow the tablets, you can crush them and mix with applesauce. Swallow the mixture right after you prepare it. Rivaroxaban can also be given in certain types of feeding tubes. Ask your doctor if you should take this medication in your feeding tube. Follow your doctor's directions carefully. For children taking rivaroxaban tablets, swallow the tablets whole; do not split them. If you or your child vomits or spits up within 30 minutes of taking a dose of rivaroxaban oral suspension, take another full dose as soon as possible after the vomiting episode and then take your next dose at the regularly scheduled time. To measure rivaroxaban oral suspension, follow these steps: ? Use the oral syringe that came with the medication for measuring the liquid. Do not use a household spoon to measure your dose. Household teaspoons are not accurate measuring devices, and you may receive too much medication or not enough medication if you measure your dose with a household teaspoon. ? Shake the bottle gently for 10 seconds before use. If there are remaining granules at the bottom of the bottle, shake gently again for another 10 seconds. Do not shake the bottle to avoid foaming. ? Remove the bottle cap by pushing down on the cap, then turn it counterclockwise (to the left). Donot remove the adaptor from the top of the bottle. ? Push all the air from the oral syringe into the bottle by pushing down on the plunger. Then insert the open tip of the oral syringe into the adaptor. ? While holding the oral syringe in place, carefully turn the bottle upside down. Draw some of the medication out of the bottle into the oral syringe by pulling back on the plunger. Be careful not topull the plunger all the way out. ? You will see a small amount of air near the end of the plunger in the oral syringe. Push on the plunger so the medication goes back into the bottle and the air disappears. Pull back on the plunger to draw your correct medication dose into the oral syringe. ? While still holding the oral syringe in the bottle, carefully turn the bottle upwards so the syringe is on top. Remove the oral syringe from the bottle neck adaptor without pushing on the plunger. Take the medication right after you draw it into the oral syringe. ? Place the open tip of the oral syringe into one side of your child's mouth and push on the plunger slowly as the liquid goes into your child's mouth; have your child swallow the medication slowly as it goes into their mouth. ? If your dose is more than 5 mL, you will need to use the same syringe more than one time and you will need to repeat steps 3 through 7. ? Leave the adaptor in the bottle. Place the cap back on the bottle and turn it clockwise (to the right) to tighten it. ? Rinse the oral syringe with clean tap water and allow it to air dry after each use. Continue to take rivaroxaban even if you feel well. Do not stop taking rivaroxaban without talking to your doctor. If you stop taking rivaroxaban, your risk of a blood clot may increase. Are there OTHER USES for this medicine? This medication may be prescribed for other uses; ask your doctor or pharmacist for more information. What SPECIAL PRECAUTIONS should I follow? Before taking rivaroxaban, ? tell your doctor and pharmacist if you are allergic to rivaroxaban, any other medications, or anyof the ingredients in rivaroxaban tablets. Ask your pharmacist for a list of the ingredients. ? tell your doctor and pharmacist what other prescription and nonprescription medications, vitamins, and nutritional supplements you are taking or plan to take. Your doctor may need to change the doses of your medications or monitor you carefully for side effects. ? tell your doctor what herbal products you are taking, especially [place]'s wort. ? tell your doctor if you have an artificial heart valve or recently noticed any unusual bruising or bleeding. Your doctor will probably tell you not to take rivaroxaban. ? tell your doctor if you have or have ever had any type of bleeding problem, antiphospholipid syndrome (APS; a condition that causes blood clots), bleeding or an ulcer in your stomach or intestine, or kidney or liver disease. ? tell your doctor if you are , plan to become , or are . If you become while taking rivaroxaban, call your doctor. ? talk to your doctor about the risks and benefits of taking rivaroxaban if you are 75 years of ageor older. ? if you are having surgery, including dental surgery, tell the doctor or dentist that you are taking rivaroxaban. Your doctor may tell you to stop taking rivaroxaban before the surgery or procedure.Your doctor will tell you when you should start taking rivaroxaban again after your surgery. What SPECIAL DIETARY instructions should I follow? Unless your doctor tells you otherwise, continue your normal diet. What should I do IF I FORGET to take a dose? Adults: ? If you take rivaroxaban once a day, take the missed dose as soon as you remember it on that day. Resume your regular dosing schedule the next day. ? If you take rivaroxaban twice a day for the treatment of a DVT or PE, take the missed dose as soon as you remember it on that day. You may take 2 doses at the same time to make up for the missed dose. Resume your regular dosing schedule on the next day. ? If you have CAD or PAD and take rivaroxaban twice a day to reduce the risk of DVT and PE and mikayla dose, just continue your regular dosing schedule. Do not take a double dose to make up for a missed one. Infants and children: ? If you take rivaroxaban once a day, take the missed dose as soon as you remember it on that day. Resume your regular dosing schedule the next day. Do not take a double dose to make up for a missed one. ? If you take rivaroxaban twice a day, take the missed morning dose as soon as you remember it on that day. You may take 2 doses at the same time in the evening to make up for the missed morning dose. Resume your regular dosing schedule on the next day ? If you take rivaroxaban three times a day and miss a dose, skip the missed dose and continue yourregular dosing schedule. Do not take a double dose to make up for a missed one. What SIDE EFFECTS can this medicine cause? Some side effects can be serious. If you experience any of these symptoms or those listed in the IMPORTANT WARNING section, call your doctor immediately: ? bloody, black, or tarry stools ? pink, or brown urine ? coughing up or vomiting blood or material that looks like coffee grounds ? frequent nosebleeds ? bleeding from your gums ? heavy menstrual bleeding ? weakness ? tiredness ? headache ? dizziness or fainting ? blurred vision ? pain in arm or leg ? rash ? itching ? difficulty breathing or swallowing ? hives ? pain or swelling at wound sites ? decreased urination ? swelling in your legs, feet, or ankles Rivaroxaban prevents blood from clotting normally so it may take longer than usual for you to stop bleeding if you are cut or injured. This medication may also cause you to bruise or bleed more easily. Call your doctor right away if bleeding or bruising is unusual. Rivaroxaban may cause other side effects. Call your doctor if you have any unusual problems while taking this medication. If you experience a serious side effect, you or your doctor may send a report to the Food and Drug Administration's (FDA) MedWatch Adverse Event Reporting program online (https://www.fda.gov/Safety/MedWatch) or by phone ( ). What should I know about STORAGE and DISPOSAL of this medication? Keep this medication in the container it came in, tightly closed, and out of reach of children. Store it at room temperature and away from excess heat and moisture (not in the bathroom). Keep all medication out of sight and reach of children as many containers are not child-resistant. Always lock safety caps. Place the medication in a safe location - one that is up and away and out of their sight and reach. https://www.Plixi.org Dispose of unneeded medications in a way so that pets, children, and other people cannot take them.Do not flush this medication down the toilet. Use a medicine take-back program. Talk to your pharmacist about take-back programs in your community. Visit the FDA's Safe Disposal of Medicines website h ttps://goo.gl/c4Rm4p for more information. What should I do in case of OVERDOSE? In case of overdose, call the poison control helpline at . Information is also available online at https://www.poisonhelp.org/help. If the victim has collapsed, had a seizure, has trouble breathing, or can't be awakened, immediately call emergency services at 799. Symptoms of overdose may include the following: ? unusual bleeding or bruising ? bloody, black, or tarry stools ? blood in urine ? coughing up or vomiting blood or material that looks like coffee grounds What OTHER INFORMATION should I know? Keep all appointments with your doctor and the laboratory. Your doctor may order certain lab tests to check your body's response to rivaroxaban. Do not let anyone else take your medication. Your prescription is probably not refillable. Keep a written list of all of the prescription and nonprescription ([id number]) medicines, vitamins, minerals, and dietary supplements you are taking. Bring this list with you each time you visit a doctor or if you are admitted to the hospital. You should carry the list with you in case of reji rgencies. Brand Name(s): ? Xarelto?? This report on medications is for your information only, and is not considered individual patient advice. Because of the changing nature of drug information, please consult your physician or pharmacist about specific clinical use. The [employer] [employer] represents that the information provided hereunder was formulated with a reasonable standard of care, and in conformity with professional standards in the field. The [employer] makes no representations or warranties, express or implied, including, but not limited to, any implied warranty of merchantability and/or fitness for a particular purpose, with respect to such information and specifically disclaims all such warranties. Users are advised that decisions regarding drug therapy are complex medical decisions requiring the independent, informed decision of an appropriate health client care representative, and the information is provided for informational purposes only. The entire monograph for a drug should be reviewed for a thorough understanding of the drug's actions, uses and side effects. The [employer] does not endorse or recommend the use of any drug.The information is not a substitute for medical care. AHFS?? Patient Medication Information?. ?? Copyright, 2023. The [employer]??, [address], [address], [place], [place]. All Rights Reserved. Duplication for commercial use must be authorized by [facility]. Selected Revisions: June 27, 2022. AHFS?? Patient Medication Information?. ?? Copyright, 2024 * Amber Bowen RN - 11/14/2024 11:52 AM EDT Images from the original note were not included. [address]1526 Femur Fracture What is a femur fracture? Your thighbone is known as the femur bone. The femur spans from the hip to the knee. The femur is the longest and strongest bone in your body. Since femur bones are so strong, it usually takes a lot of force to break them. One of the most common causes of femur fractures (breaks) are car crashes. A fracture is a break in the bone in 2 or more pieces. There are different types of femur fractures. ? Femur fractures can be nondisplaced (bone is broken but the parts still line up correctly) or displaced (out of alignment). ? Femur fractures can be closed (skin intact) or open (the bone has gone through the skin). Open femur fractures (also known as compound fractures) can happen when either pieces of the bone are sticking through the skin or a wound penetrates down to the broken bone. These types of fractures cause more damage to the nearby tissues (muscles, tendons, and ligaments), have a higher risk of complications (such as infections), and take a longer time to heal. What parts of the femur can break? Distal femur fracture ? Description: This type of femur fracture is just above the knee joint where the bone flares out like an upside-down funnel. The distal femur makes up part of the knee joint. These fractures can sometimes extend into the knee joint and can separate the surface of the bone into multiple parts. These types of distal femur fractures are known as intra-articular and can be more difficult to treat. Distal femur fractures happen most often in younger people and the elderly. ? Treatment: These types of fractures may require surgery, depending on how bad they are. o Nonsurgical treatment involves either skeletal traction (paul system with weights) or casting and bracing (hold bones in place until they heal). o Open fractures require surgery sooner than closed (bone not exposed to the outside) fractures. ? Your final surgery may be delayed until the skin and muscles around the fracture have time to heal. This helps reduce your risk of complications. In these cases, the fracture is placed in external fixation (metal pins are placed into the bone and held together by an outer metal fixator). It is usually raised until the skin and muscles are healed enough for surgery. ? Final surgery for these types of fractures usually includes intramedullary nailing or open reduction and internal fixation (ORIF) with plates and screws. ? With intramedullary nailing, a metal radha is placed into the marrow canal (center) of the femoral shaft. The radha passes across the fracture to keep it in position. Then it is screwed to the bone at both ends. ? With open reduction and internal fixation (ORIF) with plates and screws, the bone fragments are reduced (repositioned) into their normal alignment. Then screws and metal plates are attached to the outer part of the bone to hold them in place. Femoral shaft fracture ? Description: This type of femur fracture occurs on the long, straight part of the femur. In youngerpeople, these fractures often happen in car crashes. In older people, they often happen by falling from standing, if they have weaker bones. ? Treatment: In some cases, these types of fractures do not require surgery. But in most cases, they do. o If the fracture is open, it will require surgery sooner than if the fracture is closed (bone not exposed to the outside). The fractured leg may be placed in temporary skeletal traction (paul system with weights) or external fixation (metal pins are placed into the bone and held together by an outer metal fixator) until a final surgery can happen. Both of these treatments stabilize the fracture for a short time. o Common surgeries for femoral shaft fractures are intramedullary nailing and open reduction and internal fixation (ORIF) with plates and screws. ? With intramedullary nailing, a metal radha is placed into the marrow canal (center) of the femoral shaft. This holds the fracture in place. Then screws are placed through the nail at both ends. ? With open reduction and internal fixation (ORIF) with plates and screws, the bone fragments are put into their normal position. They are then held together with screws and metal plates attached to the outer area of the bone. Proximal femur fracture This type of femur fracture occurs close to the ball (femur head) of the femur that makes up part of the hip joint. These types of fractures happen most often in falls by older people with weakened bones. There are 4 types of proximal femur fractures. These are based on the location of the fracture. 1. Femoral neck fracture ? Description: This is the area of the femur below the ball of the hip (femoral head). This type offracture can also be called a subcapital or intracapsular fracture. ? Treatment: o If the fracture is not displaced (it is aligned): The most common surgery to fix these fractures is in-situ pinning. This is where surgical pins/screws are placed through the part of the bone that is broken. This holds the ball of the femur in place while the fracture heals. o If the fracture is displaced (it is not aligned): These fractures are often treated with a joe-arthroplasty (partial hip replacement) or a total hip replacement. Joe-arthroplasties are often used in older patients. Total hip replacements are often used in very active and younger patients. 2. Intertrochanteric area fracture ? Description: This is the area below the neck of the femur and above the long part or the shaft. These fractures happen below the femoral neck. It is a bigger area between the greater and lesser trochanters. ? Treatment: These fractures are often treated with a sliding compression hip screw and side plate or with an intramedullary nail (radha). o The compression hip screw is attached to the outer part of the bone with screws. Then a larger screw is placed through the plate and into the femoral head and neck. o The intramedullary nail is placed into the marrow canal (center) of the bone through an opening made at the greater trochanter. Then 1 or more screws are placed through the nail and into the femoral head. 3. Subtrochanteric area fracture ? Description: This is the upper part of the shaft of the femur below the greater and lesser trochanters. ? Treatment: These fractures are often treated with an intramedullary nail (radha). It is placed intothe marrow canal (center) of the femur shaft. Then a screw is placed through the nail into the femoral head. Multiple screws may be placed at the lower end of the nail at the knee. 4. Femoral head fracture ? Description: This is the ball of the femur that sits in the socket. These fractures are very rare. ? Treatment: These fractures may be able to be treated without surgery. When treated with surgery, it is often by open reduction and internal fixation (ORIF) with screws. Which image studies help diagnose femur fractures? X-rays. This study provides images of dense structures like bones. X-rays are often the first scansdone to find bone fractures. Magnetic Resonance Imaging (MRI) scans. This study provides images of soft tissue structures and bone. MRIs are very sensitive and can sometimes detect a small or incomplete fracture that cannot be seen on an X-ray. Computerized Tomography (CT) scans. This study provides a detailed cross- sectional image of the bone. CT scans are often ordered for surgeons to get more detailed imaging of a specific fracture. * Progress Notes - Susie Moya RN - 11/14/2024 11:48 AM EDT Case Management Adult Initial Progress Note Edison Howe 69 y.o. female CSN: [id number] Admission: 11/11/2024 2:54 AM Primary Problem: Periprosthetic fracture of femur at tip of prosthesis, initial encounter Delivery Man reviewed chart and spoke with patient to complete this Initial Case Management Assessment. PCP: Virgie Choi APRN Emergency Contact: Extended Emergency Contact Information Primary Emergency Contact: Corby Howe Mobile Relation: Spouse Preferred language: Indonesian Stonemason Supervisor needed? No Secondary Emergency Contact: HÉCTOR BORDEN Mobile Relation: Daughter Preferred language: Indonesian Stonemason Supervisor needed? No Insurance: Primary Visit Coverage Payer Plan Sponsor Code Group Number Group Name MEDICARE MEDICARE A & B Primary Visit Coverage Subscriber Subscriber ID Subscriber Name Subscriber SSN Subscriber Address [id number] EDISON HOWE [id number] [address] [place] [address] Patient information: Primary Caregiver: Self Support System: Immediate family Daily Living Activities: Functional Status: Independent Living Arrangements: Spouse/Significant other Type of Residence: Private residence, Single [address] [place] [address] Smoker in the Home?: No Current DME: Equipment Currently Used at Home: walker, rolling, cane, straight Current DME Provider: [facility] Income Information: Income Source: Retired Income/Expense Information: Income meets expenses Current Resources Utilized: None Housing Circumstances-Z Codes: Housing Circumstances (select all that apply): None Applicable Patient Referred to: [facility] Anticipated Discharge Date: 11/15/24 Patient's Discharge Goal: Patient/Family Anticipates Transition to: inpatient rehabilitation facility Assistance Available at Discharge: Current Outpatient/Agency/Support Group: DME Availability of Care Givers (#Hours): 24 hours Discharge Transport: Transportation Anticipated: medical transport Follow Up Transport: Transportation Needed to Follow up Appoinments: Family/Friend will Provide Home Health / Home Infusion / Outpatient Dialysis Services: Current DME Provider: [facility] Living Will/Advance Directive/Power of Sweatband Cutting Machine Operator /Guardian: Have you reviewed your Advance Directive and is it valid for this stay?: No Advance Directive: Patient would not like information Information Provided on Healthcare Directives: No Pre-existing DNR/DNI Order: No Patient Requests Assistance: No Additional Comments: Per primary provider, pt should be medically ready within 24 hours. Team wantsto continue to monitor drain output for one more day. Incision [place] will be switched to a prevena on day of discharge. Pt stated she lives with her and she will have 24 hr assistance and transportation post rehab. Ambulance confirmed for 11/15 1400 . PCS forms were placed in pt's chart. [facility] [phone] [phone] [facility] Susie Moya RN * Care Plan - Alejandro Garcia - 11/14/2024 7:17 AM EDT Problem: Skin Injury Risk Increased Goal: Skin Health and Integrity Outcome: Ongoing, Not Progressing Intervention: Optimize Skin Protection Flowsheets Taken 11/14/2024711 Pressure Reduction Techniques: frequent weight shift encouraged heels elevated off bed Pressure Reduction Devices: positioning supports utilized pressure-redistributing mattress utilized Skin Protection: incontinence pads utilized Taken 11/14/2024699 Activity Management: activity adjusted per tolerance Head of Bed (HOB) Positioning: HOB at 20-30 degrees Problem: Adult Inpatient Plan of Care Goal: Plan of Care Review Outcome: Ongoing, Not Progressing Goal: Patient-Specific Goal (Individualized) Outcome: Ongoing, Not Progressing Flowsheets (Taken 11/14/2024699) Patient/Family-Specific Goals (Include Timeframe): Pt will remain free from fall/injury this shift. Individualized Care Needs: Saftey Anxieties, Fears or Concerns: Going home Goal: Absence of Hospital-Acquired Illness or Injury Outcome: Ongoing, Not Progressing Intervention: Identify and Manage Fall Risk Flowsheets (Taken 11/14/2024699) Safety Promotion/Fall Prevention: activity supervised assistive device/personal items within reach clutter-free environment maintained fall prevention program maintained lighting adjusted mobility aid in reach nonskid shoes/slippers when out of bed room organization consistent safety round/check completed toileting scheduled Goal: Optimal Comfort and Wellbeing Outcome: Ongoing, Not Progressing Intervention: Monitor Pain and Promote Comfort Flowsheets (Taken 11/14/2024711) Pain Management Interventions: pain management plan reviewed with patient/caregiver pillow support provided position adjusted Problem: Mobility Impairment Goal: Optimal Mobility Outcome: Ongoing, Not Progressing Intervention: Optimize Mobility Flowsheets Taken 11/14/2024711 Positioning/Transfer Devices: pillows repositioning sheet Taken 11/14/2024699 Activity Management: activity adjusted per tolerance Taken 11/13/2024743 Assistive Device Utilized: other (see comments) Problem: Pain Acute Goal: Optimal Pain Control and Function Outcome: Ongoing, Not Progressing Intervention: Optimize Psychosocial Wellbeing Flowsheets (Taken 11/14/2024711) Supportive Measures: active listening utilized decision-making supported goal-setting facilitated positive reinforcement provided problem-solving facilitated relaxation techniques promoted self-care encouraged self-reflection promoted self-responsibility promoted verbalization of feelings encouraged Diversional Activities: smartphone television Spiritual Activities Assistance: affirmation provided Problem: Fall Injury Risk Goal: Absence of Fall and Fall-Related Injury Outcome: Ongoing, Not Progressing Intervention: Promote Injury-Free Environment Flowsheets (Taken 11/14/2024 0700) Safety Promotion/Fall Prevention: activity supervised assistive device/personal items within reach clutter-free environment maintained fall prevention program maintained lighting adjusted mobility aid in reach nonskid shoes/slippers when out of bed room organization consistent safety round/check completed toileting scheduled Problem: Orthopaedic Fracture Goal: Absence of Bleeding Outcome: Ongoing, Not Progressing Intervention: Monitor and Manage Fracture Bleeding Flowsheets (Taken 11/14/2024 0712) Fracture Immobilization: supported during position changes supported with pillows Bleeding Management: affected area elevated dressing monitored Goal: Bowel Elimination Outcome: Ongoing, Not Progressing Goal: Absence of Embolism Signs and Symptoms Outcome: Ongoing, Not Progressing Goal: Fracture Stability Outcome: Ongoing, Not Progressing Goal: Optimal Functional Ability Outcome: Ongoing, Not Progressing Goal: Absence of Infection Signs and Symptoms Outcome: Ongoing, Not Progressing Goal: Effective Tissue Perfusion Outcome: Ongoing, Not Progressing Goal: Optimal Pain Control and Function Outcome: Ongoing, Not Progressing Goal: Effective Oxygenation and Ventilation Outcome: Ongoing, Not Progressing Problem: Surgery Nonspecified Goal: Absence of Bleeding Outcome: Ongoing, Not Progressing Goal: Effective Bowel Elimination Outcome: Ongoing, Not Progressing Goal: Fluid and Electrolyte Balance Outcome: Ongoing, Not Progressing Goal: Absence of Infection Signs and Symptoms Outcome: Ongoing, Not Progressing Goal: Anesthesia/Sedation Recovery Outcome: Ongoing, Not Progressing Goal: Optimal Pain Control and Function Outcome: Ongoing, Not Progressing Goal: Effective Urinary Elimination Outcome: Ongoing, Not Progressing Goal: Effective Oxygenation and Ventilation Outcome: Ongoing, Not Progressing * Progress Notes - Ji Bevelry MD - 11/14/2024 7:02 AM EDT ORTHOPAEDIC SURGERY PROGRESS NOTE SUBJECTIVE Resting comfortably. Got subacute rehab recommendations yesterday. Voiding spontaneously, passing gas. KI in place. OBJECTIVE Visit Vitals BP 135/77 (BP Location: Right arm, Patient Position: Lying) Pulse 94 Temp 36.9 ??C (98.4 ??F) (Oral) Ht 1.524 m (5') Wt 119 kg (262 lb 5.6 oz) SpO2 93% BMI 51.24 kg/m?? Labs in last 18 hours CBC WBC ?? Hb ?? Plt ?? Hct ?? ANC ?? INR ??, PTT ??, Anti-Xa ?? BMP Na ?? Cl ?? BUN ?? Glu ?? K ?? Co2 ?? Cr ?? Ca ?? iCa ?? Mg ??, Phos ?? Lactate ?? LFT AST ?? AlkPhos ?? T Prot ?? ALK ?? Bili ?? Alb ?? D.Bili ?? PHYSICAL EXAMINATION No acute distress Non labored breathing Peripheral perfusion intact FOCUSED MUSCULOSKELETAL EXAM R lower extremity Inspection: White sponge WV in place, clean dry and intact. No leaks. KI in place. Motor: Intact TA, GSC, FHL, EHL Sensory exam: SILT in Sural, Saphenous, Deep peroneal, Superficial peroneal, Tibial nerve distributions Vascular: 2+ DP and PT pulses, toes WWP with CR <2 sec ASSESSMENT AND PLAN Edison Howe is a 69 y.o. female patient with R periprosth DF fx s/p DFR (11/12) Mobility Orders Mobility Protocol: Ortho/Trauma/Spine Mobility Guidelines Spinal Precautions: No cranial, cervical or thoracolumbar spinal precautions necessary Extremity Precautions: Extremity Precautions Extremity: RLE Mobility Restrictions (RLE): Weight bear as tolerated (WBAT) Other Other: No knee flexion until cleared by Dr. Kohler. Type of Brace (RLE): Knee Immobilizer Knee Immobilizer Wear Time Protocol: Remove for skin inspection and hygiene At All Times Other mobility precautions: No other precautions required Ancef while inpatient Drain output 50ml overnight. Will leave in place until no output. DVT ppx: Xarelto iWV to remain until 11/17 Continue PTOT Disposition: Placement. iWV to come down 11/17 -- Ji Beverly MD PGY-4, Orthopaedic Surgery [facility] Orthopaedic Trauma Service Pager: [phone] Orthopaedic Recon/Spine/Foot and Ankle Service Pager: [phone] Cosigned by Prem Kohler MD at 11/14/2024 8:05 AM EDT Associated attestation - Prem Kohler MD - 11/14/2024 8:05 AM EDT Signature only. * Care Plan - Lula Harden RN - 11/13/2024 11:47 PM EDT Problem: Skin Injury Risk Increased Goal: Skin Health and Integrity Outcome: Ongoing, Progressing Intervention: Optimize Skin Protection Flowsheets Taken 11/13/2024 220 Head of Bed (HOB) Positioning: HOB elevated Taken 11/13/20241999 Activity Management: activity adjusted per tolerance Pressure Reduction Techniques: frequent weight shift encouraged heels elevated off bed Pressure Reduction Devices: positioning supports utilized alternating pressure pump (YEHUDA) Skin Protection: incontinence pads utilized Intervention: Promote and Optimize Oral Intake Flowsheets (Taken 11/13/20241999) Nutrition Interventions: food preferences provided Problem: Adult Inpatient Plan of Care Goal: Plan of Care Review Outcome: Ongoing, Progressing Flowsheets (Taken 11/13/2024 2333) Progress: improving Outcome Evaluation: pt denies pain in RLE and states she feels surgery went well. pt has not had BMsince 11/08, bowel sounds active and pt taking stool softners. offered prn laxatives, but pt denies at this time. Plan of Care Reviewed With: patient Goal: Patient-Specific Goal (Individualized) Outcome: Ongoing, Progressing Flowsheets (Taken 11/13/20241999) Patient/Family-Specific Goals (Include Timeframe): pts care will be clustered as able into q4hr intervals to promote rest for a goal of 6-7 hrs of sleep this shift. Individualized Care Needs: sleep promotion Anxieties, Fears or Concerns: denies Goal: Absence of Hospital-Acquired Illness or Injury Outcome: Ongoing, Progressing Intervention: Identify and Manage Fall Risk Flowsheets (Taken 11/13/20241999) Safety Promotion/Fall Prevention: activity supervised assistive device/personal items within reach clutter-free environment maintained fall prevention program maintained nonskid shoes/slippers when out of bed room organization consistent safety round/check completed toileting scheduled Intervention: Prevent Skin Injury Flowsheets Taken 11/13/20242199 Body Position: turned left foot of bed elevated heels elevated position maintained Taken 11/13/20241999 Skin Protection: incontinence pads utilized Intervention: Prevent and Manage VTE (Venous Thromboembolism) Risk Flowsheets (Taken 11/13/20241999) VTE Prevention/Management: medication Intervention: Prevent Infection Flowsheets (Taken 11/13/20241999) Infection Prevention: environmental surveillance performed hand hygiene promoted personal protective equipment utilized rest/sleep promoted single patient room provided Goal: Optimal Comfort and Wellbeing Outcome: Ongoing, Progressing Intervention: Monitor Pain and Promote Comfort Flowsheets (Taken 11/13/20241999) Pain Management Interventions: pain management plan reviewed with patient/caregiver Intervention: Provide Person-Centered Care Flowsheets (Taken 11/13/20241999) Trust Relationship/Rapport: care explained choices provided emotional support provided empathic listening provided questions answered questions encouraged reassurance provided thoughts/feelings acknowledged Problem: Mobility Impairment Goal: Optimal Mobility Outcome: Ongoing, Progressing Intervention: Optimize Mobility Flowsheets (Taken 11/13/20241999) Activity Management: activity adjusted per tolerance Positioning/Transfer Devices: pillows repositioning sheet in use Problem: Pain Acute Goal: Optimal Pain Control and Function Outcome: Ongoing, Progressing Intervention: Optimize Psychosocial Wellbeing Flowsheets (Taken 11/13/20241999) Supportive Measures: active listening utilized positive reinforcement provided self-care encouraged verbalization of feelings encouraged Diversional Activities: television smartphone Intervention: Develop Pain Management Plan Flowsheets (Taken 11/13/20241999) Pain Management Interventions: pain management plan reviewed with patient/caregiver Intervention: Prevent or Manage Pain Flowsheets (Taken 11/13/20241999) Sensory Stimulation Regulation: care clustered lighting decreased quiet environment promoted auditory stimulation minimized Bowel Elimination Promotion: (stool softners added, pt states she doesn't want to use any of the prn laxatives yet) adequate fluid intake promoted ambulation promoted privacy promoted Sleep/Rest Enhancement: awakenings minimized consistent schedule promoted family presence promoted noise level reduced relaxation techniques promoted room darkened regular sleep/rest pattern promoted Medication Review/Management: medications reviewed Problem: Fall Injury Risk Goal: Absence of Fall and Fall-Related Injury Outcome: Ongoing, Progressing Intervention: Identify and Manage Contributors Flowsheets (Taken 11/13/20241999) Medication Review/Management: medications reviewed Self-Care Promotion: independence encouraged BADL personal objects within reach BADL personal routines maintained meal set-up provided Intervention: Promote Injury-Free Environment Flowsheets (Taken 11/13/20241999) Safety Promotion/Fall Prevention: activity supervised assistive device/personal items within reach clutter-free environment maintained fall prevention program maintained nonskid shoes/slippers when out of bed room organization consistent safety round/check completed toileting scheduled Problem: Orthopaedic Fracture Goal: Absence of Bleeding Outcome: Ongoing, Progressing Intervention: Monitor and Manage Fracture Bleeding Flowsheets (Taken 11/13/20241999) Fracture Immobilization: supported during position changes supported with pillows immobilization device maintained Bleeding Management: affected area elevated dressing monitored Goal: Bowel Elimination Outcome: Ongoing, Progressing Intervention: Promote Effective Bowel Elimination Flowsheets (Taken 11/13/20241999) Bowel Elimination Management: hygiene measures promoted relaxation techniques promoted toileting offered Bowel Elimination Promotion: (stool softners added, pt states she doesn't want to use any of the prn laxatives yet) adequate fluid intake promoted ambulation promoted privacy promoted Goal: Absence of Embolism Signs and Symptoms Outcome: Ongoing, Progressing Intervention: Prevent or Manage Embolism Risk Flowsheets (Taken 11/13/20241999) VTE Prevention/Management: medication Goal: Fracture Stability Outcome: Ongoing, Progressing Intervention: Promote Fracture Stability and Healing Flowsheets (Taken 11/13/20241999) Fracture Immobilization: supported during position changes supported with pillows immobilization device maintained Goal: Optimal Functional Ability Outcome: Ongoing, Progressing Intervention: Optimize Functional Ability Flowsheets (Taken 11/13/20241999) Range of Motion: active ROM (range of motion) encouraged Activity Management: activity adjusted per tolerance Positioning/Transfer Devices: pillows repositioning sheet in use Self-Care Promotion: independence encouraged BADL personal objects within reach BADL personal routines maintained meal set-up provided Goal: Absence of Infection Signs and Symptoms Outcome: Ongoing, Progressing Intervention: Prevent or Manage Infection Flowsheets (Taken 11/13/20241999) Infection Management: aseptic technique maintained Isolation Precautions: protective precautions maintained Goal: Effective Tissue Perfusion Outcome: Ongoing, Progressing Intervention: Prevent or Manage Neurovascular Compromise Flowsheets (Taken 11/13/20241999) Compartment Syndrome Management: active flexion/extension encouraged Compartment Syndrome Surveillance: no pain with passive muscle stretch Goal: Optimal Pain Control and Function Outcome: Ongoing, Progressing Intervention: Manage Acute Orthopaedic-Related Pain Flowsheets (Taken 11/13/20241999) Pain Management Interventions: pain management plan reviewed with patient/caregiver Sleep/Rest Enhancement: awakenings minimized consistent schedule promoted family presence promoted noise level reduced relaxation techniques promoted room darkened regular sleep/rest pattern promoted Goal: Effective Oxygenation and Ventilation Outcome: Ongoing, Progressing Intervention: Promote Airway Secretion Clearance Flowsheets Taken 11/13/2024 233 Cough And Deep Breathing: done independently per patient Taken 11/13/20241999 Activity Management: activity adjusted per tolerance Intervention: Optimize Oxygenation and Ventilation Flowsheets Taken 11/13/2024 233 Airway/Ventilation Management: pulmonary hygiene promoted position adjusted Taken 11/13/20242199 Head of Bed (HOB) Positioning: HOB elevated Taken 11/13/20241999 Fluid/Electrolyte Management: fluids provided Problem: Surgery Nonspecified Goal: Absence of Bleeding Outcome: Ongoing, Progressing Intervention: Monitor and Manage Bleeding Flowsheets (Taken 11/13/20241999) Bleeding Management: affected area elevated dressing monitored Goal: Effective Bowel Elimination Outcome: Ongoing, Progressing Intervention: Enhance Bowel Motility and Elimination Flowsheets Taken 11/13/20242338 Bowel Motility Enhancement: oral intake encouraged fluid intake encouraged Taken 11/13/20241999 Bowel Elimination Management: hygiene measures promoted relaxation techniques promoted toileting offered Goal: Fluid and Electrolyte Balance Outcome: Ongoing, Progressing Intervention: Monitor and Manage Fluid and Electrolyte Balance Flowsheets (Taken 11/13/20241999) Fluid/Electrolyte Management: fluids provided Goal: Blood Glucose Level Within Target Range Outcome: Met Goal: Absence of Infection Signs and Symptoms Outcome: Ongoing, Progressing Intervention: Prevent or Manage Infection Flowsheets (Taken 11/13/20241999) Infection Management: aseptic technique maintained Isolation Precautions: protective precautions maintained Goal: Anesthesia/Sedation Recovery Outcome: Ongoing, Progressing Intervention: Optimize Anesthesia Recovery Flowsheets (Taken 11/13/20241999) Safety Promotion/Fall Prevention: activity supervised assistive device/personal items within reach clutter-free environment maintained fall prevention program maintained nonskid shoes/slippers when out of bed room organization consistent safety round/check completed toileting scheduled Goal: Optimal Pain Control and Function Outcome: Ongoing, Progressing Intervention: Prevent or Manage Pain Flowsheets (Taken 11/13/20241999) Pain Management Interventions: pain management plan reviewed with patient/caregiver Diversional Activities: television smartphone Goal: Nausea and Vomiting Relief Outcome: Met Goal: Effective Urinary Elimination Outcome: Ongoing, Progressing Intervention: Monitor and Manage Urinary Retention Flowsheets (Taken 11/13/20241999) Urinary Elimination Promotion: frequent voiding encouraged toileting device within reach toileting scheduled voiding relaxation promoted Goal: Effective Oxygenation and Ventilation Outcome: Ongoing, Progressing Intervention: Optimize Oxygenation and Ventilation Flowsheets Taken 11/13/2024 2339 Airway/Ventilation Management: pulmonary hygiene promoted position adjusted Cough And Deep Breathing: done independently per patient Taken 11/13/2024 2200 Head of Bed (HOB) Positioning: HOB elevated Taken 11/13/20241999 Activity Management: activity adjusted per tolerance * Progress Notes - Preethi Siegel R - 11/13/2024 1:35 PM EDT Occupational Therapy Evaluation Patient Name: Edison Howe Today's Date: 11/13/2024 OT Discharge Recommendations: Subacute rehab Equipment Recommended: Defer to facility History Edison Howe is 69 y.o. female admitted 11/11/2024 for work-up of Periprosthetic fracture of femur at tip of prosthesis, initial encounter. Problem List Active Hospital Problems Diagnosis Date Noted Periprosthetic fracture of femur at tip of prosthesis, initial encounter 11/11/2024 Procedures 11/12/2024 Procedure(s): RIGHT DISTAL FEMUR REPLACEMENT Past Medical History Patient has a past medical history of Arthritis, COVID-19, History of abnormal uterine bleeding, and Hypertension. Past Surgical History Patient has a past surgical history that includes Tubal ligation (1989); Dilation and curettage of uterus (12/02/2021); Hysterectomy (2021); Other surgical history; and Replacement total knee oncologic (Right). Precautions Left Lower Extremity Weight Bearing Status: Weight Bearing as Tolerated Right Lower Extremity Weight Bearing Status: Weight Bearing as Tolerated Medical Precautions: Post-Surgical precautions, Fall precautions, Extremity Bracing Post-Surgical Precautions: NO knee Flexion until Dr. Kohler Subjective Pt agreeable to OT POC and discharge planning to rehab Participants in Care Family/Caregiver Present: No Stonemason Supervisor: Not Applicable Presentation Oxygen Therapy: None (Room air) Lines and Tubes: Intravenous access, Wound vac Pre-Session: Supine, Head of bed elevated, Lines intact, Bed alarm Pre-Session Comments: RN cleared OT for session Post-Session: Lines intact, Chair alarm, RN notified, Call light in reach, Sitting in chair, SCDs applied Post-Session Comments: RN aware of session details Orthoses: Knee immobilizer - Right Home Living/Set-up Lives With: Spouse Home Type: House Home Adaptive Equipment: Rolling walker, Cane Home Layout: One level Bathroom: Tub/Shower: Walk-in shower Bathroom: Toilet: Standard Bathroom: Accessibility: Accessible Prior Level of Function Receives Help From: No assist required prior to admission Level of Mobility: Ambulatory- community Mobility [place]: Independent gait with device History of Falls: No ADL Performance: Independent Patient/Family Goals Statement pt agreeable to OT POC and discharge planning to rehab Objective Pain Pt with complaints of pain throughout right LE- pt did not rate, RN aware, pt was positioned for comfort Delirium Screening RASS: Alert and calm Confusion Assessment Method-ICU (CAM-ICU/PCAM-ICU) Feature 3: Altered Level of Consciousness: Negative Cognition Overall Cognitive Status: Within Functional Limits Arousal/Alertness: Appropriate responses to stimuli Mood/Behavior: Alert Orientation Level: Oriented X4 Single Step Commands: Consistently Multi-Step Commands: Consistently Method of Communication: Verbal Vision - Basic Assessment Current Vision: Intact Right Upper Extremity Examination RUE ROM Assessment RUE Assessment: Within Functional Limits Manual Muscle Testing - RUE: Within functional limits (grossly 3+/5) Sensation Light Touch: Right Upper Extremity: Intact Left Upper Extremity Examination LUE ROM Assessment LUE Assessment: Within Functional Limits Manual Muscle Testing - LUE: (grossly 3+/5) Sensation Light Touch: Left Upper Extremity: Intact Right Lower Extremity Examination RLE ROM Assessment RLE Assessment: (PROM WFL at hip and ankle, knee in immobilizer , AROM limited by post-operative inhibition) Manual Muscle Testing - RLE: (grossly 3-/5) Left Lower Extremity Examination LLE ROM Assessment LLE Assessment: Within Functional Limits Manual Muscle Testing: Within functional limits Bed Mobility Bed Mobility Interventions: pt was instructed on sequencing of limbs, advancing LE's off foot of bed as well as transitioning torso into upright position, pt ultimately required max assist x 2 for all transitions Bed Mobility Exam: Scooting/Bridging Level of [place]: Dependent Physical/Nonphysical Assist: Verbal Cues, 1 person + 1 person to manage equipment Bed Mobility Exam: Supine to Sit Level of [place]: Maximum assist (25% patient's effort) (x2) Physical/Nonphysical Assist: Verbal Cues Bed Mobility Exam: Sit to Supine Level of [place]: (pt was left seated OOBTC) Transfers Transfer Interventions: pt was instructed on sequencing of limbs when transitioning to stand- pt with overall fair carryover, pt expressed fear of falling Transfer Exam: Sit to stand Level of [place]: Maximum assist (25% patient's effort) (x2) Physical/Nonphysical Assist: Verbal Cues Assistive Device: Hand held assist Transfer Exam: Stand to Sit Level of [place]: Maximum assist (25% patient's effort) (x2) Physical/Nonphysical Assist: Verbal Cues Assistive Device: Hand held assist Transfer Exam: Bed to Chair/Chair to Bed Level of [place]: Maximum assist (25% patient's effort) (x2) Physical/Nonphysical Assist: Verbal Cues Type of Transfer: Stand-pivot Assistive Device: Hand held assist Functional Mobility Balance Static Sitting Balance Static Sitting-Balance Support: Right upper extremity support, Left upper extremity support, Feet unsupported Stating Sitting - Interventions: close CGA x 1 due to height difference of pt on bedframe Dynamic Sitting Balance Dynamic Sitting - Interventions: not addressed - as pt height difference on bedframe Static Standing Balance Static Standing - Interventions: max assist x 2 (REEL OPERATOR x 2) stand pivot transfer - Dynamic Standing Balance Dynamic Standing - Interventions: max assist x 2 (REEL OPERATOR x 2) stand pivot transfer to b/s chair x 2 ft Therapeutic Activity ( minutes) overall limited secondary to fatigue Self-Care Interventions Self Care/Home Management (ADLs) Time Entry: 9 Self-Care Interventions: pt was seen for one additional unit of self care retraining this date including discussion regarding PLOF, available assistance, AE needs, as well as discharge planning recommendations, pt reports that she has been primarily sedentary since last spring - due to right knee pain, ambulating short distances within the home with a rwx, [facility] - does use rwx - pt reports she was able to complete basic self cares independently, pt reports that the day of her right Knee replacement she had difficulty getting in her car to discharge to home and once she arrived at her home pt spouse had to call EMS to transfer her into the home when this incident happened, it was quite evident and agreed upon after OT assessment that pt will be most appropriate to transition to a subacute rehab facility to continue to focus on overall mobility, self care retraining, balance retraining, as well as overall activity tolerance, as pt is a very HIGH FALL risk and is unable to safely nor independently complete a self care routine Grooming Grooming Interventions: pt reports she independently completed grooming tasks from a chair level earlier in the am Lower Extremity Dressing LE Dressing Interventions: pt was instructed on AE for LBD including a SA and LHR - active participation deferred secondary to fatigue Toileting Toileting Interventions: pt actively utilizing a [id number] Standardized Assessments Winston Index Feeding: Independent Bathing: Dependent Grooming: Independent face/hair/teeth/shaving (implements provided) Dressing: Dependent Bowels: Incontinent (or needs to be given enemas) Bladder: Incontinent, or catheterized and unable to manage alone Toilet Use: Dependent Transfers (Bed to Chair and Back): Major help (one or two people, physical), can help Mobility (on Level Surfaces): Immobile or < 50 yards Stairs: Unable Total Score: 20 Assessment Please see above for details OT Findings: Impaired ADL performance, Impaired IADL performance, Decreased endurance/ventilation/gas exchange, Impaired functional mobility, Impaired balance Evaluation/Treatment Tolerance: Patient limited by fatigue, Patient limited by pain Rehab Potential: Fair, will monitor progress closely Barriers to Discharge: Comorbidities Eval Complexity Occupational Profile: Expanded review of medical/therapy records and additional review of physical,cognitive, or psychosocial history Performance Deficits: Activities of daily living (ADLs), Instrumental activities of daily living (IADLs), Routines, Social, Roles, Social interaction skills, Habits, Social participation Clinical Decision Making: Moderate Overall Eval complexity: Moderate OT Recommendations Discharge Destination: Subacute rehab Discharge Equipment: Defer to facility Plan - transfer training, self cares Planned OT Interventions ADL retraining, IADL retraining, Balance training, Bed mobility Training, Functional mobility, Caregiver education, Transfer training OT Frequency 2 - 5 times per week OT Duration 2 weeks Goals OT GOAL DETAILS Time Frame OT Goal 1: pt will independently complete LBD utilizing AE PRN 2 weeks OT Goal 2: pt will complete bed to commode transfers with min assist x 2 with rwx 2 weeks OT Goal 3: pt will tolerate standing upright to BR sink x 5 minutes to independently groom 2 weeks OT Goal 4: pt will actively participate in UE HEP to increase overall strength for increase independence with self cares and overall mobility 2 weeks Written by Preethi Siegel on 11/13/24 at 1:35 PM. * Progress Notes - Teddy Coronel Allyson - 11/13/2024 1:26 PM EDT Physical Therapy Evaluation Patient Name: Edison Howe Today's Date: 11/13/2024 PT Discharge Recommendations: Subacute rehab Equipment Recommended: Defer to facility History Edison Howe is 69 y.o. y/o female admitted 11/11/2024 for work-up of Periprosthetic fracture offemur at tip of prosthesis, initial encounter. Problem List Active Hospital Problems Diagnosis Date Noted Periprosthetic fracture of femur at tip of prosthesis, initial encounter 11/11/2024 Procedures 11/12/2024 Procedure(s): RIGHT DISTAL FEMUR REPLACEMENT Past Medical History Patient has a past medical history of Arthritis, COVID-19, History of abnormal uterine bleeding, and Hypertension. Past Surgical History Patient has a past surgical history that includes Tubal ligation (1989); Dilation and curettage of uterus (12/02/2021); Hysterectomy (2021); Other surgical history; and Replacement total knee oncologic (Right). Precautions Left Lower Extremity Weight Bearing Status: Weight Bearing as Tolerated Right Lower Extremity Weight Bearing Status: Weight Bearing as Tolerated Medical Precautions: Post-Surgical precautions, Fall precautions, Extremity Bracing Post-Surgical Precautions: NO knee Flexion until Dr. Kohler Subjective Patient agreeable to PT session. Participants in Care Family/Caregiver Present: No Stonemason Supervisor: Not Applicable Presentation Oxygen Oxygen Therapy: None (Room air) Lines and Tubes Lines and Tubes: Intravenous access, Wound vac Pre-Session RN and patient gave consent for PT treatment session. Patient received Supine, Head of bed elevated, Lines intact, Bed alarm. RN cleared OT for session Post-Session Patient positioned for comfort and pressure relief at end of session, all needs met. Lines intact, Chair alarm, RN notified, Call light in reach, Sitting in chair, SCDs applied. RN awareof session details Home Living/Set-up Lives With: Spouse Home Type: House Home Adaptive Equipment: Rolling walker, Cane Home Layout: One level Bathroom: Tub/Shower: Walk-in shower Bathroom: Toilet: Standard Bathroom: Accessibility: Accessible Prior Level of Function Receives Help From: No assist required prior to admission Level of Mobility: Ambulatory- community Mobility [place]: Independent gait with device History of Falls: No ADL Performance: Independent Patient/Family Goals full recovery Objective Pain Pain Score (0-10): no limiting pain reported , does notice pain with initial movement in bed. Delirium Screening RASS: Alert and calm Confusion Assessment Method-ICU (CAM-ICU/PCAM-ICU) Feature 3: Altered Level of Consciousness: Negative Cognition Cognition Overall Cognitive Status: Within Functional Limits Arousal/Alertness: Appropriate responses to stimuli Mood/Behavior: Alert Orientation Level: Oriented X4 Single Step Commands: Consistently Multi-Step Commands: Consistently Method of Communication: Verbal Vision - Basic Assessment Current Vision: Intact Right Upper Extremity Examination RUE ROM Assessment RUE Assessment: Within Functional Limits Manual Muscle Testing - RUE: Within functional limits (grossly 3+/5) Sensation Light Touch: Right Upper Extremity: Intact Left Upper Extremity Examination LUE ROM Assessment LUE Assessment: Within Functional Limits Manual Muscle Testing - LUE: (grossly 3+/5) Sensation Light Touch: Left Upper Extremity: Intact Right Lower Extremity Examination RLE ROM Assessment RLE Assessment: (PROM WFL at hip and ankle, knee in immobilizer , AROM limited by post-operative inhibition) Manual Muscle Testing - RLE: (grossly 3-/5) Left Lower Extremity Examination LLE Assessment: Within Functional Limits Manual Muscle Testing: Within functional limits Therapeutic Activity (8 minutes) Pt performed transitional skills and standing activity to promote functional mobility and progress activity tolerance. Cuing and feedback provided throughout for safe and efficient movement patterns to maximize outcomes. Skilled time required for management of lines and tubes and room set up for safe execution of treatment. Patient participating in therapeutic activities as described in detail insections below. Bed Mobility Bed Mobility Exam: Scooting/Bridging Level of [place]: Maximum assist (25% patient's effort) Physical/Nonphysical Assist: Verbal Cues, Nonverbal cues (demo/gestures), Additional assist utilized for safety, Set-up required, Moderate cues Assistive Device: Bed rails Bed Mobility Exam: Supine to Sit Level of [place]: Maximum assist (25% patient's effort) Physical/Nonphysical Assist: Verbal Cues, Nonverbal cues (demo/gestures), HOB elevated, Additional assist utilized for safety, Set-up required, Moderate cues Assistive Device: Bed rails Transfers Transfer Exam: Sit to stand Level of [place]: Maximum assist (25% patient's effort) Physical/Nonphysical Assist: Verbal Cues, Nonverbal cues (demo/gestures), Additional assist utilized for safety, Set-up required, Moderate cues Assistive Device: Hand held assist Transfer Exam: Stand to Sit Level of [place]: Maximum assist (25% patient's effort) Physical/Nonphysical Assist: Verbal Cues, Nonverbal cues (demo/gestures), Moderate cues, Set-up required, Additional assist utilized for safety Assistive Device: Hand held assist Transfer Exam: Bed to Chair/Chair to Bed Level of [place]: Maximum assist (25% patient's effort) Physical/Nonphysical Assist: Verbal Cues, Nonverbal cues (demo/gestures), Moderate cues, Set-up required, Additional assist utilized for safety Type of Transfer: Stand-pivot Assistive Device: Hand held assist Ambulation Device: Hand held assist Assistance: Maximum assistance, Moderate verbal cues, Additional assist utilized for safety Distance : 2ft to chair Ambulation Comments: Impaired weight shifting, anxious of falling, slowed sequencing Standardized Assessments [facility] 6-Clicks Mobility Assessment Difficulty patient has turning over in bed (including adjusting bedclothes, sheets, and blankets)?:A lot Difficulty patient has sitting down on and standing up from a chair with arms (wheelchair, bedside commode, etc.)?: A lot Difficulty patient has moving from lying on back to sitting on the side of the bed?: A lot How much help does the patient need moving to and from a bed to a chair (including a wheelchair)?: A lot How much help does the patient need to walk in hospital room?: A lot How much help does the patient need climbing 3-5 steps with a railing?: Unable [facility] 6-Clicks Mobility Assessment Total : 11 Assessment Tolerates session without adverse events. Pt limited throughout treatment session by impaired balance, poor postural control, and decreased overall functional mobility compared to baseline level of function. Pt would benefit from Subacute Rehab placement at this time for the following reasons: -pt unable to perform necessary transfers, gait, or balance tasks to allow for DC home -pt unable to perform ADLs -pt remains a high fall risk during transfers and thus is unsafe for discharge to home -pt ambulates at a slow pace and cannot perform ADL and iADLs functionally without prolonged rests -pt would benefit from further instruction improving functional transfers and ambulation -patient's limited progression with mobility would limit rapid access to exit routes in home, bathroom if experiencing bowel/bladder urgency and with other home safety scenarios PT anticipates pt would benefit more from Subacute Rehab than other levels of rehab due to pt's medical acuity, level of immobility, and need for improved safety prior to returning home. Overall, pt unsafe to return home at this time given current level of function and increased fall risk, recommend Subacute Rehab placement upon hospital discharge to encourage increased IND with all transfers and balance to encourage improved overall functional mobility. Impairments: Decreased endurance, ventilation, and/or gas exchange, Impaired gait dynamics/performance, Impaired functional mobility/transfers, Impaired balance, Decreased strength, Decreased range of motion, Pain Activity Limitations: Inability to ambulate community distances, Inability to complete ADLs independently, Inability to transfer independently, Inability to ambulate independently, Inability to ambulate household distances Participation Restrictions: Self-care, Home management, Community leisure Activity Tolerance: Tolerates 10 - 20 min activity with multiple rests Evaluation/Treatment Tolerance: Patient limited by fatigue Diagnosis: s/p R TKA revision Rehab Potential: Good, to achieve stated therapy goals Barriers to Discharge: Comorbidities Eval Complexity History Profile: 1 - 2 personal factors and/or comorbidities Clinical Presentation: Stable and/or uncomplicated characteristics Clinical Decision Making: Low complexity PT Recommendations Discharge Destination: Subacute rehab Discharge Equipment: Defer to facility Plan Planned PT Interventions Balance training, Bed mobility training, Gait training, Transfer training, Neuromuscular re-education, Functional Mobility, Strengthening, Stretching PT Frequency Daily PT Duration 2 weeks Goals PT GOAL DETAILS Time Frame PT Goal 1: Pt will be able to perform supine to sit with SBA in order to progress towards PLOF 2 weeks PT Goal 2: Pt will be able to perform sit to stand and bed-chair transfers with LRAD and SBA 2 weeks PT Goal 3: Pt will be able to ambulate 50ft with LRAD and SBA in order to progress towards PLOF 2 weeks Written by Teddy Coronel on 11/13/24 at 1:33 PM. * Progress Notes - Anabella Canas MD - 11/13/2024 1:10 PM EDT ORTHOPAEDIC SURGERY PROGRESS NOTE SUBJECTIVE No acute events overnight reported by patient. Doing well. Pain controlled. Tolerating diet. No nausea, vomiting, fevers or chills. She is happy to know it all went well with surgery. We discussed W[place] x5d as well as no knee flexion and use of KI. OBJECTIVE Visit Vitals BP 114/74 Pulse 92 Temp 36.7 ??C (98 ??F) Ht 1.524 m (5') Wt 119 kg (262 lb 5.6 oz) SpO2 93% BMI 51.24 kg/m?? Labs in last 18 hours CBC WBC 15.02 (H) Hb 9.2 (L) Plt 265 Hct 27.7 (L) ANC ?? INR ??, PTT ??, Anti-Xa ?? BMP Na 138 Cl 106 BUN 36 (H) Glu 114 (H) K 5.1 (H) Co2 21 (L) Cr 1.07 Ca 8.7 (L) iCa ?? Mg ??, Phos ?? Lactate ?? LFT AST ?? AlkPhos ?? T Prot ?? ALK ?? Bili ?? Alb ?? D.Bili ?? PHYSICAL EXAMINATION No acute distress Non labored breathing Peripheral perfusion intact FOCUSED MUSCULOSKELETAL EXAM R lower extremity Inspection: White sponge WV in place, clean dry and intact. No leaks. KI in place. Motor: Intact TA, GSC, FHL, EHL Sensory exam: SILT in Sural, Saphenous, Deep peroneal, Superficial peroneal, Tibial nerve distributions Vascular: 2+ DP and PT pulses, toes WWP with CR <2 sec Compartment soft and compressible No pain with passive stretch of the toes ASSESSMENT AND PLAN Edison Howe is a 69 y.o. female patient with R periprosth DF fx s/p DFR (11/12) Edited by: Anabella Canas MD at 11/12/2024 0117 Mobility Orders Mobility Protocol: Ortho/Trauma/Spine Mobility Guidelines Spinal Precautions: No cranial, cervical or thoracolumbar spinal precautions necessary Extremity Precautions: Extremity Precautions Extremity: RLE Mobility Restrictions (RLE): Weight bear as tolerated (WBAT) Other Other: No knee flexion until cleared by Dr. Kohler. Type of Brace (RLE): Knee Immobilizer Knee Immobilizer Wear Time Protocol: Remove for skin inspection and hygiene At All Times Other mobility precautions: No other precautions required Tmax 98.4, HR 80-100, BP 114/81-141/86, RR 12-20, SpO2 93-98, UOP 0.14 mL/kg/hr (11/13), H/H 9.2/27.7, BMP K 5.1 (11/13), PT recs: Post-op eval pending, Abx: Ancef while inpatient, DVT ppx: Xarelto, Precautions: WBAT in KI (no knee flexion), Drain 140/140 (11/13), Dressing: white sponge W[place] x5d (take down11/17) Disposition: PTOT eval. POD 1 doing well. -- Anabella Suggs MD PGY-4, Orthopaedic Surgery [facility] Orthopaedic Trauma Service Pager: [phone] Orthopaedic Recon/Spine/Foot and Ankle Service Pager: [phone] Personal Pager: [phone] Cosigned by Prem Kohler MD at 11/14/2024 8:05 AM EDT Associated attestation - Prem Kohler MD - 11/14/2024 8:05 AM EDT Signature only. * Care Plan - Alejandro Garcia - 11/13/2024 7:48 AM EDT Problem: Skin Injury Risk Increased Goal: Skin Health and Integrity Outcome: Ongoing, Progressing Intervention: Optimize Skin Protection Flowsheets Taken 11/13/2024 0744 Pressure Reduction Techniques: frequent weight shift encouraged heels elevated off bed weight shift assistance provided Pressure Reduction Devices: positioning supports utilized pressure-redistributing mattress utilized Skin Protection: incontinence pads utilized Taken 11/13/2024 0700 Activity Management: activity adjusted per tolerance Head of Bed (HOB) Positioning: HOB at 20-30 degrees Problem: Adult Inpatient Plan of Care Goal: Plan of Care Review Outcome: Ongoing, Progressing Goal: Patient-Specific Goal (Individualized) Outcome: Ongoing, Progressing Flowsheets (Taken 11/13/2024699) Patient/Family-Specific Goals (Include Timeframe): Pt will remain free from fall/injury this shift. Individualized Care Needs: Saftey Anxieties, Fears or Concerns: Going home Goal: Absence of Hospital-Acquired Illness or Injury Outcome: Ongoing, Progressing Intervention: Identify and Manage Fall Risk Flowsheets (Taken 11/13/2024699) Safety Promotion/Fall Prevention: activity supervised assistive device/personal items within reach clutter-free environment maintained fall prevention program maintained lighting adjusted mobility aid in reach nonskid shoes/slippers when out of bed room organization consistent safety round/check completed toileting scheduled Goal: Optimal Comfort and Wellbeing Outcome: Ongoing, Progressing Problem: Mobility Impairment Goal: Optimal Mobility Outcome: Ongoing, Progressing Intervention: Optimize Mobility Flowsheets Taken 11/13/2024743 Assistive Device Utilized: other (see comments) Positioning/Transfer Devices: pillows repositioning sheet Taken 11/13/2024699 Activity Management: activity adjusted per tolerance Problem: Pain Acute Goal: Optimal Pain Control and Function Outcome: Ongoing, Progressing Intervention: Optimize Psychosocial Wellbeing Flowsheets (Taken 11/13/2024743) Supportive Measures: active listening utilized decision-making supported goal-setting facilitated guided imagery facilitated positive reinforcement provided problem-solving facilitated relaxation techniques promoted self-care encouraged self-reflection promoted self-responsibility promoted verbalization of feelings encouraged Diversional Activities: smartphone television Spiritual Activities Assistance: affirmation provided Problem: Fall Injury Risk Goal: Absence of Fall and Fall-Related Injury Outcome: Ongoing, Progressing Intervention: Identify and Manage Contributors Flowsheets (Taken 11/13/2024743) Medication Review/Management: medications reviewed Self-Care Promotion: independence encouraged BADL personal objects within reach BADL personal routines maintained Problem: Orthopaedic Fracture Goal: Absence of Bleeding Outcome: Ongoing, Progressing Intervention: Monitor and Manage Fracture Bleeding Flowsheets (Taken 11/13/2024743) Fracture Immobilization: supported during position changes supported with pillows Bleeding Management: affected area elevated Goal: Bowel Elimination Outcome: Ongoing, Progressing Goal: Absence of Embolism Signs and Symptoms Outcome: Ongoing, Progressing Goal: Fracture Stability Outcome: Ongoing, Progressing Goal: Optimal Functional Ability Outcome: Ongoing, Progressing Goal: Absence of Infection Signs and Symptoms Outcome: Ongoing, Progressing Goal: Effective Tissue Perfusion Outcome: Ongoing, Progressing Goal: Optimal Pain Control and Function Outcome: Ongoing, Progressing Goal: Effective Oxygenation and Ventilation Outcome: Ongoing, Progressing Problem: Surgery Nonspecified Goal: Absence of Bleeding Outcome: Ongoing, Progressing Goal: Effective Bowel Elimination Outcome: Ongoing, Progressing Goal: Fluid and Electrolyte Balance Outcome: Ongoing, Progressing Goal: Blood Glucose Level Within Target Range Outcome: Ongoing, Progressing Goal: Absence of Infection Signs and Symptoms Outcome: Ongoing, Progressing Goal: Anesthesia/Sedation Recovery Outcome: Ongoing, Progressing Goal: Optimal Pain Control and Function Outcome: Ongoing, Progressing Goal: Nausea and Vomiting Relief Outcome: Ongoing, Progressing Goal: Effective Urinary Elimination Outcome: Ongoing, Progressing Goal: Effective Oxygenation and Ventilation Outcome: Ongoing, Progressing * Care Plan - Mary Calvert RN - 11/12/2024 9:41 PM EDT Problem: Skin Injury Risk Increased Goal: Skin Health and Integrity 11/12/20242134 by Mary Calvert RN Outcome: Ongoing, Progressing 11/12/20242133 by Mary Calvert RN Outcome: Ongoing, Progressing Intervention: Optimize Skin Protection Flowsheets (Taken 11/12/20242134) Activity Management: activity adjusted per tolerance activity encouraged Pressure Reduction Techniques: frequent weight shift encouraged pressure points protected Pressure Reduction Devices: positioning supports utilized Skin Protection: incontinence pads utilized transparent dressing maintained Head of Bed (HOB) Positioning: HOB elevated Intervention: Promote and Optimize Oral Intake Flowsheets (Taken 11/12/20242134) Oral Nutrition Promotion: calorie-dense foods provided calorie-dense liquids provided Nutrition Interventions: diet advanced frequent small meals provided food preferences provided Problem: Adult Inpatient Plan of Care Goal: Plan of Care Review 11/12/20242134 by Mary Calvert RN Outcome: Ongoing, Progressing Flowsheets (Taken 11/12/20242134) Progress: improving Outcome Evaluation: Plan of care reviewed with patient, verbalizes understanding Plan of Care Reviewed With: patient 11/12/20242133 by Calvert, Mary N, RN Outcome: Ongoing, Progressing Goal: Patient-Specific Goal (Individualized) 11/12/20242134 by Mary Calvert RN Outcome: Ongoing, Progressing Flowsheets (Taken 11/12/20241999) Patient/Family-Specific Goals (Include Timeframe): Patient will report pain is at or below stated pain goal during this shift. Individualized Care Needs: Pain control Anxieties, Fears or Concerns: none stated 11/12/20242133 by Mary Calvert RN Outcome: Ongoing, Progressing Goal: Absence of Hospital-Acquired Illness or Injury 11/12/20242134 by Mary Calvert, RN Outcome: Ongoing, Progressing 11/12/20242133 by Mary Calvert RN Outcome: Ongoing, Progressing Intervention: Identify and Manage Fall Risk Flowsheets (Taken 11/12/20241999) Safety Promotion/Fall Prevention: activity supervised assistive device/personal items within reach clutter-free environment maintained fall prevention program maintained lighting adjusted mobility aid in reach nonskid shoes/slippers when out of bed room organization consistent safety round/check completed toileting scheduled Intervention: Prevent Skin Injury Flowsheets (Taken 11/12/20242134) Body Position: right turned Skin Protection: incontinence pads utilized transparent dressing maintained Intervention: Prevent and Manage VTE (Venous Thromboembolism) Risk Flowsheets (Taken 11/12/20242134) VTE Prevention/Management: bilateral SCDs (sequential compression devices) on Intervention: Prevent Infection Flowsheets (Taken 11/12/20242134) Infection Prevention: environmental surveillance performed equipment surfaces disinfected hand hygiene promoted personal protective equipment utilized rest/sleep promoted visitors restricted/screened single patient room provided Goal: Optimal Comfort and Wellbeing 11/12/20242134 by Mary Calvert, ALVA Outcome: Ongoing, Progressing 11/12/20242133 by Mary Cavlert RN Outcome: Ongoing, Progressing Intervention: Monitor Pain and Promote Comfort Flowsheets (Taken 11/12/20242134) Pain Management Interventions: medication (see MAR) position adjusted quiet environment facilitated relaxation techniques promoted pillow support provided emotional support Intervention: Provide Person-Centered Care Flowsheets (Taken 11/12/20242134) Trust Relationship/Rapport: care explained choices provided emotional support provided empathic listening provided questions answered questions encouraged reassurance provided thoughts/feelings acknowledged Problem: Mobility Impairment Goal: Optimal Mobility 11/12/20242134 by Mary Calvert RN Outcome: Ongoing, Progressing 11/12/20242133 by Mary Calvert RN Outcome: Ongoing, Progressing Intervention: Optimize Mobility Flowsheets (Taken 11/12/20242134) Activity Management: activity adjusted per tolerance activity encouraged Positioning/Transfer Devices: pillows in use Problem: Pain Acute Goal: Optimal Pain Control and Function 11/12/20242134 by Mary Calvert RN Outcome: Ongoing, Progressing 11/12/20242133 by Mary Calvert RN Outcome: Ongoing, Progressing Intervention: Optimize Psychosocial Wellbeing Flowsheets (Taken 11/12/20242134) Supportive Measures: active listening utilized decision-making supported goal-setting facilitated self-care encouraged relaxation techniques promoted positive reinforcement provided mindfulness techniques promoted verbalization of feelings encouraged Diversional Activities: individual hobbies tablet television smartphone games Intervention: Develop Pain Management Plan Flowsheets (Taken 11/12/20242134) Pain Management Interventions: medication (see MAR) position adjusted quiet environment facilitated relaxation techniques promoted pillow support provided emotional support Intervention: Prevent or Manage Pain Flowsheets (Taken 11/12/20242134) Sensory Stimulation Regulation: care clustered lighting decreased quiet environment promoted television on Bowel Elimination Promotion: adequate fluid intake promoted diet adjusted Sleep/Rest Enhancement: awakenings minimized consistent schedule promoted natural light exposure provided regular sleep/rest pattern promoted noise level reduced therapeutic touch utilized relaxation techniques promoted room darkened Medication Review/Management: medications reviewed high-risk medications identified Problem: Fall Injury Risk Goal: Absence of Fall and Fall-Related Injury 11/12/20242134 by Mary Calvert, ALVA Outcome: Ongoing, Progressing 11/12/20242133 by Mary Calvert RN Outcome: Ongoing, Progressing Intervention: Identify and Manage Contributors Flowsheets (Taken 11/12/20242134) Medication Review/Management: medications reviewed high-risk medications identified Self-Care Promotion: independence encouraged BADL personal objects within reach BADL personal routines maintained Intervention: Promote Injury-Free Environment Flowsheets (Taken 11/12/20241999) Safety Promotion/Fall Prevention: activity supervised assistive device/personal items within reach clutter-free environment maintained fall prevention program maintained lighting adjusted mobility aid in reach nonskid shoes/slippers when out of bed room organization consistent safety round/check completed toileting scheduled Problem: Orthopaedic Fracture Goal: Absence of Bleeding 11/12/20242134 by Mary Calvert RN Outcome: Ongoing, Progressing 11/12/20242133 by Mary Calvert RN Outcome: Ongoing, Progressing Intervention: Monitor and Manage Fracture Bleeding Flowsheets (Taken 11/12/20242134) Fracture Immobilization: supported during position changes supported with pillows Bleeding Management: affected area elevated dressing monitored Goal: Bowel Elimination 11/12/20242134 by Mary Calvert RN Outcome: Ongoing, Progressing 11/12/20242133 by Mary Calvert RN Outcome: Ongoing, Progressing Intervention: Promote Effective Bowel Elimination Flowsheets (Taken 11/12/20242134) Bowel Elimination Management: hygiene measures promoted relaxation techniques promoted Bowel Elimination Promotion: adequate fluid intake promoted diet adjusted Goal: Absence of Embolism Signs and Symptoms 11/12/20242134 by Mary Calvert RN Outcome: Ongoing, Progressing 11/12/20242133 by Mary Calvert RN Outcome: Ongoing, Progressing Intervention: Prevent or Manage Embolism Risk Flowsheets (Taken 11/12/20242134) VTE Prevention/Management: bilateral SCDs (sequential compression devices) on Goal: Fracture Stability 11/12/20242134 by Mary Calvert RN Outcome: Ongoing, Progressing 11/12/20242133 by Mary Calvert RN Outcome: Ongoing, Progressing Intervention: Promote Fracture Stability and Healing Flowsheets (Taken 11/12/20242134) Fracture Immobilization: supported during position changes supported with pillows Goal: Optimal Functional Ability 11/12/20242134 by Mary Calvert RN Outcome: Ongoing, Progressing 11/12/20242133 by Mary Calvert RN Outcome: Ongoing, Progressing Intervention: Optimize Functional Ability Flowsheets (Taken 11/12/20242134) Range of Motion: active ROM (range of motion) encouraged Activity Management: activity adjusted per tolerance activity encouraged Positioning/Transfer Devices: pillows in use Self-Care Promotion: independence encouraged BADL personal objects within reach BADL personal routines maintained Goal: Absence of Infection Signs and Symptoms 11/12/20242134 by Mary Calvert RN Outcome: Ongoing, Progressing 11/12/20242133 by Mary Calvert RN Outcome: Ongoing, Progressing Intervention: Prevent or Manage Infection Flowsheets (Taken 11/12/20242134) Infection Management: aseptic technique maintained Fever Reduction/Comfort Measures: lightweight bedding lightweight clothing Isolation Precautions: precautions maintained protective Goal: Effective Tissue Perfusion 11/12/20242134 by Mary Calvert RN Outcome: Ongoing, Progressing 11/12/20242133 by Mary Calvert RN Outcome: Ongoing, Progressing Intervention: Prevent or Manage Neurovascular Compromise Flowsheets (Taken 11/12/20242134) Compartment Syndrome Management: active flexion/extension encouraged Compartment Syndrome Surveillance: no pain with passive muscle stretch Goal: Optimal Pain Control and Function 11/12/20242134 by Mary Calvert RN Outcome: Ongoing, Progressing 11/12/20242133 by Mary Calvert RN Outcome: Ongoing, Progressing Intervention: Manage Acute Orthopaedic-Related Pain Flowsheets (Taken 11/12/20242134) Pain Management Interventions: medication (see MAR) position adjusted quiet environment facilitated relaxation techniques promoted pillow support provided emotional support Sleep/Rest Enhancement: awakenings minimized consistent schedule promoted natural light exposure provided regular sleep/rest pattern promoted noise level reduced therapeutic touch utilized relaxation techniques promoted room darkened Goal: Effective Oxygenation and Ventilation 11/12/20242134 by Mary Calvert RN Outcome: Ongoing, Progressing 11/12/20242133 by Mary Calvert RN Outcome: Ongoing, Progressing Intervention: Promote Airway Secretion Clearance Flowsheets (Taken 11/12/20242134) Activity Management: activity adjusted per tolerance activity encouraged Breathing Techniques/Airway Clearance: deep/controlled cough encouraged Cough And Deep Breathing: done independently per patient Intervention: Optimize Oxygenation and Ventilation Flowsheets (Taken 11/12/20242134) Fluid/Electrolyte Management: oral rehydration therapy initiated Airway/Ventilation Management: position adjusted airway patency maintained calming measures promoted Head of Bed (HOB) Positioning: HOB elevated Problem: Surgery Nonspecified Goal: Absence of Bleeding Outcome: Ongoing, Progressing Intervention: Monitor and Manage Bleeding Flowsheets (Taken 11/12/20242134) Bleeding Management: affected area elevated dressing monitored Goal: Effective Bowel Elimination Outcome: Ongoing, Progressing Intervention: Enhance Bowel Motility and Elimination Flowsheets (Taken 11/12/20242134) Bowel Elimination Management: hygiene measures promoted relaxation techniques promoted Goal: Fluid and Electrolyte Balance Outcome: Ongoing, Progressing Intervention: Monitor and Manage Fluid and Electrolyte Balance Flowsheets (Taken 11/12/20242134) Fluid/Electrolyte Management: oral rehydration therapy initiated Goal: Blood Glucose Level Within Target Range Outcome: Ongoing, Progressing Intervention: Optimize Glycemic Control Flowsheets (Taken 11/12/20242134) Hyperglycemia Management: (blood sugar noted being monitored) other (see comments) Hypoglycemia Management: (Blood glucose not being monitord) other (see comments) Goal: Absence of Infection Signs and Symptoms Outcome: Ongoing, Progressing Intervention: Prevent or Manage Infection Flowsheets (Taken 11/12/20242134) Infection Management: aseptic technique maintained Fever Reduction/Comfort Measures: lightweight bedding lightweight clothing Isolation Precautions: precautions maintained protective Goal: Anesthesia/Sedation Recovery Outcome: Ongoing, Progressing Intervention: Optimize Anesthesia Recovery Flowsheets Taken 11/12/20242134 Stabilization Measures: verbal stimulation provided Reorientation Measures: familiar social contact encouraged glasses use encouraged Taken 11/12/20241999 Safety Promotion/Fall Prevention: activity supervised assistive device/personal items within reach clutter-free environment maintained fall prevention program maintained lighting adjusted mobility aid in reach nonskid shoes/slippers when out of bed room organization consistent safety round/check completed toileting scheduled Goal: Optimal Pain Control and Function Outcome: Ongoing, Progressing Intervention: Prevent or Manage Pain Flowsheets (Taken 11/12/20242134) Pain Management Interventions: medication (see MAR) position adjusted quiet environment facilitated relaxation techniques promoted pillow support provided emotional support Diversional Activities: individual hobbies [employer] games Goal: Nausea and Vomiting Relief Outcome: Ongoing, Progressing Intervention: Prevent or Manage Nausea and Vomiting Flowsheets (Taken 11/12/20242134) Nausea/Vomiting Interventions: sips of clear liquids given slow deep breathing encouraged Goal: Effective Urinary Elimination Outcome: Ongoing, Progressing Intervention: Monitor and Manage Urinary Retention Flowsheets (Taken 11/12/20242134) Urinary Elimination Promotion: (purewick in use) frequent voiding encouraged voiding relaxation promoted other (see comments) Goal: Effective Oxygenation and Ventilation Outcome: Ongoing, Progressing Intervention: Optimize Oxygenation and Ventilation Flowsheets (Taken 11/12/20242134) Activity Management: activity adjusted per tolerance activity encouraged Airway/Ventilation Management: position adjusted airway patency maintained calming measures promoted Head of Bed (HOB) Positioning: HOB elevated Cough And Deep Breathing: done independently per patient * Anesthesia PACU Signout - Ike Bowser DO - 11/12/2024 5:27 PM EDT Images from the original note were not included. Anesthesia PACU Signout Patient location during evaluation: PACU Patient participation: complete - patient participated Level of consciousness: baseline and awake Pain management: adequate (pain score 0-3) Airway patency: natural airway Hydration status: acceptable PONV: none Cardiovascular status: acceptable and hemodynamically stable Respiratory status: acceptable, spontaneous ventilation, unassisted and nonlabored ventilation Discharge Disposition: admit to inpatient unit 11/12/2024 1:20 PM 11/12/2024 4:32 PM 11/12/2024 4:35 PM 11/12/2024 4:40 PM 11/12/2024 4:45 PM 11/12/2024 5:00 PM 11/12/2024 5:15 PM Vitals Systolic 140 141 134 139 141 127 128 Diastolic 75 86 76 78 78 81 77 Heart Rate 87 94 91 86 87 81 80 Temp 36.9 C 36.6 C 36.6 C Resp 16 20 14 17 12 14 Cosigned by Terry Mccrary MD at 11/12/2024 5:45 PM EDT Associated attestation - Terry Mccrary MD - 11/12/2024 5:45 PM EDT I saw and evaluated the patient with the resident/fellow. I discussed the case with the resident/fellow and agree with the findings and plan as documented. * Op Note - Prem Kohler MD - 11/12/2024 2:20 PM EDT Operative Note Date: 11/12/24 Location: [facility] Name: Edison Howe, : 1955, Diagnoses: Pre-op Diagnosis Periprosthetic fracture of femur at tip of prosthesis, initial encounter Morbid obesity, bmi 50 Post-op Diagnosis Periprosthetic fracture of femur at tip of prosthesis, initial encounter Morbid obesity, bmi 50 Procedure(s): Revision right total knee, both components with distal femoral replacement Please note that due to this patients morbid obesity with bmi of 50 this surgery took at least 30% longer than a standard revision surgery Attending Surgeon(s): * Prem Kohler - Primary Field Handyman(s): * Anabella Canas MD - Resident - Assisting Anesthesia: General ASA: II Blood Administration: Blood Product Administration History None Estimated Blood Loss: Minimal Drains: Closed/Suction Drain 1 Right Knee Accordion 15 Fr. (Active) Implants Type Name Action Serial No. Cement CEMENT WITH TOBRAMYCIN - SNA - [id number] Implanted NA Cement CEMENT WITH TOBRAMYCIN - SNA - [id number] Implanted NA Cement CEMENT WITH TOBRAMYCIN - SNA - [id number] Implanted NA Bushing CHG FEMORAL MRH/GMRS DISTAL PO - SNA - [id number] Implanted NA Implant CHG INSERT HRHK TIB 10MM XS/S - SNA - [id number] Implanted NA Implant CHG TIBIAL HRHK ROT COMP XS/SM - SNA - [id number] Implanted NA Pin CHG PIN STERILE HEADLESS 1/8 - SNA - [id number] Implanted NA Implant CHG FEMORAL STD RT DIST 65MM G - SNA - [id number] Implanted NA Stem STEM REGULAR FLUTED [id number] - SNA - [id number] Implanted NA Plate CHG PLATE MRH TIBIAL BASE S1 - SNA - [id number] Implanted NA Stem CHG STEM MRS [id number] FEM W/O ATTILA - SNA - [id number] Implanted NA Implant CHG FEMORAL HRHK AXLE - SNA - [id number] Implanted NA Specimen: Findings: Indications: Edison Howe is an 69 y.o. female who is having surgery for Periprosthetic fracture of femur at tip of prosthesis, initial encounter. Narrative: Patient is a 69-year-old female who is postop from a right total knee replacement with a complication of a periprosthetic distal femur fracture due to the patient's size and the distal nature of the fracture the risks benefits and alternatives of this revision both components to distal femoral replacement were discussed with the patient and her family preoperatively and they consented these risksincluded but were not limited to bleeding infection damage to nerves and blood vessels heart attackdeath stroke need for additional surgical procedure DVT PE fracture-dislocation or complex infection limiting in a amputation. The personally discussed with the patient and her family that due to hermorbid obesity the risk for amputation was at least 10% they voiced understanding signed written consent as did the patient and wished to proceed. Patient was met in the preoperative holding area surgical limb was signed surgical consent was reviewed she agreed she was taken operating room induced under general anesthetic placed supine the operating table surgical extremities prepped draped normal sterile fashion a time-out was performed in accordance with the hospital policy and patient received antibiotics prior surgical incision Previous anterior incision was utilized carried down the subcutaneous tissues extended proximally down to the level of the arthrotomy the arthrotomy was reopened with a large hematoma was evacuated came down and used a tenaculum to grab a hold of the distal femoral prosthesis and a resection of thedistal femur was performed the medial collateral ligament was completely ruptured posterior cruciate ligament was ruptured off as well lateral collateral ligament was removed without difficulty we then exposed the distal femur freshened the osteotomy per the manufacture's instructions at the appropriate level prepared it by using the canal finer sequentially reaming to a 1 14 mm Reamer and using t he Facer the trial femoral component was then placed proximal tibia was exposed we used a high-speed oscillating saw and flexible osteotomes to remove the proximal tibia and this cement was removed with the cement cutting guide the tibial canal finer was then utilized we reamed to an 11 mm mm Reamer freshened the osteotomy relative to the patellofemoral joint the tibia was then sized to a size small and prepared per the manufacture's instructions Cam[place] of the rotation relative to the 2nd metatarsal the performed a trial reduction with a 10 mm polyethylene and a had full range of motion with full extension flexion to 90?? due to the patient's large body habitus the flexion was limited by the posterior soft tissue envelope. The patella tracked in the trochlear groove rotation was marked on the femur the femur and the tibia were prepared for cementation final implants were cemented intoplace with the same limb length and stability with the 10 limb mm polyethylene this was inserted the wound was copiously irrigated closed in surgical layers over a deep drain sterile dressings were applied incisional wound VAC was placed to allow for soft tissue healing at the end of the surgical procedure all sponge lap counts were Complications: None; patient tolerated the procedure well. Submitted by: Prem Kohler MD - 11/12/2024 * Clinician Note - Ike Cerda - 11/12/2024 1:06 PM EDT Physical Therapy Attempt Patient Name: Edison Howe Today's Date: 11/12/2024 Patient was attempted to be seen by physical therapy 11/12/2024 for PT Evaluation however pt scheduled to go to OR today . Physical therapy team will re-attempt after procedure in order to allow for updated weight bearing restrictions and/or bracing needs post-op. Physical therapy team will follow-up as schedule permits. Written by Ike Cerda on 11/12/24 at 1:06 PM. * Care Plan - Helen Cannon RN - 11/12/2024 11:40 AM EDT Problem: Skin Injury Risk Increased Goal: Skin Health and Integrity Outcome: Ongoing, Progressing Intervention: Optimize Skin Protection Flowsheets Taken 11/12/2024 1137 Pressure Reduction Techniques: frequent weight shift encouraged Pressure Reduction Devices: positioning supports utilized Skin Protection: incontinence pads utilized transparent dressing maintained Head of Bed (HOB) Positioning: HOB elevated Taken 11/12/2024 0903 Activity Management: activity adjusted per tolerance Intervention: Promote and Optimize Oral Intake Flowsheets (Taken 11/12/2024 1137) Oral Nutrition Promotion: rest periods promoted Nutrition Interventions: frequent small meals provided Problem: Adult Inpatient Plan of Care Goal: Plan of Care Review Outcome: Ongoing, Progressing Flowsheets Taken 11/12/2024 1137 by Helen Cannon RN Plan of Care Reviewed With: patient Taken 11/11/2024 2216 by Mary Carmen Myers RN Progress: no change Taken 11/11/2024 1448 by Savannah Bernard RN Outcome Evaluation: Surgery scheduled 11/12/24 Goal: Patient-Specific Goal (Individualized) Outcome: Ongoing, Progressing Flowsheets (Taken 11/12/2024902) Patient/Family-Specific Goals (Include Timeframe): Pt will rate pain <6 throughout shift. Individualized Care Needs: Pain control Anxieties, Fears or Concerns: Procedure Goal: Absence of Hospital-Acquired Illness or Injury Outcome: Ongoing, Progressing Intervention: Identify and Manage Fall Risk Flowsheets (Taken 11/12/2024902) Safety Promotion/Fall Prevention: activity supervised fall prevention program maintained clutter-free environment maintained assistive device/personal items within reach lighting adjusted mobility aid in reach nonskid shoes/slippers when out of bed room organization consistent safety round/check completed toileting scheduled Intervention: Prevent Skin Injury Flowsheets Taken 11/12/20241136 Skin Protection: incontinence pads utilized transparent dressing maintained Taken 11/12/2024 1000 Body Position: refused by patient Intervention: Prevent and Manage VTE (Venous Thromboembolism) Risk Flowsheets (Taken 11/12/2024902) VTE Prevention/Management: medication Intervention: Prevent Infection Flowsheets (Taken 11/12/2024 113) Infection Prevention: single patient room provided environmental surveillance performed equipment surfaces disinfected personal protective equipment utilized hand hygiene promoted rest/sleep promoted Goal: Optimal Comfort and Wellbeing Outcome: Ongoing, Progressing Intervention: Monitor Pain and Promote Comfort Flowsheets (Taken 11/12/2024902) Pain Management Interventions: medication (see MAR) care clustered rest Intervention: Provide Person-Centered Care Flowsheets (Taken 11/12/20241136) Trust Relationship/Rapport: care explained choices provided emotional support provided empathic listening provided questions answered questions encouraged reassurance provided thoughts/feelings acknowledged Problem: Mobility Impairment Goal: Optimal Mobility Outcome: Ongoing, Progressing Intervention: Optimize Mobility Flowsheets Taken 11/12/2024 1137 by Helen Cannon, RN Positioning/Transfer Devices: pillows Taken 11/12/2024 09 by Helen Cannon, RN Activity Management: activity adjusted per tolerance Taken 11/11/2024 1448 by Savannah Bernard RN Assistive Device Utilized: (patient in traction) other (see comments) Problem: Fall Injury Risk Goal: Absence of Fall and Fall-Related Injury Outcome: Ongoing, Progressing Intervention: Identify and Manage Contributors Flowsheets (Taken 11/12/2024 1137) Medication Review/Management: medications reviewed Self-Care Promotion: independence encouraged BADL personal routines maintained BADL personal objects within reach Intervention: Promote Injury-Free Environment Flowsheets (Taken 11/12/2024 09) Safety Promotion/Fall Prevention: activity supervised fall prevention program maintained clutter-free environment maintained assistive device/personal items within reach lighting adjusted mobility aid in reach nonskid shoes/slippers when out of bed room organization consistent safety round/check completed toileting scheduled Problem: Pain Acute Goal: Optimal Pain Control and Function Outcome: Ongoing, Progressing Problem: Orthopaedic Fracture Goal: Absence of Bleeding Outcome: Ongoing, Progressing Intervention: Monitor and Manage Fracture Bleeding Flowsheets (Taken 11/12/2024 113) Fracture Immobilization: supported during position changes Bleeding Management: affected area elevated Goal: Bowel Elimination Outcome: Ongoing, Progressing Intervention: Promote Effective Bowel Elimination Flowsheets (Taken 11/12/20241136) Bowel Elimination Management: hygiene measures promoted toileting offered Bowel Elimination Promotion: adequate fluid intake promoted Goal: Absence of Embolism Signs and Symptoms Outcome: Ongoing, Progressing Intervention: Prevent or Manage Embolism Risk Flowsheets (Taken 11/12/2024 09) VTE Prevention/Management: medication Goal: Fracture Stability Outcome: Ongoing, Progressing Intervention: Promote Fracture Stability and Healing Flowsheets (Taken 11/12/20241136) Fracture Immobilization: supported during position changes Goal: Optimal Functional Ability Outcome: Ongoing, Progressing Intervention: Optimize Functional Ability Flowsheets Taken 11/12/20241136 Positioning/Transfer Devices: pillows Self-Care Promotion: independence encouraged BADL personal routines maintained BADL personal objects within reach Taken 11/12/2024902 Range of Motion: active ROM (range of motion) encouraged Activity Management: activity adjusted per tolerance Goal: Absence of Infection Signs and Symptoms Outcome: Ongoing, Progressing Intervention: Prevent or Manage Infection Flowsheets Taken 11/12/20241136 Infection Management: aseptic technique maintained Fever Reduction/Comfort Measures: lightweight clothing lightweight bedding Taken 11/12/2024902 Isolation Precautions: precautions maintained Goal: Effective Tissue Perfusion Outcome: Ongoing, Progressing Intervention: Prevent or Manage Neurovascular Compromise Flowsheets (Taken 11/12/20241136) Compartment Syndrome Management: active flexion/extension encouraged Goal: Optimal Pain Control and Function Outcome: Ongoing, Progressing Intervention: Manage Acute Orthopaedic-Related Pain Flowsheets Taken 11/12/2024 1137 Sleep/Rest Enhancement: consistent schedule promoted Taken 11/12/2024 0903 Pain Management Interventions: medication (see MAR) care clustered rest Goal: Effective Oxygenation and Ventilation Outcome: Ongoing, Progressing Intervention: Promote Airway Secretion Clearance Flowsheets Taken 11/12/2024 1137 Breathing Techniques/Airway Clearance: deep/controlled cough encouraged Cough And Deep Breathing: done independently per patient Taken 11/12/2024 0903 Activity Management: activity adjusted per tolerance Intervention: Optimize Oxygenation and Ventilation Flowsheets (Taken 11/12/2024 1137) Fluid/Electrolyte Management: oral rehydration therapy initiated Airway/Ventilation Management: position adjusted Head of Bed (HOB) Positioning: HOB elevated * H&P - Lawrence Marino MD - 11/12/2024 5:17 AM EDT Orthopedic surgery H&P Chief Complaint: R knee pain HPI: Edison Howe is a 69 y.o. female with a past medical history of obesity, hypertension, recent endometrial cancer, status post hysterectomy. Presents today with right knee pain. Patient underwent a right total knee arthroplasty with Dr. Chamberlain from [facility] yesterday. She is ableto ambulate postoperatively though once returning home after sitting in a chair for some time she attempted to stand but felt her knee go when laying her leg of the other. She did not fall though describes a twisting motion. She had a nerve block I did not feel any pain. She called their office whorecommended she be seen at outside hospital. X-rays there demonstrated a distal periprosthetic femur fracture. On evaluation today her pain is well-controlled, she denies any numbness or tingling in the extremities, or pain in any other area. A few weeks prior to surgery patient was ambulating with the use ofa walker. Last Meal: Yesterday Past Medical History: [Past Medical History] [Past Medical History] Diagnosis Date Arthritis COVID-19 diagnosed 01/15/22, symptoms included body aches, nasal congestion, mild chest congestion, loss of taste and smell. patient states symptoms lasted 3 days. History of abnormal uterine bleeding Hypertension Family History: Reviewed and found to be non contributory to HPI/ml Family or Personal History of DVT/PE: denies MRSA history: denies Metal Allergies: denies Tobacco: denies Alcohol: denies Illicit substance use: denies Lives in [place], [place] Occupation/Employment: retired Ambulation: with a walker Past Surgical History: [Surgical History] [Surgical History] Past Surgical History Procedure Laterality Date DILATION AND CURETTAGE OF UTERUS 12/02/2021 HYSTERECTOMY 2021 TUBAL LIGATION 1989 Medications: [Medications Ordered Prior to Encounter] [Medications Ordered Prior to Encounter] No current facility-administered medications on file prior to encounter. Current Outpatient Medications on File Prior to Encounter Medication Sig Dispense Refill acetaminophen (Tylenol) 500 MG tablet Take 2 tablets (1,000 mg total) by mouth every 8 (eight) hours. 30 tablet 1 COLLAGEN PO Take 2 Chewable tablet by mouth 1 (one) time each day. diclofenac (Voltaren) 75 MG EC tablet Take 1 tablet (75 mg) by mouth 2 (two) times a day. hydroCHLOROthiazide (HYDRODiuril) 25 MG tablet Take 1 tablet (25 mg) by mouth 1 (one) time each day. Multiple Vitamin (multivitamin) tablet Take 1 tablet by mouth 1 (one) time each day. Allergies: [Allergies] [Allergies] Allergen Reactions Codeine Palpitations Penicillins Rash Sulfa Drugs Rash ROS: A 14 point review of systems was conducted and was negative except aforementioned in the HPI, and if present the following systems listed below: Physical Exam: Vitals: 11/11/24 0647 BP: (!) 157/89 Pulse: 77 Resp: 16 Temp: 37.1 ??C (98.8 ??F) SpO2: 99% General: Alert. In no acute distress. Speech is easily understandable, and the patient answers all questions appropriately. Psych: Appropriate mood and affect Eyes: EOMI Resp: Good effort, symmetric chest expansion, no respiratory difficulty CV: No lymphedema, peripheral perfusion intact, pulses as below Musculoskeletal Exam: Chest: Clavicles non tender to palpation Pelvis: Stable to AP/Lat compression RUE: Skin intact, no deformity, no pain with passive stretch of the digits, nontender to palpation. Range of motion is full/painless/stable the shoulder, elbow and wrist. 5/5 shoulder abduction, elbow flexion/extension, wrist flexion/extension, EPL, FPL, IO, EDC, FDP. Sensation intact in the axillary, radial, median, and ulnar nerve distributions. 2+ radial pulse, capillary refill less than 2 seconds,digits are warm and well perfused. LUE: Skin intact, no deformity, no pain with passive stretch of the digits, nontender to palpation. Range of motion is full/painless/stable the shoulder, elbow and wrist. 5/5 shoulder abduction, elbow flexion/extension, wrist flexion/extension, EPL, FPL, IO, EDC, FDP. Sensation intact in the axillary, radial, median, and ulnar nerve distributions. 2+ radial pulse, capillary refill less than 2 seconds,digits are warm and well perfused. RLE: Obvious deformity, swelling and ecchymosis around the knee. Tenderness to palpation of the knee, nontender to palpation of the ankle or foot. Range of motion exam deferred secondary to injury, intactEHL/FHL, TA/GSC. Sensation intact to light touch I'm the DP, SP, sural, saphenous, tibial nerve dist ributions. Palpable DP pulse, FERNANDA 0.92, extremities warm well perfused. LLE: Skin intact, no obvious deformity, no pain with passive stretch of the digits, nontender to palpation. Range of motion full/painless/stable with the hip, knee, and ankle. 5/5 hip flexion, knee extension, EHL, FHL, TA, GSC. Sensation intact to light touch in the DP, SP, sural, saphenous, and tibial nerve distributions. 2+ DP and PT pulses, capillary refill less than 2 seconds, digits are warm and well perfused. Imaging: Radiographic studies were personally reviewed and demonstrate the following: - Right periprosthetic distal femur fracture Assessment & Plan: Edison Howe is a 69 y.o. female with the following orthopedic injuries: Right periprosthetic distal femur fracture -NWB RLE -PT traction pin removed in preparation for right distal femoral replacement -will require operative intervention -marked and consented -To OR today for right distal femoral replacement -final operative plan pending OR availability and staffing w/ attending - Discussed with the patient that due to the severity of her injury there is a greater than 10% risk of amputation. Berhane Marino MD PGY-2, Orthopaedic Surgery [facility] Personal Pager [phone] Orthopaedic Trauma Service Pager: [phone] Orthopaedic Recon/Spine/Foot and Ankle Service Pager: [phone] Cosigned by Lawrence Weeks MD at 11/16/2024 11:13 AM EDT * Care Plan - Mary Carmen Myers RN - 11/11/2024 10:17 PM EDT Problem: Skin Injury Risk Increased Goal: Skin Health and Integrity Outcome: Ongoing, Progressing Intervention: Optimize Skin Protection Flowsheets (Taken 11/11/20242215) Activity Management: activity adjusted per tolerance Pressure Reduction Techniques: frequent weight shift encouraged Problem: Adult Inpatient Plan of Care Goal: Plan of Care Review Outcome: Ongoing, Progressing Flowsheets (Taken 11/11/20242215) Progress: no change Plan of Care Reviewed With: patient Goal: Patient-Specific Goal (Individualized) Outcome: Ongoing, Progressing Flowsheets (Taken 11/11/20242029) Patient/Family-Specific Goals (Include Timeframe): Patient will report adequate pain control throughout shift Individualized Care Needs: Pain management Anxieties, Fears or Concerns: Pain Problem: Mobility Impairment Goal: Optimal Mobility Outcome: Ongoing, Progressing Intervention: Optimize Mobility Flowsheets (Taken 11/11/20242215) Activity Management: activity adjusted per tolerance Positioning/Transfer Devices: repositioning sheet pillows Problem: Pain Acute Goal: Optimal Pain Control and Function Outcome: Ongoing, Progressing Intervention: Develop Pain Management Plan Flowsheets (Taken 11/11/20242199) Pain Management Interventions: medication (see MAR) Problem: Fall Injury Risk Goal: Absence of Fall and Fall-Related Injury Outcome: Ongoing, Progressing Intervention: Promote Injury-Free Environment Flowsheets (Taken 11/11/20242029) Safety Promotion/Fall Prevention: clutter-free environment maintained activity supervised assistive device/personal items within reach nonskid shoes/slippers when out of bed mobility aid in reach room organization consistent safety round/check completed Problem: Orthopaedic Fracture Goal: Absence of Bleeding Outcome: Ongoing, Progressing Intervention: Monitor and Manage Fracture Bleeding Flowsheets (Taken 11/11/2024 2216) Bleeding Management: affected area elevated dressing monitored * Consults - Lawrence Marino MD - 11/11/2024 8:12 AM EDTAssociated Order(s): IP CONSULT TO ORTHOPAEDICS Orthopaedic Joints and Reconstructive Surgery Consult Time consulted: 629 Time of patient evaluation: 699 Chief Complaint: R knee pain HPI: Edison Howe is a 69 y.o. female with a past medical history of obesity, hypertension, recent endometrial cancer, status post hysterectomy. Presents today with right knee pain. Patient underwent a right total knee arthroplasty with Dr. Chamberlain from [facility] yesterday. She is ableto ambulate postoperatively though once returning home after sitting in a chair for some time she attempted to stand but felt her knee go when laying her leg of the other. She did not fall though describes a twisting motion. She had a nerve block I did not feel any pain. She called their office whorecommended she be seen at outside hospital. X-rays there demonstrated a distal periprosthetic femur fracture. On evaluation today her pain is well-controlled, she denies any numbness or tingling in the extremities, or pain in any other area. A few weeks prior to surgery patient was ambulating with the use ofa walker. Last Meal: Yesterday Past Medical History: Past Medical History[1] Family History: Reviewed and found to be non contributory to HPI/ml Family or Personal History of DVT/PE: denies MRSA history: denies Metal Allergies: denies Tobacco: denies Alcohol: denies Illicit substance use: denies Lives in [place], [place] Occupation/Employment: retired Ambulation: with a walker Past Surgical History: Surgical History[2] Medications: Medications Ordered Prior to Encounter[3] Allergies: Allergies[4] ROS: A 14 point review of systems was conducted and was negative except aforementioned in the HPI, and if present the following systems listed below: Physical Exam: Vitals: 11/11/24 0647 BP: (!) 157/89 Pulse: 77 Resp: 16 Temp: 37.1 ??C (98.8 ??F) SpO2: 99% General: Alert. In no acute distress. Speech is easily understandable, and the patient answers all questions appropriately. Psych: Appropriate mood and affect Eyes: EOMI Resp: Good effort, symmetric chest expansion, no respiratory difficulty CV: No lymphedema, peripheral perfusion intact, pulses as below Musculoskeletal Exam: Chest: Clavicles non tender to palpation Pelvis: Stable to AP/Lat compression RUE: Skin intact, no deformity, no pain with passive stretch of the digits, nontender to palpation. Range of motion is full/painless/stable the shoulder, elbow and wrist. 5/5 shoulder abduction, elbow flexion/extension, wrist flexion/extension, EPL, FPL, IO, EDC, FDP. Sensation intact in the axillary, radial, median, and ulnar nerve distributions. 2+ radial pulse, capillary refill less than 2 seconds,digits are warm and well perfused. LUE: Skin intact, no deformity, no pain with passive stretch of the digits, nontender to palpation. Range of motion is full/painless/stable the shoulder, elbow and wrist. 5/5 shoulder abduction, elbow flexion/extension, wrist flexion/extension, EPL, FPL, IO, EDC, FDP. Sensation intact in the axillary, radial, median, and ulnar nerve distributions. 2+ radial pulse, capillary refill less than 2 seconds,digits are warm and well perfused. RLE: Obvious deformity, swelling and ecchymosis around the knee. Tenderness to palpation of the knee, nontender to palpation of the ankle or foot. Range of motion exam deferred secondary to injury, intactEHL/FHL, TA/GSC. Sensation intact to light touch I'm the DP, SP, sural, saphenous, tibial nerve dist ributions. Palpable DP pulse, FERNANDA 0.92, extremities warm well perfused. LLE: Skin intact, no obvious deformity, no pain with passive stretch of the digits, nontender to palpation. Range of motion full/painless/stable with the hip, knee, and ankle. 5/5 hip flexion, knee extension, EHL, FHL, TA, GSC. Sensation intact to light touch in the DP, SP, sural, saphenous, and tibial nerve distributions. 2+ DP and PT pulses, capillary refill less than 2 seconds, digits are warm and well perfused. Imaging: Radiographic studies were personally reviewed and demonstrate the following: - Right periprosthetic distal femur fracture Assessment & Plan: Edison Howe is a 69 y.o. female with the following orthopedic injuries: Right periprosthetic distal femur fracture -NWB RLE -Placed into PT traction -FU CT R knee -will require operative intervention -marke -NPO at midnight for OR -final operative plan pending OR availability and staffing w/ attending -admit per institutional protocol Berhane Marino MD PGY-1, Orthopaedic Surgery [facility] Personal Pager [phone] Orthopaedic Trauma Service Pager: [phone] Orthopaedic Recon/Spine/Foot and Ankle Service Pager: [phone] [1] Past Medical History: Diagnosis Date Arthritis COVID-19 diagnosed 01/15/22, symptoms included body aches, nasal congestion, mild chest congestion, loss of taste and smell. patient states symptoms lasted 3 days. History of abnormal uterine bleeding Hypertension [2] Past Surgical History: Procedure Laterality Date DILATION AND CURETTAGE OF UTERUS 12/02/2021 HYSTERECTOMY 2021 TUBAL LIGATION 1989 [3] No current facility-administered medications on file prior to encounter. Current Outpatient Medications on File Prior to Encounter Medication Sig Dispense Refill acetaminophen (Tylenol) 500 MG tablet Take 2 tablets (1,000 mg total) by mouth every 8 (eight) hours. 30 tablet 1 COLLAGEN PO Take 2 Chewable tablet by mouth 1 (one) time each day. diclofenac (Voltaren) 75 MG EC tablet Take 1 tablet (75 mg) by mouth 2 (two) times a day. hydroCHLOROthiazide (HYDRODiuril) 25 MG tablet Take 1 tablet (25 mg) by mouth 1 (one) time each day. Multiple Vitamin (multivitamin) tablet Take 1 tablet by mouth 1 (one) time each day. [4] Allergies Allergen Reactions Codeine Palpitations Penicillins Rash Sulfa Drugs Rash Cosigned by Lawrence Weeks MD at 11/16/2024 11:13 AM EDT * Care Plan - Savannah Bernard RN - 11/11/2024 2:53 AM EDT Problem: Skin Injury Risk Increased Goal: Skin Health and Integrity Outcome: Ongoing, Progressing Intervention: Optimize Skin Protection Flowsheets (Taken 11/11/2024 144) Activity Management: activity adjusted per tolerance Intervention: Promote and Optimize Oral Intake Flowsheets (Taken 11/11/2024 144) Oral Nutrition Promotion: rest periods promoted Nutrition Interventions: frequent small meals provided Problem: Adult Inpatient Plan of Care Goal: Plan of Care Review Outcome: Ongoing, Progressing Flowsheets (Taken 11/11/2024 144) Progress: no change Outcome Evaluation: Surgery scheduled 11/12/24 Plan of Care Reviewed With: patient Goal: Patient-Specific Goal (Individualized) Outcome: Ongoing, Progressing Flowsheets (Taken 11/11/2024 144) Patient/Family-Specific Goals (Include Timeframe): Patient will remain free from injury during shift Individualized Care Needs: Safety Anxieties, Fears or Concerns: Denies Goal: Absence of Hospital-Acquired Illness or Injury Outcome: Ongoing, Progressing Intervention: Identify and Manage Fall Risk Flowsheets (Taken 11/11/2024 144) Safety Promotion/Fall Prevention: clutter-free environment maintained assistive device/personal items within reach activity supervised lighting adjusted nonskid shoes/slippers when out of bed room organization consistent safety round/check completed Goal: Optimal Comfort and Wellbeing Outcome: Ongoing, Progressing Intervention: Provide Person-Centered Care Flowsheets (Taken 11/11/20241447) Trust Relationship/Rapport: care explained choices provided emotional support provided empathic listening provided questions answered questions encouraged reassurance provided thoughts/feelings acknowledged Problem: Mobility Impairment Goal: Optimal Mobility Outcome: Ongoing, Progressing Intervention: Optimize Mobility Flowsheets (Taken 11/11/2024 144) Activity Management: activity adjusted per tolerance Assistive Device Utilized: (patient in traction) other (see comments) Positioning/Transfer Devices: traction pillows Problem: Pain Acute Goal: Optimal Pain Control and Function Outcome: Ongoing, Progressing Intervention: Prevent or Manage Pain Flowsheets (Taken 11/11/20241447) Sensory Stimulation Regulation: care clustered Complementary Therapy: (none) other (see comments) Bowel Elimination Promotion: adequate fluid intake promoted Sleep/Rest Enhancement: relaxation techniques promoted Medication Review/Management: medications reviewed * ED Provider Notes - Ike Garza DO - 11/11/2024 2:53 AM EDT Images from the original note were not included. - HPI Chief Complaint Patient presents with Post-op Problem This is a 69-year-old female with history of obesity and right knee replacement yesterday who is presenting from outside hospital for periprosthetic femur fracture. Had knee replacement done yesterday. Patient was discharged home following the procedure and then experienced a twisting motion while standing. She felt immediate pain and inability to ambulate. No other complaints or injuries. Patient did not fall. No blood thinners. Did not hit her head. No loss of consciousness. No further complaints at this time. Patient History Past Medical History[1] Surgical History[2] Family History[3] Social History[4] Allergies: Allergies[5] Physical Exam ED Triage Vitals Temp Heart Rate Resp BP 11/11/24 0302 11/11/24 0302 11/11/24 0302 11/11/24 0300 37.1 ??C (98.8 ??F) 79 18 132/73 SpO2 Temp Source Heart Rate Source Patient Position 11/11/24 0300 11/11/24 0302 -- 11/11/24 0302 94 % Oral Lying BP Location FiO2 (%) 11/11/24 030 -- Right arm Physical Exam Vitals and nursing note reviewed. Constitutional: General: She is not in acute distress. Appearance: She is obese. She is not ill-appearing, toxic-appearing or diaphoretic. HENT: Head: Normocephalic and atraumatic. Cardiovascular: Rate and Rhythm: Normal rate. Pulses: Normal pulses. Pulmonary: Effort: Pulmonary effort is normal. Musculoskeletal: General: Swelling, tenderness, deformity and signs of injury present. Cervical back: Normal range of motion. Comments: Swelling and tenderness to right knee and distal femur. Right lower extremity is neurovascularly intact. Skin: General: Skin is warm and dry. Comments: Well appearing surgical scar Neurological: General: No focal deficit present. Mental Status: She is alert and oriented to person, place, and time. EASI ?? Total Score: 0 [place] Coma Scale Score: 15 Mini Nutritional Screening Score : 12 TRST Assessment Total: 0 ED Course & MDM - Assessment: 69 y.o. female presents to ED with complaint of right periprosthetic distal femur fracture. It should be noted that the chronic conditions includes status post 1 day right knee replacement, which currently is not at goal therapy. This complicates the clinical picture because it Comorbidities: may be exacerbating symptoms, increases the amount and complexity of data to be reviewed, complicates theclinical workup, and increases the risk for morbidity Differential Diagnosis: Periprosthetic femur fracture, tibia fracture, fibula fracture, hand fracture, infection In order to fully explore the differential diagnosis the following treatments and tests were ordered: ED Medication Administration from 11/10/20242234 to 11/11/2024 0737 Date/Time Order Dose Route Action 11/11/2024 0605 EDT HYDROmorphone (Dilaudid) injection 1 mg 1 mg Intravenous Given 11/11/2024 0606 EDT ondansetron (Zofran) injection 4 mg 4 mg Intravenous Given All Other Orders Ordered Status Ordering Provider 11/11/24720 Basic Metabolic Panel, Plasma Morning draw Acknowledged LAWRENCE MARINO 11/11/24720 CBC W/O Differential Morning draw Acknowledged LAWRENCE MARINO 11/11/24720 Prothrombin Time/INR Morning draw Acknowledged LAWRENCE MARINO 11/11/24720 NPO diet Diet effective midnight Acknowledged LAWRENCE MARINO 11/11/24 0721 ECG Adult Once Acknowledged LAWRENCE MARINO 11/11/2421 XR Chest 1 View One time imaging Acknowledged LAWRENCE MARINO 11/11/24 0721 XR Knee Right 3 Views Once Acknowledged LAWRENCE MARINO 11/11/2421 Notify Provider Until discontinued Acknowledged LAWRENCE MARINO 11/11/24720 Nursing communication Until discontinued Comments: Upon initiation of sub-anesthetic ketamine obtain baseline vitals including the following: Pain, sPO2, RR, GCS, presence of nystagmus. Repeat these 15 minutes after administration of each dose of ketamine Acknowledged LAWRENCE MARINO 11/11/24720 Nursing communication Until discontinued Comments: Do not administer sub-anesthetic ketamine if any of the following are noted and notify physician. Pain: < 6, RR : < 10 ; SaO2 : < 90% or a drop in SaO2 by greater than or equal to 4% ; Decreased EMV : < 13 ; Other : Nystagmus present Acknowledged LAWRENCE MARINO 11/11/24 0607 Consult to Orthopaedic Surgery Once Specialty: Orthopaedic Surgery Provider: (Not yet assigned) Acknowledged IKE GARZA 11/11/24 0528 C-Reactive protein STAT Final result IKE GARZA 11/11/24 0528 Sed rate, automated STAT Final result MARGO IKE Bernadine 11/11/24 0515 Hepatitis C Antibody - ED Once Final result IKE GARZA 11/11/24 0515 ED Protocol - HIV 1/2 Antibody/Antigen Screen Once Final result IKE GARZA 11/11/24 0515 ED HIV 1/2 Antibody/Antigen Screen w/Reflex to HIV 1/2 Differentiation PROCEDURE ONCE Final result IKE GARZA 11/11/24 0515 XR Ankle Right 3+ Views Once Final result IKE GARZA 11/11/24 0515 CBC w/diff STAT Final result IKE GARZA 11/11/24 0515 PT-INR STAT Final result IKE GARZA 11/11/24 0515 Type and screen Start now Final result IKE GARZA 11/11/24 0515 CMP STAT Final result IKE GARZA 11/11/24 0515 XR Hip Right 2 or 3 Views Including Pelvis Once Final result IKE GARZA 11/11/24 0515 XR Femur Right 2+ Views Once Final result IKE GARZA 11/11/24 0515 XR Knee Right 3 Views Once Final result IKE GARZA 11/11/24 0515 XR Tibia Fibula Right 2+ Views Once Final result IKE GARZA ED Course as of 11/11/24 0737 Sat Nov 11, 2024 0607 X-ray imaging reviewed and independently interpreted, significant for periprosthetic right distal femur fracture. I consulted orthopedic surgery and had an interactive discussion with them regarding the patient's care. [WB] 0628 Discussed with orthopedic surgery. Will need to be put in traction. [WB] ED Course User Index [WB] Ike Garza, DO Clinical Impressions as of 11/11/24 0737 Periprosthetic fracture of femur at tip of prosthesis, initial encounter Signed out to oncoming provider pending orthopedic surgery recs. Will need to be placed in tractionprior to admission to trauma surgery service. Patient is afebrile, stable on room air, in no acute distress. Social Determinates of Health Risks (including Economic Stability, Education and level of understanding, Healthcare access and quality and concerning social factors): None identified on this visit Ultimately, this patient was was signed out to the oncoming provider (Signed Out) Patient care assumed by oncoming provider, Dr. Mills, at shift change, tentative plan at the time of sign-out was pending ortho recs ED Prescriptions None Disposition Admit - [1] Past Medical History: Diagnosis Date Arthritis COVID-19 diagnosed 01/15/22, symptoms included body aches, nasal congestion, mild chest congestion, loss of taste and smell. patient states symptoms lasted 3 days. History of abnormal uterine bleeding Hypertension [2] Past Surgical History: Procedure Laterality Date DILATION AND CURETTAGE OF UTERUS 12/02/2021 HYSTERECTOMY 2021 TUBAL LIGATION 1989 [3] No family history on file. [4] Tobacco Use Smoking status: Never Smokeless tobacco: Never Vaping Use Vaping status: Never Used Substance Use Topics Alcohol use: Never Drug use: Never [5] Allergies Allergen Reactions Codeine Palpitations Penicillins Rash Sulfa Drugs Rash Ike Garza DO Resident 11/11/24 0737 Cosigned by Richar Centeno DO at 11/11/2024 11:56 AM EDT Associated attestation - Richar Centeno DO - 11/11/2024 11:56 AM EDT I saw and evaluated the patient with the resident/fellow. I discussed the case with the resident/fellow and agree with the findings and plan as documented. * ED Triage Notes - Jana Grant - 11/11/2024 2:53 AM EDT Pt brought in by EMS, transferred from [facility]. Femur fx with hardware installed s/p kneereplacement on 11/10/24. Pt felt a pop and ankle angled inwards when trying to stand at home. Denies numbness/tingling in right leg, pedal pulses present * Progress Notes - Bravo Burch MD - 11/11/2024 2:53 AM EDT Images from the original note were not included. ED TRANSFER OF CARE NOTE Transferring provider: Margo Min attending: Jacobo MONTES DE OCA Time: 700 I received sign-out and accepted care of this patient from the previous ED providers caring for this patient. I reviewed the patient's history, exam, work- up, and treatment plan up to this point. Please see the primary ED Provider Note for complete elements of the history, physical exam, and ED course. PERTINENT HISTORY: In brief, Edison Howe is a 69 y.o. female with relevant PMH obesity and R knee replacement s/p day 1 who presented to the ED for evaluation of post-op complication. PENDING: I accepted care of this patient from the previous provider while waiting for evaluation and/or recommendations from: Orthopedics. Ultimately, the aforementioned service recommended admission ED Medication Administration from 11/10/2024 2235 to 11/11/2024 0645 Date/Time Order Dose Route Action 11/11/2024 0605 EDT HYDROmorphone (Dilaudid) injection 1 mg 1 mg Intravenous Given 11/11/2024 0606 EDT ondansetron (Zofran) injection 4 mg 4 mg Intravenous Given ED COURSE: ED Course as of 11/11/24 0645 Sat Nov 11, 2024 0607 X-ray imaging reviewed and independently interpreted, significant for periprosthetic right distal femur fracture. I consulted orthopedic surgery and had an interactive discussion with them regarding the patient's care. [WB] 0628 Discussed with orthopedic surgery. Will need to be put in traction. [WB] ED Course User Index [WB] Ike Garza, DO Clinical Impressions as of 11/11/24 0645 Periprosthetic fracture of femur at tip of prosthesis, initial encounter Ultimately, this patient Was admitted (Admission) The encounter diagnosis was Periprosthetic fracture of femur at tip of prosthesis, initial encounter.. Patient believed to require admission for the listed diagnoses. The Orthopedic Surgery service was consulted for admission and was agreeable to admit to Acute Floor (Med/Surg). ED Prescriptions None Disposition Admit - Bravo Mills MD Cosigned by George Pan MD at 11/12/2024 6:44 AM EDT Associated attestation - George Pan MD - 11/12/2024 6:44 AM EDT I saw and evaluated the patient with the resident/fellow. I discussed the case with the resident/fellow and agree with the findings and plan as documented. documented in this encounter Plan of Treatment Upcoming Encounters Date Type Department Care Team (Late st Contact Info) Description 12/26/2024 11:20 AM EDT Office Visit Medical Office Building [facility] [address], [address] [place] [address] Prem Kohler MD [address] [facility] [address] [place] [address] 02/06/2025 1:40 PM EST Office Visit Medical Office Building [facility] [address], [address] [place] [address] Prem Kohler MD [address] [facility] [address] [place] [address] 03/09/2025 12:30 PM EST Office Visit [facility] [address] [place] [address] Joanne Santoyo APRN [address] [facility] [address] [place] [address] Pending Results Name Type Priority Associated Diagnoses Date /Time Prepare Leukocyte Reduced RBC: 2 Units, Leukocyte reduced (CMV reduced risk) Blood Bank Routine 11/11/2024 2:37 PM EDT Prepare Leukocyte Reduced RBC: 2 Units, Leukocyte reduced (CMV reduced risk) Blood Bank Routine 11/12/2024 12:56 AM EDT Scheduled Referrals Name Type Priority Associated Diagnoses Order Schedule Discharge Ambulatory referral to Orthopaedic Surgery Outpatient Referral Routine Periprosthetic fracture of femur at tip of prosthesis, initial encounter Expected: 11/29/2024, Expires: 05/19/2026 documented as of this encounter Procedures Procedure Name Priority Date/Time Associated Diagnosis Comments CBC W/O DIFFERENTIAL Routine 11/13/2024 2:09 AM EDT BASIC METABOLIC PANEL, PLASMA Routine 11/13/2024 2:09 AM EDT XR KNEE RIGHT 1 OR 2 VIEWS Routine 11/12/2024 6:42 PM EDT MO TOTAL KNEE ARTHROPLASTY 11/12/2024 1:34 PM EDT Periprosthetic fracture of femur at tip of prosthesis, initial encounter Special Needs Supine, DeMayo, same set up as a total knee, Raymond distal femur implants. PROTHROMBIN TIME(PT) / INR Routine 11/12/2024 1:13 AM EDT CBC W/O DIFFERENTIAL Routine 11/12/2024 1:13 AM EDT BASIC METABOLIC PANEL, PLASMA Routine 11/12/2024 1:13 AM EDT PREPARE RBC Routine 11/12/2024 12:56 AM EDT PREPARE RBC Routine 11/11/2024 2:[address] KNEE RIGHT WO IV CONTRAST STAT 11/11/2024 11:44 AM EDT XR CHEST 1 VIEW Routine 11/11/2024 10:10 AM EDT XR KNEE RIGHT 3 VIEWS STAT 11/11/2024 10:10 AM EDT ECG ADULT Routine 11/11/2024 7:45 AM EDT ED HIV 1/2 ANTIBODY/ANTIGEN SCREEN WITH REFLEX TO HIV I/II DIFFERENTIATION STAT 11/11/2024 6:03 AM EDT ED PROTOCOL HIV 1/2 ANTIBODY/ANTIGEN SCREEN W/REFLEX TO HIV 1/2 ANTIBODY DIFFERENTIATION STAT 11/11/2024 6:03 AM EDT HEPATITIS C ANTIBODY - ED W/REFLEX TO HCV QUANT PCR STAT 11/11/2024 6:03 AM EDT SEDIMENTATION RATE, AUTOMATED STAT 11/11/2024 6:03 AM EDT PROTHROMBIN TIME(PT) / INR STAT 11/11/2024 6:03 AM EDT CBC WITH AUTO DIFFERENTIAL STAT 11/11/2024 6:03 AM EDT TYPE AND SCREEN STAT 11/11/2024 6:03 AM EDT C-REACTIVE PROTEIN, PLASMA STAT 11/11/2024 6:03 AM EDT HEMOGLOBIN A1C Add-On 11/11/2024 6:03 AM EDT COMPREHENSIVE METABOLIC PANEL, PLASMA STAT 11/11/2024 6:03 AM EDT XR ANKLE RIGHT 3+ VIEWS STAT 11/11/2024 5:55 AM EDT XR TIBIA FIBULA RIGHT 2+ VIEWS STAT 11/11/2024 5:55 AM EDT XR KNEE RIGHT 3 VIEWS STAT 11/11/2024 5:55 AM EDT XR FEMUR RIGHT 2+ VIEWS STAT 11/11/2024 5:55 AM EDT XR HIP RIGHT 2 OR 3 VIEWS STAT 11/11/2024 5:55 AM EDT documented in this encounter Results * (ABNORMAL) Basic metabolic panel (11/13/2024 2:09 AM EDT) Glucose, Plasma 114(H) 74 - 99 mg/dL 11/13/2024 2:46 AM EDT [facility] BUN, Plasma 36(H) 8 - 23 mg/dL 11/13/2024 2:46 AM EDT [facility] Creatinine, Plasma 1.07 0.60 - 1.10 mg/dL 11/13/2024 2:46 AM EDT [facility] BUN/Creatinine Ratio 34 11/13/2024 2:46 AM EDT [facility] Sodium, Plasma 138 136 - 145 mmol/L 11/13/2024 2:46 AM EDT [facility] Potassium, Plasma 5.1(H) 3.6 - 4.9 mmol/L 11/13/2024 2:46 AM EDT [facility] Chloride, Plasma 106 97 - 107 mmol/L 11/13/2024 2:46 AM EDT [facility] CO2, Plasma 21(L) 22 - 29 mmol/L 11/13/2024 2:46 AM EDT [facility] Anion Gap 11 6 - 16 mmol/L 11/13/2024 2:46 AM EDT [facility] Total Calcium, Plasma 8.7(L) 8.9 - 10.2 mg/dL 11/13/2024 2:46 AM EDT [facility] eGFRcr 56.0 mL/min/1.7 3m*2 11/13/2024 2:46 AM EDT [facility] Comment:Reported eGFRcr in m L/min/1.73m2 is based the CKD-EPI 2020 equation that does not use a race coefficient. Blood Venous blood specimen / Unknown Venipuncture / Unknown 11/13/2024 2:09 AM EDT 11/13/2024 2:17 AM EDT us Prem Kohler MD LAB BLOOD ORDERABLES Radha nash Result [facility] [address] [place] [address] * (ABNORMAL) CBC (11/13/2024 2:09 AM EDT) [facility] Signature WBC Count 15.02(H) 3.70 - 10.30 10*3/uL LAB HEMATOLOGY METHOD 11/13/2024 2:24 AM EDT [facility] RBC Count 3.12(L) 3.90 - 5.20 10*6/uL LAB HEMATOLOGY METHOD 11/13/2024 2:24 AM EDT [facility] HGB 9.2(L) 11.2 - 15.7 g/dL LAB HEMATOLOGY METHOD 11/13/2024 2:24 AM EDT [facility] HCT 27.7(L) 34.0 - 45.0 % LAB HEMATOLOGY METHOD 11/13/2024 2:24 AM EDT [facility] Platelet Count 265 155 - 369 10*3/uL LAB HEMATOLOGY METHOD 11/13/2024 2:24 AM EDT [facility] MCV 89 79 - 98 fL LAB HEMATOLOGY METHOD 11/13/2024 2:24 AM EDT [facility] MCH 29.5 26.0 - 32.0 pg LAB HEMATOLOGY METHOD 11/13/2024 2:24 AM EDT [facility] MCHC 33.2 30.7 - 35.5 g/dL LAB HEMATOLOGY METHOD 11/13/2024 2:24 AM EDT [facility] RDW 13.1 11.5 - 14.5 % LAB HEMATOLOGY METHOD 11/13/2024 2:24 AM EDT [facility] MPV 9.4 8.8 - 12.5 fL LAB HEMATOLOGY METHOD 11/13/2024 2:24 AM EDT [facility] nRBC 0.0 <=0.0 per 100 WBCs LAB HEMATOLOGY METHOD 11/13/2024 2:24 AM EDT [facility] Blood Venous blood specimen / Unknown Venipuncture / Unknown 11/13/2024 2:09 AM EDT 11/13/2024 2:17 AM EDT us Prem Kohler MD LAB BLOOD ORDERABLES Radha nash Result [facility] [address] [place] [address] * XR Knee Right 1 or 2 Views (11/12/2024 6:42 PM EDT) Anatomical Region Laterality Modality Lower Extremities, Knee Right Digital Radiography Impressions 11/12/2024 8:59 PM EDT Interval revision arthroplasty with improved alignment of the fracture fragments. CRITICAL RESULT: No. COMMUNICATION: Per this written report. Drafted by Brandy Cazares MD on 11/12/2024 8:57 PM Final report signed by Brandy Cazares MD on 11/12/2024 8:59 PM Narrative 11/12/2024 8:59 PM EDT CLINICAL INDICATION: TKA TECHNIQUE: XR KNEE RIGHT 1 OR 2 VIEWS COMPARISON: CT and radiographs from 11/11/2024 FINDINGS: Interval revision arthroplasty with improved alignment of the fracture fragments. There is expected postoperative soft tissue edema and emphysema. Surgical lurdes project over the anterior knee in the midline. Procedure Note Brandy Cazares MD - 11/12/2024 CLINICAL INDICATION: TKA TECHNIQUE: XR KNEE RIGHT 1 OR 2 VIEWS COMPARISON: CT and radiographs from 11/11/2024 FINDINGS: Interval revision arthroplasty with improved alignment of the fracturefragments. There is expected postoperative soft tissue edema andemphysema. Surgical lurdes project over the anterior knee in themidline. IMPRESSION: Interval revision arthroplasty with improved alignment of the fracturefragments. CRITICAL RESULT: No. COMMUNICATION: Per this written report. Drafted by Brandy Cazares MD on 11/12/2024 8:57 PM Final report signed by Brandy Cazares MD on 11/12/2024 8:59 PM us Prem Kohler MD IMG XR PROCEDURES Final R esult * (ABNORMAL) Prothrombin Time/INR (11/12/2024 1:13 AM EDT) Prothrombin Time 16.6(H) 12.0 - 14.3 sec LAB COAGULATION METHOD 11/12/2024 1:49 AM EDT [facility] INR 1.3(H) 0.9 - 1.1 LAB COAGULATION METHOD 11/12/2024 1:49 AM EDT [facility] Blood Venous blood specimen / Unknown Venipuncture / Unknown 11/12/2024 1:13 AM EDT 11/12/2024 1:24 AM EDT Narrative [facility] - 11/12/2024 1:49 AM EDT OPTIMAL INR RANGES FOR PATIENT ON ORAL ANTICOAGULANT THERAPY Prevention of venous thromboembolism INR 2.0 to 3.0 In patients with heart disease: Atrial fibrillation INR 2.0 to 3.0 Valvular heart disease INR 2.0 to 3.0 Tissue heart valves INR 2.0 to 3.0 Mechanical prosthetic valves INR 2.5 to 3.5 Prevention of recurrent [facility] INR 2.5 to 3.5 us Lawrence Weeks MD LAB BLOOD ORDERABLES Final Re sult [facility] [address] [place] [address] * (ABNORMAL) CBC W/O Differential (11/12/2024 1:13 AM EDT) WBC Count 14.38(H) 3.70 - 10.30 10*3/uL LAB HEMATOLOGY METHOD 11/12/2024 1:34 AM EDT [facility] RBC Count 3.69(L) 3.90 - 5.20 10*6/uL LAB HEMATOLOGY METHOD 11/12/2024 1:34 AM EDT [facility] HGB 10.9(L) 11.2 - 15.7 g/dL LAB HEMATOLOGY METHOD 11/12/2024 1:34 AM EDT [facility] HCT 32.9(L) 34.0 - 45.0 % LAB HEMATOLOGY METHOD 11/12/2024 1:34 AM EDT [facility] Platelet Count 307 155 - 369 10*3/uL LAB HEMATOLOGY METHOD 11/12/2024 1:34 AM EDT [facility] MCV 89 79 - 98 fL LAB HEMATOLOGY METHOD 11/12/2024 1:34 AM EDT [facility] MCH 29.5 26.0 - 32.0 pg LAB HEMATOLOGY METHOD 11/12/2024 1:34 AM EDT [facility] MCHC 33.1 30.7 - 35.5 g/dL LAB HEMATOLOGY METHOD 11/12/2024 1:34 AM EDT [facility] RDW 13.1 11.5 - 14.5 % LAB HEMATOLOGY METHOD 11/12/2024 1:34 AM EDT [facility] MPV 9.3 8.8 - 12.5 fL LAB HEMATOLOGY METHOD 11/12/2024 1:34 AM EDT [facility] nRBC 0.0 <=0.0 per 100 WBCs LAB HEMATOLOGY METHOD 11/12/2024 1:34 AM EDT [facility] Blood Venous blood specimen / Unknown Venipuncture / Unknown 11/12/2024 1:13 AM EDT 11/12/2024 1:24 AM EDT us Lawrence Weeks MD LAB BLOOD ORDERABLES Final Re sult [facility] [address] [place] [address] * (ABNORMAL) Basic Metabolic Panel, Plasma (11/12/2024 1:13 AM EDT) Glucose, Plasma 97 74 - 99 mg/dL 11/12/2024 1:52 AM EDT [facility] BUN, Plasma 35(H) 8 - 23 mg/dL 11/12/2024 1:52 AM EDT [facility] Creatinine, Plasma 1.13(H) 0.60 - 1.10 mg/dL 11/12/2024 1:52 AM EDT [facility] BUN/Creatinine Ratio 31 11/12/2024 1:52 AM EDT [facility] Sodium, Plasma 137 136 - 145 mmol/L 11/12/2024 1:52 AM EDT [facility] Potassium, Plasma 4.6 3.6 - 4.9 mmol/L 11/12/2024 1:52 AM EDT [facility] Chloride, Plasma 105 97 - 107 mmol/L 11/12/2024 1:52 AM EDT [facility] CO2, Plasma 19(L) 22 - 29 mmol/L 11/12/2024 1:52 AM EDT [facility] Anion Gap 13 6 - 16 mmol/L 11/12/2024 1:52 AM EDT [facility] Total Calcium, Plasma 8.9 8.9 - 10.2 mg/dL 11/12/2024 1:52 AM EDT [facility] eGFRcr 52.4 mL/min/1.7 3m*2 11/12/2024 1:52 AM EDT [facility] Comment:Reported eGFRcr in m L/min/1.73m2 is based the CKD-EPI 2020 equation that does not use a race coefficient. Blood Venous blood specimen / Unknown Venipuncture / Unknown 11/12/2024 1:13 AM EDT 11/12/2024 1:24 AM EDT us Lawrence Weeks MD LAB BLOOD ORDERABLES Final Re sult [facility] [address] [place] [address] * CT Knee Right wo IV Contrast (11/11/2024 11:44 AM EDT) Anatomical Region Laterality Modality Knee Right Computed Tomogra phy Impressions 11/11/2024 1:07 PM EDT Similar alignment of the laterally displaced periprosthetic distal femoral metadiaphysis fracture. Soft tissue changes associated with the fracture as well as some gas within the deep popliteal space. CRITICAL RESULT: No. COMMUNICATION: Per this written report. Preliminary report signed by Kurt Cates MD on 11/11/2024 12:21 PM By electronically signing this report, I, the attending physician, attest that I have personally reviewed the images/data for the above examination(s) and agree with the final edited report. Drafted by Kurt Cates MD on 11/11/2024 12:17 PM Final report signed by Johnathan Kelly MD on 11/11/2024 1:07 PM Narrative 11/11/2024 1:07 PM EDT CLINICAL INDICATION: R periprosthetic femur fracture TECHNIQUE: Multiple axial CT images of the right knee were obtained without contrast administration. Reformatted images in the coronal and/or sagittal plane(s) were generated from the axial data set to facilitate diagnostic accuracy and/or surgical planning. Total DLP (Dose-Length Product): 338.60 mGy.cm. Please note: The reported value represents the total of one or more individual components during the CT acquisition on this date and at this time, and as such, the same value may appear in more than one CT report depending on the interpreting/reporting physicians. COMPARISON: Radiograph from same day FINDINGS: Redemonstrated periprosthetic fracture of the femoral metadiaphysis with lateral displacement. There is soft tissue edema and gas along the fracture site as well as in the upper and lower leg. External pinning of the tibia is visualized. The popliteal artery appears intact, however is partially obscured by dense streak artifact. There is some foci of gas within the deep popliteal soft tissues. Procedure Note Johnathan Kelly MD - 11/11/2024 CLINICAL INDICATION: R periprosthetic femur fracture TECHNIQUE: Multiple axial CT images of the right knee were obtained without contrastadministration. Reformatted images in the coronal and/or sagittal plane(s)were generated from the axial data set to facilitate diagnostic accuracyand/or surgical planning. Total DLP (Dose-Length Product): 338.60 mGy.cm. Please note: The reportedvalue represents the total of one or more individual components during theCT acquisition on this date and at this time, and as such, the same valuemay appear in more than one CT report depending on theinterpreting/reporting physicians. COMPARISON: Radiograph from same day FINDINGS: Redemonstrated periprosthetic fracture of the femoral metadiaphysis withlateral displacement. There is soft tissue edema and gas along thefracture site as well as in the upper and lower leg. External pinning ofthe tibia is visualized. The popliteal artery appears intact, however ispartially obscured by dense streak artifact. There is some foci of gaswithin the deep popliteal soft tissues. IMPRESSION: Similar alignment of the laterally displaced periprosthetic distal femoralmetadiaphysis fracture. Soft tissue changes associated with the fractureas well as some gas within the deep popliteal space. CRITICAL RESULT: No. COMMUNICATION: Per this written report. Preliminary report signed by Kurt Cates MD on 11/11/2024 12:21 PM By electronically signing this report, I, the attending physician, attestthat I have personally reviewed the images/data for the aboveexamination(s) and agree with the final edited report. Drafted by Kurt Cates MD on 11/11/2024 12:17 PM Final report signed by Johnathan Kelly MD on 11/11/2024 1:07 PM Lawrence Weeks MD IMG CT PROCEDURES Final Resul t * XR Chest 1 View (11/11/2024 10:10 AM EDT) Anatomical Region Laterality Modality Chest Digital Radiogra phy Impressions 11/11/2024 10:42 AM EDT Cardiac enlargement with ectatic thoracic aorta. Suspected mild interstitial edema. CRITICAL RESULT: No. COMMUNICATION: Per this written report. Drafted by Abbi Rosales MD on 11/11/2024 10:41 AM Final report signed by Abbi Rosales MD on 11/11/2024 10:42 AM Narrative 11/11/2024 10:42 AM EDT CLINICAL INDICATION: pre-op TECHNIQUE: XR CHEST 1 VIEW COMPARISON: None. FINDINGS: Cardiac enlargement with ectatic thoracic aorta. Perihilar vascular distention. Bilateral interstitial thickening. No acute focal airspace disease. No pleural effusions or pneumothorax. No acute osseous findings. Procedure Note Abbi Rosales MD - 11/11/2024 CLINICAL INDICATION: pre-op TECHNIQUE: XR CHEST 1 VIEW COMPARISON: None. FINDINGS: Cardiac enlargement with ectatic thoracic aorta. Perihilar vasculardistention. Bilateral interstitial thickening. No acute focal airspacedisease. No pleural effusions or pneumothorax. No acute osseousfindings. IMPRESSION: Cardiac enlargement with ectatic thoracic aorta. Suspected mildinterstitial edema. CRITICAL RESULT: No. COMMUNICATION: Per this written report. Drafted by Abbi Rosales MD on 11/11/2024 10:41 AM Final report signed by Abbi Rosales MD on 11/11/2024 10:42 AM Lawrence Weeks MD IMG XR PROCEDURES Final Resul t * XR Knee Right 3 Views (11/11/2024 10:10 AM EDT) Anatomical Region Laterality Modality Lower Extremities, Knee Right Digital Radiography Impressions 11/11/2024 10:41 AM EDT No change in alignment of distal right femoral periprosthetic fracture. CRITICAL RESULT: No. COMMUNICATION: Per this written report. Drafted by Abbi Rosales MD on 11/11/2024 10:40 AM Final report signed by Abbi Rosales MD on 11/11/2024 10:41 AM Narrative 11/11/2024 10:41 AM EDT CLINICAL INDICATION: txn view, ortho to call TECHNIQUE: XR KNEE RIGHT 3 VIEWS COMPARISON: Same dated 0523 hours FINDINGS: No change in alignment of distal right femoral periprosthetic fracture. External fixator is in place. Soft tissue swelling and subcutaneous emphysema. A right knee prosthesis alignment remains intact. Procedure Note Abbi Rosales MD - 11/11/2024 CLINICAL INDICATION: txn view, ortho to call TECHNIQUE: XR KNEE RIGHT 3 VIEWS COMPARISON: Same dated 0523 hours FINDINGS: No change in alignment of distal right femoral periprosthetic fracture.External fixator is in place. Soft tissue swelling and subcutaneousemphysema. A right knee prosthesis alignment remains intact. IMPRESSION: No change in alignment of distal right femoral periprosthetic fracture. CRITICAL RESULT: No. COMMUNICATION: Per this written report. Drafted by Abbi Rosales MD on 11/11/2024 10:40 AM Final report signed by Abbi Rosales MD on 11/11/2024 10:41 AM us Lawrence Weeks MD IMG XR PROCEDURES Final Resul t * ECG Adult (11/11/2024 7:45 AM EDT) EKG DIAGNOSIS CLASS Normal MUSE ECG Ventricular Rate 73 BPM MUSE ECG Atrial Rate 73 BPM MUSE ECG MO Interval 124 ms MUSE ECG QRSD Interval 88 ms MUSE ECG QT Interval 372 ms MUSE ECG QTC Interval 409 ms MUSE ECG P [place] 30 degrees MUSE ECG R [place] 54 degrees MUSE ECG T Wave [place] 49 degrees MUSE ECG Diagnosis Normal sinus rhythm MUSE ECG Diagnosis Normal ECG MUSE ECG Diagnosis MUSE ECG Diagnosis Confirmed by Qamar Randall ([id number]) on 11/11/2024 4:42:59 PM MUSE ECG 11/11/2024 7:45 AM EDT 11/11/2024 4:42 PM EDT Lawrence Weeks MD ECG ORDERABLES Final Result MUSE ECG * Hemoglobin A1c (11/11/2024 6:03 AM EDT) Hemoglobin A1c 5.5 <5.7 % 11/12/2024 9:44 AM EDT [facility] Blood Venous blood specimen / Unknown Venipuncture / Unknown 11/11/2024 6:03 AM EDT 11/11/2024 6:15 AM EDT Narrative [facility] - 11/12/2024 9:44 AM EDT HA1C Interpretive Data: Diagnosis of Diabetes: Diabetic > or = 6.5% Pre-diabetic 5.7 to 6.4% Non-diabetic < or = 5.6% Glycemic Targets for Type I and Type II Diabetics: Non- Adults <7.0% Adults <6.0% Children and Adolescents <7.5% Source: [place] [employer]. Standards of medical care in diabetes,2017. Diabetes Care.2017:40 (suppl 1):S1-S135. Result [facility] Lawrence Weeks MD LAB BLOOD ORDERABLES Final Re sult [facility] [address] [place] [address] * (ABNORMAL) Sed rate, automated (11/11/2024 6:03 AM EDT) Sedimentation Rate 61(H) <30 mm/hr 2024 6:47 AM EDT [facility] Blood Venous blood specimen / Unknown Venipuncture / Unknown 11/11/2024 6:03 AM EDT 11/11/2024 6:15 AM EDT Result [facility] Richar Centeno DO LAB BLOOD ORDERABLES Final R esult [facility] [address] [place] [address] * (ABNORMAL) C-Reactive protein (11/11/2024 6:03 AM EDT) [facility] CRP, Plasma 41.5(H) <=8.0 mg/L 11/11/2024 6:38 AM EDT [facility] Blood Venous blood specimen / Unknown Venipuncture / Unknown 11/11/2024 6:03 AM EDT 11/11/2024 6:15 AM EDT Narrative [facility] - 11/11/2024 6:38 AM EDT This CRP test is appropriate for assessment of infection, systemic inflammation and/or tissue injury. To assess cardiovascular disease risk order high sensitivity CRP (CRPH). us Richar Barrett Centeno LAB BLOOD ORDERABLES Final R esult Performing Organization Address [facility]/ZIP Co de Phone Number [facility] [address] [place] [address] * ED HIV 1/2 Antibody/Antigen Screen w/Reflex to HIV 1/2 Differentiation (11/11/2024 6:03 AM EDT) [facility] HIV 1 & 2 Antibody/Antigen Screen Non Reactive Non Reactive 11/11/2024 7:20 AM EDT [facility] Comment:Screening for HIV 1 & 2 antibodies, and P24 antigen is NONREACTIVE. No confirmatory testing is required. Blood Venous blood specimen / Unknown Venipuncture / Unknown 11/11/2024 6:03 AM EDT 11/11/2024 6:37 AM EDT us Richar Barrett Centeno LAB BLOOD ORDERABLES Final R esult Performing Organization Address City/[facility]/ZIP Co de Phone Number [facility] [address] [place] [address] * Hepatitis C Antibody - ED (11/11/2024 6:03 AM EDT) [facility] Hepatitis C Antibody Negative Negative 11/11/2024 7:20 AM EDT [facility] Blood Venous blood specimen / Unknown Venipuncture / Unknown 11/11/2024 6:03 AM EDT 11/11/2024 6:37 AM EDT Richar Centeno DO LAB BLOOD ORDERABLES Final R esult [facility] [address] [place] [address] * (ABNORMAL) CMP (11/11/2024 6:03 AM EDT) Glucose, Plasma 121(H) 74 - 99 mg/dL 11/11/2024 6:38 AM EDT [facility] BUN, Plasma 26(H) 8 - 23 mg/dL 11/11/2024 6:38 AM EDT [facility] Creatinine, Plasma 0.84 0.60 - 1.10 mg/dL 11/11/2024 6:38 AM EDT [facility] BUN/Creatinine Ratio 31 11/11/2024 6:38 AM EDT [facility] Sodium, Plasma 139 136 - 145 mmol/L 11/11/2024 6:38 AM EDT [facility] Potassium, Plasma 4.2 3.6 - 4.9 mmol/L 11/11/2024 6:38 AM EDT [facility] Chloride, Plasma 106 97 - 107 mmol/L 11/11/2024 6:38 AM EDT [facility] CO2, Plasma 21(L) 22 - 29 mmol/L 11/11/2024 6:38 AM EDT [facility] Anion Gap 12 6 - 16 mmol/L 11/11/2024 6:38 AM EDT [facility] Total Calcium, Plasma 9.2 8.9 - 10.2 mg/dL 11/11/2024 6:38 AM EDT [facility] Total Protein 6.8 6.3 - 7.9 g/dL 11/11/2024 6:38 AM EDT [facility] Albumin, Plasma 3.7 3.5 - 5.2 g/dL 11/11/2024 6:38 AM EDT [facility] AST, Plasma 28 10 - 35 U/L 11/11/2024 6:38 AM EDT [facility] ALT, Plasma 16 10 - 35 U/L 11/11/2024 6:38 AM EDT [facility] Alkaline Phosphatase, Plasma 73 46 - 142 U/L 11/11/2024 6:38 AM EDT [facility] Total Bilirubin, Plasma 0.6 0.2 - 1.1 mg/dL 11/11/2024 6:38 AM EDT [facility] eGFRcr 74.9 mL/min/1.7 3m*2 11/11/2024 6:38 AM EDT [facility] Comment:Reported eGFRcr in m L/min/1.73m2 is based the CKD-EPI 2020 equation that does not use a race coefficient. Blood Venous blood specimen / Unknown Venipuncture / Unknown 11/11/2024 6:03 AM EDT 11/11/2024 6:15 AM EDT [facility] LAB BLOOD ORDERABLES Final R esult [facility] [address] [place] [address] * Type and screen (11/11/2024 6:03 AM EDT) ABO/Rh O Positive 11/11/2024 5:14 AM EDT BLOOD BANK Antibody Screen Negative 11/11/2024 5:14 AM EDT BLOOD BANK Specimen Expiration 11/14/2024 23:59 11/11/2024 5:14 AM EDT BLOOD BANK Blood Venous blood specimen / Unknown Venipuncture / Unknown 11/11/2024 6:03 AM EDT 11/11/2024 6:11 AM EDT [facility] LAB BLOOD BANK TEST ORDERABL ES Final Result BLOOD BANK [address] [place] [address], * (ABNORMAL) PT-INR (11/11/2024 6:03 AM EDT) Prothrombin Time 15.7(H) 12.0 - 14.3 sec 11/11/2024 6:28 AM EDT [facility] INR 1.3(H) 0.9 - 1.1 11/11/2024 6:28 AM EDT [facility] Blood Venous blood specimen / Unknown Venipuncture / Unknown 11/11/2024 6:03 AM EDT 11/11/2024 6:15 AM EDT Narrative [facility] - 11/11/2024 6:28 AM EDT OPTIMAL INR RANGES FOR PATIENT ON ORAL ANTICOAGULANT THERAPY Prevention of venous thromboembolism INR 2.0 to 3.0 In patients with heart disease: Atrial fibrillation INR 2.0 to 3.0 Valvular heart disease INR 2.0 to 3.0 Tissue heart valves INR 2.0 to 3.0 Mechanical prosthetic valves INR 2.5 to 3.5 Prevention of recurrent [facility] INR 2.5 to 3.5 Richar Centeno DO LAB BLOOD ORDERABLES Final R esult [facility] [address] [place] [address] * (ABNORMAL) CBC w/diff (11/11/2024 6:03 AM EDT) Pathologist [facility] WBC Count 13.42(H) 3.70 - 10.30 10*3/uL LAB HEMATOLOGY METHOD 11/11/2024 6:18 AM EDT [facility] RBC Count 3.89(L) 3.90 - 5.20 10*6/uL LAB HEMATOLOGY METHOD 11/11/2024 6:18 AM EDT [facility] HGB 11.3 11.2 - 15.7 g/dL LAB HEMATOLOGY METHOD 11/11/2024 6:18 AM EDT [facility] HCT 33.9(L) 34.0 - 45.0 % LAB HEMATOLOGY METHOD 11/11/2024 6:18 AM EDT [facility] Platelet Count 351 155 - 369 10*3/uL LAB HEMATOLOGY METHOD 11/11/2024 6:18 AM EDT [facility] MCV 87 79 - 98 fL LAB HEMATOLOGY METHOD 11/11/2024 6:18 AM EDT [facility] MCH 29.0 26.0 - 32.0 pg LAB HEMATOLOGY METHOD 11/11/2024 6:18 AM EDT [facility] MCHC 33.3 30.7 - 35.5 g/dL LAB HEMATOLOGY METHOD 11/11/2024 6:18 AM EDT [facility] RDW 13.1 11.5 - 14.5 % LAB HEMATOLOGY METHOD 11/11/2024 6:18 AM EDT [facility] MPV 9.3 8.8 - 12.5 fL LAB HEMATOLOGY METHOD 11/11/2024 6:18 AM EDT [facility] nRBC 0.0 <=0.0 per 100 WBCs LAB HEMATOLOGY METHOD 11/11/2024 6:18 AM EDT [facility] Differential Type Automated LAB HEMATOLOGY METHOD 11/11/2024 6:18 AM EDT [facility] Neutrophils % 80 % LAB HEMATOLOGY METHOD 11/11/2024 6:18 AM EDT [facility] Lymphocytes % 11 % LAB HEMATOLOGY METHOD 11/11/2024 6:18 AM EDT [facility] Monocytes % 9 % LAB HEMATOLOGY METHOD 11/11/2024 6:18 AM EDT [facility] Eosinophils % 0 % LAB HEMATOLOGY METHOD 11/11/2024 6:18 AM EDT [facility] Basophils % 0 % LAB HEMATOLOGY METHOD 11/11/2024 6:18 AM EDT [facility] Immature Granulocytes % 0 % LAB HEMATOLOGY METHOD 11/11/2024 6:18 AM EDT [facility] Neutrophils Absolute 10.74(H) 1.60 - 6.10 10*3/uL LAB HEMATOLOGY METHOD 11/11/2024 6:18 AM EDT [facility] Lymphocytes Absolute 1.47 1.20 - 3.90 10*3/uL LAB HEMATOLOGY METHOD 11/11/2024 6:18 AM EDT [facility] Monocytes Absolute 1.16(H) 0.30 - 0.90 10*3/uL LAB HEMATOLOGY METHOD 11/11/2024 6:18 AM EDT [facility] Eosinophils Absolute 0.00 0.00 - 0.50 10*3/uL LAB HEMATOLOGY METHOD 11/11/2024 6:18 AM EDT [facility] Basophils Absolute 0.01 0.00 - 0.10 10*3/uL LAB HEMATOLOGY METHOD 11/11/2024 6:18 AM EDT [facility] Immature Granulocytes Absolute 0.04 0.00 - 0.06 10*3/uL LAB HEMATOLOGY METHOD 11/11/2024 6:18 AM EDT [facility] Blood Venous blood specimen / Unknown Venipuncture / Unknown 11/11/2024 6:03 AM EDT 11/11/2024 6:15 AM EDT Narrative [facility] - 11/11/2024 6:18 AM EDT Therapeutic decision making should be based on absolute values, rather than percentages. us Richar Centeno DO LAB BLOOD ORDERABLES Final R esult [facility] [address] [place] [address] * XR Ankle Right 3+ Views (11/11/2024 5:55 AM EDT) Anatomical Region Laterality Modality Lower Extremities, Ankle Right Digital Radiography Impressions 11/11/2024 6:54 AM EDT Periprosthetic fracture of the distal right femur with lateral displacement. Adjacent soft tissue gas may represent open fracture. CRITICAL RESULT: No. COMMUNICATION: Per this written report. By electronically signing this report, I, the attending physician, attest that I have personally reviewed the images/data for the above examination(s) and agree with the final edited report. Drafted by Tonja Rodas MD on 11/11/2024 6:35 AM Final report signed by Alejandro Mckinney MD on 11/11/2024 6:54 AM Narrative 11/11/2024 6:54 AM EDT CLINICAL INDICATION: Periprosthetic femur fracture TECHNIQUE: XR HIP RIGHT 2 OR 3 VIEWS, XR FEMUR RIGHT 2+ VIEWS, XR KNEE RIGHT 3 VIEWS, XR TIBIA FIBULA RIGHT 2+ VIEWS, XR ANKLE RIGHT 3+ VIEWS COMPARISON: None. FINDINGS: Right hip: Alignment of osseous structures is anatomic. There is no fracture. Pubic symphysis is intact. The SI joints are well aligned. Femoroacetabular joint spaces are well-preserved. Right femur: Periprosthetic fracture of the distal right femur. Mild displacement of the distal fracture fragment and the prosthetic component. Right knee: No additional fracture or malalignment at the right knee. Right tibia-fibula: No additional fracture of the right tibia or fibula. Right ankle: No fracture, subluxation or dislocation is identified. Ankle mortise is intact and symmetric. The talar dome shows no osseous abnormalities. Chronic degenerative changes of the ankle. Moderate ankle soft tissue swelling. Procedure Note Alejandro Mckinney MD - 11/11/2024 CLINICAL INDICATION: Periprosthetic femur fracture TECHNIQUE: XR HIP RIGHT 2 OR 3 VIEWS, XR FEMUR RIGHT 2+ VIEWS, XR KNEE RIGHT 3 VIEWS,XR TIBIA FIBULA RIGHT 2+ VIEWS, XR ANKLE RIGHT 3+ VIEWS COMPARISON: None. FINDINGS: Right hip: Alignment of osseous structures is anatomic. There is nofracture. Pubic symphysis is intact. The SI joints are well aligned.Femoroacetabular joint spaces are well-preserved. Right femur: Periprosthetic fracture of the distal right femur. Milddisplacement of the distal fracture fragment and the prostheticcomponent. Right knee: No additional fracture or malalignment at the right knee. Right tibia-fibula: No additional fracture of the right tibia or fibula. Right ankle: No fracture, subluxation or dislocation is identified. Anklemortise is intact and symmetric. The talar dome shows no osseousabnormalities. Chronic degenerative changes of the ankle. Moderate anklesoft tissue swelling. IMPRESSION: Periprosthetic fracture of the distal right femur with lateraldisplacement. Adjacent soft tissue gas may represent open fracture. CRITICAL RESULT: No. COMMUNICATION: Per this written report. By electronically signing this report, I, the attending physician, attestthat I have personally reviewed the images/data for the aboveexamination(s) and agree with the final edited report. Drafted by Tonja Rodas MD on 11/11/2024 6:35 AM Final report signed by Alejandro Mckinney MD on 11/11/2024 6:54 AM us Richar Centeno DO IMG XR PROCEDURES Final Resu lt * XR Tibia Fibula Right 2+ Views (11/11/2024 5:55 AM EDT) Anatomical Region Laterality Modality Lower Extremities, Lower Leg Right Dig ital Radiography Impressions 11/11/2024 6:54 AM EDT Periprosthetic fracture of the distal right femur with lateral displacement. Adjacent soft tissue gas may represent open fracture. CRITICAL RESULT: No. COMMUNICATION: Per this written report. By electronically signing this report, I, the attending physician, attest that I have personally reviewed the images/data for the above examination(s) and agree with the final edited report. Drafted by Tonja Rodas MD on 11/11/2024 6:35 AM Final report signed by Alejandro Mckinney MD on 11/11/2024 6:54 AM Narrative 11/11/2024 6:54 AM EDT CLINICAL INDICATION: Periprosthetic femur fracture TECHNIQUE: XR HIP RIGHT 2 OR 3 VIEWS, XR FEMUR RIGHT 2+ VIEWS, XR KNEE RIGHT 3 VIEWS, XR TIBIA FIBULA RIGHT 2+ VIEWS, XR ANKLE RIGHT 3+ VIEWS COMPARISON: None. FINDINGS: Right hip: Alignment of osseous structures is anatomic. There is no fracture. Pubic symphysis is intact. The SI joints are well aligned. Femoroacetabular joint spaces are well-preserved. Right femur: Periprosthetic fracture of the distal right femur. Mild displacement of the distal fracture fragment and the prosthetic component. Right knee: No additional fracture or malalignment at the right knee. Right tibia-fibula: No additional fracture of the right tibia or fibula. Right ankle: No fracture, subluxation or dislocation is identified. Ankle mortise is intact and symmetric. The talar dome shows no osseous abnormalities. Chronic degenerative changes of the ankle. Moderate ankle soft tissue swelling. Procedure Note Alejandro Mckinney MD - 11/11/2024 CLINICAL INDICATION: Periprosthetic femur fracture TECHNIQUE: XR HIP RIGHT 2 OR 3 VIEWS, XR FEMUR RIGHT 2+ VIEWS, XR KNEE RIGHT 3 VIEWS,XR TIBIA FIBULA RIGHT 2+ VIEWS, XR ANKLE RIGHT 3+ VIEWS COMPARISON: None. FINDINGS: Right hip: Alignment of osseous structures is anatomic. There is nofracture. Pubic symphysis is intact. The SI joints are well aligned.Femoroacetabular joint spaces are well-preserved. Right femur: Periprosthetic fracture of the distal right femur. Milddisplacement of the distal fracture fragment and the prostheticcomponent. Right knee: No additional fracture or malalignment at the right knee. Right tibia-fibula: No additional fracture of the right tibia or fibula. Right ankle: No fracture, subluxation or dislocation is identified. Anklemortise is intact and symmetric. The talar dome shows no osseousabnormalities. Chronic degenerative changes of the ankle. Moderate anklesoft tissue swelling. IMPRESSION: Periprosthetic fracture of the distal right femur with lateraldisplacement. Adjacent soft tissue gas may represent open fracture. CRITICAL RESULT: No. COMMUNICATION: Per this written report. By electronically signing this report, I, the attending physician, attestthat I have personally reviewed the images/data for the aboveexamination(s) and agree with the final edited report. Drafted by Tonja Rodas MD on 11/11/2024 6:35 AM Final report signed by Alejandro Mckinney MD on 11/11/2024 6:54 AM Richar Centeno DO IMG XR PROCEDURES Final Resu lt * XR Knee Right 3 Views (11/11/2024 5:55 AM EDT) Anatomical Region Laterality Modality Lower Extremities, Knee Right Digital Radiography Impressions 11/11/2024 6:54 AM EDT Periprosthetic fracture of the distal right femur with lateral displacement. Adjacent soft tissue gas may represent open fracture. CRITICAL RESULT: No. COMMUNICATION: Per this written report. By electronically signing this report, I, the attending physician, attest that I have personally reviewed the images/data for the above examination(s) and agree with the final edited report. Drafted by Tonja Rodas MD on 11/11/2024 6:35 AM Final report signed by Alejandro Mckinney MD on 11/11/2024 6:54 AM Narrative 11/11/2024 6:54 AM EDT CLINICAL INDICATION: Periprosthetic femur fracture TECHNIQUE: XR HIP RIGHT 2 OR 3 VIEWS, XR FEMUR RIGHT 2+ VIEWS, XR KNEE RIGHT 3 VIEWS, XR TIBIA FIBULA RIGHT 2+ VIEWS, XR ANKLE RIGHT 3+ VIEWS COMPARISON: None. FINDINGS: Right hip: Alignment of osseous structures is anatomic. There is no fracture. Pubic symphysis is intact. The SI joints are well aligned. Femoroacetabular joint spaces are well-preserved. Right femur: Periprosthetic fracture of the distal right femur. Mild displacement of the distal fracture fragment and the prosthetic component. Right knee: No additional fracture or malalignment at the right knee. Right tibia-fibula: No additional fracture of the right tibia or fibula. Right ankle: No fracture, subluxation or dislocation is identified. Ankle mortise is intact and symmetric. The talar dome shows no osseous abnormalities. Chronic degenerative changes of the ankle. Moderate ankle soft tissue swelling. Procedure Note Alejandro Mckinney MD - 11/11/2024 CLINICAL INDICATION: Periprosthetic femur fracture TECHNIQUE: XR HIP RIGHT 2 OR 3 VIEWS, XR FEMUR RIGHT 2+ VIEWS, XR KNEE RIGHT 3 VIEWS,XR TIBIA FIBULA RIGHT 2+ VIEWS, XR ANKLE RIGHT 3+ VIEWS COMPARISON: None. FINDINGS: Right hip: Alignment of osseous structures is anatomic. There is nofracture. Pubic symphysis is intact. The SI joints are well aligned.Femoroacetabular joint spaces are well-preserved. Right femur: Periprosthetic fracture of the distal right femur. Milddisplacement of the distal fracture fragment and the prostheticcomponent. Right knee: No additional fracture or malalignment at the right knee. Right tibia-fibula: No additional fracture of the right tibia or fibula. Right ankle: No fracture, subluxation or dislocation is identified. Anklemortise is intact and symmetric. The talar dome shows no osseousabnormalities. Chronic degenerative changes of the ankle. Moderate anklesoft tissue swelling. IMPRESSION: Periprosthetic fracture of the distal right femur with lateraldisplacement. Adjacent soft tissue gas may represent open fracture. CRITICAL RESULT: No. COMMUNICATION: Per this written report. By electronically signing this report, I, the attending physician, attmellisaat I have personally reviewed the images/data for the aboveexamination(s) and agree with the final edited report. Drafted by Tonja Rodas MD on 11/11/2024 6:35 AM Final report signed by Alejandro Mckinney MD on 11/11/2024 6:54 AM us Richar Centeno DO IMG XR PROCEDURES Final Resu lt * XR Femur Right 2+ Views (11/11/2024 5:55 AM EDT) Anatomical Region Laterality Modality Lower Extremities, Femur Right Digital Radiography Impressions 11/11/2024 6:54 AM EDT Periprosthetic fracture of the distal right femur with lateral displacement. Adjacent soft tissue gas may represent open fracture. CRITICAL RESULT: No. COMMUNICATION: Per this written report. By electronically signing this report, I, the attending physician, attest that I have personally reviewed the images/data for the above examination(s) and agree with the final edited report. Drafted by Tonja Rodas MD on 11/11/2024 6:35 AM Final report signed by Alejandro Mckinney MD on 11/11/2024 6:54 AM Narrative 11/11/2024 6:54 AM EDT CLINICAL INDICATION: Periprosthetic femur fracture TECHNIQUE: XR HIP RIGHT 2 OR 3 VIEWS, XR FEMUR RIGHT 2+ VIEWS, XR KNEE RIGHT 3 VIEWS, XR TIBIA FIBULA RIGHT 2+ VIEWS, XR ANKLE RIGHT 3+ VIEWS COMPARISON: None. FINDINGS: Right hip: Alignment of osseous structures is anatomic. There is no fracture. Pubic symphysis is intact. The SI joints are well aligned. Femoroacetabular joint spaces are well-preserved. Right femur: Periprosthetic fracture of the distal right femur. Mild displacement of the distal fracture fragment and the prosthetic component. Right knee: No additional fracture or malalignment at the right knee. Right tibia-fibula: No additional fracture of the right tibia or fibula. Right ankle: No fracture, subluxation or dislocation is identified. Ankle mortise is intact and symmetric. The talar dome shows no osseous abnormalities. Chronic degenerative changes of the ankle. Moderate ankle soft tissue swelling. Procedure Note Alejandro Mckinney MD - 11/11/2024 CLINICAL INDICATION: Periprosthetic femur fracture TECHNIQUE: XR HIP RIGHT 2 OR 3 VIEWS, XR FEMUR RIGHT 2+ VIEWS, XR KNEE RIGHT 3 VIEWS,XR TIBIA FIBULA RIGHT 2+ VIEWS, XR ANKLE RIGHT 3+ VIEWS COMPARISON: None. FINDINGS: Right hip: Alignment of osseous structures is anatomic. There is nofracture. Pubic symphysis is intact. The SI joints are well aligned.Femoroacetabular joint spaces are well-preserved. Right femur: Periprosthetic fracture of the distal right femur. Milddisplacement of the distal fracture fragment and the prostheticcomponent. Right knee: No additional fracture or malalignment at the right knee. Right tibia-fibula: No additional fracture of the right tibia or fibula. Right ankle: No fracture, subluxation or dislocation is identified. Anklemortise is intact and symmetric. The talar dome shows no osseousabnormalities. Chronic degenerative changes of the ankle. Moderate anklesoft tissue swelling. IMPRESSION: Periprosthetic fracture of the distal right femur with lateraldisplacement. Adjacent soft tissue gas may represent open fracture. CRITICAL RESULT: No. COMMUNICATION: Per this written report. By electronically signing this report, I, the attending physician, attestthat I have personally reviewed the images/data for the aboveexamination(s) and agree with the final edited report. Drafted by Tonja Rodas MD on 11/11/2024 6:35 AM Final report signed by Alejandro Mckinney MD on 11/11/2024 6:54 AM Richar Centeno DO IMG XR PROCEDURES Final Resu lt * XR Hip Right 2 or 3 Views Including Pelvis (11/11/2024 5:55 AM EDT) Anatomical Region Laterality Modality Lower Extremities, Hip Right Digital R adiography Impressions 11/11/2024 6:54 AM EDT Periprosthetic fracture of the distal right femur with lateral displacement. Adjacent soft tissue gas may represent open fracture. CRITICAL RESULT: No. COMMUNICATION: Per this written report. By electronically signing this report, I, the attending physician, attest that I have personally reviewed the images/data for the above examination(s) and agree with the final edited report. Drafted by Tonja Rodas MD on 11/11/2024 6:35 AM Final report signed by Alejandro Mckinney MD on 11/11/2024 6:54 AM Narrative 11/11/2024 6:54 AM EDT CLINICAL INDICATION: Periprosthetic femur fracture TECHNIQUE: XR HIP RIGHT 2 OR 3 VIEWS, XR FEMUR RIGHT 2+ VIEWS, XR KNEE RIGHT 3 VIEWS, XR TIBIA FIBULA RIGHT 2+ VIEWS, XR ANKLE RIGHT 3+ VIEWS COMPARISON: None. FINDINGS: Right hip: Alignment of osseous structures is anatomic. There is no fracture. Pubic symphysis is intact. The SI joints are well aligned. Femoroacetabular joint spaces are well-preserved. Right femur: Periprosthetic fracture of the distal right femur. Mild displacement of the distal fracture fragment and the prosthetic component. Right knee: No additional fracture or malalignment at the right knee. Right tibia-fibula: No additional fracture of the right tibia or fibula. Right ankle: No fracture, subluxation or dislocation is identified. Ankle mortise is intact and symmetric. The talar dome shows no osseous abnormalities. Chronic degenerative changes of the ankle. Moderate ankle soft tissue swelling. Procedure Note Alejandro Mckinney MD - 11/11/2024 CLINICAL INDICATION: Periprosthetic femur fracture TECHNIQUE: XR HIP RIGHT 2 OR 3 VIEWS, XR FEMUR RIGHT 2+ VIEWS, XR KNEE RIGHT 3 VIEWS,XR TIBIA FIBULA RIGHT 2+ VIEWS, XR ANKLE RIGHT 3+ VIEWS COMPARISON: None. FINDINGS: Right hip: Alignment of osseous structures is anatomic. There is nofracture. Pubic symphysis is intact. The SI joints are well aligned.Femoroacetabular joint spaces are well-preserved. Right femur: Periprosthetic fracture of the distal right femur. Milddisplacement of the distal fracture fragment and the prostheticcomponent. Right knee: No additional fracture or malalignment at the right knee. Right tibia-fibula: No additional fracture of the right tibia or fibula. Right ankle: No fracture, subluxation or dislocation is identified. Anklemortise is intact and symmetric. The talar dome shows no osseousabnormalities. Chronic degenerative changes of the ankle. Moderate anklesoft tissue swelling. IMPRESSION: Periprosthetic fracture of the distal right femur with lateraldisplacement. Adjacent soft tissue gas may represent open fracture. CRITICAL RESULT: No. COMMUNICATION: Per this written report. By electronically signing this report, I, the attending physician, attestthat I have personally reviewed the images/data for the aboveexamination(s) and agree with the final edited report. Drafted by Tonja Rodas MD on 11/11/2024 6:35 AM Final report signed by Alejandro Mckinney MD on 11/11/2024 6:54 AM Richar Centeno DO IMG XR PROCEDURES Final Resu lt documented in this encounter Visit Diagnoses Diagnosis Periprosthetic fracture of femur at tip of prosthesis, initial encounter- Primary Periprosthetic fracture of femur at tip of prosthesis, initial encounter documented in this encounter Admitting Diagnoses Diagnosis Periprosthetic fracture of femur at tip of prosthesis, initial encounter documented in this encounter Administered Medications Inactive Administered Medications - up to 3 most recent administrations Medication Order MAR Action Action Date Dose Rate Site acetaminophen (Tylenol) tablet 1,000 mg 1,000 mg, Oral, Every 6 hours scheduled, First dose on 11/11/24 at 1440, Until Discontinued, Routine Given 11/15/2024 11:10 AM EDT 1,000 mg Given 11/15/2024 12:44 AM EDT 1,000 mg Given 11/14/2024 5:00 PM EDT 1,000 mg acetaminophen (Tylenol) tablet 1,000 mg 1,000 mg, Oral, Every 8 hours scheduled, First dose on 11/12/24 at 1800, Until Discontinued, Routine, Recovery(Phase II-Outpatient)/On Unit(Inpatient) Given 11/12/2024 6:55 PM EDT 1,000 mg bethanechol (Urecholine) tablet 20 mg 20 mg, Oral, Once as needed, 1 dose, Starting on 11/12/24 at 1634, Until 11/15/24 at 1703, Routine, Recovery(Phase II-Outpatient)/On Unit(Inpatient), bladder spasms, urinary retention > 6 hours bisacodyl (Dulcolax) suppository 10 mg 10 mg, Rectal, Daily PRN, Starting on 11/11/24 at 1432, Until Wed11/15/24 at 1703, Routine, constipation, if no bowel movement for 72 hours and no response to magnesium hydroxide calcium-vitamin D 500-200 MG-UNIT per tablet 1 tablet 1 tablet, Oral, 2 times daily with meals, First dose on 11/12/24 at 2100, Until Discontinued, Routine, Recovery(Phase II-Outpatient)/On Unit(Inpatient) Given 11/15/2024 8:23 AM EDT 1 tablet Given 11/14/2024 4:59 PM EDT 1 tablet Given 11/14/2024 8:25 AM EDT 1 tablet ceFAZolin (Ancef) injection 2 g 2 g, Intravenous, Every 8 hours, 39 doses, First dose (after last modification) on 11/13/24 at 0000, Last dose on 11/25/24 at 1600, Routine, Recovery(Phase II-Outpatient)/On Unit(Inpatient) Given 11/15/2024 8:20 AM EDT 2 g Given 11/15/2024 12:44 AM EDT 2 g Given 11/14/2024 3:06 PM EDT 2 g diphenhydrAMINE (Benadryl) tablet 12.5 mg 12.5 mg, Oral, Every 4 hours PRN, Starting on 11/12/24 at 1634, Until Wed11/15/24 at 1703, Routine, Recovery(Phase II-Outpatient)/On Unit(Inpatient), itching, sleep enoxaparin (Lovenox) syringe 60 mg 60 mg (rounded from 61 mg = 0.5 mg/kg 122 kg), Subcutaneous, 2 times daily, First dose on 11/11/24 at 1440, Until Discontinued, Routine, On hold since 11/12/2024 at 0001 until manually unheld Given 11/11/2024 8:31 PM EDT 60 mg Left Lower Abdomen Given 11/11/2024 3:44 PM EDT 60 mg Le ft Lower Abdomen gabapentin (Neurontin) capsule 100 mg 100 mg, Oral, Every 8 hours, First dose on 11/12/24 at 1730, Until Discontinued, Routine, Recovery(Phase II-Outpatient)/On Unit(Inpatient) Given 11/15/2024 9:06 AM EDT 100 mg Given 11/15/2024 12:44 AM EDT 100 mg Given 11/14/2024 4:59 PM EDT 100 mg HYDROmorphone (Dilaudid) injection 0.5 mg 0.5 mg, Intravenous, Every 6 hours PRN, Starting on Wed11/12/24 at 1634, Until Wed11/15/24 at 1703, Routine, Recovery(Phase II-Outpatient)/On Unit(Inpatient), severe pain, pain score 9-10 HYDROmorphone (Dilaudid) injection 1 mg 1 mg, Intravenous, Once, 1 dose, On 11/11/24 at 0520, Routine Given 11/11/2024 6:05 AM EDT 1 mg ibuprofen tablet 400 mg 400 mg, Oral, Every 6 hours PRN, Starting on 11/11/24 at 1435, Until Wed11/11/24 at 2206, Routine, mild pain Given 11/11/2024 9:53 PM EDT 400 mg ibuprofen tablet 400 mg 400 mg, Oral, Every 6 hours, First dose (after last modification) on 11/11/24 at 2300, Until Discontinued, Routine Given 11/13/2024 5:09 AM EDT 400 mg Given 11/12/2024 11:41 PM EDT 400 mg Given 11/12/2024 12:18 PM EDT 400 mg ketamine (Ketalar) injection 35 mg 35 mg (rounded from 36.6 mg = 0.3 mg/kg 122 kg), Intravenous, Once, 1 dose, On 11/11/24 at 0725, Administer over 1 Minutes, Routine Given 11/11/2024 9:24 AM EDT 35 mg ketorolac (Toradol) injection 15 mg 15 mg, Intravenous, Every 6 hours scheduled, 8 doses, First dose on Wed11/12/24 at 1800, Last dose on Wed11/14/24 at 1200, Routine, Recovery(Phase II-Outpatient)/On Unit(Inpatient) Given 11/14/2024 11:19 AM EDT 15 mg Given 11/14/2024 6:19 AM EDT 15 mg Given 11/14/2024 12:59 AM EDT 15 mg magnesium hydroxide (Milk of Magnesia) 400 MG/5ML suspension 10 mL 10 mL, Oral, 2 times daily PRN, Starting on Wed11/12/24 at 1634, Until Wed11/15/24 at 1703, Routine, Recovery(Phase II-Outpatient)/On Unit(Inpatient), constipation, for constipation - use as first line agent methocarbamol (Robaxin) tablet 500 mg 500 mg, Oral, 4 times daily, First dose on 11/11/24 at 2300, Until Discontinued, Routine, Sign Given 11/15/2024 1:23 PM EDT 500 mg Given 11/15/2024 8:22 AM EDT 500 mg Given 11/14/2024 9:09 PM EDT 500 mg mupirocin (Bactroban) 2 % ointment 1 Application Each Nostril, 2 times daily, 10 doses, First dose on 11/12/24 at 0900, Last dose on Alicja 11/16/24 at 2100, RoutineIndications:Methicillin-Resista nt S. Aureus Nasal Colonization Given 11/15/2024 8:23 AM EDT 1 Applicatio n Given 11/14/2024 8:18 PM EDT 1 Application Given 11/14/2024 8:25 AM EDT 1 Application naloxone (Narcan) injection 0.08 mg 0.08 mg, Intravenous, As needed, Starting on 11/11/24 at 1435, Until Wed11/15/24 at 1703, Routine, respiratory depression, every 2 minutes nystatin (Mycostatin) 907117 UNIT/GM powder 1 Application Topical, 2 times daily, First dose on 11/11/24 at 2300, Until Discontinued, Routine Given 11/15/2024 9:07 AM EDT 1 Application Given 11/14/2024 8:18 PM EDT 1 Application Given 11/14/2024 8:27 AM EDT 1 Application ondansetron (Zofran) injection 4 mg 4 mg, Intravenous, Once, 1 dose, On 11/11/24 at 0520, STAT Given 11/11/2024 6:06 AM EDT 4 mg ondansetron (Zofran) injection 4 mg 4 mg, Intravenous, Every 6 hours PRN, Starting on 11/12/24 at 1634, Until Wed11/15/24 at 1703, Routine, Recovery(Phase II-Outpatient)/On Unit(Inpatient), nausea, vomiting oxyCODONE (Roxicodone) immediate release tablet 5 mg 5 mg, Oral, Every 4 hours PRN, Starting on 11/11/24 at 1435, Until 11/11/24 at 2203, Routine, moderate pain Given 11/11/2024 8:31 PM EDT 5 mg oxyCODONE (Roxicodone) immediate release tablet 5 mg 5 mg, Oral, Every 6 hours PRN, Starting on 11/11/24 at 2204, Until Wed11/13/24 at 0738, Routine, Sign, moderate pain Given 11/12/2024 9:03 AM EDT 5 mg Given 11/12/2024 1:08 AM EDT 5 mg oxyCODONE (Roxicodone) immediate release tablet 5 mg 5 mg, Oral, Every 4 hours PRN, Starting on 11/12/24 at 1634, Until Wed11/15/24 at 1703, Routine, Recovery(Phase II-Outpatient)/On Unit(Inpatient), moderate pain, severe pain, Severe pain 5-8 Given 11/15/2024 1:25 PM EDT 5 mg pantoprazole (Protonix) EC tablet 40 mg 40 mg, Oral, Daily before breakfast, First dose on Wed11/13/24 at 0730, Until Discontinued, Routine, Recovery(Phase II-Outpatient)/On Unit(Inpatient) Given 11/15/2024 8:22 AM EDT 40 mg Given 11/14/2024 6:19 AM EDT 40 mg Given 11/13/2024 6:37 AM EDT 40 mg polyethylene glycol (Miralax) packet 17 g 17 g, Oral, Daily, First dose on 11/11/24 at 1440, Until Discontinued, Routine Given 11/11/2024 3:44 PM EDT 17 g polyethylene glycol (Miralax) packet 17 g 17 g, Oral, Daily with breakfast, First dose on Wed11/13/24 at 0800, Until Discontinued, Routine, Recovery(Phase II-Outpatient)/On Unit(Inpatient) Given 11/14/2024 8:27 AM EDT 17 g Given 11/13/2024 8:31 AM EDT 17 g Povidone-Iodine 5 % swab solution 1 Application Nasal, Once, 1 dose, On 11/12/24 at 0545, Routine Given 11/12/2024 5:18 AM EDT 1 Application rivaroxaban (Xarelto) tablet 10 mg 10 mg, Oral, Daily with breakfast, First dose on 9/1/25 at 0800, Until Discontinued, Routine, Recovery(Phase II-Outpatient)/On Unit(Inpatient) Given 11/15/2024 8:21 AM EDT 10 mg Given 11/14/2024 8:25 AM EDT 10 mg Given 11/13/2024 8:32 AM EDT 10 mg senna-docusate (Audrey-Colace) 8.6-50 MG per tablet 1 tablet 1 tablet, Oral, 2 times daily, First dose on 11/11/24 at 1440, Until Discontinued, Routine Given 11/15/2024 8:23 AM EDT 1 tablet Given 11/14/2024 8:18 PM EDT 1 tablet Given 11/14/2024 8:25 AM EDT 1 tablet sodium chloride 0.9 % flush 10 mL 10 mL, Intravenous, Every 12 hours, First dose on 11/11/24 at 1440, Until Discontinued, Routine Given 11/12/2024 1:14 AM EDT 10 mL traMADol (Ultram) tablet 100 mg 100 mg, Oral, Every 8 hours scheduled, First dose on 11/12/24 at 1730, Until Discontinued, Routine, Recovery(Phase II-Outpatient)/On Unit(Inpatient) Given 11/15/2024 8:22 AM EDT 100 mg Given 11/15/2024 12:44 AM EDT 100 mg Given 11/14/2024 3:06 PM EDT 100 mg traMADol (Ultram) tablet 50 mg 50 mg, Oral, Every 6 hours PRN, Starting on 11/12/24 at 1634, Until 11/15/24 at 1703, Routine, Recovery(Phase II-Outpatient)/On Unit(Inpatient), moderate pain, pain score 3-5. use prior to oxycodone or hydromorphone documented in this encounter Active and Recently Administered Medications Times are shown in EDT. Scheduled Medication Order 11/13/2024 11/14/2024 11/15/2024 acetaminophen (Tylenol) tablet 1,000 mg 1,000 mg, Oral, Every 6 hours scheduled, First dose on 11/11/24 at 1440, Until Discontinued, Routine 0509 (Given - Provider: Mary Calvert RN)1131 (Given - Provider: Alejandro Garcia)1700 (Given - Provider: Alejandro Garcia) 0059 (Given - Provider: Lula Harden RN)0619 (Given - Provider: Lula Harden RN)1119 (Given - Provider: Alejandro Garcia)1700 (Given - Provider: Alejandro Garcia) 0044 (Given - Provider: Teresita Holt, ALVA)0602 (Not Given - Provider: Teresita Holt RN - Reason: Patient/family refused)1110 (Given - Provider: Tabatha Carpio) calcium-vitamin D 500-200 MG-UNIT per tablet 1 tablet 1 tablet, Oral, 2 times daily with meals, First dose on 11/12/24 at 2100, Until Discontinued, Routine, Recovery(Phase II-Outpatient)/On Unit(Inpatient) 0831 (Given - Provider: Alejandro Garcia)1659 (Given - Provider: Alejandro Garcia) 0825 (Given - Provider: Alejandro Garcia)1659 (Given - Provider: Alejandro Garcia) 0823 (Given - Provider: Tabatha Carpio) ceFAZolin (Ancef) injection 2 g 2 g, Intravenous, Every 8 hours, 39 doses, First dose (after last modification) on 11/13/24 at 0000, Last dose on 11/25/24 at 1600, Routine, Recovery(Phase II-Outpatient)/On Unit(Inpatient) 0831 (Given - Provider: Alejandro Garcia)1504 (Given - Provider: Alejandro Garcia) 0059 (Given - Provider: Lula Harden RN)0824 (Given - Provider: Alejandro Garcia)1506 (Given - Provider: Alejandro Garcia) 0044 (Given - Provider: Teresita Holt RN)0820 (Given - Provider: Tabatha Carpio)1600 (Canceled Entry - Provider: Automatic Discharge Provider - Comment: Automatically canceled at discontinue of medication order) gabapentin (Neurontin) capsule 100 mg 100 mg, Oral, Every 8 hours, First dose on 11/12/24 at 1730, Until Discontinued, Routine, Recovery(Phase II-Outpatient)/On Unit(Inpatient) 0206 (Given - Provider: Mary Calvert RN)0832 (Given - Provider: Alejandro Garcia)1659 (Given - Provider: Alejandro Garcia) 0100 (Given - Provider: Lula Harden RN)0830 (Given - Provider: Alejandro Garcia)1659 (Given - Provider: Alejandro Garcia) 0044 (Given - Provider: Teresita Holt, ALVA)0906 (Given - Provider: Alejandro Garcia) ibuprofen tablet 400 mg (CANCELED) 400 mg, Oral, Every 6 hours, First dose (after last modification) on 11/11/24 at 2300, Until Discontinued, Routine 0509 (Given - Provider: Mary Calvert, ALVA) ketorolac (Toradol) injection 15 mg () 15 mg, Intravenous, Every 6 hours scheduled, 8 doses, First dose on 11/12/24 at 1800, Last dose on Wed11/14/24 at 1200, Routine, Recovery(Phase II-Outpatient)/On Unit(Inpatient) 0509 (Given - Provider: Mary Calvert RN)1131 (Given - Provider: Alejandro Garcia)1700 (Given - Provider: Alejandro Garcia) 0059 (Given - Provider: Lula Harden RN)0619 (Given - Provider: Lula Harden RN)1119 (Given - Provider: Alejandro Garcia) methocarbamol (Robaxin) tablet 500 mg 500 mg, Oral, 4 times daily, First dose on 11/11/24 at 2300, Until Discontinued, Routine, Sign 0832 (Given - Provider: Alejandro Garcia)1313 (Given - Provider: Alejandro Garcia)1700 (Given - Provider: Alejandro Garcia)2022 (Given - Provider: uLla Harden RN) 0825 (Given - Provider: Alejandro Garcia)1329 (Given - Provider: Alejandro Garcia)1700 (Given - Provider: Alejandro Garcia)2109 (Given - Provider: Teresita Holt, ALVA) 0822 (Given - Provider: Tabatha Carpio)1323 (Given - Provider: Alejandro Garcia) mupirocin (Bactroban) 2 % ointment 1 Application Each Nostril, 2 times daily, 10 doses, First dose on 11/12/24 at 0900, Last dose on Wed11/16/24 at 2100, Routine 0832 (Given - Provider: Alejandro Garcia)202 (Given - Provider: Lula Harden, ALVA) 08 (Given - Provider: Alejandro Garcia)2017 (Given - Provider: Teresita Holt, RN) 08 (Given - Provider: Tabatha Carpio) nystatin (Mycostatin) 199510 UNIT/GM powder 1 Application Topical, 2 times daily, First dose on 11/11/24 at 2300, Until Discontinued, Routine 0832 (Given - Provider: Alejandro Garcia)2021 (Given - Provider: Lula Harden, ALVA) 08 (Given - Provider: Alejandro Garcia)2017 (Given - Provider: Teresita Holt, ALVA) 09 (Given - Provider: Alejandro Garcia) pantoprazole (Protonix) EC tablet 40 mg 40 mg, Oral, Daily before breakfast, First dose on Wed11/13/24 at 0730, Until Discontinued, Routine, Recovery(Phase II-Outpatient)/On Unit(Inpatient) 0637 (Given - Provider: Mary Calvert RN) 0619 (Given - Provider: Lula Harden RN) 0822 (Given - Provider: Tabatha Carpio) polyethylene glycol (Miralax) packet 17 g 17 g, Oral, Daily with breakfast, First dose on Wed11/13/24 at 0800, Until Discontinued, Routine, Recovery(Phase II-Outpatient)/On Unit(Inpatient) 0831 (Given - Provider: Alejandro Garcia) 0827 (Given - Provider: Alejandro Garcia) 0835 (Not Given - Provider: Tabatha Carpio - Reason: Patient/family refused) rivaroxaban (Xarelto) tablet 10 mg 10 mg, Oral, Daily with breakfast, First dose on Wed11/13/24 at 0800, Until Discontinued, Routine, Recovery(Phase II-Outpatient)/On Unit(Inpatient) 0832 (Given - Provider: Alejandro Garcia) 0825 (Given - Provider: Alejandro Garcia) 08 (Given - Provider: Tabatha Carpio) senna-docusate (Audrey-Colace) 8.6-50 MG per tablet 1 tablet 1 tablet, Oral, 2 times daily, First dose on 11/11/24 at 1440, Until Discontinued, Routine 0832 (Given - Provider: Alejandro Garcia)2021 (Given - Provider: Lula Harden, ALVA) 0825 (Given - Provider: Alejandro Garcia)2018 (Given - Provider: Teresita Holt, ALVA) 0823 (Given - Provider: Tabatha Carpio) traMADol (Ultram) tablet 100 mg 100 mg, Oral, Every 8 hours scheduled, First dose on 11/12/24 at 1730, Until Discontinued, Routine, Recovery(Phase II-Outpatient)/On Unit(Inpatient) 0832 (Given - Provider: Alejandro Garcia)1504 (Given - Provider: Alejandro Garcia) 0059 (Given - Provider: Lula Harden RN)0825 (Given - Provider: Alejandro Garcia)1506 (Given - Provider: Alejandro Garcia) 0044 (Given - Provider: Teresita Holt RN)0822 (Given - Provider: Tabatha Carpio)1600 (Canceled Entry - Provider: Automatic Discharge Provider - Comment: Automatically canceled at discontinue of medication order) PRN Medication Order 11/13/2024 11/14/2024 11/15/2024 bethanechol (Urecholine) tablet 20 mg 20 mg, Oral, Once as needed, 1 dose, Starting on 11/12/24 at 1634, Until 11/15/24 at 1703, Routine, Recovery(Phase II-Outpatient)/On Unit(Inpatient), bladder spasms, urinary retention > 6 hours bisacodyl (Dulcolax) suppository 10 mg 10 mg, Rectal, Daily PRN, Starting on 11/11/24 at 1432, Until 11/15/24 at 1703, Routine, constipation, if no bowel movement for 72 hours and no response to magnesium hydroxide diphenhydrAMINE (Benadryl) tablet 12.5 mg 12.5 mg, Oral, Every 4 hours PRN, Starting on 11/12/24 at 1634, Until 11/15/24 at 1703, Routine, Recovery(Phase II-Outpatient)/On Unit(Inpatient), itching, sleep HYDROmorphone (Dilaudid) injection 0.5 mg 0.5 mg, Intravenous, Every 6 hours PRN, Starting on 11/12/24 at 1634, Until 11/15/24 at 1703, Routine, Recovery(Phase II-Outpatient)/On Unit(Inpatient), severe pain, pain score 9-10 magnesium hydroxide (Milk of Magnesia) 400 MG/5ML suspension 10 mL 10 mL, Oral, 2 times daily PRN, Starting on 11/12/24 at 1634, Until Wed11/15/24 at 1703, Routine, Recovery(Phase II-Outpatient)/On Unit(Inpatient), constipation, for constipation - use as first line agent naloxone (Narcan) injection 0.08 mg 0.08 mg, Intravenous, As needed, Starting on 11/11/24 at 1435, Until Wed11/15/24 at 1703, Routine, respiratory depression, every 2 minutes ondansetron (Zofran) injection 4 mg 4 mg, Intravenous, Every 6 hours PRN, Starting on 11/12/24 at 1634, Until Wed11/15/24 at 1703, Routine, Recovery(Phase II-Outpatient)/On Unit(Inpatient), nausea, vomiting oxyCODONE (Roxicodone) immediate release tablet 5 mg 5 mg, Oral, Every 4 hours PRN, Starting on 11/12/24 at 1634, Until Wed11/15/24 at 1703, Routine, Recovery(Phase II-Outpatient)/On Unit(Inpatient), moderate pain, severe pain, Severe pain 5-8 1325 (Given - Provid er: Alejandro Garcia) traMADol (Ultram) tablet 50 mg 50 mg, Oral, Every 6 hours PRN, Starting on 11/12/24 at 1634, Until Wed11/15/24 at 1703, Routine, Recovery(Phase II-Outpatient)/On Unit(Inpatient), moderate pain, pain score 3-5. use prior to oxycodone or hydromorphone documented in this encounter Additional Health Concerns Assessment Noted Time A fall risk assessment has been complete d for the patient 03/01/2024 1:36 PM EST A Body Mass Index follow-up plan has been documented for the patient 11/15/2024 11:09 AM EDT documented as of this encounter Care Teams Animator Relationship Specialty Start Date End Date Virgie Choi APRN [address] [place] [id number] PCP - General 11/11/24 Yany Bruno MD [facility] [place] [id number] Referring Physician 12/04/21 documented as of this encounter
--- OUTSIDE RECORDS SUMMARY | 2024-11-12 12:20 | XMS_ITS | Encounter Summary ---
Author Organization Healthcare Address [address] [place] [address] Care Team Providers Care Peanut Picker Name Role Phone Yany Bruno MD Unavailable [phone] Virgie Choi APRN Primary Care Provider [phone] Reason for Visit * Reason Comments Post-op Problem * Auth/Cert (Routine) Specialty Diagnoses / Procedures Referred By Contac t Referred To Contact Diagnoses Periprosthetic fracture of femur at tip of prosthesis, initial encounter femur fracture has s/p right knee surgery today Lawrence Weeks MD [address] [facility] [address] [place] [address] Phone: tel: fax: [facility] [address] [place] [address] Phone: tel: Referral ID Status Reason Start Date Expiration Date Visits Re quested Visits Authorized [id number] 1 1 Encounter Details Date Type Department Care Team (Late st Contact Info) Description 11/12/2024 12:20 PM EDT - 11/12/2024 2:55 PM EDT Surgery [facility] [address] [place] [address] Prem Kohler MD [address] [facility] [address] [place] [address] RIGHT DISTAL FEMUR REPLACEMENT [76841 (CPT )] Surgery Details Date/Time Status Location OR Service Patient Class Case Class Case Type Trauma Case? 11/12/2024 12:20 PM Posted [facility] 01 Orthopedic Surgery Inpatient E-Electi ve Panel 1 Procedure LRB Anes Op Region Wound Class Comments RIGHT DISTAL FEMUR REPLACEMENT Right General Knee Class I/ Clean Supine, DeMayo, same set up as a total knee, Viktoria distal femur implants. Surgeon Surgeon Role Service Panel Prem Kohler MD Primary Orthopedic Surge ry 1 Anabella Canas MD Resident - Assisting 1 Special Needs Supine, DeMayo, same set up as a total knee, Viktoria distal femur implants. documented in this encounter Social History Tobacco Use Types Packs/Day Years [...] Sign Reading Time Taken Comments Blood Pressure 140/75 11/12/2024 1:20 PM EDT Pulse 87 11/12/2024 1:20 PM EDT Temperature 36.9 C (98.4 F) 11/12/2024 1:20 PM EDT Respiratory Rate 16 11/12/2024 5:50 AM EDT Oxygen Saturation 96% 11/12/2024 1:20 PM EDT Inhaled Oxygen Concentration - - Weight 117 kg (258 lb) 11/12/2024 5:50 AM EDT Height 152.4 cm (5') 11/12/2024 5:50 AM EDT Body Mass Index 51.24 11/12/2024 5:50 AM EDT documented in this encounter Functional Status * Calculated C-SSRS Risk Score (Lifetime/Recent) Answer Date of Assessment Author No Risk Indicated 11/12/2024 9:03 AM EDT Helen Cannon, RN * Question Answer Date of Assessment Author 1. Wish to be (Past 1 Month) No 025 9:03 AM EDT Helen Cannon, RN 2. Non-Specific Active Suici clay Thoughts (Past 1 Month) No 11/12/2024 9:03 AM EDT Helen Cannon, RN 6. Suicidal Behavior (Lifetime) No 9:03 AM EDT Helen Cannon, RN documented as of this encounter Medications at [...] for 10 days. For post-operative prophylaxis 11/15/2024 documented as of this encounter Miscellaneous Notes [...] 07 by Alejandro Garcia Outcome: Ongoing, Progressing Flowsheets (Taken 11/15/2024 0716) [...] Progressing Intervention: Optimize Mobility Flowsheets Taken 11/15/2024 0700 Activity Management: activity adjusted per tolerance Taken [...] Problem: Orthopaedic Fracture Goal: Absence of Bleeding 11/15/2024 1421 by Alejandro Garcia Outcome: Adequate for Care Transition 11/15/2024 0716 by Alejandro Garcia Outcome: Ongoing, Progressing Intervention: [...] Outcome: Ongoing, Progressing Goal: Fracture Stability 11/15/2024 142 by Alejandro Garcia Outcome: Adequate [...] Progressing Goal: Fluid and Electrolyte Balance 11/15/2024 142 by Alejandro Garcia Outcome: Adequate [...] 07 by Alejandro Garcia Outcome: Ongoing, Progressing * Discharge Summary - Ji Beverly MD - 11/15/2024 9:12 AM EDT Images from the original note were not included. Hospitalization Admit Date/Time: 11/11/2024 2:54 AM Admitting Attending: Lawrence Weeks Discharge Date: 11/15/24 Discharge Attending Physician: Lawrence Weeks MD PCP name and Address: Virgie Choi APRN [address] [facility] / [place] [address] Referring provider name and address: Fernando Delcid MD [address] [place] [address] [place] [address] Chief Concern, Brief History of Present Illness, and Hospital Course Patient arrived to [facility] on 11/11 after a fall and sustaining [...] Your Medications These medications were sent to [facility] - [place], [place] - [address] [facility] [address] naloxone 4 mg/0.1 mL nasal spray Information [...] sec Discharge Disposition/Condition Disposition: Rehab facility (specify) [place] Condition: Stable (s/sx potential problems absent or [...] Note Edison Howe 69 y.o. female CSN: [id number] Admission: 11/11/2024 2:54 AM Primary Problem: Periprosthetic fracture of femur at tip of prosthesis, initial encounter Primary Clinical Study Manager: Primary Caregiver: Self Assistance Available at Discharge: Current Outpatient/Agency/Support Group: DME Availability of Care Givers (#Hours): 24 hours Family/Clinical Study Manager(s) Willingness Assessed to care for patient at home: Yes Family/Clinical Study Manager(s) Readiness Assessed to care for patient at home: Yes Housing Circumstances-Z Codes: Housing Circumstances (select all that apply): None Applicable Discharge Facility/Level of Care Needs: Discharge Facility/Level of Care Needs: nursing facility, skilled Patient's Choice of Community Agency(s): Patient's Choice of Community Agency(s): [facility] Patient/Family Anticipated Services at Transition: Patient/Family Anticipated [...] Pt is medically ready to discharge to [facility]. Incisional [place] has been switched to a prevena and drain will be removed. Ambulance confirmed for today at 1400 . PCS forms were placed in pt's chart. Pt is aware and agreeable to discharge. Roosevelt eParson Doadvn-[phone] [facility] [place] Susie Moya RN * Care Plan - [...] RN Skin Protection: incontinence pads utilized Taken 11/14/2024 [...] Goal (Individualized) Outcome: Ongoing, Progressing Flowsheets (Taken 11/15/2024699) Patient/Family-Specific Goals (Include Timeframe): Pt will remain free from fall/injury this shift. Individualized Care Needs: Saftey Anxieties, Fears or Concerns: Going home Goal: Absence of Hospital-Acquired Illness or Injury Outcome: Ongoing, Progressing Intervention: Identify and Manage Fall Risk Flowsheets (Taken 11/15/2024699) Safety Promotion/Fall Prevention: activity supervised assistive device/personal [...] Activity Management: activity adjusted per tolerance Taken 11/14/2024711 Positioning/Transfer Devices: pillows repositioning sheet Taken 11/13/2024743 Assistive Device Utilized: other (see [...] Intervention: Identify and Manage Contributors Flowsheets (Taken 11/15/202416) Medication Review/Management: medications reviewed Self-Care Promotion: independence encouraged BADL personal objects within reach BADL personal routines maintained Problem: Orthopaedic Fracture Goal: Absence of Bleeding Outcome: Ongoing, Progressing Intervention: Monitor and Manage Fracture Bleeding Flowsheets (Taken 11/14/2024711) Fracture Immobilization: supported during position changes supported [...] -- Ji Beverly MD PGY-4, Orthopaedic Surgery [facility] Orthopaedic Trauma Service Pager: [phone] Orthopaedic Recon/Spine/Foot and Ankle Service Pager: [phone] Cosigned by Prem Kohler MD at 11/15/2024 7:37 AM EDT Associated attestation - Prem Kohler MD - 11/15/2024 7:37 AM EDT Signature only. * Care Plan - Teresita Holt RN - 11/14/2024 10:50 PM EDT Problem: Skin Injury Risk Increased Goal: Skin Health and Integrity Outcome: Ongoing, Progressing Intervention: Optimize Skin Protection Flowsheets Taken 11/14/20242199 by Teresita Holt RN Head of Bed (HOB) Positioning: HOB elevated Taken 11/14/20241999 by Teresita Holt RN Activity Management: activity adjusted per tolerance activity encouraged Skin Protection: incontinence pads utilized Taken 11/14/2024 07 by Alejandro Garcia Pressure Reduction Techniques: frequent weight shift encouraged heels elevated off bed Pressure Reduction Devices: positioning supports utilized pressure-redistributing mattress utilized Problem: Adult Inpatient Plan of Care Goal: Plan of Care Review Outcome: Ongoing, Progressing Flowsheets (Taken 11/13/2024 7569 by Lula Harden, RN) Progress: improving Plan [...] Monitor and Manage Fracture Bleeding Flowsheets (Taken 11/14/2024711 by Alejandro Garcia) Fracture Immobilization: supported during position changes supported with pillows Bleeding Management: affected area elevated dressing monitored Goal: Bowel Elimination Outcome: Ongoing, Progressing Intervention: Promote Effective Bowel Elimination Flowsheets (Taken 11/13/20241999 by Lula Harden, ALVA) Bowel Elimination Management: hygiene measures promoted relaxation [...] activity adjusted per tolerance activity encouraged Taken 11/14/2024711 by Alejandro Garcia Positioning/Transfer Devices: pillows repositioning sheet Taken 11/13/20241999 by Lula Harden, ALVA Self-Care Promotion: independence encouraged BADL personal objects within reach BADL personal routines maintained meal set-up provided Goal: Absence of Infection Signs and Symptoms Outcome: Ongoing, Progressing Intervention: Prevent or Manage Infection Flowsheets Taken 11/14/20241999 by Teresita Holt RN Isolation Precautions: protective Taken 11/13/20241999 by Lula Harden, RN Infection Management: aseptic technique maintained Taken 11/12/20242134 by Mary Calvert RN Fever Reduction/Comfort Measures: lightweight bedding lightweight clothing Goal: Effective Tissue Perfusion Outcome: Ongoing, Progressing Intervention: Prevent or Manage Neurovascular Compromise Flowsheets Taken 11/14/20242244 by Teresita Holt RN Compartment Syndrome Management: extremity placed at heart level Neurovascular Pressure Management: Cast: extremity positioned at heart level Taken 11/13/20241999 by Lula Harden RN Compartment Syndrome Surveillance: no pain with passive muscle stretch Goal: Optimal Pain Control and Function Outcome: Ongoing, Progressing Intervention: Manage Acute Orthopaedic-Related Pain Flowsheets Taken 11/14/2024 2245 by Teresita Holt RN Complementary Therapy: music therapy provided Taken 11/14/20241999 by Teresita Holt land clearer Interventions: care clustered pillow support provided position [...] Monitor and Manage Bleeding Flowsheets (Taken 11/14/2024 0712 by Alejandro Garcia) Bleeding Management: affected area elevated dressing monitored Goal: Effective Bowel Elimination Outcome: Ongoing, Progressing Intervention: Enhance Bowel Motility and Elimination Flowsheets Taken 11/13/2024 2339 by Lula Harden RN Bowel Motility Enhancement: [...] therapy provided Taken 11/14/20241999 by Teresita Holt RN Pain Management Interventions: care clustered pillow support [...] Deep Breathing: done with encouragement Taken 11/13/2024 233 by Lula Harden RN Airway/Ventilation Management: pulmonary hygiene promoted position adjusted * Keyla Blanco, PharmD - 11/14/2024 2:22 PM EDT Images from the original note were not included. [id number] Rivaroxaban IMPORTANT WARNING: If you have atrial [...] doctor or pharmacist will give you the physician scientist's patient information sheet (Medication Guide) when you begin treatment with rivaroxaban and each time you refill your prescription. Read the information carefully and ask your doctor or pharmacist if you have any questions. You can also visit the Food and Drug Administration (FDA) website (https://www.fda.gov/downloads/Drugs/DrugSafety/QIE563984.pdf) or the physician scientist's website to obtain the Medication Guide. WHY [...] what herbal products you are taking, especially [place]'s wort. ? tell your doctor if you [...] and out of their sight and reach. https://www.upandaway.org Dispose of unneeded medications in a way [...] be awakened, immediately call emergency services at 911. Symptoms of overdose may include the following: [...] of all of the prescription and nonprescription (qkjd-ice-qrcbhib) medicines, vitamins, minerals, and dietary supplements you [...] or pharmacist about specific clinical use. The [employer] represents that the information provided hereunder was formulated with a reasonable standard of care, and in conformity with professional standards in the field. The [employer] makes no representations or warranties, express or implied, including, but not limited to, any implied warranty of merchantability and/or fitness for a particular purpose, with respect to such information and specifically disclaims all such warranties. Users are advised that decisions regarding drug therapy are complex medical decisions requiring the independent, informed decision of an appropriate health health care attorney, and the information is provided for informational purposes only. The entire monograph for a drug should be reviewed for a thorough understanding of the drug's actions, uses and side effects. The [employer] does not endorse or recommend the use of any drug.The information is not a substitute for medical care. AHFS?? Patient Medication Information?. ?? Copyright, 2023. The [employer]??, [address], [address], [place], [place]. All Rights Reserved. Duplication for commercial use must be authorized by [facility]. Selected Revisions: June 27, 2022. AHFS?? Patient Medication Information?. ?? Copyright, 2024 * Amber Bowen RN - 11/14/2024 11:52 AM EDT Images from the original note were not included. [address] Femur Fracture What is a femur fracture? [...] Note Edison Howe 69 y.o. female CSN: [id number] Admission: 11/11/2024 2:54 AM Primary Problem: Periprosthetic fracture of femur at tip of prosthesis, initial encounter Power Nut Runner Operator reviewed chart and spoke with patient to complete this Initial Case Management Assessment. PCP: Virgie Choi APRN Emergency Contact: Extended Emergency Contact Information Primary Emergency Contact: Corby Howe Mobile Relation: Spouse Preferred language: Slovak Printing Pressman needed? No Secondary Emergency Contact: HÉCTOR BORDEN Mobile Relation: Daughter Preferred language: Slovak Printing Pressman needed? No Insurance: Primary Visit Coverage Payer Plan Sponsor Code Group Number Group Name MEDICARE MEDICARE A & B Primary Visit Coverage Subscriber Subscriber ID Subscriber Name Subscriber SSN Subscriber Address [id number] EDISON HOWE [id number] [address] [place] [address] Patient information: Primary Caregiver: Self Support System: Immediate family Daily Living Activities: Functional Status: Independent Living Arrangements: Spouse/Significant other Type of Residence: Private residence, Single [address] [place] [address] Smoker in the Home?: No Current DME: Equipment Currently Used at Home: walker, rolling, cane, straight Current DME Provider: [facility] [place] Income Information: Income Source: Retired [...] / Outpatient Dialysis Services: Current DME Provider: No HH, [place], oe dialysis Living Will/Advance Directive/Power of Lead Inspector /Guardian: Have you reviewed your Advance Directive [...] were placed in pt's chart. [facility] [phone] [phone] [facility] [place] Susie Moya RN * Care Plan - [...] and Manage Fracture Bleeding Flowsheets (Taken 11/14/2024 07) Fracture Immobilization: supported during position changes supported [...] Not Progressing * Progress Notes - Ji Beverly MD - 11/14/2024 7:02 AM EDT ORTHOPAEDIC [...] -- Ji Beverly MD PGY-4, Orthopaedic Surgery [facility] Orthopaedic Trauma Service Pager: [phone] Orthopaedic Recon/Spine/Foot and Ankle Service Pager: [phone] Cosigned by Prem Kohler MD at 11/14/2024 8:05 AM EDT Associated attestation - Prem Kohler MD - 11/14/2024 8:05 AM EDT Signature only. * Care Plan - Lula Harden RN - 11/13/2024 11:47 PM EDT Problem: Skin Injury Risk Increased Goal: Skin Health and Integrity Outcome: Ongoing, Progressing Intervention: Optimize Skin Protection Flowsheets Taken 11/13/2024 2200 Head of Bed (HOB) [...] Review Outcome: Ongoing, Progressing Flowsheets (Taken 11/13/2024 3316) Progress: improving Outcome Evaluation: pt denies pain [...] Motility and Elimination Flowsheets Taken 11/13/2024 233 Bowel Motility Enhancement: oral intake encouraged fluid [...] Deep Breathing: done independently per patient Taken 11/13/20240 Head of Bed (HOB) Positioning: HOB elevated Taken 11/13/20241999 Activity Management: activity adjusted per tolerance * Progress Notes - Preethi Siegel - 11/13/2024 1:35 PM EDT Occupational Therapy [...] rehab Participants in Care Family/Caregiver Present: No Printing Pressman: Not Applicable Presentation Oxygen Therapy: None (Room [...] admission Level of Mobility: Ambulatory- community Mobility Beaver: Independent gait with device History of Falls: [...] transitions Bed Mobility Exam: Scooting/Bridging Level of Beaver: Dependent Physical/Nonphysical Assist: Verbal Cues, 1 person + 1 person to manage equipment Bed Mobility Exam: Supine to Sit Level of Beaver: Maximum assist (25% patient's effort) (x2) Physical/Nonphysical Assist: Verbal Cues Bed Mobility Exam: Sit to Supine Level of Beaver: (pt was left seated OOBTC) Transfers Transfer Interventions: pt was instructed on sequencing of limbs when transitioning to stand- pt with overall fair carryover, pt expressed fear of falling Transfer Exam: Sit to stand Level of Beaver: Maximum assist (25% patient's effort) (x2) Physical/Nonphysical Assist: Verbal Cues Assistive Device: Hand held assist Transfer Exam: Stand to Sit Level of Beaver: Maximum assist (25% patient's effort) (x2) Physical/Nonphysical Assist: Verbal Cues Assistive Device: Hand held assist Transfer Exam: Bed to Chair/Chair to Bed Level of Beaver: Maximum assist (25% patient's effort) (x2) Physical/Nonphysical [...] Standing - Interventions: max assist x 2 (PRODUCTION DISPATCHER x 2) stand pivot transfer - Dynamic Standing Balance Dynamic Standing - Interventions: max assist x 2 (PRODUCTION DISPATCHER x 2) stand pivot transfer to b/s [...] rwx, [facility] - does use rwx - pt reports [...] Toileting Toileting Interventions: pt actively utilizing a purewick Standardized Assessments Winston Index Feeding: Independent Bathing: [...] PM. * Progress Notes - Teddy Coronel - 11/13/2024 1:26 PM EDT Physical Therapy [...] session. Participants in Care Family/Caregiver Present: No Printing Pressman: Not Applicable Presentation Oxygen Oxygen Therapy: None [...] admission Level of Mobility: Ambulatory- community Mobility Beaver: Independent gait with device History of Falls: [...] Mobility Bed Mobility Exam: Scooting/Bridging Level of Beaver: Maximum assist (25% patient's effort) Physical/Nonphysical Assist: Verbal Cues, Nonverbal cues (demo/gestures), Additional assist utilized for safety, Set-up required, Moderate cues Assistive Device: Bed rails Bed Mobility Exam: Supine to Sit Level of Beaver: Maximum assist (25% patient's effort) Physical/Nonphysical Assist: Verbal Cues, Nonverbal cues (demo/gestures), HOB elevated, Additional assist utilized for safety, Set-up required, Moderate cues Assistive Device: Bed rails Transfers Transfer Exam: Sit to stand Level of Beaver: Maximum assist (25% patient's effort) Physical/Nonphysical Assist: Verbal Cues, Nonverbal cues (demo/gestures), Additional assist utilized for safety, Set-up required, Moderate cues Assistive Device: Hand held assist Transfer Exam: Stand to Sit Level of Beaver: Maximum assist (25% patient's effort) Physical/Nonphysical Assist: Verbal Cues, Nonverbal cues (demo/gestures), Moderate cues, Set-up required, Additional assist utilized for safety Assistive Device: Hand held assist Transfer Exam: Bed to Chair/Chair to Bed Level of Beaver: Maximum assist (25% patient's effort) Physical/Nonphysical Assist: Verbal Cues, Nonverbal cues (demo/gestures), Moderate cues, Set-up required, Additional assist utilized for safety Type of Transfer: Stand-pivot Assistive Device: Hand held assist Ambulation Device: Hand held assist Assistance: Maximum assistance, Moderate verbal cues, Additional assist utilized for safety Distance : 2ft to chair Ambulation Comments: Impaired weight shifting, anxious of falling, slowed sequencing Standardized Assessments [facility] 6-Clicks Mobility Assessment Difficulty patient has [...] climbing 3-5 steps with a railing?: Unable [facility] 6-Clicks Mobility Assessment Total : 11 [...] Edited by: Anabella Canas MD at 11/12/2024 1637 Mobility Orders Mobility Protocol: Ortho/Trauma/Spine Mobility Guidelines [...] -- Anabella Suggs MD PGY-4, Orthopaedic Surgery [facility] Orthopaedic Trauma Service Pager: [phone] Orthopaedic Recon/Spine/Foot and Ankle Service Pager: [phone] Personal Pager: [phone] Cosigned by Prem Kohler MD at 11/14/2024 8:05 AM EDT Associated attestation - Prem Kohler MD - 11/14/2024 8:05 AM EDT Signature only. * Care Plan - Alejandro Garcia - 11/13/2024 7:48 AM EDT Problem: Skin Injury Risk Increased Goal: Skin Health and Integrity Outcome: Ongoing, Progressing Intervention: Optimize Skin Protection Flowsheets Taken 11/13/2024 0780 Pressure Reduction Techniques: frequent weight shift encouraged heels elevated off bed weight shift assistance provided Pressure Reduction Devices: positioning supports utilized pressure-redistributing mattress utilized Skin Protection: incontinence pads utilized Taken 11/13/2024699 Activity Management: activity adjusted per tolerance Head [...] of Care Reviewed With: patient 11/12/20242133 by Mary Calvert RN Outcome: Ongoing, Progressing Goal: Patient-Specific Goal [...] Hospital-Acquired Illness or Injury 11/12/20242134 by Mary Cavlert RN Outcome: Ongoing, Progressing 11/12/20242133 by Mary [...] Optimal Comfort and Wellbeing 11/12/20242134 by Mary Calvert RN Outcome: Ongoing, Progressing 11/12/20242133 by Mary Calvert RN Outcome: Ongoing, Progressing Intervention: Monitor Pain [...] RN Outcome: Ongoing, Progressing 11/12/20242133 by Mary Calvert, RN Outcome: Ongoing, Progressing Intervention: Optimize Mobility Flowsheets (Taken 11/12/20242134) Activity Management: activity adjusted per tolerance activity encouraged Positioning/Transfer Devices: pillows in use Problem: Pain Acute Goal: Optimal Pain Control and Function 11/12/20242134 by Mary Calvert, RN Outcome: Ongoing, Progressing 11/12/20242133 by Mary Calvert RN Outcome: Ongoing, Progressing Intervention: Optimize Psychosocial Wellbeing Flowsheets (Taken 11/12/20242134) Supportive Measures: active listening utilized decision-making supported goal-setting facilitated self-care encouraged relaxation techniques promoted positive reinforcement provided mindfulness techniques promoted verbalization of feelings encouraged Diversional Activities: individual hobbies tablet [employer] games Intervention: Develop Pain Management Plan Flowsheets [...] and Fall-Related Injury 11/12/20242134 by Mary Calvert, RN Outcome: [...] provided emotional support Diversional Activities: individual hobbies tablet television [employer]kaa games Goal: Nausea and Vomiting Relief Outcome: [...] PM EDT Operative Note Date: 11/12/24 Location: [facility] Name: Edison Howe, : 1955, Diagnoses: [...] Attending Surgeon(s): * Prem Kohler - Primary Deposition Operator(s): * Anabella Canas MD - Resident - Assisting Anesthesia: General ASA: II Blood Administration: Blood Product Administration History None Estimated Blood Loss: Minimal Drains: Closed/Suction Drain 1 Right Knee Accordion 15 Fr. (Active) Implants Type Name Action Serial No. Cement CEMENT WITH TOBRAMYCIN - SNA - [id number] Implanted NA Cement CEMENT WITH TOBRAMYCIN - SNA - [id number] Implanted NA Cement CEMENT WITH TOBRAMYCIN - SNA - [id number] Implanted NA Bushing CHG FEMORAL MRH/GMRS DISTAL PO - SNA - [id number] Implanted NA Implant CHG INSERT HRHK TIB 10MM XS/S - SNA - [id number] Implanted NA Implant CHG TIBIAL HRHK ROT COMP XS/SM - SNA - [id number] Implanted NA Pin CHG PIN STERILE HEADLESS 1/8 - SNA - [id number] Implanted NA Implant CHG FEMORAL STD RT DIST 65MM G - SNA - [id number] Implanted NA Stem STEM REGULAR FLUTED [id number] - SNA - [id number] Implanted NA Plate CHG PLATE MRH TIBIAL BASE S1 - SNA - [id number] Implanted NA Stem CHG STEM MRS [id number] FEM W/O ATTILA - SNA - [id number] Implanted NA Implant CHG FEMORAL HRHK AXLE - SNA - [id number] Implanted NA Specimen: Findings: Indications: Edison Howe [...] small and prepared per the manufacture's instructions Greek of the rotation relative to the 2nd [...] 1:06 PM. * Care Plan - Helen Cannon, RN - 11/12/2024 11:40 AM EDT Problem: [...] Progressing Flowsheets Taken 11/12/2024 1137 by Helen Cannon, RN Plan of Care Reviewed With: patient Taken 11/11/20242215 by Mary Carmen Myers RN Progress: no [...] scheduled Intervention: Prevent Skin Injury Flowsheets Taken 11/12/2024 113 Skin Protection: incontinence pads utilized transparent dressing maintained Taken 11/12/2024 1000 Body Position: refused by patient Intervention: Prevent and Manage VTE (Venous Thromboembolism) Risk Flowsheets (Taken 11/12/2024 09) VTE Prevention/Management: medication Intervention: Prevent Infection Flowsheets (Taken 11/12/2024 113) Infection Prevention: single patient room provided environmental surveillance performed equipment surfaces disinfected personal protective equipment utilized hand hygiene promoted rest/sleep promoted Goal: Optimal Comfort and Wellbeing Outcome: Ongoing, Progressing Intervention: Monitor Pain and Promote Comfort Flowsheets (Taken 11/12/2024902) Pain Management Interventions: medication (see MAR) care clustered rest Intervention: Provide Person-Centered Care Flowsheets (Taken 11/12/2024 1137) Trust Relationship/Rapport: care explained choices provided emotional support provided empathic listening provided questions answered questions encouraged reassurance provided thoughts/feelings acknowledged Problem: Mobility Impairment Goal: Optimal Mobility Outcome: Ongoing, Progressing Intervention: Optimize Mobility Flowsheets Taken 11/12/20241136 by Helen Cannon, RN Positioning/Transfer Devices: pillows Taken 11/12/2024902 by Helen Cannon, RN Activity Management: activity adjusted per tolerance Taken 11/11/2024 1448 by Savannah Bernard RN Assistive Device Utilized: (patient in traction) other (see comments) Problem: Fall Injury Risk Goal: Absence of Fall and Fall-Related Injury Outcome: Ongoing, Progressing Intervention: Identify and Manage Contributors Flowsheets (Taken 11/12/20241136) Medication Review/Management: medications reviewed Self-Care Promotion: independence [...] Monitor and Manage Fracture Bleeding Flowsheets (Taken 11/12/20241136) Fracture Immobilization: supported during position changes Bleeding [...] maintained BADL personal objects within reach Taken 11/12/2024 09 Range of Motion: active ROM (range of [...] Manage Acute Orthopaedic-Related Pain Flowsheets Taken 11/12/2024 113 Sleep/Rest Enhancement: consistent schedule promoted Taken 11/12/2024902 Pain Management Interventions: medication (see MAR) care clustered rest Goal: Effective Oxygenation and Ventilation Outcome: Ongoing, Progressing Intervention: Promote Airway Secretion Clearance Flowsheets Taken 11/12/20241136 Breathing Techniques/Airway Clearance: deep/controlled cough encouraged Cough And Deep Breathing: done independently per patient Taken 11/12/2024 09 Activity Management: activity adjusted per tolerance Intervention: Optimize Oxygenation and Ventilation Flowsheets (Taken 11/12/2024 113) Fluid/Electrolyte Management: oral rehydration therapy initiated Airway/Ventilation [...] total knee arthroplasty with Dr. Chamberlain from [facility] yesterday. She is ableto ambulate [...] denies Illicit substance use: denies Lives in [place], [place] Occupation/Employment: retired Ambulation: with a walker [...] amputation. Berhane Marino MD PGY-2, Orthopaedic Surgery [facility] Personal Pager [phone] Orthopaedic Trauma Service Pager: [phone] Orthopaedic Recon/Spine/Foot and Ankle Service Pager: [phone] Cosigned by Lawrence Weeks MD at 11/16/2024 [...] Monitor and Manage Fracture Bleeding Flowsheets (Taken 11/11/20242215) Bleeding Management: affected area elevated dressing monitored [...] total knee arthroplasty with Dr. Chamberlain from [facility] yesterday. She is ableto ambulate [...] denies Illicit substance use: denies Lives in [place], [place] Occupation/Employment: retired Ambulation: with a walker [...] protocol Berhane Marino MD PGY-1, Orthopaedic Surgery [facility] Personal Pager [phone] Orthopaedic Trauma Service Pager: [phone] Orthopaedic Recon/Spine/Foot and Ankle Service Pager: [phone] [1] Past Medical History: Diagnosis Date Arthritis [...] Progressing Intervention: Optimize Skin Protection Flowsheets (Taken 11/11/20241447) Activity Management: activity adjusted per tolerance Intervention: Promote and Optimize Oral Intake Flowsheets (Taken 11/11/20241447) Oral Nutrition Promotion: rest periods promoted Nutrition Interventions: frequent small meals provided Problem: Adult Inpatient Plan of Care Goal: Plan of Care Review Outcome: Ongoing, Progressing Flowsheets (Taken 11/11/2024 144) Progress: no change Outcome Evaluation: Surgery scheduled 11/12/24 Plan of Care Reviewed With: patient Goal: Patient-Specific Goal (Individualized) Outcome: Ongoing, Progressing Flowsheets (Taken 11/11/20241447) Patient/Family-Specific Goals (Include Timeframe): Patient will remain [...] reviewed * ED Provider Notes - Ike Garza, - 11/11/2024 2:53 AM EDT Images from [...] Rate Source Patient Position 11/11/24 0300 11/11/24 030 -- 11/11/24 0302 94 % Oral Lying [...] and time. EASI ?? Total Score: 0 Hiral Coma Scale Score: 15 Mini Nutritional Screening [...] tests were ordered: ED Medication Administration from 11/10/20245 to 11/11/2024 0737 Date/Time Order Dose Route Action 11/11/2024 0605 EDT HYDROmorphone (Dilaudid) injection 1 mg 1 mg Intravenous Given 11/11/2024 0606 EDT ondansetron (Zofran) injection 4 mg 4 mg Intravenous Given All Other Orders Ordered Status Ordering Provider 11/11/24720 Basic Metabolic Panel, Plasma Morning draw Acknowledged LAWRENCE MARINO 11/11/24 0721 CBC W/O Differential Morning draw Acknowledged LAWRENCE MARINO 11/11/24 0721 Prothrombin Time/INR Morning draw Acknowledged LAWRENCE MARINO 11/11/24720 NPO diet Diet effective midnight Acknowledged LAWRENCE MARINO 11/11/24 0721 ECG Adult Once Acknowledged LAWRENCE MARINO 11/11/24 0721 XR Chest 1 View One time imaging Acknowledged LAWRENCE MARINO 11/11/24 07 XR Knee Right 3 Views Once Acknowledged LAWRENCE MARINO 11/11/24 0721 Notify Provider Until discontinued Acknowledged LAWRENCE MARINO 11/11/2421 Nursing communication Until discontinued Comments: Upon initiation [...] 0528 Sed rate, automated STAT Final result IKE GARZA 11/11/24 0515 Hepatitis C Antibody - ED [...] 0515 CBC w/diff STAT Final result IKE AGRZA 11/11/24 0515 PT-INR STAT Final result IKE GARZA 11/11/24 0515 Type and screen Start now Final result IKE GARZA 11/11/24 0515 CMP STAT Final result IKE GARZA 11/11/24 0515 XR Hip Right 2 or 3 Views Including Pelvis Once Final result KIE GARZA 11/11/24 0515 XR Femur Right 2+ [...] Pt brought in by EMS, transferred from [facility]. Femur fx with hardware installed s/p kneereplacement [...] [facility] [address], [address] [place] [address] Prem Kohler MD [address] [facility] [address] [place] [address] 02/06/2025 1:40 PM EST Office Visit Medical Office [facility] [address], [address] [place] [address] Prem Kohler MD [address] [facility] [address] [place] [address] 03/09/2025 12:30 PM EST Office Visit [facility] [address] [place] [address] Joanne Santoyo S, YARN TWISTER [address] [facility] [address] [facility] [address] [place] [address] Pending Results Name Type Priority Associated Diagnoses [...] 2 VIEWS Routine 11/12/2024 6:42 PM EDT [place] TOTAL KNEE ARTHROPLASTY 11/12/2024 1:34 PM EDT Periprosthetic fracture of femur at tip of prosthesis, initial encounter Special Needs Supine, [place], same set up as a total knee, [place] distal femur implants. PROTHROMBIN TIME(PT) / INR [...] - 99 mg/dL 11/13/2024 2:46 AM EDT [facility] BUN, Plasma 36(H) 8 - 23 mg/dL 11/13/2024 2:46 AM EDT [facility] Creatinine, Plasma 1.07 0.60 - 1.10 mg/dL 11/13/2024 2:46 AM EDT [facility] BUN/Creatinine Ratio 34 11/13/2024 2:46 AM EDT [facility] Sodium, Plasma 138 136 - 145 mmol/L 11/13/2024 2:46 AM EDT [facility] Potassium, Plasma 5.1(H) 3.6 - 4.9 mmol/L 11/13/2024 2:46 AM EDT [facility] Chloride, Plasma 106 97 - 107 mmol/L 11/13/2024 2:46 AM EDT [facility] CO2, Plasma 21(L) 22 - 29 mmol/L 11/13/2024 2:46 AM EDT [facility] Anion Gap 11 6 - 16 mmol/L 11/13/2024 2:46 AM EDT [facility] Total Calcium, Plasma 8.7(L) 8.9 - 10.2 mg/dL 11/13/2024 2:46 AM EDT [facility] eGFRcr 56.0 mL/min/1.7 3m*2 11/13/2024 2:46 AM EDT [facility] Comment:Reported eGFRcr in m L/min/1.73m2 is based the CKD-EPI 2020 equation that does not use a race coefficient. Blood Venous blood specimen / Unknown Venipuncture / Unknown 11/13/2024 2:09 AM EDT 11/13/2024 2:17 AM EDT us Prem Kohler MD LAB BLOOD ORDERABLES Radha l Result [facility] [address] [place] [address] * (ABNORMAL) CBC (11/13/2024 2:09 AM EDT) WBC Count 15.02(H) 3.70 - 10.30 10*3/uL LAB HEMATOLOGY METHOD 11/13/2024 2:24 AM EDT [facility] RBC Count 3.12(L) 3.90 - 5.20 10*6/uL LAB HEMATOLOGY METHOD 11/13/2024 2:24 AM EDT [facility] HGB 9.2(L) 11.2 - 15.7 g/dL LAB HEMATOLOGY METHOD 11/13/2024 2:24 AM EDT [facility] HCT 27.7(L) 34.0 - 45.0 % LAB HEMATOLOGY METHOD 11/13/2024 2:24 AM EDT [facility] Platelet Count 265 155 - 369 10*3/uL LAB HEMATOLOGY METHOD 11/13/2024 2:24 AM EDT [facility] MCV 89 79 - 98 fL LAB HEMATOLOGY METHOD 11/13/2024 2:24 AM EDT [facility] MCH 29.5 26.0 - 32.0 pg LAB HEMATOLOGY METHOD 11/13/2024 2:24 AM EDT [facility] MCHC 33.2 30.7 - 35.5 g/dL LAB HEMATOLOGY METHOD 11/13/2024 2:24 AM EDT [facility] RDW 13.1 11.5 - 14.5 % LAB HEMATOLOGY METHOD 11/13/2024 2:24 AM EDT [facility] MPV 9.4 8.8 - 12.5 fL LAB HEMATOLOGY METHOD 11/13/2024 2:24 AM EDT [facility] nRBC 0.0 <=0.0 per 100 WBCs LAB HEMATOLOGY METHOD 11/13/2024 2:24 AM EDT [facility] Blood Venous blood specimen / Unknown Venipuncture / Unknown 11/13/2024 2:09 AM EDT 11/13/2024 2:17 AM EDT us Prem Kohler MD LAB BLOOD ORDERABLES aRdha nash Result [facility] [address] [place] [address] * XR Knee Right 1 or 2 [...] LAB COAGULATION METHOD 11/12/2024 1:49 AM EDT [facility] INR 1.3(H) 0.9 - 1.1 LAB COAGULATION METHOD 11/12/2024 1:49 AM EDT [facility] Blood Venous blood specimen / Unknown Venipuncture / Unknown 11/12/2024 1:13 AM EDT 11/12/2024 1:24 AM EDT Narrative [facility] - 11/12/2024 1:49 AM EDT OPTIMAL INR RANGES FOR PATIENT ON ORAL ANTICOAGULANT THERAPY Prevention of venous thromboembolism INR 2.0 to 3.0 In patients with heart disease: Atrial fibrillation INR 2.0 to 3.0 Valvular heart disease INR 2.0 to 3.0 Tissue heart valves INR 2.0 to 3.0 Mechanical prosthetic valves INR 2.5 to 3.5 Prevention of recurrent WI INR 2.5 to 3.5 us Lawrence Weeks MD LAB BLOOD ORDERABLES Final Re sult [facility] [address] [place] [address] * (ABNORMAL) CBC W/O Differential (11/12/2024 1:13 AM EDT) WBC Count 14.38(H) 3.70 - 10.30 10*3/uL LAB HEMATOLOGY METHOD 11/12/2024 1:34 AM EDT [facility] RBC Count 3.69(L) 3.90 - 5.20 10*6/uL LAB HEMATOLOGY METHOD 11/12/2024 1:34 AM EDT [facility] HGB 10.9(L) 11.2 - 15.7 g/dL LAB HEMATOLOGY METHOD 11/12/2024 1:34 AM EDT [facility] HCT 32.9(L) 34.0 - 45.0 % LAB HEMATOLOGY METHOD 11/12/2024 1:34 AM EDT [facility] Platelet Count 307 155 - 369 10*3/uL LAB HEMATOLOGY METHOD 11/12/2024 1:34 AM EDT [facility] MCV 89 79 - 98 fL LAB HEMATOLOGY METHOD 11/12/2024 1:34 AM EDT [facility] MCH 29.5 26.0 - 32.0 pg LAB HEMATOLOGY METHOD 11/12/2024 1:34 AM EDT [facility] MCHC 33.1 30.7 - 35.5 g/dL LAB HEMATOLOGY METHOD 11/12/2024 1:34 AM EDT [facility] RDW 13.1 11.5 - 14.5 % LAB HEMATOLOGY METHOD 11/12/2024 1:34 AM EDT [facility] MPV 9.3 8.8 - 12.5 fL LAB HEMATOLOGY METHOD 11/12/2024 1:34 AM EDT [facility] nRBC 0.0 <=0.0 per 100 WBCs LAB HEMATOLOGY METHOD 11/12/2024 1:34 AM EDT [facility] Blood Venous blood specimen / Unknown Venipuncture / Unknown 11/12/2024 1:13 AM EDT 11/12/2024 1:24 AM EDT us Lawrence Weeks MD LAB BLOOD ORDERABLES Final Re sult [facility] [address] [place] [address] * (ABNORMAL) Basic Metabolic Panel, Plasma (11/12/2024 1:13 AM EDT) Glucose, Plasma 97 74 - 99 mg/dL 11/12/2024 1:52 AM EDT [facility] BUN, Plasma 35(H) 8 - 23 mg/dL 11/12/2024 1:52 AM EDT [facility] Creatinine, Plasma 1.13(H) 0.60 - 1.10 mg/dL 11/12/2024 1:52 AM EDT [facility] BUN/Creatinine Ratio 11/12/2024 1:52 AM EDT [facility] Sodium, Plasma 137 136 - 145 mmol/L 11/12/2024 1:52 AM EDT [facility] Potassium, Plasma 4.6 3.6 - 4.9 mmol/L 11/12/2024 1:52 AM EDT [facility] Chloride, Plasma 105 97 - 107 mmol/L 11/12/2024 1:52 AM EDT [facility] CO2, Plasma 19(L) 22 - 29 mmol/L 11/12/2024 1:52 AM EDT [facility] Anion Gap 13 6 - 16 mmol/L 11/12/2024 1:52 AM EDT [facility] Total Calcium, Plasma 8.9 8.9 - 10.2 mg/dL 11/12/2024 1:52 AM EDT [facility] eGFRcr 52.4 mL/min/1.7 3m*2 11/12/2024 1:52 AM EDT [facility] Comment:Reported eGFRcr in m L/min/1.73m2 is based the CKD-EPI 2020 equation that does not use a race coefficient. Blood Venous blood specimen / Unknown Venipuncture / Unknown 11/12/2024 1:13 AM EDT 11/12/2024 1:24 AM EDT us Lawrence Weeks MD LAB BLOOD ORDERABLES Final Re sult [facility] [address] [place] [address] * CT Knee Right wo IV Contrast [...] Johnathan Kelly MD on 11/11/2024 1:07 PM us Lawrence Weeks MD IMG CT PROCEDURES Final [...] Abbi Rosales MD on 11/11/2024 10:42 AM us Alwrence R Micky MD IMG XR PROCEDURES Final Resul t [...] Abbi Rosales MD on 11/11/2024 10:41 AM Lawrence Weeks MD IMG XR PROCEDURES Final Resul t * ECG Adult (11/11/2024 7:45 AM EDT) EKG DIAGNOSIS CLASS Normal MUSE ECG Ventricular Rate 73 BPM MUSE ECG Atrial Rate 73 BPM MUSE ECG IL Interval 124 ms MUSE ECG QRSD Interval 88 ms MUSE ECG QT Interval 372 ms MUSE ECG QTC Interval 409 ms MUSE ECG P [place] 30 degrees MUSE ECG R [place] 54 degrees MUSE ECG T Wave [place] 49 degrees MUSE ECG Diagnosis Normal sinus rhythm MUSE ECG Diagnosis Normal ECG MUSE ECG Diagnosis MUSE ECG Diagnosis Confirmed by Qamar Randall ([id number]) on 11/11/2024 4:42:59 PM MUSE ECG 11/11/2024 7:45 AM EDT 11/11/2024 4:42 PM EDT Lawrence Weeks MD ECG ORDERABLES Final Result MUSE ECG * Hemoglobin A1c (11/11/2024 6:03 AM EDT) Hemoglobin A1c 5.5 <5.7 % 11/12/2024 9:44 AM EDT [facility] Blood Venous blood specimen / Unknown Venipuncture / Unknown 11/11/2024 6:03 AM EDT 11/11/2024 6:15 AM EDT Narrative [facility] - 11/12/2024 9:44 AM EDT HA1C Interpretive Data: Diagnosis of Diabetes: Diabetic > or = 6.5% Pre-diabetic 5.7 to 6.4% Non-diabetic < or = 5.6% Glycemic Targets for Type I and Type II Diabetics: Non- Adults <7.0% Adults <6.0% Children and Adolescents <7.5% Source: [place] [employer]. Standards of medical care in diabetes,2017. Diabetes Care.2017:40 (suppl 1):S1-S135. Lawrence Weeks MD LAB BLOOD ORDERABLES Final Re sult [facility] [address] [place] [address] * (ABNORMAL) Sed rate, automated (11/11/2024 6:03 AM EDT) Sedimentation Rate 61(H) <30 mm/hr 2024 6:47 AM EDT [facility] Blood Venous blood specimen / Unknown Venipuncture / Unknown 11/11/2024 6:03 AM EDT 11/11/2024 6:15 AM EDT Richar Nena Centeno DO LAB BLOOD ORDERABLES Final R esult [facility] [address] [place] [address] * (ABNORMAL) C-Reactive protein (11/11/2024 6:03 AM EDT) CRP, Plasma 41.5(H) <=8.0 mg/L 11/11/2024 6:38 AM EDT [facility] Blood Venous blood specimen / Unknown Venipuncture / Unknown 11/11/2024 6:03 AM EDT 11/11/2024 6:15 AM EDT Narrative [facility] - 11/11/2024 6:38 AM EDT This CRP test is appropriate for assessment of infection, systemic inflammation and/or tissue injury. To assess cardiovascular disease risk order high sensitivity CRP (CRPH). us Richar Barrett [employer] LAB BLOOD ORDERABLES Final R esult Performing Organization Address [facility]/ZIP Co de Phone Number [facility] [address] [place] [address] * ED HIV 1/2 Antibody/Antigen Screen w/Reflex to HIV 1/2 Differentiation (11/11/2024 6:03 AM EDT) Pathologist [facility] HIV 1 & 2 Antibody/Antigen Screen Non Reactive Non Reactive 11/11/2024 7:20 AM EDT [facility] Comment:Screening for HIV 1 & 2 antibodies, and P24 antigen is NONREACTIVE. No confirmatory testing is required. Blood Venous blood specimen / Unknown Venipuncture / Unknown 11/11/2024 6:03 AM EDT 11/11/2024 6:37 AM EDT us Richar B [employer] DO LAB BLOOD ORDERABLES Final R esult Performing Organization Address City/[facility]/ZIP Co de Phone Number [facility] [address] [place] [address] * Hepatitis C Antibody - ED (11/11/2024 6:03 AM EDT) Hepatitis C Antibody Negative Negative 11/11/2024 7:20 AM EDT [facility] Blood Venous blood specimen / Unknown Venipuncture / Unknown 11/11/2024 6:03 AM EDT 11/11/2024 6:37 AM EDT Richar Centeno DO LAB BLOOD ORDERABLES Final R esult [facility] [address] [place] [address] * (ABNORMAL) CMP (11/11/2024 6:03 AM EDT) Pathologist [facility] Glucose, Plasma 121(H) 74 - 99 mg/dL 11/11/2024 6:38 AM EDT [facility] BUN, Plasma 26(H) 8 - 23 mg/dL 11/11/2024 6:38 AM EDT [facility] Creatinine, Plasma 0.84 0.60 - 1.10 mg/dL 11/11/2024 6:38 AM EDT [facility] BUN/Creatinine Ratio 31 11/11/2024 6:38 AM EDT [facility] Sodium, Plasma 139 136 - 145 mmol/L 11/11/2024 6:38 AM EDT [facility] Potassium, Plasma 4.2 3.6 - 4.9 mmol/L 11/11/2024 6:38 AM EDT [facility] Chloride, Plasma 106 97 - 107 mmol/L 11/11/2024 6:38 AM EDT [facility] CO2, Plasma 21(L) 22 - 29 mmol/L 11/11/2024 6:38 AM EDT [facility] Anion Gap 12 6 - 16 mmol/L 11/11/2024 6:38 AM EDT [facility] Total Calcium, Plasma 9.2 8.9 - 10.2 mg/dL 11/11/2024 6:38 AM EDT [facility] Total Protein 6.8 6.3 - 7.9 g/dL 11/11/2024 6:38 AM EDT [facility] Albumin, Plasma 3.7 3.5 - 5.2 g/dL 11/11/2024 6:38 AM EDT [facility] AST, Plasma 28 10 - 35 U/L 11/11/2024 6:38 AM EDT [facility] ALT, Plasma 16 10 - 35 U/L 11/11/2024 6:38 AM EDT [facility] Alkaline Phosphatase, Plasma 73 46 - 142 U/L 11/11/2024 6:38 AM EDT [facility] Total Bilirubin, Plasma 0.6 0.2 - 1.1 mg/dL 11/11/2024 6:38 AM EDT [facility] eGFRcr 74.9 mL/min/1.7 3m*2 11/11/2024 6:38 AM EDT [facility] Comment:Reported eGFRcr in m L/min/1.73m2 is based the CKD-EPI 2020 equation that does not use a race coefficient. Blood Venous blood specimen / Unknown Venipuncture / Unknown 11/11/2024 6:03 AM EDT 11/11/2024 6:15 AM EDT Richar Barrett [employer] LAB BLOOD ORDERABLES Final R esult Performing Organization Address City/[facility]/ZIP Co de Phone Number [facility] [address] [place] [address] * Type and screen (11/11/2024 6:03 AM EDT) ABO/Rh O Positive 11/11/2024 5:14 AM EDT BLOOD BANK Antibody Screen Negative 11/11/2024 5:14 AM EDT BLOOD [facility]ANK Specimen Expiration 11/14/2024 23:59 11/11/2024 5:14 AM EDT BLOOD BANK Blood Venous blood specimen / Unknown Venipuncture / Unknown 11/11/2024 6:03 AM EDT 11/11/2024 6:11 AM EDT Richar Barrett [employer] LAB BLOOD BANK TEST ORDERABL ES Final Result Performing Organization Address City/[facility]/ZIP Co de Phone Number BLOOD BANK [address] [place] [address] * (ABNORMAL) PT-INR (11/11/2024 6:03 AM EDT) Prothrombin Time 15.7(H) 12.0 - 14.3 sec 11/11/2024 6:28 AM EDT [facility] INR 1.3(H) 0.9 - 1.1 11/11/2024 6:28 AM EDT [facility] Blood Venous blood specimen / Unknown Venipuncture / Unknown 11/11/2024 6:03 AM EDT 11/11/2024 6:15 AM EDT Narrative [facility] - 11/11/2024 6:28 AM EDT OPTIMAL INR RANGES FOR PATIENT ON ORAL ANTICOAGULANT THERAPY Prevention of venous thromboembolism INR 2.0 to 3.0 In patients with heart disease: Atrial fibrillation INR 2.0 to 3.0 Valvular heart disease INR 2.0 to 3.0 Tissue heart valves INR 2.0 to 3.0 Mechanical prosthetic valves INR 2.5 to 3.5 Prevention of recurrent WI INR 2.5 to 3.5 Richar Centeno DO LAB BLOOD ORDERABLES Final R esult [facility] [address] [place] [address] * (ABNORMAL) CBC w/diff (11/11/2024 6:03 AM EDT) WBC Count 13.42(H) 3.70 - 10.30 10*3/uL LAB HEMATOLOGY METHOD 11/11/2024 6:18 AM EDT [facility] RBC Count 3.89(L) 3.90 - 5.20 10*6/uL LAB HEMATOLOGY METHOD 11/11/2024 6:18 AM EDT [facility] HGB 11.3 11.2 - 15.7 g/dL LAB HEMATOLOGY METHOD 11/11/2024 6:18 AM EDT [facility] HCT 33.9(L) 34.0 - 45.0 % LAB HEMATOLOGY METHOD 11/11/2024 6:18 AM EDT [facility] Platelet Count 351 155 - 369 10*3/uL LAB HEMATOLOGY METHOD 11/11/2024 6:18 AM EDT [facility] MCV 87 79 - 98 fL LAB HEMATOLOGY METHOD 11/11/2024 6:18 AM EDT [facility] MCH 29.0 26.0 - 32.0 pg LAB HEMATOLOGY METHOD 11/11/2024 6:18 AM EDT [facility] MCHC 33.3 30.7 - 35.5 g/dL LAB HEMATOLOGY METHOD 11/11/2024 6:18 AM EDT [facility] RDW 13.1 11.5 - 14.5 % LAB HEMATOLOGY METHOD 11/11/2024 6:18 AM EDT [facility] MPV 9.3 8.8 - 12.5 fL LAB HEMATOLOGY METHOD 11/11/2024 6:18 AM EDT [facility] nRBC 0.0 <=0.0 per 100 WBCs LAB HEMATOLOGY METHOD 11/11/2024 6:18 AM EDT [facility] Differential Type Automated LAB HEMATOLOGY METHOD 11/11/2024 6:18 AM EDT [facility] Neutrophils % 80 % LAB HEMATOLOGY METHOD 11/11/2024 6:18 AM EDT [facility] Lymphocytes % 11 % LAB HEMATOLOGY METHOD 11/11/2024 6:18 AM EDT [facility] Monocytes % 9 % LAB HEMATOLOGY METHOD 11/11/2024 6:18 AM EDT [facility] Eosinophils % 0 % LAB HEMATOLOGY METHOD 11/11/2024 6:18 AM EDT [facility] Basophils % 0 % LAB HEMATOLOGY METHOD 11/11/2024 6:18 AM EDT [facility] Immature Granulocytes % 0 % LAB HEMATOLOGY METHOD 11/11/2024 6:18 AM EDT [facility] Neutrophils Absolute 10.74(H) 1.60 - 6.10 10*3/uL LAB HEMATOLOGY METHOD 11/11/2024 6:18 AM EDT [facility] Lymphocytes Absolute 1.47 1.20 - 3.90 10*3/uL LAB HEMATOLOGY METHOD 11/11/2024 6:18 AM EDT [facility] Monocytes Absolute 1.16(H) 0.30 - 0.90 10*3/uL LAB HEMATOLOGY METHOD 11/11/2024 6:18 AM EDT [facility] Eosinophils Absolute 0.00 0.00 - 0.50 10*3/uL LAB HEMATOLOGY METHOD 11/11/2024 6:18 AM EDT [facility] Basophils Absolute 0.01 0.00 - 0.10 10*3/uL LAB HEMATOLOGY METHOD 11/11/2024 6:18 AM EDT [facility] Immature Granulocytes Absolute 0.04 0.00 - 0.06 10*3/uL LAB HEMATOLOGY METHOD 11/11/2024 6:18 AM EDT [facility] Blood Venous blood specimen / Unknown Venipuncture / Unknown 11/11/2024 6:03 AM EDT 11/11/2024 6:15 AM EDT Narrative [facility] - 11/11/2024 6:18 AM EDT Therapeutic decision making should be based on absolute values, rather than percentages. us Richar Centeno DO LAB BLOOD ORDERABLES Final R esult [facility] [address] [place] [address] * XR Ankle Right 3+ Views (11/11/2024 [...] signing this report, I, the attending physician, arlene Connor have personally reviewed the images/data for the [...] signing this report, I, the attending physician, nileshat I have personally reviewed the images/data for [...] femur at tip of prosthesis, initial encounter Periprosthetic fracture of femur at tip of [...] Given 11/14/2024 5:00 PM EDT 1,000 mg bethanechol (Urecholine) tablet [...] 1703, Routine, Recovery(Phase II-Outpatient)/On Unit(Inpatient), itching, sleep gabapentin (Neurontin) capsule 100 mg 100 mg, [...] 0900, Last dose on Wed11/16/24 at 2100, RoutineIndications:Methicillin-Resista nt S. Aureus Nasal Colonization Given 11/15/2024 8:23 AM EDT 1 Applicatio n Given 11/14/2024 8:18 PM EDT 1 Application Given 11/14/2024 8:25 AM EDT 1 Application naloxone (Narcan) injection 0.08 mg 0.08 mg, Intravenous, As needed, Starting on 11/11/24 at 1435, Until Wed11/15/24 at 1703, Routine, respiratory depression, every 2 minutes nystatin (Mycostatin) [id number] UNIT/GM powder 1 Application Topical, 2 times [...] Given 11/13/2024 8:31 AM EDT 17 g rivaroxaban (Xarelto) tablet 10 mg 10 mg, [...] Given 11/14/2024 8:25 AM EDT 1 tablet traMADol (Ultram) tablet 100 mg 100 mg, [...] Routine 0509 (Given - Provider: Mary Calvert, ALVA)1131 (Given - Provider: Alejandro Garcia)1700 (Given - Provider: Alejandro Garcia) 0059 (Given - Provider: Lula Harden, ALVA)0619 (Given - Provider: Lula Harden, ALVA)1119 (Given - Provider: Alejandro Garcia)1700 (Given - Provider: Alejandro Garcia) 0044 (Given - Provider: Teresita Holt, ALVA)0602 (Not Given - Provider: Teresita Holt, ALVA - Reason: Patient/family refused)1110 (Given - Provider: Tabatha Carpio) calcium-vitamin D 500-200 MG-UNIT per tablet 1 tablet 1 tablet, Oral, 2 times daily with meals, First dose on 11/12/24 at 2100, Until Discontinued, Routine, Recovery(Phase II-Outpatient)/On Unit(Inpatient) 0831 (Given - Provider: Alejandro Garcia)1659 (Given - Provider: Alejandro Garcia) 0825 (Given - Provider: Alejandro Gracia)1659 (Given - Provider: Alejandro Garcia) 0823 (Given - Provider: Tabatha Carpio) ceFAZolin (Ancef) injection 2 g 2 g, Intravenous, Every 8 hours, 39 doses, First dose (after last modification) on 11/13/24 at 0000, Last dose on 11/25/24 at 1600, Routine, Recovery(Phase II-Outpatient)/On Unit(Inpatient) 0831 (Given - Provider: Alejandro Garcia)1504 (Given - Provider: Alejandro Garcia) 0059 (Given - Provider: Lula Harden, ALVA)0824 (Given - Provider: Alejandro Garcia)1506 (Given - Provider: Alejandro Garcia) 0044 (Given - Provider: Teresita Holt, ALVA)0820 (Given - Provider: Tabatha Carpio)1600 (Canceled Entry - Provider: Automatic Discharge Provider - Comment: Automatically canceled at discontinue of medication order) gabapentin (Neurontin) capsule 100 mg 100 mg, Oral, Every 8 hours, First dose on Wed11/12/24 at 1730, Until Discontinued, Routine, Recovery(Phase II-Outpatient)/On Unit(Inpatient) 0206 (Given - Provider: Mary Calvert RN)0832 (Given - Provider: Alejandro Garcia)1659 (Given - Provider: Alejandro Garcia) 0100 (Given - Provider: Lula Harden, RN)0830 (Given - Provider: Alejandro Garcia)1659 (Given [...] Alejandro Garcia) 0059 (Given - Provider: Lula Harden, ALVA)0619 (Given - Provider: Lula Harden, ALVA)1119 (Given - Provider: Alejandro Garcia) methocarbamol (Robaxin) tablet 500 mg 500 mg, Oral, 4 times daily, First dose on 11/11/24 at 2300, Until Discontinued, Routine, Sign 0832 (Given - Provider: Alejandro Garcia)1313 (Given - Provider: Alejandro Garcia)1700 (Given - Provider: Alejandro Garcia)2022 (Given - Provider: Lula Harden, ALVA) 08 (Given - Provider: Alejandro Garcia)1329 (Given - Provider: Alejandro Garcia)1700 (Given - Provider: Alejandro Garcia)210 (Given - Provider: Teresita Holt, RN) 08 (Given - Provider: Tabatha Carpio)1323 (Given - Provider: Alejandro Garcia) mupirocin (Bactroban) 2 % ointment 1 Application Each Nostril, 2 times daily, 10 doses, First dose on 11/12/24 at 0900, Last dose on Alicja 11/16/24 at 2100, Routine 0832 (Given - Provider: Alejandro Garcia)2021 (Given - Provider: Lula Harden RN) 0825 (Given - Provider: Alejandro Garcia)2017 (Given - Provider: Teresita Holt, ALVA) 0823 (Given - Provider: Tabatha Carpio) nystatin (Mycostatin) [id number] UNIT/GM powder 1 Application Topical, 2 times daily, First dose on 11/11/24 at 2300, Until Discontinued, Routine 0832 (Given - Provider: Alejandro Garcia)2021 (Given - Provider: Lula Harden, ALVA) 0827 (Given - Provider: Alejandro Garcia)2017 (Given - Provider: Teresita Holt, ALVA) 0907 (Given - Provider: Alejandro Garcia) pantoprazole (Protonix) EC tablet 40 mg 40 mg, Oral, Daily before breakfast, First dose on Wed11/13/24 at 0730, Until Discontinued, Routine, Recovery(Phase II-Outpatient)/On Unit(Inpatient) 0637 (Given - Provider: Mary Calvert, ALVA) 0619 (Given - Provider: Lula Harden, ALVA) 0822 (Given - Provider: Tabatha Carpio) polyethylene glycol (Miralax) packet 17 g 17 g, Oral, Daily with breakfast, First dose on 11/13/24 at 0800, Until Discontinued, Routine, Recovery(Phase II-Outpatient)/On Unit(Inpatient) 0831 (Given - Provider: Alejandro Garcia) 0827 (Given - Provider: Alejandro Garcia) 0835 (Not Given - Provider: Tabatha Carpio - Reason: Patient/family refused) rivaroxaban (Xarelto) tablet 10 mg 10 mg, Oral, Daily with breakfast, First dose on 11/13/24 at 0800, Until Discontinued, Routine, Recovery(Phase II-Outpatient)/On Unit(Inpatient) 0832 (Given - Provider: Alejandro Garcia) 0825 (Given - Provider: Alejandro Garcia) 0821 (Given - Provider: Tabatha Carpio) senna-docusate (Audrey-Colace) [...] Alejandro Garcia) 0059 (Given - Provider: Lula Harden, ALVA)0825 (Given - Provider: Alejandro Garcia)1506 (Given - Provider: Alejandro Garcia) 0044 (Given - Provider: Teresita Holt, ALVA)0822 (Given - Provider: Tabatha Carpio)1600 (Canceled Entry [...] documented as of this encounter Care Teams Peanut Picker Relationship Specialty Start Date End Date Virgie Choi APRN [address] [place], [place] [id number] PCP - General 11/11/24 Yany Bruno MD [facility] [address] [phone] Referring Physician 12/04/21 documented as of this encounter
--- OUTSIDE RECORDS SUMMARY | 2024-11-12 13:48 | XMS_ITS | Encounter Summary ---
Author Organization Healthcare Address [address] [place] [address] Care Team Providers Care Tamper Operator Name Role Phone Yany Bruno MD Unavailable [phone] Virgie Choi APRN Primary Care Provider [phone] Reason for Visit * Auth/Cert (Routine) Specialty Diagnoses / Procedures Referred By Contac t Referred To Contact Diagnoses Periprosthetic fracture of femur at tip of prosthesis, initial encounter femur fracture has s/p right knee surgery today Lawrence Weeks MD [address] [facility] [address] [place] [address] Phone: tel: fax: [facility] [address] [place] [phone] Phone: tel: Referral ID Status Reason Start Date Expiration Date Visits Re quested Visits Authorized [id number] 1 1 Encounter Details Date Type Department Care Team (Late st Contact Info) Description 11/12/2024 1:48 PM EDT Anesthesia Event [facility] [address] [place] [phone] Terry Mccrary MD [address] [place] [phone] Celestino Leo MD [address] [place] [address] Anesthesia Record Procedure Summary Procedure Name Responsible Anesthesiologist Anesthesia Start Time Anesthesia Stop Time RIGHT DISTAL FEMUR REPLACEMENT (Right: Knee) Terry Mccrary MD 11/12/24 1348 11/12/24 1642 Events Date Time Event Comment 11/12/2024 1331 1348 An Start The patient was reevaluated immediately before sedation and remains eligible for anesthesia plan. 1349 In Room 1349 An Start Data 1350 Abhishek Asked patient a bout her PCN allergy. She said she wasn't allergic to PCN or any of its derivatives, she doesn't know why it's on her allergy list and asked that it be taken off 1354 An Induction The patient was reevaluated immediately before moderate or deep sedation use and before anesthesia induction. 1357 An Intubation 1400 Anesthesia Ready 1417 An Tourn Inflated Tourniquet inflated to 300 mmHg 1420 Proc Start 1619 An Tourn Deflated 1623 Proc Fin 1625 An Extubation 1628 an stop data 1630 Out of Room 1636 Handoff to Receiving I compl eted my handoff to the receiving clinician during which we: 1. Identified the patient 2. Identified the responsible provider 3. Reviewed the pertinent medical history 4. Discussed the surgical course 5. Reviewed intra-op anesthesia management and issues during anesthesia 6. Set expectations for post-procedure period 7. Allowed opportunity for questions and acknowledgement of understanding. 1642 An Stop Meds Name Total ondansetron (Zofran) injection 2 mg/mL 4 mg dexamethasone (Decadron) injection 4 mg/ mL 4 mg Lidocaine HCl 100 MG/5ML 100 mg ceFAZolin 1 g 4 g phenylephrine (Aries-Synephrine) prefilled syringe 1 mg/10 mL 550 mcg rocuronium (ZeMuron) injection 10 mg/mL 70 mg fentaNYL (Sublimaze) injection 50 mcg/mL 250 mcg midazolam (Versed) injection 1 mg/mL 2 m g propofol (Diprivan) injection 10 mg/mL 1 20 mg HYDROmorphone PF (Dilaudid) injection 1 mg/mL 1 mg sugammadex (Bridion) injection 100 mg/mL 300 mg ketamine (Ketalar) injection 10 mg/mL 50 mg vancomycin (Vancocin) 1,750 mg in sodium chloride 0.9 % 250 mL 1,750 mg lactated Ringer's infusion 800 mL * Agents Name O2 N2O Air Sevoflurane Isoflurane Desflurane Inspired Desflurane Inspired Isoflurane Inspired Sevoflurane N2O Inspired N2O * Blood No blood administrations on file. Lines, Drains, and Airways Type Details Placement Removal Closed/Suction Drain 11/12/24; Yes; 1; Right; Knee; Accordion; 15 Fr. 11/12/24 0000 by Seun Junior, RN Negative Pressure Wound Therapy 11/12/24; Prem Griffin MD; Yes; Knee; Anterior, Right 11/12/24 0000 by Seun Junior, lumpia wrapper maker 11/12/24; 0549; Y; Yes; Traumatic; Knee; Anterior, Right; incision covered with op site 11/12/24 0549 by Natalie Phelan RN Wound 11/12/24; 1420; N; Yes; Surgical; Open Surg; Knee; Anterior, Right 11/12/24 1420 by Renuka Nino RN Peripheral IV Placement Date: 11/11/24; Placement Time: 0330; Existing LDA Placed by: Outside Facility; Catheter Size: 20 G; Orientation: Left; Location: Antecubital; Removal Date: 11/15/24; Removal Time: 1242; Removal Reason: Discharge 11/11/24 0330 by Jana Grant 11/15/24 1242 by Tabatha Carpio RN ETT Placement Date: 11/12/24; Placement Time: 1357 (created via procedure documentation); Mask Ventilation: 2; Technique: Direct laryngoscopy; Type: ETT - single; Single Lumen Tube Size: 7 mm; Cuffed: Yes; Laryngoscope: Nallely; Blade Size: 3; Location: Oral; Grade View: Grade I; Insertion Attempts: 1; Placement Verification: Auscultation, Capnometry; Airway Comments: Atraumatic. No change to dentition; Placed by: Resident ; Removal Date: 11/12/24; Removal Time: 1625 11/12/24 1357 by Ike Bowser DO 11/12/24 1625 by Ike Bowser DO Peripheral IV Placement Date: 11/12/24; Placement Time: 1359 (created via procedure documentation); Catheter Size: 16 G; Orientation: Right; Location: Forearm; Local Anesth: None; Technique: Anatomical landmarks; Inserted by: Celestino Leo MD; Removal Date: 11/12/24; Removal Time: 2030; Removal Reason: Leaking 11/12/24 1359 by Ike Bowser DO 11/12/24 2030 by Mary Calvert RN documented in this encounter Social History Tobacco [...] on file documented as of this encounter Functional Status * Calculated C-SSRS Risk Score (Lifetime/Recent) Answer Date of Assessment Author No Risk Indicated 11/12/2024 9:03 AM EDT Helen Cannon RN * Question Answer Date of Assessment Author 1. Wish to be (Past 1 Month) No 025 9:03 AM EDT Helen Cannon, ALVA 2. Non-Specific Active Suici clay Thoughts (Past 1 Month) No 11/12/2024 9:03 AM EDT Helen Cannon, ALVA 6. Suicidal Behavior (Lifetime) No 9:03 AM EDT Helen Cannon RN documented as of this encounter Miscellaneous Notes * Anesthesia Postprocedure Evaluation - Terry Mccrary MD - 11/12/2024 4:42 PM EDT Patient: Dariana Howe Anesthesia Type: general Vitals Value Taken Time BP 134/76 11/12/24 16:35 Temp 97.9 11/12/24 16:42 Pulse 87 11/12/24 16:40 Resp 18 11/12/24 16:40 SpO2 98 % 11/12/24 16:40 Vitals shown include unfiled device data. Anesthesia Post Evaluation Patient location during evaluation: PACU Patient participation: complete - patient participated Level of consciousness: awake Pain management: adequate (pain score 0-3) Airway patency: natural airway Cardiovascular status: acceptable and hemodynamically stable Respiratory status: acceptable, nonlabored ventilation, face mask, spontaneous ventilation and unassisted Hydration status: acceptable Nausea/Vomiting: No No notable events documented. * Anesthesia Procedure Notes - Ike Bowser DO - 11/12/2024 2:15 PM EDT Associated Order(s): Peripheral IV Peripheral IV Date/Time: 11/12/2024 1:59 PM Inserted by: Celestino Leo MD Placement Needle size: 16 G Location: forearm Local anesthetic: none Site prep: alcohol Technique: anatomical landmarks Cosigned by Terry Mccrary MD at 11/12/2024 3:12 PM EDT Associated attestation - Terry Mccrary MD - 11/12/2024 3:12 PM EDT I was present during all critical and reid portions of the procedure(s) and immediately available [facility] services the entire duration. See resident note for details. * Anesthesia Procedure Notes - Ike Bowser DO - 11/12/2024 2:14 PM EDT Associated Order(s): Airway Airway Date/Time: 11/12/2024 1:57 PM Reason: elective Airway not difficult General Information and Staff Patient location during procedure: [place] Anesthesiologist: Terry Mccrary MD Resident: Ike Bowser DO Performed: Resident Patient Condition Indications for airway management: anesthesia Patient position: sniffing Final Airway Details Final airway type: endotracheal airway Successful airway: ETT Cuffed: yes Successful intubation technique: direct laryngoscopy Adjuncts used in placement: intubating stylet and cricoid pressure Endotracheal tube insertion site: oral Blade: Nallely Blade size: #3 ETT size (mm): 7.0 Cormack-Lehane Classification: grade I - full view of glottis Placement verified by: chest auscultation and capnometry Measured from: teeth ETT to teeth (cm): 22 Additional Comments Atraumatic. No change to dentition Cosigned by Terry Mccrary MD at 11/12/2024 3:08 PM EDT Associated attestation - Terry Mccrary MD - 11/12/2024 3:08 PM EDT I was present during all critical and reid portions of the procedure(s) and immediately available [facility] services the entire duration. See resident note for details. * Anesthesia Preprocedure Evaluation - Terry Mccrary MD - 11/12/2024 1:30 PM EDT Images from the original note were not included. No anesthesia staff entered. Patient: Dariana Howe is a 69 y.o. female with body mass index is 50.39 kg/m??. who presents with Periprosthetic fracture of femur at tip of prosthesis, initial encounter, now for RIGHT DISTAL FEMUR REPLACEMENT (Right) Procedure Information Date/Time: 11/12/24 1220 Procedure: RIGHT DISTAL FEMUR REPLACEMENT (Right: Knee) - Supine, DeMayo, same set up as a total knee, Viktoria distal femur implants. Location: [address] Surgeons: Prem Kohler MD Department of Anesthesiology Perioperative Critical Care and Pain Medicine Patient Information Patient Name: Dariana Howe Date of : 1955 Subjective: Dariana Howe is a 69 y.o. female presenting for right femur replacement. PMH: HTN Endometrial cancer s/p hysterectomy LE edema on HCTZ NPO Status: since midnight Anesthetic history: no issues with prior GA Past Medical History: has a past medical history of Arthritis, COVID-19, History of abnormal uterine bleeding, and Hypertension. She has no past medical history of Malignant hyperthermia, PONV (postoperative nausea and vomiting), or Pseudocholinesterase deficiency. Relevant Problems Cardio (+) HTN (hypertension) Neuro/Psych (+) Status post hysterectomy Other (+) Arthritis Past Surgical History: has a past surgical history that includes Tubal ligation (1989); Dilation and curettage of uterus (12/02/2021); Hysterectomy (2021); Other surgical history; and Replacement total knee oncologic (Right). Allergies: Codeine, Penicillins, and Sulfa drugs Medications: Current Outpatient Medications Medication Instructions acetaminophen (TYLENOL) 1,000 mg, Oral, Every 8 hours COLLAGEN PO 2 Chewable tablet, Daily diclofenac (VOLTAREN) 75 mg, ZZ 2 times daily RT hydroCHLOROthiazide (HYDRODIURIL) 25 mg, Daily Multiple Vitamin (multivitamin) tablet 1 tablet, Daily Social History: reports that she has never smoked. She has never used smokeless tobacco. She reports that she does not drink alcohol and does not use drugs. Tobacco: Tobacco Use: Low Risk (11/12/2024) Patient History Smoking Tobacco Use: Never Smokeless Tobacco Use: Never Passive Exposure: Not on file Alcohol: Alcohol Use: Not on file Illicit drug use: Social History Substance and Sexual Activity Drug Use Never Family History: family history is not on file. Objective: WEIGHT: Wt Readings from Last 2 Encounters: 11/12/24 117 kg (258 lb) 03/01/24 126 kg (276 lb 10.8 oz) [place] Body Weight: [place] body weight: 45.5 kg (100 lb 4.9 oz) Adjusted ideal body weight: 74.1 kg (163 lb 6.2 oz) BMI: Body mass index is 50.39 kg/m??. Body surface area is 2.23 meters squared. Vital signs: 11/11/2024 7:52 PM 11/11/2024 11:05 PM 11/12/2024 3:23 AM 11/12/2024 5:50 AM 11/12/2024 8:12 AM 11/12/2024 12:33 PM 11/12/2024 1:20 PM Vitals Systolic 130 131 136 148 135 131 140 Diastolic 77 81 86 74 87 85 75 Heart Rate 94 91 86 75 82 82 87 Temp 36.7 C 36.4 C 36.4 C 36.3 C 36.7 C 36.8 C 36.9 C Resp 16 16 16 Height (cm) 152.4 cm Weight (kg) 117.028 kg BMI 50.39 kg/m2 BSA (m2) 2.23 m2 LABORATORIES AND STUDIES: Lab Results Component Value Date WBC 14.38 (H) 11/12/2024 RBC 3.69 (L) 11/12/2024 HGB 10.9 (L) 11/12/2024 HCT 32.9 (L) 11/12/2024 MCV 89 11/12/2024 MCHC 33.1 11/12/2024 RDW 13.1 11/12/2024 PLT 307 11/12/2024 MPV 9.3 11/12/2024 Lab Results Component Value Date BUN 35 (H) 11/12/2024 CL 105 11/12/2024 NA 137 11/12/2024 K 4.6 11/12/2024 TP 6.8 11/11/2024 AST 28 11/11/2024 ALT 16 11/11/2024 No results found for: PREALBUMIN No results found for: CEA Imaging: Encounter Date: 11/11/24 ECG Adult Result Value EKG DIAGNOSIS CLASS Normal Ventricular Rate 73 Atrial Rate 73 IL Interval 124 QRSD Interval 88 QT Interval 372 QTC Interval 409 P [place] 30 R [place] 54 T Wave [place] 49 Diagnosis Normal sinus rhythm Diagnosis Normal ECG Diagnosis Diagnosis Confirmed by Qamar Randall ([id number]) on 11/11/2024 4:42:59 PM *Note: Due to a large number of results and/or encounters for the requested time period, some results have not been displayed. A complete set of results can be found in Results Review. No echocardiogram results found for the past 12 months Anesthesia Related Medical History: Relevant Problems Cardio (+) HTN (hypertension) Neuro/Psych (+) Status post hysterectomy Other (+) Arthritis ALLERGIES Allergies[1] NPO STATUS Date of Last Liquid: 11/11/24 Time of Last Liquid: 1900 Date of Last Solid: 11/11/24 Time of Last Solid: 1900 Time of Last Void: 0500 Past Medical History[2] AIRWAY HISTORY Airway Detailed Review Displaying the 20 most recent records Date Difficult Airway Blade Size ETT Size C-L Class Final Type Intubation Method 02/02/22 No 3 7.0 grade I - full view of glottis endotracheal airway direct laryngoscopy 01/15/22 No MEDICATIONS Outpatient Current Outpatient Medications Medication Instructions acetaminophen (TYLENOL) 1,000 mg, Oral, Every 8 hours COLLAGEN PO 2 Chewable tablet, Daily diclofenac (VOLTAREN) 75 mg, ZZ 2 times daily RT hydroCHLOROthiazide (HYDRODIURIL) 25 mg, Daily Multiple Vitamin (multivitamin) tablet 1 tablet, Daily Scheduled Current Scheduled Medications[3] PRNs Current PRN Medications[4] SURGICAL HX: Surgical History[5] SOCIAL HX: Social History[6] OBJECTIVE DATA LABS Lab Results Component Value Date WBC 14.38 (H) 11/12/2024 HGB 10.9 (L) 11/12/2024 HCT 32.9 (L) 11/12/2024 MCV 89 11/12/2024 PLT 307 11/12/2024 Lab Results Component Value Date CALCIUM 8.9 11/12/2024 BUN 35 (H) 11/12/2024 CREATININE 1.13 (H) 11/12/2024 BCR 31 11/12/2024 NA 137 11/12/2024 K 4.6 11/12/2024 CL 105 11/12/2024 CO2 19 (L) 11/12/2024 Type and Screen ABO/Rh Date Value Ref Range Status 11/11/2024 O Positive Final Results from last 7 days Lab Units 11/12/24 0113 INR 1.3* Lab Results Component Value Date HGBA1C 5.5 11/11/2024 Lab Results Component Value Date GLUCOSE 97 11/12/2024 ABG No results found for: PHART , UIL1QBN , PO2ART , SO2ART , BEART , OGP7BYZ , HCTART , SODIUMART , POTASSIUMART , POCTCL , POCGLU , IONCALART , LACTATE Lab Results Component Value Date CAION 4.6 02/03/2022 ECHO No echocardiogram results found for the past 12 months PFTs No results found for: UKO6TCA , DAP3SKBD , TIG5SOW , FVCPRED BP Readings from Last 5 Encounters: 11/12/24 (!) 140/75 11/10/24 116/56 03/01/24 (!) 152/82 08/25/23 (!) 147/90 03/03/23 (!) 149/81 Physical Exam Airway Mallampati: I Mouth opening: normal TM distance: >3 FB Cardiovascular Rhythm: regular Rate: normal (-) murmur Dental Pulmonary Breath sounds clear to auscultation Neurological Skin Musculoskeletal Extremities Anesthesia Plan ASA 3 Plan was reviewed with: MATERNAL FETAL PHYSICIAN and attending Anesthesia technique(s) discussed with the patient/family: general Anesthesia plan agreed upon was: general Anesthetic plan and risks discussed with patient. Use of blood products discussed with who consented to blood products. Anesthesia Evaluation [1] Allergies Allergen Reactions Codeine Palpitations Penicillins Rash Sulfa Drugs Rash [2] Past Medical History: Diagnosis Date Arthritis COVID-19 diagnosed 01/15/22, symptoms included body aches, nasal congestion, mild chest congestion, loss of taste and smell. patient states symptoms lasted 3 days. History of abnormal uterine bleeding Hypertension [3] acetaminophen, 1,000 mg, Oral, q6h ELIAZAR [Held by provider] enoxaparin, 0.5 mg/kg, Subcutaneous, BID ibuprofen, 400 mg, Oral, q6h methocarbamol, 500 mg, Oral, 4x daily mupirocin, 1 Application, Each Nostril, BID nystatin, 1 Application, Topical, BID polyethylene glycol, 17 g, Oral, Daily senna-docusate, 1 tablet, Oral, BID [4] PRN medications: bisacodyl, magnesium hydroxide, naloxone, oxyCODONE OR oxyCODONE [5] Past Surgical History: Procedure Laterality Date DILATION AND CURETTAGE OF UTERUS 12/02/2021 HYSTERECTOMY 2021 OTHER SURGICAL HISTORY REPLACEMENT TOTAL KNEE ONCOLOGIC Right TUBAL LIGATION 1989 [6] Social History Tobacco Use Smoking status: Never Smokeless tobacco: Never Vaping Use Vaping status: Never Used Substance Use Topics Alcohol use: Never Drug use: Never documented in this encounter Plan of Treatment Upcoming Encounters Date Type Department Care Team ([facility] st Contact Info) Description 12/26/2024 11:20 AM EDT Office Visit Medical Office Building [facility] [address] [facility] [address], [address] [place] [address] Prem Kohler MD [address] [place] [address] 02/06/2025 1:40 PM EST Office Visit Medical Office Building [facility] [address], [address] [place] [address] Prem Kohler MD [address] [place] [address] 03/09/2025 12:30 PM EST Office Visit [facility] [address] [place] [address] Natanael, Joanne S, MANAGER OF LEARNING [address] [place] [address] documented as of this encounter Procedures Procedure Name Priority Date/Time Associated Diagnosis Comments ANESTHESIA PERIPHERAL IV PLACEMENT Routine 11/12/2024 1:59 PM EDT PB ANESTHESIA PLACEHOLDER Routine 11/12/2024 1:57 PM EDT IL AN ELECTIVE ENDOTRACHEAL AIRWAY Routine 11/12/2024 1:57 PM EDT documented in this encounter Results * Peripheral IV (11/12/2024 1:59 PM EDT) Narrative Terry Mccrary MD - 11/12/2024 1:59 PM EDT Terry Mccrary MD 11/12/2024 3:12 PM Peripheral IV Date/Time: 11/12/2024 1:59 PM Inserted by: Celestino Leo MD Placement Needle size: 16 G Location: forearm Local anesthetic: none Site prep: alcohol Technique: anatomical landmarks Terry Mccrary MD ANESTHESIA ORDERABLES Final Resu lt * IL AN ELECTIVE ENDOTRACHEAL AIRWAY, PB ANESTHESIA PLACEHOLDER (11/12/2024 1:57 PM EDT) Terry Crowe MD - 11/12/2024 1:57 PM EDT Terry Mccrary MD 11/12/2024 3:08 PM Airway Date/Time: 11/12/2024 1:57 PM Reason: elective Airway not difficult General Information and Staff Patient location during procedure: OR Anesthesiologist: Terry Mccrary MD Resident: Ike Bowser DO Performed: Resident Patient Condition Indications for airway management: anesthesia Patient position: sniffing Final Airway Details Final airway type: endotracheal airway Successful airway: ETT Cuffed: yes Successful intubation technique: direct laryngoscopy Adjuncts used in placement: intubating stylet and cricoid pressure Endotracheal tube insertion site: oral Blade: Nallely Blade size: #3 ETT size (mm): 7.0 Cormack-Lehane Classification: grade I - full view of glottis Placement verified by: chest auscultation and capnometry Measured from: teeth ETT to teeth (cm): 22 Additional Comments Atraumatic. No change to dentition Terry Mccrary MD ANESTHESIA ORDERABLES Final Resu lt documented in this encounter Visit Diagnoses Not on filedocumented in this encounter Administered Medications Inactive Administered Medications - up to 3 most recent administrations Medication Order MAR Action Action Date Dose Rate Site ceFAZolin (Ancef) injection Intravenous, As needed, Starting on 11/12/24 at 1415, Until 11/12/24 at 1642, Routine, Anesthesia Intraprocedure Given 11/12/2024 4:13 PM EDT 2 g Given 11/12/2024 2:15 PM EDT 2 g dexamethasone (Decadron) injection Intravenous, As needed, Starting on 11/12/24 at 1417, Until 11/12/24 at 1642, Routine, Anesthesia Intraprocedure Given 11/12/2024 2:17 PM EDT 4 mg fentaNYL (Sublimaze) injection Intravenous, As needed, Starting on 11/12/24 at 1354, Until 11/12/24 at 1642, Routine, Anesthesia Intraprocedure Given 11/12/2024 2:27 PM EDT 150 mcg Given 11/12/2024 1:54 PM EDT 100 mcg HYDROmorphone PF (Dilaudid) injection Intravenous, As needed, Starting on 11/12/24 at 1531, Until 11/12/24 at 1642, Routine, Anesthesia Intraprocedure Given 11/12/2024 3:31 PM EDT 1 m g ketamine (Ketalar) injection Intravenous, As needed, Starting on 11/12/24 at 1429, Until 11/12/24 at 1642, Routine, Anesthesia Intraprocedure Given 11/12/2024 2:29 PM EDT 50 mg lactated Ringer's infusion Intravenous, Continuous PRN, Starting on 11/12/24 at 1348, Until 11/12/24 at 1642, Routine New Bag 11/12/2024 1:48 PM EDT Lidocaine HCl prefilled syringe Buccal, As needed, Starting on 11/12/24 at 1354, Anesthesia Intraprocedure Given 11/12/2024 1:54 PM EDT 100 mg midazolam (Versed) injection Intravenous, As needed, Starting on 11/12/24 at 1350, Until 11/12/24 at 1642, Routine, Anesthesia Intraprocedure Given 11/12/2024 1:50 PM EDT 2 m g ondansetron (Zofran) injection Intravenous, As needed, Starting on 11/12/24 at 1531, Until 11/12/24 at 1642, Routine, Anesthesia Intraprocedure Given 11/12/2024 3:31 PM EDT 4 m g phenylephrine in NS (Aries-Synephrine) 100 mcg/mL prefilled syringe Intravenous, As needed, Starting on 11/12/24 at 1354, Until 11/12/24 at 1642, Routine, Anesthesia Intraprocedure Given 11/12/2024 3:53 PM EDT 200 mcg Given 11/12/2024 3:41 PM EDT 100 mcg Given 11/12/2024 2:33 PM EDT 200 mcg propofol (Diprivan) injection Intravenous, As needed, Starting on 11/12/24 at 1354, Until 11/12/24 at 1642, Routine, Anesthesia Intraprocedure Given 11/12/2024 2:43 PM EDT 20 mg Given 11/12/2024 1:54 PM EDT 100 mg rocuronium (ZeMuron) injection Intravenous, As needed, Starting on 11/12/24 at 1354, Until 11/12/24 at 1642, Routine, Anesthesia Intraprocedure Given 11/12/2024 1:54 PM EDT 70 mg sugammadex (Bridion) 100 MG/ML injection Intravenous, As needed, Starting on 11/12/24 at 1612, Until 11/12/24 at 1642, Routine, Anesthesia Intraprocedure Given 11/12/2024 4:12 PM EDT 300 mg vancomycin (Vancocin) 1,750 mg in sodium chloride 0.9 % 250 mL 1,750 mg (rounded from 1,755 mg = 15 mg/kg 117 kg), Intravenous, Once, 1 dose, On 11/12/24 at 1500, at 167.1 mL/hr, Routine New Bag 11/12/2024 2:55 PM EDT 1,750 mg documented in this encounter Additional Health Concerns Assessment Noted Time A fall risk assessment has been complete d for the patient 03/01/2024 1:36 PM EST A Body Mass Index follow-up plan has been documented for the patient 11/15/2024 11:09 AM EDT documented as of this encounter Care Teams Tamper Operator Relationship Specialty Start Date End Date Virgie Choi APRN [address] [place] [id number] PCP - General 11/11/24 Yany Bruno MD [address] [place] [address] [phone] Referring Physician 12/04/21 documented as of this encounter
--- OUTSIDE RECORDS SUMMARY | 2024-11-28 10:40 | XMS_ITS | Encounter Summary ---
Author Organization Healthcare Address [address] [place] [address] Care Team Providers Care Physical Therapy Attendant Name Role Phone Yany Bruno MD Unavailable [phone] Virgie Choi APRN Primary Care Provider [phone] Reason for Visit * Reason Comments Follow-up * Consultation (Routine) - Closed Specialty Diagnoses / Procedures Referred By Contac t Referred To Contact Orthopaedic Surgery Diagnoses Periprosthetic fracture of femur at tip of prosthesis, initial encounter Lawrence Weeks MD [address] [facility] [address] [place] [address] Phone: tel: fax: [facility] [address] [place] [address] Phone: tel: fax: Referral ID Status Reason Start Date Expiration Date V isits Requested Visits Authorized [id number] Closed Specialty Services Required 11/15/2024 05/17/2026 1 1 Encounter Details Date Type Department Care Team (Late st Contact Info) Description 11/28/2024 10:40 AM EDT Office Visit Medical Office Building [facility] [address], [address] [place] [address] Prem Kohler MD [address] [facility] [address] [place] [address] History of right knee joint replacement (Primary Dx) Social History Tobacco Use Types Packs/Day Years [...] and Family Not on file 11/14/2024 Attends [employer] Services Not on file 11/14 Active Member [...] any time in the past 12 m [facility], were you homeless or living in a chcf (including now)? No 11/14/2024 [facility] Utilities Answer Date Recorded In the past [...] Sign Reading Time Taken Comments Blood Pressure 88/61 11/28/2024 10:44 AM EDT Pulse 82 11/28/2024 10:44 AM EDT Temperature - - Respiratory Rate - - Oxygen Saturation 100% 11/28/2024 10:44 AM EDT Inhaled Oxygen Concentration - - Weight 117 kg (258 lb) 11/28/2024 10:44 AM EDT Height 152.4 cm (5') 11/28/2024 10:44 AM EDT Body Mass Index 50.39 11/28/2024 10:44 AM EDT documented in this encounter Miscellaneous Notes * Progress Notes - Andrew Pablo MD - 11/28/2024 10:40 AM EDT Orthopedic surgery reconstruction postoperative note. Status post right distal femoral replacement for periprosthetic fracture Date of surgery: 11/12/2024 Patient presents 2 weeks postoperative from mentioned procedure. Overall Doing well. Discharged from the hospital to a nursing facility where she continues to reside. She states she is not ambulatingat this time. She is able to do parallel bars with the assistance. She is wearing a knee immobilizer. States the wound VAC came off shortly after arrival to the facility in the replaced it with an Aquacel. No fevers, chills, sweats. No drainage. On examination of the patient's right lower extremity incision is well approximated. Woodridge in place. Patient motion deferred. Distally motor and sensory intact. No vascular compromise. Assessment and plan patient is 2 weeks postoperative from mentioned procedure. She is doing well. He is working with therapy at her nursing facility. Recommended continued work for mobilization. We will remove every other staple today, follow up in 2 weeks for completion of staple removal with radiographs of the right knee. Andrew Pablo MD Cosigned by Prem Kohler MD at 11/28/2024 11:23 AM EDT Associated attestation - Prem Kohler MD - 11/28/2024 11:23 AM EDT I saw and evaluated the [...] Joint [address], [address] [place] [address] Prem Kohler MD [address] [place] [address] 02/06/2025 1:40 PM EST Office Visit Medical Office Building Surgery Sp[facility] [address], [address] [place] [address] Prem Kohler MD [address] [place] [id number] 03/09/2025 12:30 PM EST Office Visit [facility] [address] [place] [address] Joanne Santoyo, DIET CLERK [address] [facility] [address] [place] [phone] documented as of this encounter Visit Diagnoses Diagnosis History of right knee joint replacement- Primary documented in this encounter Additional Health Concerns Assessment Noted Time A fall risk assessment has been complete d for the patient 03/01/2024 1:36 PM EST A Body Mass Index follow-up plan has been documented for the patient 11/28/2024 11:23 AM EDT documented as of this encounter Care Teams Physical Therapy Attendant Relationship Specialty Start Date End Date Virgie Choi APRN [address] [place] [id number] PCP - General 11/11/24 Yany Bruno MD [address] [place] [address] Referring Physician 12/04/21 documented as of this encounter
--- OUTSIDE RECORDS SUMMARY | 2024-12-12 12:00 | XMS_ITS | Encounter Summary ---
Author Organization Healthcare Address [address] [place] [id number] Care Team Providers Care Ap Processor Name Role Phone Yany Bruno MD Unavailable [phone] Virgie Choi APRN Primary Care Provider [phone] Reason for Visit * Reason Comments Follow-up Encounter Details Date Type Department Care Team ([facility] st Contact Info) Description 12/12/2024 12:00 PM EDT Office Visit Medical Office Building Surgery [facility] [address], [address] [place] [address] Prem Kohler MD [address] [place] [address] History of right knee joint replacement (Primary Dx) Social History Tobacco Use Types Packs/Day Years Used Date Smoking Tobacco: Never Passive Smoke Exposure: Never Smokeless Tobacco: Never Tobacco Cessation:Counseling Given: No Alcohol Use Standard Drinks/Week Comments Never 0 [...] and Family Not on file 11/14/2024 Attends [employer] Services Not on file 11/14 Active Member [...] any time in the past 12 m [facility], were you homeless or living in a halfway (including now)? No 11/14/2024 [facility] Utilities Answer Date Recorded In the past 12 months has th e electric, gas, oil, or water [employer] threatened to shut off services in your [...] Sign Reading Time Taken Comments Blood Pressure 108/74 12/12/2024 11:28 AM EDT Pulse 74 12/12/2024 11:28 AM EDT Temperature - - Respiratory Rate 18 12/12/2024 11:28 AM EDT Oxygen Saturation 98% 12/12/2024 11:28 AM EDT Inhaled Oxygen Concentration - - Weight 117 kg (257 lb 15 oz) 12/12/2024 11:28 AM EDT Height 152.4 cm (5') 12/12/2024 11:28 AM EDT Body Mass Index 50.38 12/12/2024 11:28 AM EDT documented in this encounter Miscellaneous Notes * Progress Notes - Prem Kohler MD - 12/12/2024 12:00 PM EDT Patient returns for follow-up of her right knee are wound is healing well there has been no significant drainage on evaluation the lurdes are in good position there is an eschar over the medial aspect of the wound that is healing well we will remove her lurdes today and placed Steri-Strips she will continue with her physical therapy and follow up in 6 weeks with repeat x-rays on today's eval she had no calf pain distal circulation motor and sensation are intact documented in this encounter Plan of Treatment Upcoming Encounters Date Type Department Care Team ([facility] st Contact Info) Description 12/26/2024 11:20 AM EDT Office Visit Medical Office Building Surgery [facility] [address] [facility], [address] [place] [address] Prem Kohler MD [address] [place] [address] 02/06/2025 1:40 PM EST Office Visit Medical Office Building [facility] [address], [address] [place] [address] Prem Kohler MD [address] [place] [address] 03/09/2025 12:30 PM EST Office Visit [facility] [address] [place] [address] Joanne Santoyo, MANAGER FASHION [address] [place] [address] documented as of this encounter Visit Diagnoses Diagnosis History of right knee joint replacement- Primary documented in this encounter Additional Health Concerns Assessment Noted Time A fall risk assessment has been complete d for the patient 12/12/2024 11:28 AM EDT A Body Mass Index follow-up plan has been documented for the patient 12/12/2024 12:25 PM EDT documented as of this encounter Care Teams Ap Processor Relationship Specialty Start Date End Date JimboVirgie pollard APRN [address] [place] [address] PCP - General 11/11/24 Yany Bruno MD [address] [place] [address] Referring Physician 12/04/21 documented as of this encounter
--- OUTSIDE RECORDS SUMMARY | 2024-12-14 10:30 | XMS_ITS | Encounter Summary ---
Author Organization Healthcare Address [address] [place] [address] Care Team Providers Care Track Superintendent Name Role Phone Yany Bruno MD Unavailable [phone] Virgie Choi APRN Primary Care Provider [phone] Reason for Referral * Consultation (Routine) - Closed Specialty Diagnoses / Procedures Referred By Contac t Referred To Contact Orthopaedic Surgery Diagnoses Periprosthetic fracture of femur at tip of prosthesis, initial encounter Prem Kohler MD [address] [place] [phone] Phone: tel: fax: Prem Kohler MD [address] [place] [phone] Phone: tel: fax: Referral ID Status Reason Start Date Expiration Date Visits Re quested Visits Authorized [id number] Closed 12/14/2024 06/15/2026 1 1 Scheduling Instructions R patella dl iso prior R DFR (POD 11/12) Reason for Visit * Reason Comments Post-op Problem Encounter Details Date Type Department Care Team ([facility] Contact Info) Description 12/14/2024 10:30 AM EDT - 12/14/2024 8:27 PM EDT Emergency [facility] Emergency [facility] [address] [place] [address] Dylan Hernandez MD [address] [place] [address] Yoli Erickson MD [address] [place] [address] Dislocation of right patella, initial encounter (Primary Dx); Periprosthetic fracture of femur at tip of prosthesis, initial encounter Discharge Disposition: Home or Self Care Social History Tobacco Use Types Packs/Day Years Used Date Smoking Tobacco: Never Passive Smoke Exposure: Never Smokeless Tobacco: Never Alcohol Use Standard [...] and Family Not on file 11/14/2024 Attends [employer] Not on file 11/14 Active Member [...] any time in the past 12 m [facility], were you homeless or living in a alf (including now)? No 11/14/2024 [facility] Utilities Answer Date Recorded In the [...] Sign Reading Time Taken Comments Blood Pressure 110/74 12/14/2024 5:46 PM EDT Pulse 80 12/14/2024 5:46 PM EDT Temperature 36.7 C (98 F) 12/14/2024 5:46 PM EDT Respiratory Rate 18 12/14/2024 5:46 PM EDT Oxygen Saturation 100% 12/14/2024 5:46 PM EDT Inhaled Oxygen Concentration - - Weight - - Height - - Body Mass Index - - documented in this encounter Functional Status * Calculated C-SSRS Risk Score (Lifetime/Recent) Answer Date of Assessment Author No Risk Indicated 12/14/2024 10:45 AM EDT Bernadette Dumas RN * Question Answer Date of Assessment Author 1. Wish to be (Past 1 Month) No 025 10:45 AM EDT Bernadette Dumas RN 2. Non-Specific Active Suici clay Thoughts (Past 1 Month) No 12/14/2024 10:45 AM EDT Bernadette Dumas RN 6. Suicidal Behavior (Lifetime) No 10:45 AM EDT Bernadette Dumas RN documented as of this encounter Discharge Instructions * Discharge Instructions* Evi Hicks MD - 12/14/2024 6:13 PM EDT Weightbearing as tolerated in locked in extension TROM brace Recommend dry dressings about the incision site, change frequently as it is not ideal to have moistdressings about the skin Patient to be contacted regarding Orthopedic Surgery follow up appointment Return as needed for any new or worsening symptoms. documented in this encounter Medications at Time of Discharge [...] use prior to oxycodone or hydromorphone). 11/15/2024 documented as of this encounter Miscellaneous Notes * Consults - Julio Cesar Pickett PA - 12/14/2024 3:34 PM EDTAssociated Order(s): IP CONSULT TO ORTHOPAEDICS Orthopaedic Trauma Surgery Consult Time Consulted: 1430 Time of Patient Evaluation: 1445 Chief Complaint: Right knee instability HPI: Dariana Howe is a 69 y.o. female with PMHx significant for past medical history of obesity, hypertension, recent endometrial cancer (status post hysterectomy), right DFR with Dr. Kohler on 11/12 after TKA at [facility] presents to ED today due to right knee instability and increased drainage about surgical site. Patient states that 2 weeks ago she was seen in the office in which knee immobilizer was removed. Patient states that she has been working with physical therapy since then and was seen most recently on Wednesday in which lurdes are noted from her incision. Patient states that on Wednesday evening she noticed some instability about her right knee in which she felt like her knee w as giving out on her while she was trying to transfer. Patient states that 1 day ago she started noticing increased thin blood-tinged drainage from the incision site. Orthopedics was consulted as shehas been operative. Upon exam, patient denies purulent drainage, fevers, chills. Denies pain. States that she is not able to bear weight about the right lower extremity starting 1 day ago due to instability. Denies falls or trauma. Past Medical History: Past Medical History[1] Medications Ordered Prior to Encounter[2] Past Surgical History: Surgical History[3] Allergies: Allergies[4] Family History: Reviewed and found to be non contributory to HPI/ml Family or Personal History of DVT/PE: denies MRSA history: denies Metal Allergies: denies Tobacco: denies Alcohol: denies Illicit substance use: denies Lives in [place], [place] Occupation/Employment: retired Ambulation: with a walker Visit Vitals BP (!) 151/85 (BP Location: Right arm, Patient Position: Lying) Pulse 76 Temp 36.6 ??C (97.9 ??F) (Oral) SpO2 100% ROS: A 14 point review of systems was conducted and was negative except aforementioned in the HPI, and if present the following systems listed below Physical Exam: General: NAD. Speech is easily understandable Psych: Appropriate mood and affect Eyes: EOMI, sclera anicteric HENMT: NCAT, mmm GI: No obvious organomegaly Resp: Good effort CV: No lymphedema, peripheral perfusion intact, pulses as below Skin: No grossly palpable masses, rashes, or lesions are noted except those specifically mentioned below on each extremity Musculoskeletal Exam: Right lower extremity: Inspection: Well-healed surgical incisions with expressible thin blood tinged serous drainage aboutthe mid incision. No erythema, ecchymosis Bilateral lower extremity pitting edema Unable to hold a straight leg raise, due to weakness and swelling Motor: Fires EHL/FHL/GSC/TA Sensation: SILT s/s/sp/dp/t Vascular: Digits WWP Labs in last 18 hours: CBC WBC 10.59 (H) Hb 8.2 (L) Plt 188 Hct 26.8 (L) INR ??, PTT ??, Anti-Xa ?? BMP Na 138 Cl 110 (H) BUN 37 (H) Glucose 90 K 5.1 (H) CO2 13 (L) sCr 1.16 (H) LFT AST 45 (H) ALP 89 T Prot 6.4 ALT 10 Bili 0.4 Alb ?? Results from last 7 days Lab Units 12/14/24 1221 CRP mg/L 43.2* Imaging: Radiographic studies including XR/CT were personally reviewed and demonstrate the following: - X-ray of the right knee shows lateral displacement of the patella, hardware in place Assessment and Plan: Dariana Howe is a 69 y.o. female with the following orthopaedic injuries: 1. Acute dislocation of right patella Weight bearing restrictions: Weightbearing as tolerated in locked in extension TROM ED orthopaedic procedures: Attempted to CR patella which was not successful Pain control per ED/primary Recommend dry dressings about the incision site, change frequently as it is not ideal to have moistdressings about the skin Plan to follow up with Dr. Kohler, we will place outpatient referral for follow up once final plan is staffed with attending Please contact orthopaedic Trauma Floor Consult pager with additional questions: [phone] Katie Pickett PA-C Department of Orthopaedic Surgery and Sports Medicine 12/14/24 3:35 PM [1] Past Medical History: Diagnosis Date Arthritis COVID-19 diagnosed 01/15/22, symptoms included body aches, nasal congestion, mild chest congestion, loss of taste and smell. patient states symptoms lasted 3 days. History of abnormal uterine bleeding Hypertension [2] No current facility-administered medications on file prior to encounter. Current Outpatient Medications on File Prior to Encounter Medication Sig Dispense Refill acetaminophen (Tylenol Extra Strength) 500 MG tablet Take 2 tablets by mouth every 6 hours as needed for pain. acetaminophen (Tylenol) 500 MG tablet Take 2 tablets (1,000 mg total) by mouth every 8 (eight) hours. 30 tablet 1 COLLAGEN PO Take 2 Chewable tablet by mouth 1 (one) time each day. diclofenac (Voltaren) 75 MG EC tablet Take 1 tablet (75 mg) by mouth 2 (two) times a day. gabapentin (Neurontin) 100 MG capsule Take 1 capsule by mouth every 8 hours. hydroCHLOROthiazide (HYDRODiuril) 25 MG tablet Take 1 tablet (25 mg) by mouth 1 (one) time each day. methocarbamol (Robaxin) 500 MG tablet Take 1 tablet by mouth 4 times a day. Multiple Vitamin (multivitamin) tablet Take 1 tablet by mouth 1 (one) time each day. naloxone (Narcan) 4 mg/0.1 mL nasal spray 1. Give 1 spray in nostril for no/slow breathing or cannot wake after opioid use 2. Call 911 3. Repeat in other nostril if symptoms continue 1 each 0 oxyCODONE (Roxicodone) 5 MG immediate release tablet Take 1 tablet by mouth every 4 hours as neededfor moderate pain or severe pain (Severe pain 5-8). pantoprazole (Protonix) 40 MG EC tablet Take 1 tablet by mouth daily before breakfast. Do not crush, chew, or split. rivaroxaban (Xarelto) 10 MG tablet Take 1 tablet by mouth daily with breakfast. senna-docusate (Audrey-Colace) 8.6-50 MG tablet Take 1 tablet by mouth 2 times a day. traMADol (Ultram) 50 MG tablet Take 1 tablet by mouth every 6 hours as needed for moderate pain (pain score 3-5. use prior to oxycodone or hydromorphone). [3] Past Surgical History: Procedure Laterality Date DILATION AND CURETTAGE OF UTERUS 12/02/2021 HYSTERECTOMY 2021 OTHER SURGICAL HISTORY REPLACEMENT TOTAL KNEE ONCOLOGIC Right TUBAL LIGATION 1989 [4] Allergies Allergen Reactions Codeine Palpitations Sulfa Drugs Rash Cosigned by Prem Kohler MD at 12/18/2024 8:33 AM EDT Associated attestation - Prem Kohler MD - 12/18/2024 8:33 AM EDT Signature only. * ED Provider Notes - Tino Jenkins PA - 12/14/2024 10:30 AM EDT - HPI Chief Complaint Patient presents with Post-op Problem Dariana Howe is a 69 y.o. female with history of endometrial cancer who presents with Post-op Problem. Patient took nothing for this prior to arrival. Patient arrives from rehab facility after 1 day of worsening knee instability and drainage from previous surgical incision. Patient had a total knee replacement of her right side with [facility]. She then suffered a fall and had a periprosthetic femur fracture. She was repaired by Dr. Kohler with Orthopedics. She has been attending her routine follow up appointments and they recently removed her lurdes. She has been doingphysical therapy at rehab. She states that yesterday she felt less stable on her right knee and felt like it was going to give out on her. Denies any trauma or falls. Denies re- injury. Patient is also having some drainage from the surgical site. No wound dehiscence. No fevers, chills, diarrhea, vomiting, nausea, headache, changes in sensation to right leg. Patient History Past Medical History[1] Surgical History[2] Family History[3] Social History[4] Allergies: Allergies[5] Physical Exam ED Triage Vitals [12/14/24 1037] Temp Heart Rate Resp BP 36.6 ??C (97.9 ??F) 76 16 (!) 151/85 SpO2 Temp Source Heart Rate Source Patient Position 100 % Oral -- Lying BP Location FiO2 (%) Right arm -- Physical Exam Vitals and nursing note reviewed. Constitutional: General: She is not in acute distress. Appearance: She is well-developed. HENT: Head: Normocephalic and atraumatic. Eyes: Conjunctiva/sclera: Conjunctivae normal. Cardiovascular: Rate and Rhythm: Normal rate and regular rhythm. Heart sounds: No murmur heard. Pulmonary: Effort: Pulmonary effort is normal. No respiratory distress. Breath sounds: Normal breath sounds. Abdominal: Palpations: Abdomen is soft. Tenderness: There is no abdominal tenderness. Musculoskeletal: General: No swelling. Cervical back: Neck supple. Comments: Swelling to right lower extremity around knee with serosanguineous fluid from previous surgical incision, Steri-Strips in place, no wound dehiscence appreciated Skin: General: Skin is warm and dry. Capillary Refill: Capillary refill takes less than 2 seconds. Neurological: Mental Status: She is alert. Psychiatric: Mood and Affect: Mood normal. EASI ?? Total Score: 0 Hiral Coma Scale Score: 15 ED Course & MDM - Assessment: 69 y.o. female presents to ED with complaint of knee instability. It should be noted that the chronic conditions includes hx of endometrial cancer, which currently is at goal therapy. This complicates the clinical picture because it Comorbidities: increases the amount and complexity of data to be reviewed Differential Diagnosis: acute fracture, septic joint, surgical site infection, tendinous or ligamentous pathology, among others In order to fully explore the differential diagnosis the following treatments and tests were ordered: All Other Orders Ordered Status Ordering Provider 12/14/24 1559 XR Knee Right 3 Views Once Comments: Will let you know when ready Acknowledged JULIO CESAR PICKETT 12/14/24 1101 Sed rate, automated STAT In process TINO JENKINS A 12/14/24 1432 Consult to Orthopaedic Surgery Once Specialty: Orthopaedic Surgery Provider: (Not yet assigned) Completed TINO JENKINS A 12/14/24 1101 XR Tibia Fibula Right 2+ Views Once Final result TINO JENKINS A 12/14/24 1101 CBC w/diff STAT Final result GREGORY TINO A 12/14/24 1101 CMP STAT Final result TINO JENKINS A 12/14/24 1101 C-Reactive protein STAT Final result TINO JENKINS A 12/14/24 1101 XR Femur Right 2+ Views Once Final result TINO JENKINS A 12/14/24 1101 XR Knee Right 3 + Views Once Final result TINO JENKINS ED Course as of 12/14/24 1652 Alicja Dec 14, 2024 1103 BP(!): 151/85 [MR] 1103 Heart Rate: 76 [MR] 1103 Resp: 16 [MR] 1103 SpO2: 100 % [MR] 1103 Temp: 36.6 ??C (97.9 ??F) [MR] 1120 On my initial assessment patient was hypertensive otherwise hemodynamically stable, afebrile, nonacute distress. Reports unstable feeling to right knee described as rubbery . Recent surgical history with [facility] after a femur fracture near recently replaced knee with [facility]. She has been going to her follow up appointments and they have been removing lurdes asappropriate. She endorses some increased drainage from the site but denies any fevers or pus drainage. Has some pitting edema to right leg. Has been doing physical therapy and occupational therapy without difficulty. Was concerned with the new changes in her knee. Plan to obtain right femur, knee, tib-fib x-rays, CBC, CMP, inflammatory markers to rule out infectious process [MR] 1334 XR Femur Right 2+ Views IMPRESSION: No acute abnormality. Diffuse osteopenia and degenerative change. Adequate positioning of the knee prosthesis, unchanged from the intraoperative radiograph from November 12, 2024 CRITICAL RESULT: No [MR] 1432 Consult to ortho placed and paged, they agreed to assess patient [MR] 1600 I independently reviewed all laboratory evaluation. CRP 43.2, leukocytosis 10.59. Stable anemia, normal platelet count. CMP significant for elevated AST otherwise rest of electrolytes are at baseline. Low concern for acute renal functional decrease. ESR pending at this time. [MR] 1637 Reassessed patient, ortho brace at bedside. I reviewed their note concerning for patella dislocation. Patient states they told her about this and that they would put it back into place and then send her back to rehab with a knee brace. She declines wanting any pain medications at this time. Patient signed out to Kurt LANE pending ortho reassessment and clearance. [MR] ED Course User Index [MR] Tino Jenkins, MYA Social Determinates of Health Risks (including Economic Stability, Education and level of understanding, Healthcare access and quality and concerning social factors): None identified on this visit Ultimately, this patient was was signed out to the oncoming provider (Signed Out) Patient care assumed by oncoming provider, Kurt LANE, at shift change, tentative plan at the time of sign-out was pending orthopedic procedure and dispo ED Prescriptions None - [1] Past Medical History: Diagnosis Date Arthritis COVID-19 diagnosed 01/15/22, symptoms included body aches, nasal congestion, mild chest congestion, loss of taste and smell. patient states symptoms lasted 3 days. History of abnormal uterine bleeding Hypertension [2] Past Surgical History: Procedure Laterality Date DILATION AND CURETTAGE OF UTERUS 12/02/2021 HYSTERECTOMY 2021 OTHER SURGICAL HISTORY REPLACEMENT TOTAL KNEE ONCOLOGIC Right TUBAL LIGATION 1989 [3] No family history on file. [4] Tobacco Use Smoking status: Never Passive exposure: Never Smokeless tobacco: Never Vaping Use Vaping status: Never Used Substance Use Topics Alcohol use: Never Drug use: Never [5] Allergies Allergen Reactions Codeine Palpitations Sulfa Drugs Rash Tino Jenkins PA 12/14/24 1655 Cosigned by Dylan Hernandez MD at 12/19/2024 7:11 AM EDT Associated attestation - Dylan Hernandez MD - 12/19/2024 7:11 AM EDT I attest to being involved in providing substantive part of the medical decision making in patient care. * ED Triage Notes - Bernadette Dumas RN - 12/14/2024 10:30 AM EDT [facility] with weakness and pain of R knee after total knee replacement performed on November 12. Patient states she went to stand up yesterday and felt like her knee was rubber . +PMS * Progress Notes - Evi Hicks MD - 12/14/2024 10:30 AM EDT ED TRANSFER OF CARE NOTE Transferring provider: Gregory Transferring attending: Dre FALGUNI Time: 1636 I received sign-out and accepted care of this patient from the previous ED providers caring for this patient. I reviewed the patient's history, exam, work- up, and treatment plan up to this point. Please see the primary ED Provider Note for complete elements of the history, physical exam, and ED course. PERTINENT HISTORY: In brief, Dariana Howe is a 69 y.o. female with relevant PMH significant forpast medical history of obesity, hypertension, recent endometrial cancer (status post hysterectomy), right DFR with Dr. Kohler on 11/12 after TKA at [facility] who presented to the ED for evaluation of right knee instability following PT/ambulation. Found to have patellar dislocation. Pending Ortho upon sign out. PENDING: I accepted care of this patient from the previous provider while waiting for evaluation and/or recommendations from: Orthopedics. Ultimately, the aforementioned service recommended bracing which was performed and outpatient follow up. Patient agreeable to plan and declined additional analgesia. ED COURSE: ED Course as of 12/15/24 0143 Alicja Dec 14, 2024 1103 BP(!): 151/85 [MR] 1103 Heart Rate: 76 [MR] 1103 Resp: 16 [MR] 1103 SpO2: 100 % [MR] 1103 Temp: 36.6 ??C (97.9 ??F) [MR] 1120 On my initial assessment patient was hypertensive otherwise hemodynamically stable, afebrile, nonacute distress. Reports unstable feeling to right knee described as rubbery . Recent surgical history with orthopedic surgery after a femur fracture near recently replaced knee with [facility]. She has been going to her follow up appointments and they have been removing lurdes asappropriate. She endorses some increased drainage from the site but denies any fevers or pus drainage. Has some pitting edema to right leg. Has been doing physical therapy and occupational therapy without difficulty. Was concerned with the new changes in her knee. Plan to obtain right femur, knee, tib-fib x-rays, CBC, CMP, inflammatory markers to rule out infectious process [MR] 1334 XR Femur Right 2+ Views IMPRESSION: No acute abnormality. Diffuse osteopenia and degenerative change. Adequate positioning of the knee prosthesis, unchanged from the intraoperative radiograph from November 12, 2024 CRITICAL RESULT: No [MR] 1432 Consult to ortho placed and paged, they agreed to assess patient [MR] 1600 I independently reviewed all laboratory evaluation. CRP 43.2, leukocytosis 10.59. Stable anemia, normal platelet count. CMP significant for elevated AST otherwise rest of electrolytes are at baseline. Low concern for acute renal functional decrease. ESR pending at this time. [MR] 1637 Reassessed patient, ortho brace at bedside. I reviewed their note concerning for patella dislocation. Patient states they told her about this and that they would put it back into place and then send her back to rehab with a knee brace. She declines wanting any pain medications at this time. Patient signed out to [facility] pending ortho reassessment and clearance. [MR] 1811 Orthopedic Surgery evaluated at bedside. Patient braced and cleared for discharge home from orthopedic surgery perspective. [RM] ED Course User Index [MR] Tino Jenkins PA [RM] Evi Hicks MD Clinical Impressions as of 12/15/24 0143 Dislocation of right patella, initial encounter Ultimately, this patient Was discharged Home (Discharge) The primary encounter diagnosis was Dislocation of right patella, initial encounter. A diagnosis of Periprosthetic fracture of femur at tip of prosthesis, initial encounter was also pertinent to this visit. . Patient was counseled on the diagnoses. Discharge medications if any are listed below. Listed medications are thought be either curative for listed diagnoses or will help controlongoing symptoms. Patient is requested to follow up with Patient's Primary Care Provider and Orthopedics in order to obtain routine follow-up and specialty care. Instructions on follow up as well as precautions to return to the ER provided verbally by the EM provider, as well as written in patients discharge education packet. ED Prescriptions None - Evi Hicks MD Cosigned by Yoli Erickson MD at 12/15/2024 8:19 PM EDT Associated attestation - Yoli Erickson MD - 12/15/2024 8:19 PM EDT I saw and evaluated the [...] [address], [address] [place] [address] Prem Kohler MD [address] [place] [address] 02/06/2025 1:40 PM EST Office Visit Medical Office [facility] [address], [address] [place] [address] Prem Kohler MD [address] [place] [address] 03/09/2025 12:30 PM EST Office Visit [facility] [address] [place] [address] [place] [employer], [employer] [address] [place] [address] Scheduled Referrals Name Type Priority Associated Diagnoses Order Schedule Discharge Ambulatory referral to NON Orthopaedics Joint Reconstruction Outpatient Referral Routine Periprosthetic fracture of femur at tip of prosthesis, initial encounter Expected: 12/19/2024, Expires: 06/17/2026 documented as of this encounter Procedures Procedure Name Priority Date/Time Associated Diagnosis Comments SEDIMENTATION RATE, AUTOMATED STAT 12/14/2024 4:04 PM EDT CBC WITH AUTO DIFFERENTIAL STAT 12/14/2024 12:21 PM EDT C-REACTIVE PROTEIN, PLASMA STAT 12/14/2024 12:21 PM EDT COMPREHENSIVE METABOLIC PANEL, PLASMA STAT 12/14/2024 12:21 PM EDT XR TIBIA FIBULA RIGHT 2+ VIEWS STAT 12/14/2024 11:37 AM EDT XR KNEE RIGHT 3 VIEWS STAT 12/14/2024 11:37 AM EDT XR FEMUR RIGHT 2+ VIEWS STAT 12/14/2024 11:37 AM EDT documented in this encounter Results * (ABNORMAL) Sed rate, automated (12/14/2024 4:04 PM EDT) Sedimentation Rate 80(H) <30 mm/hr 2024 6:07 PM EDT [facility] Blood Venous blood specimen / Unknown Venipuncture / Unknown 12/14/2024 4:04 PM EDT 12/14/2024 4:17 PM EDT Tino A [id number] LAB BLOOD ORDERABLES Radha l Result Performing Organization Address [facility] Co de Phone Number [facility] [address] [place] [address] * (ABNORMAL) C-Reactive protein (12/14/2024 12:21 PM EDT) CRP, Plasma 43.2(H) <=8.0 mg/L 12/14/2024 2:22 PM EDT [facility] Blood Venous blood specimen / Unknown Venipuncture / Unknown 12/14/2024 12:21 PM EDT 12/14/2024 1:04 PM EDT Narrative [facility] - 12/14/2024 2:22 PM EDT This CRP test is appropriate for assessment of infection, systemic inflammation and/or tissue injury. To assess cardiovascular disease risk order high sensitivity CRP (CRPH). us Tino A [employer] LAB BLOOD ORDERABLES Radha l Result Performing Organization Address [facility] de Phone Number [facility] [address] [place] [address] * (ABNORMAL) CMP (12/14/2024 12:21 PM EDT) Glucose, Plasma 90 74 - 99 mg/dL 12/14/2024 2:22 PM EDT [facility] BUN, Plasma 37(H) 8 - 23 mg/dL 12/14/2024 2:22 PM EDT [facility] Creatinine, Plasma 1.16(H) 0.60 - 1.10 mg/dL 12/14/2024 2:22 PM EDT [facility] BUN/Creatinine Ratio 32 12/14/2024 2:22 PM EDT [facility] Sodium, Plasma 138 136 - 145 mmol/L 12/14/2024 2:22 PM EDT [facility] Potassium, Plasma 5.1(H) 3.6 - 4.9 mmol/L 12/14/2024 2:22 PM EDT [facility] Comment:Hemolyzed, result ma y be falsely increased. Chloride, Plasma 110(H) 97 - 107 mmol/L 12/14/2024 2:22 PM EDT [facility] CO2, Plasma 13(L) 22 - 29 mmol/L 12/14/2024 2:22 PM EDT [facility] Anion Gap 15 6 - 16 mmol/L 12/14/2024 2:22 PM EDT [facility] Total Calcium, Plasma 9.2 8.9 - 10.2 mg/dL 12/14/2024 2:22 PM EDT [facility] Total Protein 6.4 6.3 - 7.9 g/dL 12/14/2024 2:22 PM EDT [facility] Albumin, Plasma 2.8(L) 3.5 - 5.2 g/dL 12/14/2024 2:22 PM EDT [facility] AST, Plasma 45(H) 10 - 35 U/L 12/14/2024 2:22 PM EDT [facility] Comment:Hemolyzed, result ma y be falsely increased. ALT, Plasma 10 10 - 35 U/L 12/14/2024 2:22 PM EDT [facility] Alkaline Phosphatase, Plasma 89 46 - 142 U/L 12/14/2024 2:22 PM EDT [facility] Total Bilirubin, Plasma 0.4 0.2 - 1.1 mg/dL 12/14/2024 2:22 PM EDT [facility] eGFRcr 50.8 mL/min/1.7 3m*2 12/14/2024 2:22 PM EDT [facility] Comment:Reported eGFRcr in m L/min/1.73m2 is based the CKD-EPI 2020 equation that does not use a race coefficient. Blood Venous blood specimen / Unknown Venipuncture / Unknown 12/14/2024 12:21 PM EDT 12/14/2024 1:04 PM EDT us Tino ROQUE LAB BLOOD ORDERABLES Radha nash Result [facility] [address] [place] [address] * (ABNORMAL) CBC w/diff (12/14/2024 12:21 PM EDT) WBC Count 10.59(H) 3.70 - 10.30 10*3/uL LAB HEMATOLOGY METHOD 12/14/2024 3:16 PM EDT [facility] RBC Count 2.80(L) 3.90 - 5.20 10*6/uL LAB HEMATOLOGY METHOD 12/14/2024 3:16 PM EDT [facility] HGB 8.2(L) 11.2 - 15.7 g/dL LAB HEMATOLOGY METHOD 12/14/2024 3:16 PM EDT [facility] HCT 26.8(L) 34.0 - 45.0 % LAB HEMATOLOGY METHOD 12/14/2024 3:16 PM EDT [facility] Platelet Count 188 155 - 369 10*3/uL LAB HEMATOLOGY METHOD 12/14/2024 3:16 PM EDT [facility] MCV 96 79 - 98 fL LAB HEMATOLOGY METHOD 12/14/2024 3:16 PM EDT [facility] MCH 29.3 26.0 - 32.0 pg LAB HEMATOLOGY METHOD 12/14/2024 3:16 PM EDT [facility] MCHC 30.6(L) 30.7 - 35.5 g/dL LAB HEMATOLOGY METHOD 12/14/2024 3:16 PM EDT [facility] RDW 16.5(H) 11.5 - 14.5 % LAB HEMATOLOGY METHOD 12/14/2024 3:16 PM EDT [facility] MPV LAB HEMATOLOGY METHOD 12/14/2024 3:16 PM EDT [facility] Comment:Not Measured nRBC 0.0 <=0.0 per 100 WBCs LAB HEMATOLOGY METHOD 12/14/2024 3:16 PM EDT [facility] Differential Type Automated LAB HEMATOLOGY METHOD 12/14/2024 3:16 PM EDT [facility] Neutrophils % 66 % LAB HEMATOLOGY METHOD 12/14/2024 3:16 PM EDT [facility] Lymphocytes % 22 % LAB HEMATOLOGY METHOD 12/14/2024 3:16 PM EDT [facility] Monocytes % 7 % LAB HEMATOLOGY METHOD 12/14/2024 3:16 PM EDT [facility] Eosinophils % 5 % LAB HEMATOLOGY METHOD 12/14/2024 3:16 PM EDT [facility] Basophils % 0 % LAB HEMATOLOGY METHOD 12/14/2024 3:16 PM EDT [facility] Immature Granulocytes % 0 % LAB HEMATOLOGY METHOD 12/14/2024 3:16 PM EDT [facility] Neutrophils Absolute 6.89(H) 1.60 - 6.10 10*3/uL LAB HEMATOLOGY METHOD 12/14/2024 3:16 PM EDT [facility] Lymphocytes Absolute 2.32 1.20 - 3.90 10*3/uL LAB HEMATOLOGY METHOD 12/14/2024 3:16 PM EDT [facility] Monocytes Absolute 0.76 0.30 - 0.90 10*3/uL LAB HEMATOLOGY METHOD 12/14/2024 3:16 PM EDT [facility] Eosinophils Absolute 0.54(H) 0.00 - 0.50 10*3/uL LAB HEMATOLOGY METHOD 12/14/2024 3:16 PM EDT [facility] Basophils Absolute 0.04 0.00 - 0.10 10*3/uL LAB HEMATOLOGY METHOD 12/14/2024 3:16 PM EDT [facility] Immature Granulocytes Absolute 0.04 0.00 - 0.06 10*3/uL LAB HEMATOLOGY METHOD 12/14/2024 3:16 PM EDT [facility] Blood Venous blood specimen / Unknown Venipuncture / Unknown 12/14/2024 12:21 PM EDT 12/14/2024 12:43 PM EDT Narrative [facility] - 12/14/2024 3:16 PM EDT Therapeutic decision making should be based on absolute values, rather than percentages. us Tino ROQUE LAB BLOOD ORDERABLES Radha nash Result [facility] [address] [place] [address] * XR Tibia Fibula Right 2+ Views (12/14/2024 11:37 AM EDT) Anatomical Region Laterality Modality Lower Extremities, Lower Leg Right Dig ital Radiography Impressions 12/14/2024 1:18 PM EDT No acute abnormality. Diffuse osteopenia and degenerative change. Adequate positioning of the knee prosthesis, unchanged from the intraoperative radiograph from November 12, 2024 CRITICAL RESULT: No. COMMUNICATION: Per this written report. Drafted by Neema Doan MD on 12/14/2024 1:12 PM Final report signed by Neema Doan MD on 12/14/2024 1:18 PM Narrative 12/14/2024 1:18 PM EDT CLINICAL INDICATION: previous surgery, weakness TECHNIQUE: XR TIBIA FIBULA RIGHT 2+ VIEWS, XR KNEE RIGHT 3 VIEWS, XR FEMUR RIGHT 2+ VIEWS COMPARISON: None. FINDINGS: AP and lateral views of the right femur demonstrate normal position of the femoral head within the acetabulum. There is a distal femoral prosthesis. It is similarly positioned compared to the previous exam from November 12, 2024 and an intraoperative radiograph. There is slightly increased soft tissue ossification around the distal aspect of the knee at the prosthesis. 3 views of the right knee redemonstrate the knee prosthesis. There is adequate positioning. There is degenerative change. AP and lateral views of the right tib-fib demonstrate a knee prosthesis with the distal component adequately positioned in relation to the tibial plateau. There is diffuse osteopenia. There is diffuse soft tissue edema. Procedure Note Neema Doan MD - 12/14/2024 CLINICAL INDICATION: previous surgery, weakness TECHNIQUE: XR TIBIA FIBULA RIGHT 2+ VIEWS, XR KNEE RIGHT 3 VIEWS, XR FEMUR RIGHT 2+VIEWS COMPARISON: None. FINDINGS: AP and lateral views of the right femur demonstrate normal position of thefemoral head within the acetabulum. There is a distal femoral prosthesis.It is similarly positioned compared to the previous exam from October and an intraoperative radiograph. There is slightly increased softtissue ossification around the distal aspect of the knee at theprosthesis. 3 views of the right knee redemonstrate the knee prosthesis. There isadequate positioning. There is degenerative change. AP and lateral views of the right tib-fib demonstrate a knee prosthesiswith the distal component adequately positioned in relation to the tibialplateau. There is diffuse osteopenia. There is diffuse soft tissueedema. IMPRESSION: No acute abnormality. Diffuse osteopenia and degenerative change. Adequate positioning of the knee prosthesis, unchanged from theintraoperative radiograph from November 12, 2024 CRITICAL RESULT: No. COMMUNICATION: Per this written report. Drafted by Neema Doan MD on 12/14/2024 1:12 PM Final report signed by Neema Doan MD on 12/14/2024 1:18 PM Tino ROQUE IMG XR PROCEDURES Final R esult * XR Knee Right 3 + Views (12/14/2024 11:37 AM EDT) Anatomical Region Laterality Modality Lower Extremities, Knee Right Digital Radiography Impressions 12/14/2024 1:18 PM EDT No acute abnormality. Diffuse osteopenia and degenerative change. Adequate positioning of the knee prosthesis, unchanged from the intraoperative radiograph from November 12, 2024 CRITICAL RESULT: No. COMMUNICATION: Per this written report. Drafted by Neema Doan MD on 12/14/2024 1:12 PM Final report signed by Neema Doan MD on 12/14/2024 1:18 PM Narrative 12/14/2024 1:18 PM EDT CLINICAL INDICATION: previous surgery, weakness TECHNIQUE: XR TIBIA FIBULA RIGHT 2+ VIEWS, XR KNEE RIGHT 3 VIEWS, XR FEMUR RIGHT 2+ VIEWS COMPARISON: None. FINDINGS: AP and lateral views of the right femur demonstrate normal position of the femoral head within the acetabulum. There is a distal femoral prosthesis. It is similarly positioned compared to the previous exam from November 12, 2024 and an intraoperative radiograph. There is slightly increased soft tissue ossification around the distal aspect of the knee at the prosthesis. 3 views of the right knee redemonstrate the knee prosthesis. There is adequate positioning. There is degenerative change. AP and lateral views of the right tib-fib demonstrate a knee prosthesis with the distal component adequately positioned in relation to the tibial plateau. There is diffuse osteopenia. There is diffuse soft tissue edema. Procedure Note Neema Doan MD - 12/14/2024 CLINICAL INDICATION: previous surgery, weakness TECHNIQUE: XR TIBIA FIBULA RIGHT 2+ VIEWS, XR KNEE RIGHT 3 VIEWS, XR FEMUR RIGHT 2+VIEWS COMPARISON: None. FINDINGS: AP and lateral views of the right femur demonstrate normal position of thefemoral head within the acetabulum. There is a distal femoral prosthesis.It is similarly positioned compared to the previous exam from October and an intraoperative radiograph. There is slightly increased softtissue ossification around the distal aspect of the knee at theprosthesis. 3 views of the right knee redemonstrate the knee prosthesis. There isadequate positioning. There is degenerative change. AP and lateral views of the right tib-fib demonstrate a knee prosthesiswith the distal component adequately positioned in relation to the tibialplateau. There is diffuse osteopenia. There is diffuse soft tissueedema. IMPRESSION: No acute abnormality. Diffuse osteopenia and degenerative change. Adequate positioning of the knee prosthesis, unchanged from theintraoperative radiograph from November 12, 2024 CRITICAL RESULT: No. COMMUNICATION: Per this written report. Drafted by Neema Doan MD on 12/14/2024 1:12 PM Final report signed by Neema Doan MD on 12/14/2024 1:18 PM Tino ROQUE IMG XR PROCEDURES Final R esult * XR Femur Right 2+ Views (12/14/2024 11:37 AM EDT) Anatomical Region Laterality Modality Lower Extremities, Femur Right Digital Radiography Impressions 12/14/2024 1:18 PM EDT No acute abnormality. Diffuse osteopenia and degenerative change. Adequate positioning of the knee prosthesis, unchanged from the intraoperative radiograph from November 12, 2024 CRITICAL RESULT: No. COMMUNICATION: Per this written report. Drafted by Neema Doan MD on 12/14/2024 1:12 PM Final report signed by Neema Doan MD on 12/14/2024 1:18 PM Narrative 12/14/2024 1:18 PM EDT CLINICAL INDICATION: previous surgery, weakness TECHNIQUE: XR TIBIA FIBULA RIGHT 2+ VIEWS, XR KNEE RIGHT 3 VIEWS, XR FEMUR RIGHT 2+ VIEWS COMPARISON: None. FINDINGS: AP and lateral views of the right femur demonstrate normal position of the femoral head within the acetabulum. There is a distal femoral prosthesis. It is similarly positioned compared to the previous exam from November 12, 2024 and an intraoperative radiograph. There is slightly increased soft tissue ossification around the distal aspect of the knee at the prosthesis. 3 views of the right knee redemonstrate the knee prosthesis. There is adequate positioning. There is degenerative change. AP and lateral views of the right tib-fib demonstrate a knee prosthesis with the distal component adequately positioned in relation to the tibial plateau. There is diffuse osteopenia. There is diffuse soft tissue edema. Procedure Note Neema Doan MD - 12/14/2024 CLINICAL INDICATION: previous surgery, weakness TECHNIQUE: XR TIBIA FIBULA RIGHT 2+ VIEWS, XR KNEE RIGHT 3 VIEWS, XR FEMUR RIGHT 2+VIEWS COMPARISON: None. FINDINGS: AP and lateral views of the right femur demonstrate normal position of thefemoral head within the acetabulum. There is a distal femoral prosthesis.It is similarly positioned compared to the previous exam from October and an intraoperative radiograph. There is slightly increased softtissue ossification around the distal aspect of the knee at theprosthesis. 3 views of the right knee redemonstrate the knee prosthesis. There isadequate positioning. There is degenerative change. AP and lateral views of the right tib-fib demonstrate a knee prosthesiswith the distal component adequately positioned in relation to the tibialplateau. There is diffuse osteopenia. There is diffuse soft tissueedema. IMPRESSION: No acute abnormality. Diffuse osteopenia and degenerative change. Adequate positioning of the knee prosthesis, unchanged from theintraoperative radiograph from November 12, 2024 CRITICAL RESULT: No. COMMUNICATION: Per this written report. Drafted by Neema Dona MD on 12/14/2024 1:12 PM Final report signed by Neema Doan MD on 12/14/2024 1:18 PM us Tino ROQUE IMG XR PROCEDURES Final R esult documented in this encounter Visit Diagnoses Diagnosis Dislocation of right patella, initial encounter- Primary Periprosthetic fracture of femur at tip of prosthesis, initial encounter documented in this encounter Additional Health Concerns Assessment Noted Time A fall risk assessment has been complete d for the patient 12/12/2024 11:28 AM EDT A Body Mass Index follow-up plan has been documented for the patient 12/12/2024 12:25 PM EDT documented as of this encounter Care Teams Track Superintendent Relationship Specialty Start Date End Date Virgie Choi APRN [address] [place] [address] PCP - General 11/11/24 Yany Bruno MD [address] [place] [address] Referring Physician 12/04/21 documented as of this encounter
--- OUTSIDE RECORDS SUMMARY | 2024-12-19 10:40 | XMS_ITS | Encounter Summary ---
Author Organization Healthcare Address [address] [id number] Care Team Providers Care Veneer Taper Name Role Phone Yany Bruno MD Unavailable [phone] Virgie Choi APRN Primary Care Provider [phone] Reason for Visit * Reason Comments Follow-up * Consultation (Routine) - Closed Specialty Diagnoses / Procedures Referred By Contac t Referred To Contact Orthopaedic Surgery Diagnoses Periprosthetic fracture of femur at tip of prosthesis, initial encounter Prem Kohler MD [address] [place] [address] Phone: tel: fax: Prem Kohler MD [address] [place] [address] Phone: tel: fax: Referral ID Status Reason Start Date Expiration Date Visits Re quested Visits Authorized [id number] Closed 12/14/2024 06/15/2026 1 1 Encounter Details Date Type Department Care Team (Late st Contact Info) Description 12/19/2024 10:40 AM EDT Office Visit Medical Office [facility] [address] , [address] [place] [address] Prem Kohler MD [address] [place] [address] History of right knee joint [...] and Family Not on file 11/14/2024 Attends [employer] Not on file 11/14 Active Member [...] time in the past 12 m [facility], were you homeless or living in a [facility] (including now)? No 11/14/2024 [facility] Utilities Answer Date Recorded In the past [...] Sign Reading Time Taken Comments Blood Pressure 114/67 12/19/2024 10:27 AM EDT Pulse 76 12/19/2024 10:27 AM EDT Temperature 36.7 C (98.1 F) 12/19/2024 10:27 AM EDT Respiratory Rate 18 12/19/2024 10:27 AM EDT Oxygen Saturation 99% 12/19/2024 10:27 AM EDT Inhaled Oxygen Concentration - - Weight 117 kg (257 lb 15 oz) 12/19/2024 10:27 AM EDT Height 152.4 cm (5') 12/19/2024 10:27 AM EDT Body Mass Index 50.38 12/19/2024 10:27 AM EDT documented in this encounter Miscellaneous Notes * Progress Notes - Prem Kohler MD - 12/19/2024 10:40 AM EDT Patient follow-up for her right knee unfortunate she had an episode last week with a patellar dislocation that could not be reduced she is still having a minimal amount of drainage from the wound. I had a long pleasant discussion with the patient and her at this point she continues to have problems from the knee that I believe are related to the fact that she was extremely high-risk and not a good candidate for the knee replacement with her index surgery specifically based on her weight and her functional status she has sustained a fracture and now dislocated through the revision total knee all while having difficulty healing her wound. At this point I have discussed with the patient that I believe operating any further without addressing her morbid obesity would be a disservice. I have recommended she call her primary care doctor to see if she would be placed on a GLP 1 inhibitor or if this is not work seek surgical options for weight loss as her current functional status is so poor based on the fact that she can not mobilize independently. She is very tearful being stuck in the long-term but her family does not believe that they can care for her at home as she is maximal assist secondary to her morbid obesity and weak muscle. With regard to the patellar dislocation I have placed her in the brace and recommended nonweightbearing on this we can fix this in the future if she makes significant progress with her weight loss however due to her large soft tissue envelope and morbid obesity I do not believe that any type of reconstruction of this dislocating patella would heal. At the time of her revision surgery her tissues were so poor secondary to her morbid obesity that I am not surprised she has gone onto develop this complication. Both she and her were in understanding she was quite tearful as she realizes that there is no going back from the index surgery and the problems that she has had they are in. We will see her back in 6 weeks' time to reassess the wound as it is slowly healing I do not see any concerning signs on the wound today and there is a minimal amount of drainage documented in this encounter Plan of Treatment Upcoming Encounters Date Type Department Care Team ([facility] st Contact Info) Description 12/26/2024 11:20 AM EDT Office Visit Medical Office [facility] [address] [facility], [address] [place] [address] Prem Kohler MD [address] [place] [address] 02/06/2025 1:40 PM EST Office Visit Medical Office Building [facility] [address], [address] [place] [address] Prem Kohler MD [address] [place] [address] 03/09/2025 12:30 PM EST Office Visit [facility] [address] [place] [address] Joanne Santoyo, APPLICATION DEVELOPER [address] [place] [address] documented as of this encounter Visit Diagnoses Diagnosis History of right knee joint replacement- Primary documented in this encounter Additional Health Concerns Assessment Noted Time A fall risk assessment has been complete d for the patient 12/19/2024 10:27 AM EDT A Body Mass Index follow-up plan has been documented for the patient 12/19/2024 11:19 AM EDT documented as of this encounter Care Teams Veneer Taper Relationship Specialty Start Date End Date Virgie ChoiDEVON [address] [place] [address] PCP - General 11/11/24 Yany Bruno MD [facility] [address] [address] Referring Physician 12/04/21 documented as of this encounter
--- OUTSIDE RECORDS SUMMARY | 2024-12-23 13:59 | XMS_ITS | Encounter Summary ---
Author Organization Healthcare Address [address] [place] [address] Care Team Providers Care Apns Name Role Phone Yany Bruno MD Unavailable [phone] Matthias Walker APRN Primary Care Provider [phone] Virgie Choi APRN Primary Care Provider [phone] Encounter Details Date Type Department Care Team (Late st Contact Info) Description 11/10/2024 Orders Only External Location [address] [place] [address] Provider, External Social History Tobacco Use Types Packs/Day Years [...] and Family Not on file 11/14/2024 Attends [employer] [facility] Not on file 11/14 Active Member [...] any time in the past 12 m [facility], were you homeless or living in a [place] [facility] (including now)? No 11/14/2024 [facility] Utilities Answer Date Recorded In the [...] Date of Assessment Author No Risk Indicated 11/14/2024 7:00 AM EDT Alejandro Garcia * Question Answer Date of Assessment Author 1. Wish to be (Past 1 Month) No 025 7:00 AM EDT Alejandro Garcia 2. Non-Specific Active Suici clay Thoughts (Past 1 Month) No 11/14/2024 7:00 AM EDT Sage Garcia 6. Suicidal Behavior (Lifetime) No 7:00 AM EDT Alejandro Garcia documented as of this encounter Plan of Treatment Upcoming Encounters Date Type Department Care Team (Late st Contact Info) Description 12/26/2024 11:20 AM EDT Office Visit Medical Office Building [facility] [address] [facility], [address] [place] [address] Prem [facility] MD [address] [facility] [address] [place] [address] 02/06/2025 1:40 PM EST Office Visit Medical Office [facility] [address], [address] [place] [address] Prem Kohler MD [address] [facility] [address] [place] [address] 03/09/2025 12:30 PM EST Office Visit [facility] [address] [place] [address] Joanne Santoyo, DEVON [address] [facility] [address] [place] [address] documented as of this encounter Procedures Procedure Name Priority Date/Time Associated Diagnosis Comments XR MSK OUTSIDE IMAGES 11/10/2024 8:51 PM EDT documented in this encounter Results * XR MSK OUTSIDE IMAGES (11/10/2024 8:51 PM EDT) Anatomical Region Laterality Modality Radiographic Randa ging 11/10/2024 8:51 PM EDT us External Provider IMG XR PROCEDURES Final Result documented in this encounter Visit Diagnoses Not on filedocumented in this encounter Additional Health Concerns Assessment Noted Time A fall risk assessment has been complete d for the patient 03/01/2024 1:36 PM EST documented as of this encounter Care Teams Apns Relationship Specialty Start Date End Date Matthias Walker APRN [address] [place] [address] PCP - General 12/10/21 11/10/24 Virgie Choi APRN [address] [place] [address] PCP - General 11/11/24 Yany Bruno MD [address] [place] [address] Referring Physician 12/04/21 documented as of this encounter
--- OUTSIDE RECORDS SUMMARY | 2024-12-23 13:59 | XMS_ITS | Encounter Summary ---
Author Organization Healthcare Address [address] [place] [address] Care Team Providers Care Rent Collector Name Role Phone Yany Bruno MD Unavailable [phone] Matthias Walker APRN Primary Care Provider [phone] Virgie Choi APRN Primary Care Provider [phone] Encounter Details Date Type Department Care Team (Late st Contact Info) Description 11/10/2024 Orders Only External Location [address] [place] [address] Provider, External Social History Tobacco Use Types [...] and Family Not on file 11/14/2024 Attends [employer] Services Not on file 11/14 Active Member [...] No 11/14/2024 Housing Stability Vital Sign Answer Lgenroy e Recorded In the last 12 months, was t here a time when you were not able to pay the mortgage or rent on time? No 11/14/2024 Number of Times Moved in the Last Year Not on fi le 11/14/2024 At any time in the past [address] [facility], were you homeless or living in a chcf (including now)? No 11/14/2024 [facility] Utilities Answer Date Recorded In the [...] Building [facility] [address] [facility], [address] [place] [address] Prem Kohler MD [address] [facility] [address] [place] [address] 02/06/2025 1:40 PM EST Office Visit Medical Office Building [facility] [address], [address] [place] [address] Prem Kohler MD [address] [facility] [address] [place] [address] 03/09/2025 12:30 PM EST Office Visit [facility] [address] [place] [address] Joanne Santoyo, DEVON [address] [facility] [address] [place] [address] documented as of this encounter Procedures Procedure Name Priority Date/Time Associated Diagnosis Comments XR MSK OUTSIDE IMAGES 11/10/2024 9:22 PM EDT documented in this encounter Results * XR MSK OUTSIDE IMAGES (11/10/2024 9:22 PM EDT) Anatomical Region Laterality Modality Radiographic Randa ging 11/10/2024 9:22 PM EDT us External Provider IMG XR PROCEDURES Final Result documented in this encounter Visit Diagnoses Not on filedocumented in this encounter Additional Health Concerns Assessment Noted Time A fall risk assessment has been complete d for the patient 03/01/2024 1:36 PM EST documented as of this encounter Care Teams Rent Collector Relationship Specialty Start Date End Date Matthias Walker APRN [address] [place] [address] PCP - General 12/10/21 11/10/24 Virgie Choi APRN [address] [place] [address] PCP - General 11/11/24 Yany Bruno MD [address] [place] [address] Referring Physician 12/04/21 documented as of this encounter
--- OUTSIDE RECORDS SUMMARY | 2024-12-23 13:59 | XMS_ITS | Encounter Summary ---
Author Organization Healthcare Address [address] [place] [address] Care Team Providers Care Commercial Driver'S License Driver Name Role Phone Yany Bruno MD Unavailable [phone] Matthias Walker APRN Primary Care Provider [phone] Virgie Choi APRN Primary Care Provider [phone] Encounter Details Date Type Department Care Team (Late st Contact Info) Description 11/10/2024 Orders Only External Location [address] [place] [address] Provider, External Social History Tobacco Use Types [...] and Family Not on file 11/14/2024 Attends [employer] Not on file 11/14 Active Member [...] any time in the past 12 m [facility], were you homeless or living in a jail (including now)? No 11/14/2024 [facility] Utilities Answer Date Recorded In the past [...] Building Surgery Sp[facility] [address] [facility], [address] [place] [address] Prem Kohler MD [address] [facility] [address] [place] [address] 02/06/2025 1:40 PM EST Office Visit Medical Office Building [facility] [address], [address] [place] [address] Prem Kohler MD [address] [facility] [address] [place] [address] 03/09/2025 12:30 PM EST Office Visit [facility] [address] [place] [address] Joanne Santoyo, DEVON [address] [facility] [address] [place] [address] documented as of this encounter Procedures Procedure [...] documented as of this encounter Care Teams Commercial Driver'S License Driver Relationship Specialty Start Date End Date Matthias Walker APRN [address] [place] [address] PCP - General 12/10/21 11/10/24 Virgie Choi APRN [address] [place] [address] PCP - General 11/11/24 Yany Bruno MD [address] [place] [address] Referring Physician 12/04/21 documented as of this encounter
--- OUTSIDE RECORDS SUMMARY | 2024-12-23 13:59 | XMS_ITS | Encounter Summary ---
Author Organization Healthcare Address [address] [place] [address] Care Team Providers Care Comptometrist Name Role Phone Yany Bruno MD Unavailable [phone] Matthias Walker APRN Primary Care Provider [phone] Virgie Choi APRN Primary Care Provider [phone] Encounter Details Date Type Department Care Team (Late st Contact Info) Description 11/10/2024 Orders Only External Location [address] [place] [address] Provider, External Social History Tobacco Use Types [...] and Family Not on file 11/14/2024 Attends [employer] Not on file 11/14 Active Member [...] in the past [address] [facility], were you homeless or living in a senior care (including now)? No 11/14/2024 [facility] [...] Building Surgery Spine [facility] [address] [facility], [address] [place] [address] Prem Kohler MD [address] [facility] [address] [place] [address] 02/06/2025 1:40 PM EST Office Visit Medical Office Building [facility] [address], [address] [place] [address] Prem Kohler MD [address] [facility] [address] [place] [address] 03/09/2025 12:30 PM EST Office Visit [facility] [address] [place] [address] Joanne Santoyo, DEVON [address] [facility] [address] [place] [address] documented as of this encounter Procedures Procedure [...] documented as of this encounter Care Teams Comptometrist Relationship Specialty Start Date End Date Matthias Walker APRN [address] [place] [address] PCP - General 12/10/21 11/10/24 Virgie Choi APRN [address] [place] [address] PCP - General 11/11/24 Yany Bruno MD [address] [place] [address] Referring Physician 12/04/21 documented as of this encounter
--- OUTSIDE RECORDS SUMMARY | 2024-12-23 13:59 | XMS_ITS | Encounter Summary ---
Author Organization Healthcare Address [address] [place] [address] Care Team Providers Care Sales Office Administrator Name Role Phone Yany Bruno MD Unavailable [phone] Virgie Choi APRN Primary Care Provider [phone] Encounter Details Date Type Department Care Team (Latest Contact Info) Description 11/11/2024 Travel Social History Tobacco Use Types Packs/Day Years [...] Date of Assessment Author No Risk Indicated 11/11/2024 3:00 PM EDT Alejandro Garcia * Question Answer Date of Assessment Author 1. Wish to be (Past 1 Month) No 025 3:00 PM EDT Alejandro Garcia 2. Non-Specific Active Suici clay Thoughts (Past 1 Month) No 11/11/2024 3:00 PM EDT Sage Garcia 6. Suicidal Behavior (Lifetime) No 3:00 PM EDT Alejandro Garcia documented as of this encounter Plan of Treatment Upcoming Encounters Date Type Department Care Team (Late st Contact Info) Description 12/26/2024 11:20 AM EDT Office Visit Medical Office Building Surgery [facility] [address] [facility], [address] [place] [address] Prem Kohler MD [address] [facility] [address] [place] [address] 02/06/2025 1:40 PM EST Office Visit Medical Office Building [facility] [address], [address] [place] [address] Prem Kohler MD [address] [facility] [address] [place] [address] 03/09/2025 12:30 PM EST Office Visit [facility] [address] [place] [address] Joanne Santoyo, LIFE SKILLS COORDINATOR [address] [facility] [address] [place] [address] documented as of this encounter Visit Diagnoses Not on filedocumented in this encounter Additional Health Concerns Assessment Noted Time A fall risk assessment has been complete d for the patient 03/01/2024 1:36 PM EST A Body Mass Index follow-up plan has been documented for the patient 11/15/2024 11:09 AM EDT documented as of this encounter Care Teams Sales Office Administrator Relationship Specialty Start Date End Date Virgie Choi APRN [address] [place] [address] PCP - General 11/11/24 Yany Bruno MD [address] [place] [address] Referring Physician 12/04/21 documented as of this encounter
--- OUTSIDE RECORDS SUMMARY | 2024-12-23 13:59 | XMS_ITS | Encounter Summary ---
Author Organization Healthcare Address [address] [place] [address] Care Team Providers Care Demonstrator Knitting Name Role Phone Yany Bruno MD Unavailable [phone] Virgie Choi APRN Primary Care Provider [phone] Encounter Details Date Type Department Care Team (Latest Contact Info) Description 11/12/2024 Travel Social History Tobacco Use Types Packs/Day [...] (Past 1 Month) No 025 9:03 AM ABBET Helen Cannon, RN 2. Non-Specific Active Suici clay Thoughts (Past 1 Month) No 11/12/2024 9:03 AM EDT Helen Cannon, RN 6. Suicidal Behavior (Lifetime) No 9:03 AM EDT Helen Cannon, RN documented as of this encounter Plan of Treatment Upcoming Encounters Date Type Department Care Team (Late st Contact Info) Description 12/26/2024 11:20 AM EDT Office Visit Medical Office Building [facility] [address], [address] [place] [address] Prem Kohler MD [address] [place] [address] [place] [address] 02/06/2025 1:40 PM EST Office Visit Medical Office Building [facility] [address], [address] [place] [address] Prem Kohler MD [address] [facility] [address] [place] [address] 03/09/2025 12:30 PM EST Office Visit [facility] [address] [place] [address] Joanne Santoyo, BARLEY STEEPER [address] [place] [address] [place] [address] documented as of this encounter Visit Diagnoses Not on filedocumented in this encounter Additional Health Concerns Assessment Noted Time A fall risk assessment has been complete d for the patient 03/01/2024 1:36 PM EST A Body Mass Index follow-up plan has been documented for the patient 11/15/2024 11:09 AM EDT documented as of this encounter Care Teams Demonstrator Knitting Relationship Specialty Start Date End Date Virgie Choi APRN [address] [place] [address] PCP - General 11/11/24 Yany Bruno MD [facility] [address] [address] Referring Physician 12/04/21 documented as of this encounter
--- OUTSIDE RECORDS SUMMARY | 2024-12-23 14:00 | XMS_ITS | Clinical Summary ---
Author Organization [facility] Address [address] [place] [address] Care Team Providers Care Nutrient Management Specialist Name Role Phone Yany Bruno MD Unavailable [phone] Virgie Choi APRN Primary Care Provider [phone] Allergies Active Allergy Reactions Criticality Noted Date Comments Codeine Palpitations Low 12/10/2021 Sulfa Drugs Rash Low 12/10/2021 Medications diclofenac (Voltaren) 75 MG EC tablet Take 1 tablet (75 mg) by mouth 2 (two) times a day. 2 Active hydroCHLOROthia zide (HYDRODiuril) 25 MG tablet Take 1 tablet (25 mg) by mouth 1 (one) time each day. 2 Active Multiple Vitamin (multivitamin) tablet Take 1 tablet by mouth 1 (one) time each day. Active COLLAGEN PO Take 2 Chewable tablet by mouth 1 (one) time each day. Active acetaminophen (Tylenol) 500 MG tablet Take 2 tablets (1,000 mg total) by mouth every 8 (eight) hours. 30 tablet 1 2 Active acetaminophen (Tylenol Extra Strength) 500 MG tablet Take 2 tablets by mouth every 6 hours as needed for pain. 5 Active rivaroxaban (Xarelto) 10 MG tablet Take 1 tablet by mouth daily with breakfast. 5 Active oxyCODONE (Roxicodone) 5 MG immediate release tablet Take 1 tablet by mouth every 4 hours as needed for moderate pain or severe pain (Severe pain 5-8). 5 Active gabapentin (Neurontin) 100 MG capsule Take 1 capsule by mouth every 8 hours. 5 Active methocarbamol (Robaxin) 500 MG tablet Take 1 tablet by mouth 4 times a day. Active naloxone (Narcan) 4 mg/0.1 mL nasal spray 1. Give 1 spray in nostril for no/slow breathing or cannot wake after opioid use 2. Call 911 3. Repeat in other nostril if symptoms continue 1 each 5 Active pantoprazole (Protonix) 40 MG EC tablet Take 1 tablet by mouth daily before breakfast. Do not crush, chew, or split. 5 Active senna-docusate (Audrey-Colace) 8.6-50 MG tablet Take 1 tablet by mouth 2 times a day. Active traMADol (Ultram) 50 MG tablet Take 1 tablet by mouth every 6 hours as needed for moderate pain (pain score 3-5. use prior to oxycodone or hydromorphone). Active cephalexin (Keflex) 500 MG capsuleIndicati ons:Periprosthe tic fracture of femur at tip of prosthesis, initial encounter Take 1 capsule by mouth every 6 hours for 10 days. For post-operative prophylaxis 5 11/26/19 25 Active Problems Problem Noted Date Diagnosed Date Periprosthetic fracture of f emur at tip of prosthesis, initial encounter 11/11/2024 Status post hysterectomy 02/02/2022 Endometrial cancer 12/11/2021 Cancer Staging:Clinical:FIGO Stage IA, calculated as Stage Unknown(cT1a, cNX, cM0) - Signed by Senait Guillaume MD on 02/26/2022 HTN (hypertension) 12/11/2021 Morbid obesity with body mass index (BMI) of 40. 0 or higher 12/10/2021 Resolved Problems Problem Noted Date Diagnosed Date Resolved Date Arthritis 12/11/2021 12/03/2024 Second hand smoke exposure 12/10/2021 0 12/03/2024 Encounters Date Type Department Care Team Description 12/22/2024 Telephone Medical Office Building [facility] [address] [facility], [address] [place] [address] Prem Kohler MD HCN - Patient Message 12/19/2024 10:40 AM EDT Office Visit Medical Office Building [facility] [address] [facility], [address] [place] [address] Prem Kohler MD History of right knee joint replacement (Primary Dx) 12/19/2024 Travel 12/14/2024 10:30 AM EDT - 12/14/2024 8:27 PM EDT Emergency [facility] Emergency [facility] [address] [place] [address] Dylan Hernandez MD Owens, Susan E, MD Dislocation of right patella, initial encounter (Primary Dx); Periprosthetic fracture of femur at tip of prosthesis, initial encounter Discharge Disposition: Home or Self Care 12/14/2024 Travel 12/14/2024 Telephone Medical Office Building [facility] [address] [facility], [address] [place] [address] Prem Kohler MD HCN - Patient Message 12/14/2024 Telephone Medical Office Building [facility] [address] [facility], [address] [place] [address] Prem Kohler MD HCN - Patient Message 12/12/2024 12:00 PM EDT Office Visit Medical Office Building [facility] [address] [facility], [address] [place] [address] Prem Kohler MD History of right knee joint replacement (Primary Dx) 12/12/2024 Telephone Medical Office Building [facility] [address] [facility], [address] [place] [address] Prem Kohler HCN - Patient Message 12/12/2024 Travel 11/28/2024 10:40 AM EDT Office Visit Medical Office Building [facility] [address] [facility], [address] [place] [address] Prem Kohler MD History of right knee joint replacement (Primary Dx) 11/28/2024 Telephone Medical Office Building [facility] [address] [facility], [address] [place] [address] Prem Kohler MD HCN - Patient Message 11/28/2024 Telephone Medical Office Building [facility] [address] [facility], [address] [place] [address] Prem Kohler MD HCN - Patient Message 11/28/2024 Travel 11/20/2024 Telephone Medical Office Building [facility] [address] [facility], [address] [place] [address] Prem Kohler MD HCN - Patient Message 11/12/2024 1:48 PM EDT Anesthesia Event [facility] OPERATING ROOM [address] [place] [address] Terry Mccrary MD Hughes, Corey B, MD 11/12/2024 12:20 PM EDT - 11/12/2024 2:55 PM EDT Surgery [facility] OPERATING ROOM [address] [place] [address] Prem Kohler MD RIGHT DISTAL FEMUR REPLACEMENT [93558 (CPT )] 11/12/2024 Travel 11/11/2024 2:54 AM EDT - 11/15/2024 3:02 PM EDT Hospital Encounter [facility] 9 T2 [facility] [address] [place] [address] Richar Centeno DO Eckerline, Charles A, MD Scott, Brandon R, MD Periprosthetic fracture of femur at tip of prosthesis, initial encounter (Primary Dx) Discharge Disposition: [facility]dc Facility 11/11/2024 Travel 11/10/2024 Orders Only External Location [address] [place] [address] Provider, External 11/10/2024 Orders Only External Location [address] [place] [address] Provider, External 11/10/2024 Orders Only External Location [address] [place] [id number] Provider, External 11/10/2024 Orders Only External Location [address] [place] [id number] Provider, External from Last 3 Months Social History Tobacco [...] and Family Not on file 11/14/2024 Attends Buddhist Services Not on file 11/14 Active Member [...] any time in the past 12 m [facility], were you homeless or living in a skilled nursing (including now)? No 11/14/2024 [facility] Utilities Answer Date Recorded In the [...] Mass Index 50.38 12/19/2024 10:27 AM EDT Plan of Treatment Upcoming Encounters Date Type Department Care Team ([facility] Contact Info) Description 12/26/2024 11:20 AM EDT Office Visit Medical Office Building Surgery Spine & [facility] [address] [facility], [address] [place] [address] Prem Kohler MD [address] [place] [address] 02/06/2025 1:40 PM EST Office Visit Medical Office Building Surgery [facility] [address], [address] [place] [address] Prem Kohler MD [address] [place] [address] 03/09/2025 12:30 PM EST Office Visit [facility] Gynecology [address] [place] [id number] [place]Joanne S, GIS ANALYST [address] [place] [address] Health Maintenance Due Date Last Done Comments [facility]-Bone Density Scan 1955 [facility]-Medicare Annual Wellness (AWV) 1955 [facility]-Infant/Child/Adol SDOH Screenings 1955 [facility]-Zoster Vaccines (1 of 2) 1973 CT Colonography 1999 Colonoscopy 1999 FIT-DNA 1999 FIT 1999 FOBT 1999 Sigmoidoscopy 1999 [facility]-Colorectal Cancer Screening 1999 [facility]-Breast Cancer Screening 01/28/2004 [facility]-RSV Vaccine: 60+ Years or (1 - Risk 60-74 years 1-dose series) 2014 [facility]-Pneumococcal Vaccine: 50+ Years (2 of 2 - PPSV23, PCV20, or PCV21) 10/07/2016 08/12/2016 [id number] Vaccine (3 - season) 2024 01/22/2021, 06/19/2020 [facility]-Influenza Vaccine (#1) 2024 [facility]-DTaP,Tdap,and Td Vaccines (2 - Td or Tdap) 02/19/2025 02/19/2015, 04/06/1997 [facility]-Depression Screening 03/01/2025 03/01/2024, 08/14 [facility]- SDOH Screenings 05/14/2025 [facility]-Adult SDOH Screenings 05/14/2025 11/14/2024 [facility]-Hepatitis C Screening Completed 11/11/2024 [facility]-Obesity Intervention Completed 025, 12/12/2024, 11/28/2024, Additional history exists HPV Vaccines Aged Out No longer eligi [...] on patient's age to complete this topic Medical Devices Implanted Type Area Nuclear Medical Technologist Device Identifier Shelf Expiration Date Model / Serial / Lot Chg Femoral Mrh/Gmrs Distal Po - Sna - [id number] Implanted:Qty: 1 on 11/12/2024 [facility][id number] 04/19/2029 6481-2-150 / NA / [id number] Cement With Tobramycin - Sna - [id number] Implanted:Qty: 1 on 11/12/2024 by Prem Kohler MD at [facility] Cement [employer] [id number] 01/12/2026 [id number] / NA / [id number] Cement With Tobramycin - Sna - [id number] Implanted:Qty: 1 on 11/12/2024 by Prem Kohler MD at [facility] Cement [employer] [facility] [id number] 01/12/2026 [id number] / NA / [id number] Cement With Tobramycin - Sna - [id number] Implanted:Qty: 1 on 11/12/2024 by Prem Kohler MD at [facility] Cement [employer] [id number] 02/07/2030 [id number] / NA / [id number] Chg Femoral Hrhk Axle - Sna - [id number] Implanted:Qty: 1 on 11/12/2024 by Prem Kohler MD at [facility] Implant [employer] ([facility])-[id number] 03/23/2029 6481-2-120 / NA / Chg Femoral Std Rt Dist 65mm G - Sna - [id number] Implanted:Qty: 1 on 11/12/2024 by Prem Kohler MD at [facility] Implant [employer] ([facility])-[id number] 68 07/19/2029 [id number] / NA / [id number] Chg Insert Hrhk Tib 10mm Xs/S - Sna - [id number] Implanted:Qty: 1 on 11/12/2024 by Prem Kohler MD at [facility] Implant [employer] ([facility])-[id number] 01/15/2027 6481-3-210 / NA / [id number] Chg Tibial Hrhk Rot Comp Xs/Sm - Sna - [id number] Implanted:Qty: 1 on 11/12/2024 by Prem Kohler MD at [facility] Implant [employer] ([facility])-[id number] 12/14/2026 6481-2-100 / NA / [id number] Knee-11/10/2024 Implanted:10/14 (Quantity not on file) Knee Right: Knee Chg Pin Sterile Headless 03/22 - Sna - [id number] Implanted:Qty: 1 on 11/12/2024 by Prem Kohler MD at [facility] Pin [employer] ([facility])-139 68 10/02/2029 [id number] / NA / [id number] Chg Plate Mrh Tibial Base S1 - Sna - [id number] Implanted:Qty: 1 on 11/12/2024 by Prem Kohler MD at [facility] Plate [employer] ([facility])-139 68 05/08/2028 6481-3-110 / NA / [id number] Stem Regular Fluted [id number] - Sna - [id number] Implanted:Qty: 1 on 11/12/2024 by Prem Kohler MD at [facility] Stem [employer] ([facility])-[id number] 01/06/2029 [id number] / NA / [id number] Chg Stem Mrs [id number] Fem W/O Gera - Sna - [id number] Implanted:Qty: 1 on 11/12/2024 by Prem Kohler MD at [facility] Stem [employer] ([facility])-[id number] 01/06/2029 6485-3-113 / NA / Procedures Procedure Name Priority Date/Time Associated Diagnosis Comments SEDIMENTATION RATE, AUTOMATED STAT 12/14/2024 4:04 PM EDT C-REACTIVE PROTEIN, PLASMA STAT 12/14/2024 12:21 PM EDT COMPREHENSIVE METABOLIC PANEL, PLASMA STAT 12/14/2024 12:21 PM EDT CBC WITH AUTO DIFFERENTIAL STAT 12/14/2024 12:21 PM EDT XR TIBIA FIBULA RIGHT 2+ VIEWS STAT 12/14/2024 11:37 AM EDT XR KNEE RIGHT 3 VIEWS STAT 12/14/2024 11:37 AM EDT XR FEMUR RIGHT 2+ VIEWS STAT 12/14/2024 11:37 AM EDT BASIC METABOLIC PANEL, PLASMA Routine 11/13/2024 2:09 AM EDT CBC W/O DIFFERENTIAL Routine 11/13/2024 2:09 AM EDT XR KNEE RIGHT 1 OR 2 VIEWS Routine 11/12/2024 6:42 PM EDT ANESTHESIA PERIPHERAL IV PLACEMENT Routine 11/12/2024 1:59 PM EDT PB ANESTHESIA PLACEHOLDER Routine 11/12/2024 1:57 PM EDT FL AN ELECTIVE ENDOTRACHEAL AIRWAY Routine 11/12/2024 1:57 PM EDT FL TOTAL KNEE ARTHROPLASTY 11/12/2024 1:34 PM EDT Periprosthetic fracture of femur at tip of prosthesis, initial encounter Special Needs Supine, DeMayo, same set up as a total knee, Mars distal femur implants. PROTHROMBIN TIME(PT) / INR [...] ECG ADULT Routine 11/11/2024 7:45 AM EDT HEMOGLOBIN A1C Add-On 11/11/2024 6:03 AM EDT SEDIMENTATION RATE, AUTOMATED STAT 11/11/2024 6:03 AM EDT C-REACTIVE PROTEIN, PLASMA STAT 11/11/2024 6:03 AM EDT ED HIV 1/2 ANTIBODY/ANTIGEN SCREEN WITH REFLEX TO HIV I/II DIFFERENTIATION STAT 11/11/2024 6:03 AM EDT ED PROTOCOL HIV 1/2 ANTIBODY/ANTIGEN SCREEN W/REFLEX TO HIV 1/2 ANTIBODY DIFFERENTIATION STAT 11/11/2024 6:03 AM EDT HEPATITIS C ANTIBODY - ED W/REFLEX TO HCV QUANT PCR STAT 11/11/2024 6:03 AM EDT COMPREHENSIVE METABOLIC PANEL, PLASMA STAT 11/11/2024 6:03 AM EDT TYPE AND SCREEN STAT 11/11/2024 6:03 AM EDT PROTHROMBIN TIME(PT) / INR STAT 11/11/2024 6:03 AM EDT CBC WITH AUTO DIFFERENTIAL STAT 11/11/2024 6:03 AM EDT XR ANKLE RIGHT 3+ VIEWS STAT 11/11/2024 5:55 AM EDT XR TIBIA FIBULA RIGHT 2+ VIEWS STAT 11/11/2024 5:55 AM EDT XR KNEE RIGHT 3 VIEWS STAT 11/11/2024 5:55 AM EDT XR FEMUR RIGHT 2+ VIEWS STAT 11/11/2024 5:55 AM EDT XR HIP RIGHT 2 OR 3 VIEWS STAT 11/11/2024 5:55 AM EDT XR MSK OUTSIDE IMAGES 11/10/2024 9:22 PM EDT XR MSK OUTSIDE IMAGES 11/10/2024 8:51 PM EDT XR MSK OUTSIDE IMAGES 11/10/2024 8:51 PM EDT XR MSK OUTSIDE IMAGES 11/10/2024 8:51 PM EDT from Last 3 Months Results * (ABNORMAL) Sed rate, automated (12/14/2024 4:04 PM EDT) Only the most recent of2 resultswithin the time period is included. Sedimentation Rate 80(H) <30 mm/hr 2024 6:07 PM EDT [facility] Blood Venous blood specimen / Unknown Venipuncture / Unknown 12/14/2024 4:04 PM EDT 12/14/2024 4:17 PM EDT us Temi [facility] LAB BLOOD ORDERABLES Radha saad Result [facility] [address] [place] [address] * (ABNORMAL) CBC w/diff (12/14/2024 12:21 PM EDT) Only the most recent of2 resultswithin the time period is included. WBC Count 10.59(H) 3.70 - 10.30 10*3/uL LAB HEMATOLOGY METHOD 12/14/2024 3:16 PM EDT [facility] RBC Count 2.80(L) 3.90 - 5.20 10*6/uL LAB HEMATOLOGY METHOD 12/14/2024 3:16 PM EDT [facility] HGB 8.2(L) 11.2 - 15.7 g/dL LAB HEMATOLOGY METHOD 12/14/2024 3:16 PM EDT [facility] HCT 26.8(L) 34.0 - 45.0 % LAB HEMATOLOGY METHOD 12/14/2024 3:16 PM EDT [facility] Platelet Count 188 155 - 369 10*3/uL LAB HEMATOLOGY METHOD 12/14/2024 3:16 PM EDT [facility] MCV 96 79 - 98 fL LAB HEMATOLOGY METHOD 12/14/2024 3:16 PM EDT [facility] MCH 29.3 26.0 - 32.0 pg LAB HEMATOLOGY METHOD 12/14/2024 3:16 PM EDT [facility] MCHC 30.6(L) 30.7 - 35.5 g/dL LAB HEMATOLOGY METHOD 12/14/2024 3:16 PM EDT [facility] RDW 16.5(H) 11.5 - 14.5 % LAB HEMATOLOGY METHOD 12/14/2024 3:16 PM EDT [facility] MPV LAB HEMATOLOGY METHOD 12/14/2024 3:16 PM EDT [facility] Comment:Not Measured nRBC 0.0 <=0.0 per 100 WBCs LAB HEMATOLOGY METHOD 12/14/2024 3:16 PM EDT [facility] Differential Type Automated LAB HEMATOLOGY METHOD 12/14/2024 3:16 PM EDT [facility] Neutrophils % 66 % LAB HEMATOLOGY METHOD 12/14/2024 3:16 PM EDT [facility] Lymphocytes % 22 % LAB HEMATOLOGY METHOD 12/14/2024 3:16 PM EDT [facility] Monocytes % 7 % LAB HEMATOLOGY METHOD 12/14/2024 3:16 PM EDT [facility] Eosinophils % 5 % LAB HEMATOLOGY METHOD 12/14/2024 3:16 PM EDT [facility] Basophils % 0 % LAB HEMATOLOGY METHOD 12/14/2024 3:16 PM EDT [facility] Immature Granulocytes % 0 % LAB HEMATOLOGY METHOD 12/14/2024 3:16 PM EDT [facility] Neutrophils Absolute 6.89(H) 1.60 - 6.10 10*3/uL LAB HEMATOLOGY METHOD 12/14/2024 3:16 PM EDT [facility] Lymphocytes Absolute 2.32 1.20 - 3.90 10*3/uL LAB HEMATOLOGY METHOD 12/14/2024 3:16 PM EDT [facility] Monocytes Absolute 0.76 0.30 - 0.90 10*3/uL LAB HEMATOLOGY METHOD 12/14/2024 3:16 PM EDT [facility] Eosinophils Absolute 0.54(H) 0.00 - 0.50 10*3/uL LAB HEMATOLOGY METHOD 12/14/2024 3:16 PM EDT [facility] Basophils Absolute 0.04 0.00 - 0.10 10*3/uL LAB HEMATOLOGY METHOD 12/14/2024 3:16 PM EDT [facility] Immature Granulocytes Absolute 0.04 0.00 - 0.06 10*3/uL LAB HEMATOLOGY METHOD 12/14/2024 3:16 PM EDT [facility] Blood Venous blood specimen / Unknown Venipuncture / Unknown 12/14/2024 12:21 PM EDT 12/14/2024 12:43 PM EDT Narrative [facility] - 12/14/2024 3:16 PM EDT Therapeutic decision making should be based on absolute values, rather than percentages. us [facility] LAB BLOOD ORDERABLES Radha l Result Performing Organization Address [facility]/ZIP Co de Phone Number [facility] [address] [place] [address] * (ABNORMAL) C-Reactive protein (12/14/2024 12:21 PM EDT) Only the most recent of2 resultswithin the time period is included. CRP, Plasma 43.2(H) <=8.0 mg/L 12/14/2024 2:22 PM EDT [facility] Blood Venous blood specimen / Unknown Venipuncture / Unknown 12/14/2024 12:21 PM EDT 12/14/2024 1:04 PM EDT Narrative [facility] - 12/14/2024 2:22 PM EDT This CRP test is appropriate for assessment of infection, systemic inflammation and/or tissue injury. To assess cardiovascular disease risk order high sensitivity CRP (CRPH). [facility] LAB BLOOD ORDERABLES Radha l Result Performing Organization Address [facility] Co de Phone Number [facility] [address] [place] [address] * (ABNORMAL) CMP (12/14/2024 12:21 PM EDT) Only the most recent of2 resultswithin the time period is included. Glucose, Plasma 90 74 - 99 mg/dL 12/14/2024 2:22 PM EDT [facility] BUN, Plasma 37(H) 8 - 23 mg/dL 12/14/2024 2:22 PM EDT [facility] Creatinine, Plasma 1.16(H) 0.60 - 1.10 mg/dL 12/14/2024 2:22 PM EDT [facility] BUN/Creatinine Ratio 32 12/14/2024 2:22 PM EDT [facility] Sodium, Plasma 138 136 - 145 mmol/L 12/14/2024 2:22 PM EDT [facility] Potassium, Plasma 5.1(H) 3.6 - 4.9 mmol/L 12/14/2024 2:22 PM EDT [facility] Comment:Hemolyzed, result ma y be falsely increased. Chloride, Plasma 110(H) 97 - 107 mmol/L 12/14/2024 2:22 PM EDT [facility] CO2, Plasma 13(L) 22 - 29 mmol/L 12/14/2024 2:22 PM EDT [facility] Anion Gap 15 6 - 16 mmol/L 12/14/2024 2:22 PM EDT [facility] Total Calcium, Plasma 9.2 8.9 - 10.2 mg/dL 12/14/2024 2:22 PM EDT [facility] Total Protein 6.4 6.3 - 7.9 g/dL 12/14/2024 2:22 PM EDT [facility] Albumin, Plasma 2.8(L) 3.5 - 5.2 g/dL 12/14/2024 2:22 PM EDT [facility] AST, Plasma 45(H) 10 - 35 U/L 12/14/2024 2:22 PM EDT [facility] Comment:Hemolyzed, result ma y be falsely increased. ALT, Plasma 10 10 - 35 U/L 12/14/2024 2:22 PM EDT [facility] Alkaline Phosphatase, Plasma 89 46 - 142 U/L 12/14/2024 2:22 PM EDT [facility] Total Bilirubin, Plasma 0.4 0.2 - 1.1 mg/dL 12/14/2024 2:22 PM EDT [facility] eGFRcr 50.8 mL/min/1.7 3m*2 12/14/2024 2:22 PM EDT [facility] Comment:Reported eGFRcr in m L/min/1.73m2 is based the CKD-EPI 2020 equation that does not use a race coefficient. Blood Venous blood specimen / Unknown Venipuncture / Unknown 12/14/2024 12:21 PM EDT 12/14/2024 1:04 PM EDT us Tmei [facility] LAB BLOOD ORDERABLES Radha l Result [facility] [address] [place] [address] * XR Tibia Fibula Right 2+ Views (12/14/2024 11:37 AM EDT) Only the most recent of2 resultswithin the time period is included. Anatomical Region Laterality Modality Lower Extremities, Lower [...] Neema Doan MD on 12/14/2024 1:18 PM Temi [facility] IMG XR PROCEDURES Final R esult * XR Knee Right 3 + Views (12/14/2024 11:37 AM EDT) Only the most recent of3 resultswithin the time period is included. Anatomical Region Laterality Modality Lower Extremities, Knee [...] Neema Doan MD on 12/14/2024 1:18 PM Tem[facility] IMG XR PROCEDURES Final R esult * XR Femur Right 2+ Views (12/14/2024 11:37 AM EDT) Only the most recent of2 resultswithin the time period is included. Anatomical Region Laterality Modality Lower Extremities, Femur [...] Doan MD on 12/14/2024 1:18 PM us Temi [facility] IMG XR PROCEDURES Final R esult * (ABNORMAL) CBC (11/13/2024 2:09 AM EDT) Only the most recent of2 resultswithin the time period is included. WBC Count 15.02(H) 3.70 - 10.30 10*3/uL LAB HEMATOLOGY METHOD 11/13/2024 2:24 AM EDT [facility] RBC Count 3.12(L) 3.90 - 5.20 10*6/uL LAB HEMATOLOGY METHOD 11/13/2024 2:24 AM EDT [facility] HGB 9.2(L) 11.2 - 15.7 g/dL LAB HEMATOLOGY METHOD 11/13/2024 2:24 AM EDT [facility] HCT 27.7(L) 34.0 - 45.0 % LAB HEMATOLOGY METHOD 11/13/2024 2:24 AM EDT [facility] Platelet Count 265 155 - 369 10*3/uL LAB HEMATOLOGY METHOD 11/13/2024 2:24 AM EDT [facility] MCV 89 79 - 98 fL LAB HEMATOLOGY METHOD 11/13/2024 2:24 AM EDT [facility] MCH 29.5 26.0 - 32.0 pg LAB HEMATOLOGY METHOD 11/13/2024 2:24 AM EDT [facility] MCHC 33.2 30.7 - 35.5 g/dL LAB HEMATOLOGY METHOD 11/13/2024 2:24 AM EDT [facility] RDW 13.1 11.5 - 14.5 % LAB HEMATOLOGY METHOD 11/13/2024 2:24 AM EDT [facility] MPV 9.4 8.8 - 12.5 fL LAB HEMATOLOGY METHOD 11/13/2024 2:24 AM EDT [facility] nRBC 0.0 <=0.0 per 100 WBCs LAB HEMATOLOGY METHOD 11/13/2024 2:24 AM EDT [facility] Blood Venous blood specimen / Unknown Venipuncture / Unknown 11/13/2024 2:09 AM EDT 11/13/2024 2:17 AM EDT us Prem Kohler MD LAB BLOOD ORDERABLES Radha nash Result [facility] [address] [place] [address] * (ABNORMAL) Basic metabolic panel (11/13/2024 2:09 AM EDT) Only the most recent of2 resultswithin the time period is included. Glucose, Plasma 114(H) 74 - 99 mg/dL 11/13/2024 2:46 AM EDT [facility] BUN, Plasma 36(H) 8 - 23 mg/dL 11/13/2024 2:46 AM EDT [facility] Creatinine, Plasma 1.07 0.60 - 1.10 mg/dL 11/13/2024 2:46 AM EDT [facility] BUN/Creatinine Ratio 34 11/13/2024 2:46 AM EDT [facility] Sodium, Plasma 138 136 - 145 mmol/L 11/13/2024 2:46 AM EDT [facility] Potassium, Plasma 5.1(H) 3.6 - 4.9 mmol/L 11/13/2024 2:46 AM EDT [facility] Chloride, Plasma 106 97 - 107 mmol/L 11/13/2024 2:46 AM EDT [facility] [facility] LAB CO2, Plasma 21(L) 22 - 29 mmol/L 11/13/2024 2:46 AM EDT [facility] Anion Gap 11 6 - 16 mmol/L 11/13/2024 2:46 AM EDT [facility] Total Calcium, Plasma 8.7(L) 8.9 - 10.2 mg/dL 11/13/2024 2:46 AM EDT [facility] eGFRcr 56.0 mL/min/1.7 3m*2 11/13/2024 2:46 AM EDT [facility] Comment:Reported eGFRcr in m L/min/1.73m2 is based the CKD-EPI 2020 equation that does not use a race coefficient. Blood Venous blood specimen / Unknown Venipuncture / Unknown 11/13/2024 2:09 AM EDT 11/13/2024 2:17 AM EDT us Prem Kohler MD LAB BLOOD ORDERABLES Radha nash Result [facility] [address] [place] [address] * XR Knee Right 1 or 2 [...] IMG XR PROCEDURES Final R esult * Peripheral IV (11/12/2024 1:59 PM EDT) Narrative Terry Mccrary MD - 11/12/2024 1:59 PM EDT Terry Mccrary MD 11/12/2024 3:12 PM Peripheral IV Date/Time: 11/12/2024 1:59 PM Inserted by: Celestino Leo MD Placement Needle size: 16 G Location: forearm Local anesthetic: none Site prep: alcohol Technique: anatomical landmarks Terry Mccrary MD ANESTHESIA ORDERABLES Final Resu lt * FL AN ELECTIVE ENDOTRACHEAL AIRWAY, PB ANESTHESIA PLACEHOLDER (11/12/2024 1:57 PM EDT) Narrative Terry Mccrary MD - 11/12/2024 1:57 PM EDT Terry [...] MD ANESTHESIA ORDERABLES Final Resu lt * (ABNORMAL) Prothrombin Time/INR (11/12/2024 1:13 AM EDT) Only the most recent of2 resultswithin the time period is included. Prothrombin Time 16.6(H) 12.0 - 14.3 sec LAB COAGULATION METHOD 11/12/2024 1:49 AM EDT [facility] INR 1.3(H) 0.9 - 1.1 LAB COAGULATION METHOD 11/12/2024 1:49 AM EDT [facility] Blood Venous blood specimen / Unknown Venipuncture / Unknown 11/12/2024 1:13 AM EDT 11/12/2024 1:24 AM EDT [facility] - 11/12/2024 1:49 AM EDT OPTIMAL INR RANGES FOR PATIENT ON ORAL ANTICOAGULANT THERAPY Prevention of venous thromboembolism INR 2.0 to 3.0 In patients with heart disease: Atrial fibrillation INR 2.0 to 3.0 Valvular heart disease INR 2.0 to 3.0 Tissue heart valves INR 2.0 to 3.0 Mechanical prosthetic valves INR 2.5 to 3.5 Prevention of recurrent PA INR 2.5 to 3.5 us Lawrence Weeks MD LAB BLOOD ORDERABLES Final Re sult [facility] [address] [place] [address] * CT Knee Right wo IV Contrast [...] Rosales MD on 11/11/2024 10:42 AM us Lawrence Weeks MD IMG XR PROCEDURES Final Resul t * ECG Adult (11/11/2024 7:45 AM EDT) EKG DIAGNOSIS CLASS Normal MUSE ECG Ventricular Rate 73 BPM MUSE ECG Atrial Rate 73 BPM MUSE ECG FL Interval 124 ms MUSE ECG QRSD Interval 88 ms MUSE ECG QT Interval 372 ms MUSE ECG QTC Interval 409 ms MUSE ECG P Ok[place] 30 degrees MUSE ECG R [place] 54 degrees MUSE ECG T Wave [place] 49 degrees MUSE ECG Diagnosis Normal sinus rhythm MUSE ECG Diagnosis Normal ECG MUSE ECG Diagnosis MUSE ECG Diagnosis Confirmed by Qamar Randall ([id number]) on 11/11/2024 4:42:59 PM MUSE ECG 11/11/2024 7:45 AM EDT 11/11/2024 4:42 PM EDT us Lawrence Weeks MD ECG ORDERABLES Final Result MUSE ECG * ED HIV 1/2 Antibody/Antigen Screen w/Reflex to HIV 1/2 Differentiation (11/11/2024 6:03 AM EDT) HIV 1 & 2 Antibody/Antigen Screen Non Reactive Non Reactive 11/11/2024 7:20 AM EDT [facility] Comment:Screening for HIV 1 & 2 antibodies, and P24 antigen is NONREACTIVE. No confirmatory testing is required. Blood Venous blood specimen / Unknown Venipuncture / Unknown 11/11/2024 6:03 AM EDT 11/11/2024 6:37 AM EDT Richar Barrett Centeno LAB BLOOD ORDERABLES Final R esult Performing Organization Address City/[facility]/ZIP Co de Phone Number [facility] [address] [place] [address] * Hepatitis C Antibody - ED (11/11/2024 6:03 AM EDT) Hepatitis C Antibody Negative Negative 11/11/2024 7:20 AM EDT [facility] Blood Venous blood specimen / Unknown Venipuncture / Unknown 11/11/2024 6:03 AM EDT 11/11/2024 6:37 AM EDT Richar Barrett Centeno DO LAB BLOOD ORDERABLES Final R esult [facility] [address] [place] [address] * Type and screen (11/11/2024 6:03 AM EDT) ABO/Rh O Positive 11/11/2024 5:14 AM EDT [facility]OD [facility] Antibody Screen Negative 11/11/2024 5:14 AM EDT BLOOD BANK Specimen Expiration 11/14/2024 23:59 11/11/2024 5:14 AM EDT BLOOD BANK Blood Venous blood specimen / Unknown Venipuncture / Unknown 11/11/2024 6:03 AM EDT 11/11/2024 6:11 AM EDT Richar Centeno DO LAB BLOOD BANK TEST ORDERABL ES Final Result Performing Organization Address [facility]/ZIP Co de Phone Number BLOOD BANK [address] * Hemoglobin A1c (11/11/2024 6:03 AM EDT) Hemoglobin A1c 5.5 <5.7 % 11/12/2024 9:[address] [facility] Blood Venous blood specimen / Unknown Venipuncture / Unknown 11/11/2024 6:03 AM EDT 11/11/2024 6:15 AM EDT Narrative [facility] - 11/12/2024 9:44 AM EDT HA1C Interpretive Data: Diagnosis of Diabetes: Diabetic > or = 6.5% Pre-diabetic 5.7 to 6.4% Non-diabetic < or = 5.6% Glycemic Targets for Type I and Type II Diabetics: Non- Adults <7.0% Adults <6.0% Children and Adolescents <7.5% Source: [place] [employer]. Standards of medical care in diabetes,2017. Diabetes Care.2017:40 (suppl 1):S1-S135. us Lawrence Weeks MD LAB BLOOD ORDERABLES Final Re sult Performing Organization Address City/[facility]/ZIP Co de Phone Number [facility] [address] [place] [address] * XR Ankle Right 3+ Views (11/11/2024 [...] Mckinney MD on 11/11/2024 6:54 AM Richar B Centeno DO IMG XR PROCEDURES Final Resu lt * XR MSK OUTSIDE IMAGES (11/10/2024 9:22 PM EDT) Only the most recent of4 resultswithin the time period is included. Anatomical Region Laterality Modality Radiographic Randa ging 11/10/2024 9:22 PM EDT External Provider IMG XR PROCEDURES Final Result from Last 3 Months Insurance MEDICARE Advance Directives * Full Code (Latest Code Status on File) Date Activated Date Inactivated Comments 11/12/2024 4:36 PM 11/15/2024 5:08 PM Question Answer Comments I have reviewed the capacity from the link above and, if needed, have updated to appropriate status: Yes * Full Code Date Activated Date Inactivated Comments 11/11/2024 2:36 PM 11/12/2024 4:36 PM Question Answer Comments I have reviewed the capacity from the link above and, if needed, have updated to appropriate status: Yes * Full Code Date Activated Date Inactivated Comments 02/02/2022 11:16 AM 02/03/2022 1:06 PM Question Answer Comments Patient has decision-making capacity? Yes Care Teams Nutrient Management Specialist Relationship Specialty Start Date End Date Virgie Choi APRN [address] [place] [address] PCP - General 11/11/24 Yany Bruno MD [address] [place] [address] [place] [id number] Referring Physician 12/04/21
--- OUTSIDE RECORDS SUMMARY | 2024-12-23 14:00 | XMS_ITS | Encounter Summary ---
Author Organization Healthcare Address [address] [id number] Care Team Providers Care Meteorological Observer Name Role Phone Yany Bruno MD Unavailable [phone] Virgie Choi APRN Primary Care Provider [phone] Reason for Visit * Reason Onset Date Comments HCN - Patient Message 12/14/2024 Encounter Details Date Type Department Care Team ([facility] Contact Info) Description 12/14/2024 Telephone Medical Office Building Surgery Spine & Joint [address] [facility], [address] [place] [address] Prem Kohler MD [address] [place] [address] HCN - Patient Message Social History Tobacco Use Types Packs/Day Years [...] and Family Not on file 11/14/2024 Attends Denominational Services Not on file 11/14 Active Member [...] any time in the past 12 m [facility], were you homeless or living in a longterm (including now)? No 11/14/2024 [facility] Utilities Answer Date Recorded In the [...] on file documented as of this encounter Miscellaneous Notes * Telephone Encounter - Lashell Saab - 12/14/2024 8:37 AM EDT Clinical Concern/Question Reason for Call: Jose F patient. Kendra with [facility] calling, she is needing to speak with clinical staff NAZARIO regarding patient's pain. She is no longer able to bear any weight, and is stating it feels rubbery and like it will snap if she puts any weight on it. Please advise, patient is in tears due to pain severity Best contact number: Other: [phone] - ask to speak with Kendra at the [facility] Optimal time of day to reach caller: ANYTIME Additional comments/information from caller: None Note: Please do not reply to this message. Follow-up communication and further actions as a result of this message need to be communicated with the patient directly, if the patient is not active onMyChart. If the patient is active on MyChart, they will receive notification of the communication/outcome via MyChart. documented in this encounter Plan of Treatment Upcoming Encounters Date Type Department Care Team (Late st Contact Info) Description 12/26/2024 11:20 AM EDT Office Visit Medical Office Building Surgery Spine & Joint [address] [facility], [address] [place] [address] Prem Kohler MD [address] [place] [address] 02/06/2025 1:40 PM EST Office Visit Medical Office Building Surgery Spine & Joint [address], [address] [place] [address] Prem Kohler MD [address] [place] [address] 03/09/2025 12:30 PM EST Office Visit [facility] [address] [place] [address] Joanne Santoyo S, LIEUTENANT BALLIST[employer] [address] [place] [address] documented as of this encounter Visit Diagnoses Not on filedocumented in this encounter Additional Health Concerns Assessment Noted Time A fall risk assessment has been complete d for the patient 12/12/2024 11:28 AM EDT A Body Mass Index follow-up plan has been documented for the patient 12/12/2024 12:25 PM EDT documented as of this encounter Care Teams Meteorological Observer Relationship Specialty Start Date End Date Virgie Choi APRN [address] [place] [address] PCP - General 11/11/24 Yany Bruno MD On license of [facility] [address] [address] Referring Physician 12/04/21 documented as of this encounter
--- OUTSIDE RECORDS SUMMARY | 2024-12-23 14:00 | XMS_ITS | Referral Summary ---
Author Organization [employer] ([place], [place], [place], [place]) Address [address] [place] [address] Care Team Providers Care Logger Name Role Phone Unavailable Primary Care Provider Unavailabl e Social History Tobacco Use Types Packs/Day Years Used Date Smoking Tobacco: Never Assessed Comments Unknown Sex and Gender Information Value Date Recorded Sex Assigned at Not on file Legal Sex Female 8:22 AM CDT Gender Identity Not on file Sexual Orientation Not on file Plan of Treatment Not on file
--- OUTSIDE RECORDS SUMMARY | 2024-12-23 14:00 | XMS_ITS | Encounter Summary ---
Author Organization Healthcare Address [address] [place] [address] Care Team Providers Care Sales Administrator Name Role Phone Yany Bruno MD Unavailable [phone] Virgie Choi APRN Primary Care Provider [phone] Encounter Details Date Type Department Care Team (Latest Contact Info) Description 12/14/2024 Travel Social History Tobacco Use Types Packs/Day [...] and Family Not on file 11/14/2024 Attends Baptism Services Not on file 11/14 Active Member [...] any time in the past 12 m [facility], were you homeless or living in a intermediate (including now)? No 11/14/2024 [facility] Utilities Answer Date Recorded In the [...] Month) No 025 10:45 AM EDT Bernadette Dumas, ALVA 2. Non-Specific Active Suici clay Thoughts (Past 1 Month) No 12/14/2024 10:45 AM EDT Bernadette Dumas RN 6. Suicidal Behavior (Lifetime) No 10:45 AM EDT Bernadette Dumas RN documented as of this encounter Plan of Treatment Upcoming Encounters Date Type Department Care Team (Late st Contact Info) Description 12/26/2024 11:20 AM EDT Office Visit Medical Office Building Surgery Spine & Joint [address], [address] [place] [address] Prem Kohler MD [address] [place] [address] 02/06/2025 1:40 PM EST Office Visit Medical Office Building Surgery Spine & Joint [address], [address] [place] [address] Prem Kohler MD [address] [place] [address] 03/09/2025 12:30 PM EST Office Visit [facility] [address] [place] [address] CathayJoanne suero S, MANAGER VIDEO [address] [place] [address] documented as of this encounter Visit Diagnoses Not on filedocumented in this encounter Additional Health Concerns Assessment Noted Time A fall risk assessment has been complete d for the patient 12/12/2024 11:28 AM EDT A Body Mass Index follow-up plan has been documented for the patient 12/12/2024 12:25 PM EDT documented as of this encounter Care Teams Sales Administrator Relationship Specialty Start Date End Date Virgie ChoiDEVON [address] [place] [address] PCP - General 11/11/24 Yany Bruno MD [address] [address] Referring Physician 12/04/21 documented as of this encounter
--- OUTSIDE RECORDS SUMMARY | 2024-12-23 14:00 | XMS_ITS | Encounter Summary ---
Author Organization Healthcare Address [address] [id number] Care Team Providers Care Postal Inspector Name Role Phone Yany Bruno MD Unavailable [phone] Virgie Choi APRN Primary Care Provider [phone] Reason for Visit * Reason Onset Date Comments HCN - Patient Message 11/28/2024 Encounter Details Date Type Department Care Team ([facility] Contact Info) Description 11/28/2024 Telephone Medical Office Building Surgery Spine & Joint [address] [facility], [address] [place] [address] Prem Kohler MD [address] [place] [address] HCN - Patient Message Social [...] and Family Not on file 11/14/2024 Attends Yarsanism Services Not on file 11/14 Active Member [...] time in the past 12 m [facility], were you homeless or living in a half-way (including now)? No 11/14/2024 [facility] Utilities Answer Date Recorded In [...] encounter Miscellaneous Notes * Telephone Encounter - Jane Griffin RN - 11/29/2024 8:44 AM EDT Called and spoke with Ani in therapy as Norman was not there yet. Relayed Andrew's message. * Telephone Encounter - Valeriano Boyce - 11/28/2024 3:36 PM EDT Clinical Concern/Question Reason for Call: Cosme tapia/ brissa jeffery in [place] is asking to speak with a nurse to discuss patients care instructions after his consult with Dr Kohler today Best contact number: Other: [phone] ask for Cosme Gomez Optimal time of day to reach caller: ANYTIME Additional comments/information from caller: None Note: Please do not reply to this message. Follow-up communication and further actions as a result of this message need to be communicated with the patient directly, if the patient is not active onMyChart. If the patient is active on MyChart, they will receive notification of the communication/outcome via [employer]. documented in this encounter Plan of Treatment Upcoming Encounters Date Type Department Care Team ([facility] st Contact Info) Description 12/26/2024 11:20 AM EDT Office Visit Medical Office Building Surgery Spine & Joint [address] [facility], [address] [place] [address] Prem Kohler MD [address] [place] [address] 02/06/2025 1:40 PM EST Office Visit Medical Office Building Surgery Spine & Joint [address] [facility], [address] [place] [address] Prem Kohler MD [address] [place] [address] 03/09/2025 12:30 PM EST Office Visit [facility] [address] [place] [address] Joanne Santoyo S, AEROSPACE ENGINEER OFFICER [employer] [address] [place] [address] documented as of this encounter Visit Diagnoses Not on filedocumented in this encounter Additional Health Concerns Assessment Noted Time A fall risk assessment has been complete d for the patient 03/01/2024 1:36 PM EST A Body Mass Index follow-up plan has been documented for the patient 11/28/2024 11:23 AM EDT documented as of this encounter Care Teams Postal Inspector Relationship Specialty Start Date End Date Virgie Choi APRN [address] [place] [address] PCP - General 11/11/24 Yany Bruno MD [address] [place] [address] Referring Physician 12/04/21 documented as of this encounter
--- OUTSIDE RECORDS SUMMARY | 2024-12-23 14:00 | XMS_ITS | Encounter Summary ---
Author Organization Healthcare Address [address] [id number] Care Team Providers Care Children'S Author Name Role Phone Yany Bruno MD Unavailable [phone] Virgie Choi APRN Primary Care Provider [phone] Reason for Visit * Reason Onset Date Comments HCN - Patient Message 11/28/2024 Encounter Details Date Type Department Care Team ([facility] Contact Info) Description 11/28/2024 Telephone Medical Office Building Surgery Spine & Joint [address] [facility], [address] [place] [address] Prem Kohler MD [address] [place] [address] HCN - Patient Message Social [...] time in the past [address] [facility], were you homeless or living in a penitentiary (including now)? No 11/14/[address] [facility] Utilities Answer Date Recorded In the [...] encounter Miscellaneous Notes * Telephone Encounter - Tawanna Morrison - 11/29/2024 4:04 PM EDT Faxed * Telephone Encounter - Amrita Nava - 11/28/2024 3:03 PM EDT Paperwork/Documentation Request Patient Name: Dariana Howe Type: OV note 11/28/24 w/orders Due Date: unknown date Send To: [facility] (Attn: Noy) Best contact number: Other: [phone] Optimal time of day to reach caller: [...] Upcoming Encounters Date Type Department Care Team ([facility] st Contact Info) Description 12/26/2024 11:20 AM EDT Office Visit Medical Office Building Surgery Spine & Joint [address] [facility], [address] [place] [address] Prem Kohler MD [address] [facility] [address] [place] [address] 02/06/2025 1:40 PM EST Office Visit Medical Office Building Surgery Spine & Joint [address] [facility], [address] [place] [address] Prem Kohler MD [address] [place] [address] 03/09/2025 12:30 PM EST Office Visit [facility] [address] [place] [address] Joanne Santoyo, ROLL ICER MACHINE [address] [place] [address] documented as of this encounter Visit Diagnoses Not on filedocumented in this encounter Additional Health Concerns Assessment Noted Time A fall risk assessment has been complete d for the patient 03/01/2024 1:36 PM EST A Body Mass Index follow-up plan has been documented for the patient 11/28/2024 11:23 AM EDT documented as of this encounter Care Teams Children'S Author Relationship Specialty Start Date End Date Virgie Choi APRN [address] [place] [address] PCP - General 11/11/24 Yany Bruno MD [facility] [address] [address] Referring Physician 12/04/21 documented as of this encounter
--- OUTSIDE RECORDS SUMMARY | 2024-12-23 14:00 | XMS_ITS | Encounter Summary ---
Author Organization Healthcare Address [address] [place] [address] Care Team Providers Care Colored Liquid Plastic Applier Name Role Phone Yany Bruno MD Unavailable [phone] Virgie Choi APRN Primary Care Provider [phone] Encounter Details Date Type Department Care Team (Latest Contact Info) Description 12/19/2024 Travel Social History Tobacco Use Types Packs/Day [...] and Family Not on file 11/14/2024 Attends Catholic Services Not on file 11/14 Active Member [...] time in the past 12 m [facility], were you homeless or living in a long-term (including now)? No 11/14/2024 [facility] Utilities Answer Date Recorded In the [...] Joint [address], [address] [place] [address] Prem Kohler MD [address] [place] [address] 02/06/2025 1:40 PM EST Office Visit Medical Office Building Surgery Spine & Joint [address], [address] [place] [address] Prem Kohler MD [address] [facility] [address] [place] [address] 03/09/2025 12:30 PM EST Office Visit [facility] [address] [place] [address] Joanne Santoyo, GIFT SHOP CLERK [address] [place] [address] documented as of this encounter Visit Diagnoses Not on filedocumented in this encounter Additional Health Concerns Assessment Noted Time A fall risk assessment has been complete d for the patient 12/19/2024 10:27 AM EDT A Body Mass Index follow-up plan has been documented for the patient 12/19/2024 11:19 AM EDT documented as of this encounter Care Teams Colored Liquid Plastic Applier Relationship Specialty Start Date End Date Virgie Choi APRN [address] [place] [address] PCP - General 11/11/24 Yany Bruno MD [address] [place] [address] Referring Physician 12/04/21 documented as of this encounter
--- OUTSIDE RECORDS SUMMARY | 2024-12-23 14:00 | XMS_ITS | Clinical Summary ---
Author Organization [employer] ([place], [place], [place], [place]) Address [address] [place] [address] Care Team Providers Care District Or District Office Director Name Role Phone Unavailable Primary Care Provider [...] Pneumococcal 50+ years (2 of 2 - PCV20 or PCV21) 08/12/2017 08/12/2016 Falls Risk Screening 03/15/2024 COVID-19 VACCINE (3 - season) 11/13/202412/2020, 06/19/2020 Influenza Vaccine (#1) 2024 DTAP/TDAP/TD VACCINES (3 - Td or Tdap) 02/19/2025, 04/06/1997 Respiratory Syncytial Virus (RSV) Adult or (1 - 1-dose 75+ series) 2029
--- OUTSIDE RECORDS SUMMARY | 2024-12-23 14:00 | XMS_ITS | Encounter Summary ---
Author Organization Healthcare Address [address] [place] [address] Care Team Providers Care Lab Animal Technologist Name Role Phone Yany Bruno MD Unavailable [phone] Virgie Choi APRN Primary Care Provider [phone] Reason for Visit * Reason Onset Date Comments HCN - Patient Message 12/12/2024 Encounter Details Date Type Department Care Team ([facility] Contact Info) Description 12/12/2024 Telephone Medical Office Building Surgery Spine & Joint [address] [facility] [address], [address] [place] [address] Prem Kohler [address] [place] [address] HCN - Patient Message Social History Tobacco [...] and Family Not on file 11/14/2024 Attends Quaker Services Not on file 11/14 Active Member [...] any time in the past 12 m [facility], were you homeless or living in a skilled nursing (including now)? No 11/14/2024 [facility] Utilities Answer Date Recorded In [...] Telephone Encounter - Jane Griffin RN - 12/12/2024 2:50 PM EDT Called Danika and verified that she could remove the dressing tonight. I verified that was correct. No further questions. * Telephone Encounter - Aurora Guillen - 12/12/2024 2:37 PM EDT Clinical Concern/Question MELITON Reason for Call: Danika with [facility] calling to verify dressing instructions. Patient told them they can remove the bandage but Danika just wants to verify. Please call back to advise. Best contact number: Other: Danika with [facility] [phone] Optimal time of day to reach caller: ANYTIME Additional comments/information from caller: None Note: Please do not reply to this message. Follow-up communication and further actions as a result of this message need to be communicated with the patient directly, if the patient is not active onMyChart. If the patient is active on MyChart, they will receive notification of the communication/outcome via Revt. documented in this encounter Plan of Treatment Upcoming Encounters Date Type Department Care Team ([facility] st Contact Info) Description 12/26/2024 11:20 AM EDT Office Visit Medical Office Building Surgery Spine & Joint [address], [address] [place] [address] Prem Kohler MD [address] [facility] [address] [place] [address] 02/06/2025 1:40 PM EST Office Visit Medical Office Building Surgery Spine & Joint [address] [address], [address] [place] [address] Prem Kohler MD [address] [place] [address] 03/09/2025 12:30 PM EST Office Visit [facility] [address] [place] [address] Joanne Santoyo, AUTOMOBILE RADIATOR MECHANIC [address] [place] [address] documented as of this encounter Visit Diagnoses Not on filedocumented in this encounter Additional Health Concerns Assessment Noted Time A fall risk assessment has been complete d for the patient 12/12/2024 11:28 AM EDT A Body Mass Index follow-up plan has been documented for the patient 12/12/2024 12:25 PM EDT documented as of this encounter Care Teams Lab Animal Technologist Relationship Specialty Start Date End Date Virgie Choi APRN [address] [place] [address] PCP - General 11/11/24 Yany Bruno MD [facility] [address] [address] Referring Physician 12/04/21 documented as of this encounter
--- OUTSIDE RECORDS SUMMARY | 2024-12-23 14:00 | XMS_ITS | Encounter Summary ---
Author Organization [facility] Address [address] [place] [address] Care Team Providers Care Senior Environmental Technician Name Role Phone Yany Bruno MD Unavailable [phone] Virgie Choi APRN Primary Care Provider [phone] Encounter Details Date Type Department Care Team (Latest Contact Info) Description 11/28/2024 Travel Social History Tobacco Use Types Packs/Day [...] and Family Not on file 11/14/2024 Attends Orthodoxy Services Not on file 11/14 Active Member [...] any time in the past 12 m [facility], were you homeless or living in a long term (including now)? No 11/14/2024 [facility] Utilities Answer Date Recorded In the [...] Joint [address], [address] [place] [address] Prem Kohler MD [address] [place] [address] 02/06/2025 1:40 PM EST Office Visit Medical Office Building Surgery Spine & Joint [address], [address] [place] [address] Prem Kohler MD [address] [facility] [address] [place] [address] 03/09/2025 12:30 PM EST Office Visit [facility] [address] [place] [address] Joanne Santoyo, SEAMSTRESS FITTER [address] [facility] [address] [place] [address] documented as of this encounter Visit Diagnoses Not on filedocumented in this encounter Additional Health Concerns Assessment Noted Time A fall risk assessment has been complete d for the patient 03/01/2024 1:36 PM EST A Body Mass Index follow-up plan has been documented for the patient 11/28/2024 11:23 AM EDT documented as of this encounter Care Teams Senior Environmental Technician Relationship Specialty Start Date End Date Virgie Choi APRN [address] [place] [address] PCP - General 11/11/24 Yany Bruno MD [facility] [address] [address] Referring Physician 12/04/21 documented as of this encounter
--- OUTSIDE RECORDS SUMMARY | 2024-12-23 14:00 | XMS_ITS | Encounter Summary ---
Author Organization Healthcare Address [address] [place] [id number] Care Team Providers Care Primary School Teacher Name Role Phone Yany Bruno MD Unavailable [phone] Virgie Choi APRN Primary Care Provider [phone] Reason for Visit * Reason Onset Date Comments HCN - Patient Message 11/20/2024 Encounter Details Date Type Department Care Team ([facility] st Contact Info) Description 11/20/2024 Telephone Medical Office Building Surgery Spine & Joint [address] [facility], [address] [place] [address] Prem Kohler MD [address] [place] [address] HCN - Patient Message Social [...] and Family Not on file 11/14/2024 Attends Alevism Services Not on file 11/14 Active Member [...] any time in the past 12 m [facility], were you homeless or living in a jail (including now)? No 11/14/2024 [facility] Utilities Answer Date Recorded In the past [...] Telephone Encounter - Jane Griffin RN - 11/21/2024 10:23 AM EDT Called and spoke with Den. She stated that the patient's wound vac came off and she had a foamdressing over top. I told her that the provider was wanting an Aquacel. She was sent with one. I told them that can be left in place until her follow up. No further questions at this time. * Telephone Encounter - Teena Nuñez RN - 11/20/2024 4:10 PM EDT Attempted to call, VM left to call direct line. * Telephone Encounter - Amrita Nava - 11/20/2024 2:52 PM EDT Clinical Concern/Question Reason for Call: Jose F Will /[facility] is calling asking to speak with a nurse regarding bandage question Best contact number: Other: [phone], Den Optimal time of day to reach caller: ANYTIME Additional comments/information from caller: I sent a SM, but no one was available to take the call. Note: Please do not reply to this message. Follow-up communication and further actions as a result of this message need to be communicated with the patient directly, if the patient is not active onMyChart. If the patient is active on MyChart, they will receive notification of the communication/outcome via PPTVt. documented in this encounter Plan of Treatment Upcoming Encounters Date Type Department Care Team ([facility] Contact Info) Description 12/26/2024 11:20 AM EDT Office Visit Medical Office Building Surgery Spine & Joint [address], [address] [place] [address] Prem Kohler MD [address] [facility] [address] [place] [address] 02/06/2025 1:40 PM EST Office Visit Medical Office Building Surgery Spine & Joint [address], [address] [place] [address] Prem Kohler MD [address] [facility] [address] [place] [address] 03/09/2025 12:30 PM EST Office Visit [facility] [address] [place] [address] MoultrieJoanne suero S, CURATORIAL SPECIALIST [address] [facility] [facility] [address] [place] [address] documented as of this encounter Visit Diagnoses Not on filedocumented in this encounter Additional Health Concerns Assessment Noted Time A fall risk assessment has been complete d for the patient 03/01/2024 1:36 PM EST A Body Mass Index follow-up plan has been documented for the patient 11/15/2024 11:09 AM EDT documented as of this encounter Care Teams Primary School Teacher Relationship Specialty Start Date End Date Virgie Choi APRN [address] [place] [address] PCP - General 11/11/24 Yany Bruno MD [address] [place] [address] Referring Physician 12/04/21 documented as of this encounter
--- OUTSIDE RECORDS SUMMARY | 2024-12-23 14:00 | XMS_ITS | Encounter Summary ---
Author Organization Healthcare Address [address] [id number] Care Team Providers Care Meteorological Observer Name Role Phone Yany Bruno MD Unavailable [phone] Virgie Choi APRN Primary Care Provider [phone] Reason for Visit * Reason Onset Date Comments HCN - Patient Message 12/22/2024 Encounter Details Date Type Department Care Team ([facility] st Contact Info) Description 12/22/2024 Telephone Medical Office Building Surgery Spine & Joint [address] [facility], [address] [place] [address] Prem Kohler MD [address] [place] [address] HCN - Patient Message Social [...] and Family Not on file 11/14/2024 Attends Shinto Services Not on file 11/14 Active Member [...] any time in the past 12 m [facility], were you homeless or living in a group home (including now)? No 11/14/2024 [facility] Utilities Answer Date Recorded In the [...] encounter Miscellaneous Notes * Telephone Encounter - Teena Nuñez RN - 12/22/2024 12:22 PM EDT Appointment scheduled, Valentina [facility] aware. They will set up transportation. Instructed to arrive 20 minutes early for registration and/or xray if needed. * Telephone Encounter - Teena Nuñez RN - 12/22/2024 12:10 PM EDT Valentina at [facility] notified of instructions. Instructed to call if no improvement or worsening symptoms. * Telephone Encounter - Valeriano Boyce - 12/22/2024 11:21 AM EDT Clinical Concern/Question Reason for Call: [facility] with [facility] nurse about her concerns with [place] patients surgery site, says she is worried it is infected. Best contact number: Other: [phone] Optimal time of day to reach caller: [...] Joint [address], [address] [place] [address] Prem Kohler MD [address] [place] [address] 02/06/2025 1:40 PM EST Office Visit Medical Office Building Surgery Spine & Joint [address], [address] [place] [address] Prem Kohler MD [address] [place] [address] 03/09/2025 12:30 PM EST Office Visit [facility] [address] [place] [address] Joanne Santoyo, TIG WELDER [address] [place] [address] documented as of this encounter Visit Diagnoses [...] Date End Date Virgie Choi APRN [address] [place] [address] PCP - General 11/11/24 Yany Bruno MD [facility] [address] [address] Referring Physician 12/04/21 documented as of this encounter
--- OUTSIDE RECORDS SUMMARY | 2024-12-23 14:00 | XMS_ITS | Encounter Summary ---
Author Organization Healthcare Address [address] [place] [address] Care Team Providers Care Parimutuel Clerk Name Role Phone Yany Bruno MD Unavailable Virgie Choi APRN Primary Care Provider [phone] Encounter Details Date Type Department Care Team (Latest Contact Info) Description 12/12/2024 Travel Social History Tobacco Use Types Packs/Day [...] and Family Not on file 11/14/2024 Attends Yarsani Services Not on file 11/14 Active Member [...] any time in the past 12 m [facility], were you homeless or living in a fci (including now)? No 11/14/2024 [facility] Utilities Answer Date Recorded In the [...] Joint [address], [address] [place] [address] Prem Kohler MD [address] [place] [address] 02/06/2025 1:40 PM EST Office Visit Medical Office Building Surgery Spine & Joint [address], [address] [place] [address] Prem Kohler MD [address] [facility] [address] [place] [address] 03/09/2025 12:30 PM EST Office Visit [facility] [address] [place] [address] Joanne Santoyo, SLURRY BLENDER [address] [place] [address] documented as of this encounter Visit Diagnoses Not on filedocumented in this encounter Additional Health Concerns Assessment Noted Time A fall risk assessment has been complete d for the patient 12/12/2024 11:28 AM EDT A Body Mass Index follow-up plan has been documented for the patient 12/12/2024 12:25 PM EDT documented as of this encounter Care Teams Parimutuel Clerk Relationship Specialty Start Date End Date Virgie Choi APRN [address] [place] [address] PCP - General 11/11/24 Yany Bruno MD [address] [place] [address] Referring Physician 12/04/21 documented as of this encounter
--- OUTSIDE RECORDS SUMMARY | 2024-12-23 14:00 | XMS_ITS | Encounter Summary ---
Author Organization Healthcare Address [address] [id number] Care Team Providers Care Dumper [employer] Name Role Phone Yany Bruno MD Unavailable [phone] Virgie Choi APRN Primary Care Provider [phone] Reason for Visit * Reason Onset Date Comments HCN - Patient Message 12/14/2024 Encounter Details Date Type Department Care Team ([facility] Contact Info) Description 12/14/2024 Telephone Medical Office Building Surgery Spine & Joint [address] [facility], [address] [place] [address] Prem Kohler MD [address] [place] [address] HCN - Patient Message Social [...] and Family Not on file 11/14/2024 Attends Scientologist Services Not on file 11/14 Active Member [...] in a half-way (including now)? No 11/14/2024 [facility] Utilities Answer Date Recorded In [...] encounter Miscellaneous Notes * Telephone Encounter - Precious Osborne - 12/14/2024 9:51 AM EDT Faxed * Telephone Encounter - Lashell Saab - 12/14/2024 8:40 AM EDT Paperwork/Documentation Request Patient Name: Dariana Howe Type: 12/12 clinic notes Due Date: unknown date Send To: Kendra with [facility] at [phone] with attn to [facility] Best contact number: Other: [phone] - ask for Kendra in the [facility] Optimal time of day to reach caller: ANYTIME Additional comments/information from caller: None Note: Please do not reply to this message. Follow-up communication and further actions as a result of this message need to be communicated with the patient directly, if the patient is not active onMyChart. If the patient is active on MyChart, they will receive notification of the communication/outcome via Pavlokhart. documented in this encounter Plan of Treatment Upcoming Encounters Date Type Department Care Team ([facility] st Contact Info) Description 12/26/2024 11:20 AM EDT Office Visit Medical Office Building Surgery Spine & Joint [address], [address] [place] [address] Prem Kohler MD [address] [facility] [address] [place] [address] 02/06/2025 1:40 PM EST Office Visit Medical Office Building Surgery Spine & Joint [address] [facility], [address] [place] [address] Prem Kohler MD [address] [place] [address] 03/09/2025 12:30 PM EST Office Visit [facility] [address] [place] [address] Joanne Santoyo S, CONVENTIONAL MORTGAGE UNDERWRITER [address] [place] [address] documented as of this encounter Visit Diagnoses Not on filedocumented in this encounter Additional Health Concerns Assessment Noted Time A fall risk assessment has been complete d for the patient 12/12/2024 11:28 AM EDT A Body Mass Index follow-up plan has been documented for the patient 12/12/2024 12:25 PM EDT documented as of this encounter Care Teams Dumper [employer] Relationship Specialty Start Date End Date Virgie Choi APRN [address] [place] [address] PCP - General 11/11/24 Yany Bruno MD [address] [place] [address] Referring Physician 12/04/21 documented as of this encounter
[2024-12-23 14:07] LABS: Microscopic, Urine URINE MICROSCOPIC (MICROSCOPIC)
[2024-12-23 14:16] LABS: Bilirubin,Urine Negative (Negative); Color,Urine YELLOW (Yellow); Glucose,Urine (UA) Negative (Negative); Ketones,Urine Negative (Negative); Leukocyte Esterase,Urine 1+ (Negative); PH,Urine 5.0 (5.0-8.5); Protein,Urine Negative (Negative); Specific Gravity, Urine 1.025 (1.005-1.030); Urobilinogen,Urine 0.2 EU/dl (0.2)
[2024-12-23 14:37] LABS: Bacteria,Urine 3+ /lpf; RBC,Urine Occasional #/hpf (0-3)
== END 2024-12-23 23:59 | disposition home or self-care (01) ==
LOC: LAB 13:56 → LAB.DROPOF 14:01
PROVIDERS: Visit Provider Family Medicine Hospice and Palliative Medicine
DX: M54.50 Low back pain, unspecified (principal); R50.9 Fever, unspecified; R35.0 Frequency of micturition; R30.0 Dysuria
CPT/HCPCS: 81001; 87086